=== PATIENT | male | born 1990 | race Caucasian/White ===

== ENCOUNTER 2025-04-07 00:03 | Inpatient (IN) | payer OTHER, SELFPAY ==
--- OUTSIDE RECORDS SUMMARY | 2025-04-07 00:09 | XMS_ITS | Encounter Summary ---
Author Organization [employer] [facility] Address [address] [place] [address] [place] [address] Care Team Providers Care Fire Management Officer Name Role Phone Luis Fernando Chavez MD Primary Care Provider [phone] Vero Mcnair Unavailable Yaquelin [place] RN Unavailable Unavailable Denisse Unger Unavailable ConnellyClaudia jarquinha [facility] Unavailable [phone] Rajesh Mancera [facility] Unavailable [phone] Reason for Visit * Reason Comments Med Refill Encounter Details Date Type Department Care Team (Late st Contact Info) Description 11/16/2022 Refill [facility] MAIN ADULT [address] [place] [address] Luis Fernando Chavez MD [address] [place] [address] Nausea Social History Tobacco Use Types Packs/Day Years Used Date Smoking Tobacco: Every Day Cigarettes Alcohol Use Standard Drinks/Week Comments Not Currently 0 (1 standard drink = 0.6 oz pur e alcohol) PHQ-2 Answer Date Recorded Patient Health Questionnaire-2 Score 0 08/22/2022 Depression Answer Date Recorded Patient Health Questionnaire-2 Score 0 08/22/2022 Sex and Gender Information Value Date Recorded Sex Assigned at Male 05/27/2022 2:14 PM EDT Legal Sex Male 2:14 PM EDT Gender Identity Male 05/27/2022 2:14 PM EDT Sexual Orientation Straight 03/11/2024 5: 59 PM EDT documented as of this encounter Plan of Treatment Upcoming Encounters Date Type Department Care Team (Late st Contact Info) Description 04/17/2025 1:20 PM EDT Office Visit [facility] MAIN ADULT [address] [place] [address] Luis Fernando Chavez MD [address] [place] [address] 04/28/2025 9:55 AM EDT Office Visit [facility] MAIN ADULT [address] [place] [address] Luis Fernando Chavez MD [address] [place] [address] documented as of this encounter Visit Diagnoses Diagnosis Nausea Nausea alone documented in this encounter Care Teams Fire Management Officer Relationship Specialty Start Date End Date Luis Fernando Chavez MD [address] [place] [address] PCP - General 07/27/21 Vero Mcnair Community Health Worker Behavioral Health 02/19/23 Yaquelin [place], RN Registered Nurse 05/03/24 Denisse Unger [address] [place] [address] Welcome Desk Agent Behavioral Health 01/31/25 02/28/25 Ethel Connelly, [facility] Welcome Desk Agent Behavioral Health 03/10/25 03/10/25 Rajesh Mancera, [facility] Welcome Desk Agent Behavioral Health 03/31/25 03/31/25 [facility] Registered Nurse 05/06/24 jordyn Grewal 01/18/25 documented as of this encounter
--- OUTSIDE RECORDS SUMMARY | 2025-04-07 00:09 | XMS_ITS | Encounter Summary ---
Author Organization [employer] [facility] Address [address] [place] [address] [place] [address] Care Team Providers Care Waste Management Specialist Name Role Phone Luis Fernando Chavez MD Primary Care Provider [phone] Vero Mcnair Unavailable Yaquelin [place] RN Unavailable Unavailable Denisse Unger Unavailable ConnellyClaudiaha [facility] Unavailable [phone] Rajesh Mancera [facility] Unavailable [phone] Reason for Visit * Reason Comments Med Refill Encounter Details Date Type Department Care Team (Late st Contact Info) Description 11/24/2022 Refill [facility] MAIN ADULT [address] [place] [address] Luis Fernando Chavez MD [address] [place] [address] Chronic bilateral low back pain with bilateral sciatica Social History Tobacco Use Types Packs/Day Years [...] PM EDT documented as of this encounter Miscellaneous Notes * Telephone Encounter - Luis Fernando Chavez MD - 11/24/2022 12:45 PM EDT Med already refilled documented in this encounter Plan of Treatment Upcoming Encounters Date Type Department Care Team (Late st Contact Info) Description 04/17/2025 1:20 PM EDT Office Visit [facility] MAIN ADULT [address] [place] [address] Luis Fernando Chavez MD [address] [place] [address] 04/28/2025 9:55 AM EDT Office Visit [facility] MAIN ADULT [address] [place] [address] Luis Fernando Chavez MD [address] [place] [address] documented as of this encounter Visit Diagnoses Diagnosis Chronic bilateral low back pain with bilateral sciatica documented in this encounter Care Teams Waste Management Specialist Relationship Specialty Start Date End Date Luis Fernando Chavez MD [address] [place] [address] PCP - General 07/27/21 Vero Mcnair Community Health Worker Behavioral Health 02/19/23 Yaquelin [place], RN Registered Nurse 05/03/24 Denisse Unger [address] [place] [address] Remarketing Manager Behavioral Health 01/31/25 02/28/25 Ethel Connelly, [facility] Remarketing Manager Behavioral Health 03/10/25 03/10/25 Rajesh Mancera, SONYA Remarketing Manager Behavioral Health 03/31/25 03/31/25 [facility] Registered Nurse 05/06/24 jordyn blackwood Vendor 01/18/25 documented as of this encounter
--- OUTSIDE RECORDS SUMMARY | 2025-04-07 00:09 | XMS_ITS | Encounter Summary ---
Author Organization [employer] [facility] Address [address] [place] [address] [place] [address] Care Team Providers Care Meat And Seafood Clerk Name Role Phone Luis Fernando Chavez MD Primary Care Provider [phone] Vero Mcnair Unavailable Yaquelin [place] RN Unavailable Unavailable Denisse Unger Unavailable ConnellyClaudiaha [facility] Unavailable [phone] Rajesh Mancera [facility] Unavailable [phone] Reason for Visit * Reason Comments Med Refill Encounter Details Date Type Department Care Team (Late st Contact Info) Description 11/27/2022 Refill [facility] MAIN ADULT [address] [place] [address] Luis Fernando Chavez MD [address] [place] [address] Chronic bilateral low back pain with bilateral [...] Encounter - Luis Fernando Chavez MD - 11/28/2022 8:15 AM EDT Med already refilled documented in this encounter Plan of Treatment Upcoming Encounters Date Type Department Care Team (Late st Contact Info) Description 04/17/2025 1:20 PM EDT Office Visit [facility] MAIN ADULT [address] [place] [address] Luis Fernando Chavez MD [address] [place] [address] 04/28/2025 9:55 AM EDT Office Visit [facility] MAIN ADULT [address] [place] [address] Luis Fernando Chavez MD [address] [place] [address] documented as of this encounter Visit Diagnoses Diagnosis Chronic bilateral low back pain with bilateral sciatica documented in this encounter Care Teams Meat And Seafood Clerk Relationship Specialty Start Date End Date Luis Fernando Chavez MD [address] [place] [address] PCP - General 07/27/21 Vero Mcnair Community Health Worker Behavioral Health 02/19/23 Yaquelin [place], RN Registered Nurse 05/03/24 Denisse Unger [address] [place] [address] Stevedoring Supervisor Behavioral Health 01/31/25 02/28/25 Ethel Connelly, [facility] Stevedoring Supervisor Behavioral Health 03/10/25 03/10/25 Rajesh Mancera, SONYA Stevedoring Supervisor Behavioral Health 03/31/25 03/31/25 [facility] Registered Nurse 05/06/24 jordyn blackwood Vendor 01/18/25 documented as of this encounter
--- OUTSIDE RECORDS SUMMARY | 2025-04-07 00:09 | XMS_ITS | Encounter Summary ---
Author Organization [employer] Address [address] [place] [address] 7 [place] [address] Care Team Providers Care Deaf/Hard Of Hearing Specialist Name Role Phone Luis Fernando Chavez MD Primary Care Provider [phone] Yaquelin [place] RN Unavailable Unavailable Denisse Unger Unavailable Ethel Connelly BLOCK BOLTER MULE OPERATOR Unavailable [phone] Rajesh Mancera LIQUOR ESTABLISHMENT MANAGER Unavailable Reason for Visit * Reason Comments Med Refill Encounter Details Date Type Department Care Team (Late st Contact Info) Description 09/08/2023 Refill [facility] MAIN ADULT [address] [place] [address] Luis Fernando Chavez MD [address] [place] [address] Social History Tobacco Use Types Packs/Day Years Used Date Smoking Tobacco: Every Day Cigarettes Alcohol Use Standard Drinks/Week Comments Not Currently 0 (1 standard drink = 0.6 oz pur e alcohol) PHQ-2 Answer Date Recorded Patient Health Questionnaire-2 Score 0 08/22/2022 Housing Stability Answer Date Recorded What is your housing situation today? I have lorenzo pizarro 05/11/[address] you li ve. Do you have problems with any of the following? I am not sure 05/11/2023 Food Insecurity Answer Date Recorded Within the past 12 months, y ou worried that your food would run out before you got money to buy more: Often true 05/11/2023 Within the past 12 months,th e food you bought just didn't last and you didn't have enough money to get more: Often true Transportation Answer Date Recorded In the past 12 months, has l ack of transportation kept you from medical appts, meetings, work or from getting things needed for daily living? I am not sure 05/11/2023 Utilities Answer Date Recorded In the past 12 months, has t he electric, gas, oil or water company threatened to shut off services in your home? I am not sure 05/11/2023 Depression Answer Date Recorded Patient Health Questionnaire-2 Score 0 08/22/2022 Sex and Gender Information Value Date Recorded Sex Assigned at Male 05/27/2022 2:14 PM EDT Legal Sex Male 2:14 PM EDT Gender Identity Male 05/27/2022 2:14 PM EDT Sexual Orientation Straight 03/11/2024 5: 59 PM EDT documented as of this encounter Miscellaneous Notes * Telephone Encounter - Luis Fernando Chavez MD - 09/08/2023 5:11 PM EST Approving, but needs appt for additional refills. documented in this encounter Plan of Treatment Upcoming Encounters Date Type Department Care Team (Late st Contact Info) Description 04/17/2025 1:20 PM EDT Office Visit [facility] MAIN ADULT [address] [place] [address] Luis Fernando Chavez MD [address] [place] [address] 04/28/2025 9:55 AM EDT Office Visit [facility] MAIN ADULT [address] [place] [address] Luis Fernando Chavez MD [address] [place] [address] documented as of this encounter Visit Diagnoses Not on filedocumented in this encounter Care Teams Deaf/Hard Of Hearing Specialist Relationship Specialty Start Date End Date Luis Fernando Chavez MD [address] [place] [address] PCP - General 07/27/21 Yaquelin [place], RN Registered Nurse 05/03/24 Denisse Unger [address] [place] [address] Back Digger Operator Behavioral Health 01/31/25 02/28/25 Ethel Connelly, [facility] Back Digger Operator Behavioral Health 03/10/25 03/10/25 Rajesh Mancera, [facility] Back Digger Operator Behavioral Health 03/31/25 03/31/25 [facility] Registered Nurse 05/06/24 jordyn Grewal 01/18/25 documented as of this encounter
--- OUTSIDE RECORDS SUMMARY | 2025-04-07 00:09 | XMS_ITS | Encounter Summary ---
Author Organization [employer] Address [address] [place] [address] 7 [place] [address] Care Team Providers Care Evidence Technician Name Role Phone Luis Fernando Chavez MD Primary Care Provider [phone] Yaquelin [place] RN Unavailable Unavailable Dneisse Unger Unavailable Ethel Connelly OCCUPATIONAL SAFETY AND HEALTH MANAGER Unavailable [phone] Rajesh Mancera GRADUATE TEACHING ASSOCIATE Unavailable [phone] Reason for Visit * Reason Comments Med Refill Encounter Details Date Type Department Care Team (Late st Contact Info) Description 09/01/2023 Refill [facility] MAIN ADULT [address] [place] [address] Luis Fernando Chavez MD [address] [place] [address] Social History Tobacco Use Types Packs/Day Years [...] encounter Miscellaneous Notes * Telephone Encounter - Yudelka Patel RN - 09/01/2023 12:18 PM EST Prescription already ordered. documented in this encounter Plan of Treatment Upcoming Encounters Date Type Department Care Team (Late st Contact Info) Description 04/17/2025 1:20 PM EDT Office Visit [facility] MAIN ADULT [address] [place] [address] Luis Fernando Chavez MD [address] [place] [address] 04/28/2025 9:55 AM EDT Office Visit [facility] MAIN ADULT [address] [place] [address] Luis Fernando Chavez MD [address] [place] [address] documented as of this encounter Visit Diagnoses Not on filedocumented in this encounter Care Teams Evidence Technician Relationship Specialty Start Date End Date Luis Fernando Chavez MD [address] [place] [address] PCP - General 07/27/21 Yaquelin [place], RN Registered Nurse 05/03/24 Denisse Unger [address] [place] [address] Mobile Sales Consultant Behavioral Health 01/31/25 02/28/25 Ethel Connelly, [facility] Mobile Sales Consultant Behavioral Health 03/10/25 03/10/25 Rajesh Mancera, [facility] Mobile Sales Consultant Behavioral Health 03/31/25 03/31/25 [facility] Registered Nurse 05/06/24 jordyn Grewal 01/18/25 documented as of this encounter
--- OUTSIDE RECORDS SUMMARY | 2025-04-07 00:09 | XMS_ITS | Encounter Summary ---
Author Organization [employer] Address [address] [place] [address] 7 [place] [address] Care Team Providers Care Process Environmental Technician Name Role Phone Luis Fernando Chavez MD Primary Care Provider [phone] Yaquelin [place] RN Unavailable Unavailable Denisse Unger Unavailable Ethel Connelly MILITARY PAY TECHNICIAN Unavailable [phone] Rajesh Mancera MEDICAL PRACTICE MANAGER Unavailable [phone] Reason for Visit * Reason Comments Med Refill Encounter Details Date Type Department Care Team (Late st Contact Info) Description 09/27/2023 Refill [facility] MAIN ADULT [address] [place] [address] Luis Fernando Chavez MD [address] [place] [address] Nausea Social History Tobacco Use Types Packs/Day [...] Encounter - Luis Fernando Chavez MD - 09/27/2023 6:55 PM EST Approving, but needs appt for additional refills. documented in this encounter Plan of Treatment Upcoming Encounters Date Type Department Care Team (Late st Contact Info) Description 04/17/2025 1:20 PM EDT Office Visit [facility] MAIN ADULT [address] [place] [address] Luis Fernando Chavez MD [address] [place] [address] 04/28/2025 9:55 AM EDT Office Visit [facility] MAIN ADULT [address] [place] [address] Luis Fernando Chavez MD [address] [place] [address] documented as of this encounter Visit Diagnoses Diagnosis Nausea Nausea alone documented in this encounter Care Teams Process Environmental Technician Relationship Specialty Start Date End Date Luis Fernando Chavez MD [address] [place] [address] PCP - General 07/27/21 Yaquelin [place], RN Registered Nurse 05/03/24 Denisse Unger [address] [place] [address] Drill Hand Behavioral Health 01/31/25 02/28/25 Ethel Connelly, [facility] Drill Hand Behavioral Health 03/10/25 03/10/25 Rajesh Mancera, [facility] Drill Hand Behavioral Health 03/31/25 03/31/25 [facility] Registered Nurse 05/06/24 jordyn Grewal 01/18/25 documented as of this encounter
--- OUTSIDE RECORDS SUMMARY | 2025-04-07 00:09 | XMS_ITS | Encounter Summary ---
Author Organization [employer] Address [address] [facility] 7 [place] [address] Care Team Providers Care Cathode Builder Name Role Phone Luis Fernando Chavez MD Primary Care Provider [phone] Yaquelin [place] RN Unavailable Unavailable Denisse Unger Unavailable Ethel Connelly PODIATRIC AIDE Unavailable [phone] Rajesh Mancera GRADING MACHINE FEEDER Unavailable [phone] Reason for Visit * Reason Onset Date Comments Med Refill 11/05/2023 Encounter Details Date Type Department Care Team (Late st Contact Info) Description 11/05/2023 Refill BN MAIN ADULT [address] [place] [address] Luis Fernando Chavez MD [address] [place], [place] [id number] Chronic bilateral low back pain without sciatica Social History Tobacco Use Types Packs/Day [...] Encounter - Luis Fernando Chavez MD - 11/05/2023 10:55 AM EDT Approving, but needs appt for additional refills. documented in this encounter Plan of Treatment Upcoming Encounters Date Type Department Care Team (Late st Contact Info) Description 04/17/2025 1:20 PM EDT Office Visit [facility] MAIN ADULT [address] [place] [address] Luis Fernando Chavez MD [address] [place] [address] 04/28/2025 9:55 AM EDT Office Visit [facility] MAIN ADULT [address] [place] [address] Luis Fernando Chavez MD [address] [place] [address] documented as of this encounter Visit Diagnoses Diagnosis Chronic bilateral low back pain without sciatica documented in this encounter Care Teams Cathode Builder Relationship Specialty Start Date End Date Luis Fernando Chavez MD [address] [place] [address] PCP - General 07/27/21 Yaquelin [place], RN Registered Nurse 05/03/24 Denisse Unger [address] [place] [address] Parts Counter Representative Behavioral Health 01/31/25 02/28/25 Ethel Connelly, [facility] Parts Counter Representative Behavioral Health 03/10/25 03/10/25 Rajesh Mancera, [facility] Parts Counter Representative Behavioral Health 03/31/25 03/31/25 [facility] Registered Nurse 05/06/24 jordyn Grewal 01/18/25 documented as of this encounter
--- OUTSIDE RECORDS SUMMARY | 2025-04-07 00:09 | XMS_ITS | Encounter Summary ---
Author Organization [employer] Address [address] [place] [address] 7 [place] [address] Care Team Providers Care Instrument Setter Name Role Phone Luis Fernando Chavez MD Primary Care Provider [phone] Yaquelin [place] RN Unavailable Unavailable Denisse Unger Unavailable Ethel Connelly VP CONSTRUCTION Unavailable [phone] Rajesh Mancera QUALITY ASSURANCE/R&D LAB TECHNICIAN Unavailable [phone] Reason for Visit * Reason Comments Med Refill Encounter Details Date Type Department Care Team (Late st Contact Info) Description 10/04/2023 Refill [facility] MAIN ADULT [address] [place] [address] Luis Fernando Chavez MD [address] [place] [address] Chronic bilateral low back pain with bilateral sciatica; Chronic bilateral low back pain without sciatica [...] Encounter - Luis Fernando Chavez MD - 10/07/2023 12:20 PM EDT Approving, but needs appt for additional refills. * Telephone Encounter - Ellen [place] - 10/07/2023 11:13 AM EDT Pt called to check the status of med refill request for ( Tramadol 50 MG ). Please advise . * Telephone Encounter - Yasmin Razo LPN - 10/06/2023 12:29 PM EDT PA for Pregabalin 300mg has been approval. Notification received today by email. MARY # [id number]. * Telephone Encounter - Yudelka Patel RN - 10/05/2023 11:48 AM EDT Message was sent to front office to request that they contact the patient to schedule a PCP visit for future refills. * Telephone Encounter - Luis Fernando Chavez MD - 10/04/2023 9:32 PM EDT Approving, but needs appt for additional refills. documented in this encounter Plan of Treatment Upcoming Encounters Date Type Department Care Team (Late st Contact Info) Description 04/17/2025 1:20 PM EDT Office Visit [facility] MAIN ADULT [address] [place] [address] Luis Fernando Chavez MD [address] [place] [address] 04/28/2025 9:55 AM EDT Office Visit [facility] MAIN ADULT [address] [place] [address] Luis Fernando Chavez MD [address] [place] [address] documented as of this encounter Visit Diagnoses Diagnosis Chronic bilateral low back pain with bilateral sciatica Chronic bilateral low back pain without sciatica documented in this encounter Care Teams Instrument Setter Relationship Specialty Start Date End Date Luis Fernando Chavez MD [address] [place] [address] PCP - General 07/27/21 Yaquelin [place], RN Registered Nurse 05/03/24 Denisse Unger [address] [place] [address] Curriculum Consultant Behavioral Health 01/31/25 02/28/25 Ethel Connelly, [facility] Curriculum Consultant Behavioral Health 03/10/25 03/10/25 Rajesh Mancera, QUALITY ASSURANCE/R&D LAB TECHNICIAN Curriculum Consultant Behavioral Health 03/31/25 03/31/25 [facility] Registered Nurse 05/06/24 jordyn blackwood Vendor 01/18/25 documented as of this encounter
--- OUTSIDE RECORDS SUMMARY | 2025-04-07 00:09 | XMS_ITS | Encounter Summary ---
Author Organization [employer] Address [address] [place] [address] 7 [place] [address] Care Team Providers Care Insurance Collector Name Role Phone Luis Fernando Chavez MD Primary Care Provider [phone] Yaquelin [place] RN Unavailable Unavailable Denisse Unger Unavailable Ethel Connelly COPYING MACHINE MECHANIC Unavailable [phone] Rajesh Mancera COOK HELPER PRESERVES Unavailable [phone] Reason for Visit * Reason Comments Med Refill Encounter Details Date Type Department Care Team (Late st Contact Info) Description 09/30/2023 Refill [facility] MAIN ADULT [address] [place] [address] Luis Fernando Chavez MD [address] [place] [address] Chronic bilateral low back pain with bilateral [...] Encounter - Luis Fernando Chavez MD - 09/30/2023 9:51 AM EST Med already refilled documented in this encounter Plan of Treatment Upcoming Encounters Date Type Department Care Team (Late st Contact Info) Description 04/17/2025 1:20 PM EDT Office Visit [facility] MAIN ADULT [address] [place] [address] Luis Fernando Chavez MD [address] [place] [address] 04/28/2025 9:55 AM EDT Office Visit [facility] MAIN ADULT [address] [place] [address] Luis Fernando Chavez MD [address] [place] [address] documented as of this encounter Visit Diagnoses Diagnosis Chronic bilateral low back pain with bilateral sciatica documented in this encounter Care Teams Insurance Collector Relationship Specialty Start Date End Date Luis Fernando Chavez MD [address] [place] [address] PCP - General 07/27/21 Yaquelin [place], RN Registered Nurse 05/03/24 Denisse Unger [address] [place] [address] Change Consultant Behavioral Health 01/31/25 02/28/25 Ethel Connelly, [facility] Change Consultant Behavioral Health 03/10/25 03/10/25 Rajesh Mancera, [facility] Change Consultant Behavioral Health 03/31/25 03/31/25 [facility] Registered Nurse 05/06/24 jordyn Grewal 01/18/25 documented as of this encounter
--- OUTSIDE RECORDS SUMMARY | 2025-04-07 00:09 | XMS_ITS | Encounter Summary ---
Author Organization [employer] Address [address] [place] [address] 7 [place] [address] Care Team Providers Care Communications Planner Name Role Phone Luis Fernando Chavez MD Primary Care Provider [phone] Yaquelin Stoddard RN Unavailable Unavailable Denisse Unger Unavailable Ethel Connelly DIRECTOR LEARNING Unavailable [phone] Rajesh Mancera INDUSTRIAL RELATIONS COUNSELOR Unavailable [phone] Reason for Visit * Reason Comments Med Refill Encounter Details Date Type Department Care Team (Late st Contact Info) Description 09/07/2023 Refill [facility] MAIN ADULT [address] [place] [address] Luis Fernando Chavez MD [address] [place] [address] Chronic bilateral low back pain with bilateral [...] Encounter - Luis Fernando Chavez MD - 09/07/2023 7:23 PM EST Approving, but needs appt for additional refills. documented in this encounter Plan of Treatment Upcoming Encounters Date Type Department Care Team (Late st Contact Info) Description 04/17/2025 1:20 PM EDT Office Visit [facility] MAIN ADULT [address] [place] [address] Luis Fernando Chavez MD [address] [place] [address] 04/28/2025 9:55 AM EDT Office Visit [facility] MAIN ADULT [address] [place] [address] Luis Fernando Chavez MD [address] [place] [address] documented as of this encounter Visit Diagnoses Diagnosis Chronic bilateral low back pain with bilateral sciatica documented in this encounter Care Teams Communications Planner Relationship Specialty Start Date End Date Luis Fernando Chavez MD [address] [place] [address] PCP - General 07/27/21 Yaquelin Stoddard, RN Registered Nurse 05/03/24 Denisse Unger [address] [place] [address] Anesthesiologist Behavioral Health 01/31/25 02/28/25 Ethel Connelly, [facility] Anesthesiologist Behavioral Health 03/10/25 03/10/25 Rajesh Mancera, [facility] Anesthesiologist Behavioral Health 03/31/25 03/31/25 [facility] Registered Nurse 05/06/24 jordyn Grewal 01/18/25 documented as of this encounter
--- OUTSIDE RECORDS SUMMARY | 2025-04-07 00:09 | XMS_ITS | Encounter Summary ---
Author Organization [employer] Address [address] [place] [address] 7 [place] [address] Care Team Providers Care Supervisor Rolling Room Name Role Phone Luis Fernando Chavez MD Primary Care Provider [phone] Yaquelin Stoddard RN Unavailable Unavailable Rajesh Mancera LCSW Unavailable [phone] Reason for Visit * Reason Onset Date Comments Med Refill 03/17/2025 Encounter Details Date Type Department Care Team (Late st Contact Info) Description 03/17/2025 Refill [facility] MAIN ADULT [address] [place] [address] Yasmin Razo LPN Chronic bilateral low back pain with bilateral sciatica Social History Tobacco Use Types Packs/Day Years Used Date Smoking Tobacco: Some Days Cigarettes Smokeless Tobacco: Former Quit: 11/29/2023 Alcohol Use Standard Drinks/Week Comments Not Currently 0 (1 standard drink = 0.6 oz pur e alcohol) Depression Answer Date Recorded Patient Health Questionnaire-9 Score 10 03/20/2025 Patient Health Questionnaire-9 Score 10 03/20/2025 Last PHQ-9: Questionnaire Data Not on file 0 03/20/2025 Housing Stability Answer Date Recorded What is your housing situation today? I have housing today, but I am worried about losing housing in the future 08/30/[address] you li ve. Do you have problems with any of the following? None of the above 08/30/2024 Food Insecurity Answer Date Recorded Within the past 12 months, y ou worried that your food would run out before you got money to buy more: Sometimes True 2024 Within the past 12 months,th e food you bought just didn't last and you didn't have enough money to get more: Sometimes True 08/30/2024 Transportation Answer Date Recorded In the past 12 months, has l ack of transportation kept you from medical appts, meetings, work or from getting things needed for daily living? No 08/30/2024 Utilities Answer Date Recorded In the past 12 months, has t he electric, gas, oil or water company threatened to shut off services in your home? No 08/30/2024 Depression Answer Date Recorded Patient Health Questionnaire-2 Score 2 03/20/2025 Internet Access Answer Date Recorded Internet Access Q1 Yes 08/30/2024 Internet Access Q2 Not on file 08/30/2024 Sex and Gender Information Value Date Recorded Sex Assigned at Male 05/27/2022 2:14 PM EDT Legal Sex Male 2:14 PM EDT Gender Identity Male 05/27/2022 2:14 PM EDT Sexual Orientation Straight 03/11/2024 5: 59 PM EDT documented as of this encounter Functional Status * Over the past 2 weeks, how often have you been bothered by any of the following problems? Question Answer Date of Assessment Author Patient Health Questionnaire -2 Score 2 03/20/2025 9:31 AM EDT Alma Crad * Little interest or pleasure in doing things Answer Date of Assessment Author Several days 03/20/2025 9:31 AM EDT Debbie Mcgee * Feeling down, depressed, or hopeless Answer Date of Assessment Author Several days 03/20/2025 9:31 AM KODYT Debbie Mcgee * Trouble falling or staying asleep, or sleeping too much Answer Date of Assessment Author Several days 03/20/2025 9:31 AM EDT Debbie Mcgee * Feeling tired or having little energy Answer Date of Assessment Author Several days 03/20/2025 9:31 AM EDT Debbie Mcgee * Poor appetite or overeating Answer Date of Assessment Author Several days 03/20/2025 9:31 AM KODYT Debbie Mcgee * Feeling bad about yourself - or that you are a failure or have let yourself or your family down Answer Date of Assessment Author More than half the days 03/20/2025 9:31 AM EDT Debbie Medina * Trouble concentrating on things, such as reading the newspaper or watching television Answer Date of Assessment Author More than half the days 03/20/2025 9:31 AM EDT Debbie Medina * Moving or speaking so slowly that other people could have noticed? Or the opposite - being so fidgety or restless that you have been moving around a lot more than usual. Answer Date of Assessment Author Several days 03/20/2025 9:31 AM EDT Debbie Mcgee * Thoughts that you would be better off or hurting yourself in some way Answer Date of Assessment Author Not at all 03/20/2025 9:31 AM EDT Debbie Mcgee * Patient Health Questionnaire-9 Score Answer Date of Assessment Author 10 03/20/2025 9:31 AM KODYT Debbie Mcgee * Over the last 2 weeks, how often have you been bothered by any of the following problems? Question Answer Date of Assessment Author Feeling nervous, anxious, or on edge 3 03/20/2025 9:31 AM EDT Alma Card atricia Not being able to stop or control worrying 3 03/20/2025 9:31 AM EDT Alma Card atricia Worrying too much about different things 3 03/20/2025 9:31 AM EDT Alma Card atricia Trouble relaxing 3 03/20/2025 9:31 AM EDT Debbie Medina Being so restless that it is hard to sit still 3 03/20/2025 9:31 AM EDT Alma Card atricia Becoming easily annoyed or irritable 3 03/20/2025 9:31 AM EDT Alma Card atricia Feeling afraid as if somethi ng awful might happen 3 03/20/2025 9:31 AM EDT Alma Card atricigerman EMMETT-7 Total Score 21 03/20/2025 9:31 AM Debbie Quevedo documented as of this encounter Plan of Treatment Upcoming Encounters Date Type Department Care Team (Late st Contact Info) Description 04/17/2025 1:20 PM EDT Office Visit [facility] MAIN ADULT [address] [place] [address] Luis Fernando Chavez MD [address] [place] [address] 04/28/2025 9:55 AM EDT Office Visit [facility] MAIN ADULT [address] [place] [address] Luis Fernando Chavez MD [address] [place] [address] documented as of this encounter Visit Diagnoses Diagnosis Chronic bilateral low back pain with bilateral sciatica documented in this encounter Additional Health Concerns Assessment Noted Time PHQ-9 Depression Total Score: 21 024 1:54 PM EDT documented as of this encounter Care Teams Supervisor Rolling Room Relationship Specialty Start Date End Date Luis Fernando Chavez MD [address] [place] [address] PCP - General 07/27/21 Yaquelin Stoddard, RN Registered Nurse 05/03/24 Rajesh Mancera, [facility] Supply Person Behavioral Health 03/31/25 03/31/25 [facility] Registered Nurse 05/06/24 jordyn Grewal 01/18/25 documented as of this encounter
--- OUTSIDE RECORDS SUMMARY | 2025-04-07 00:09 | XMS_ITS | Encounter Summary ---
Author Organization [employer] Address [address] [facility] 7 [place] [address] Care Team Providers Care Glass Sander Belt Name Role Phone Luis Fernando Chavez MD Primary Care Provider [phone] Yaquelin Stoddard RN Unavailable Unavailable Denisse Unger Unavailable Ethel Connelly TAPE CONTROLLED MACHINE STITCHER Unavailable Rajesh Mancera HRBP Unavailable [phone] Reason for Visit * Reason Onset Date Comments Med Refill 11/03/2023 Encounter Details Date Type Department Care Team (Late st Contact Info) Description 11/03/2023 Refill [facility] MAIN ADULT [address] [place] [address] Luis Fernando Chavez MD [address] [place], [place] [id number] Chronic bilateral low back pain without sciatica [...] Encounter - Luis Fernando Chavez MD - 11/03/2023 11:29 AM EDT Med already refilled documented in this encounter Plan of Treatment Upcoming Encounters Date Type Department Care Team (Late st Contact Info) Description 04/17/2025 1:20 PM EDT Office Visit [facility] MAIN ADULT [address] [place] [address] Luis Fernando Chavez MD [address] [place] [address] 04/28/2025 9:55 AM EDT Office Visit [facility] MAIN ADULT [address] [place] [address] Luis Fernando Chavez MD [address] [place] [address] documented as of this encounter Visit Diagnoses Diagnosis Chronic bilateral low back pain without sciatica documented in this encounter Care Teams Glass Sander Belt Relationship Specialty Start Date End Date Luis Fernando Chavez MD [address] [place] [address] PCP - General 07/27/21 Yaquelin Stoddard, RN Registered Nurse 05/03/24 Denisse Unger [address] [place] [address] Metal Stamping Machine Operator Behavioral Health 01/31/25 02/28/25 Ethel Connelly, [facility] Metal Stamping Machine Operator Behavioral Health 03/10/25 03/10/25 Rajesh Mancera, [facility] Metal Stamping Machine Operator Behavioral Health 03/31/25 03/31/25 [facility] Registered Nurse 05/06/24 jordyn Grewal 01/18/25 documented as of this encounter
--- OUTSIDE RECORDS SUMMARY | 2025-04-07 00:09 | XMS_ITS | Encounter Summary ---
Author Organization [email or web address] Address [address] [place] [address] 7 [place] [address] Care Team Providers Care Shank Inspector Name Role Phone Luis Fernando Chavez MD Primary Care Provider [phone] Yaquelin Stoddard RN Unavailable Unavailable Rajesh Mancera LCSW Unavailable [phone] Encounter Details Date Type Department Care Team ([facility] st Contact Info) Description 03/20/2025 Orders Only [facility] MAIN ADULT [address] [place] [address] Maria De Jesus Lau MD [address] [place] [address] Social History Tobacco Use Types Packs/Day Years [...] Score 2 03/20/2025 9:31 AM EDT Alma Card * Little interest or pleasure in doing things Answer Date of Assessment Author Several days 03/20/2025 9:31 AM EDT Debbie Mcgee * Feeling down, depressed, or hopeless Answer Date of Assessment Author Several days 03/20/2025 9:31 AM EDT Debbie Mcgee * Trouble falling or staying [...] 9:31 AM EDT Debbie Mcgee * Feeling bad about yourself [...] Assessment Author Several days 03/20/2025 9:31 AM Debbie Singer * Thoughts that you would be better off or hurting yourself in some way Answer Date of Assessment Author Not at all 03/20/2025 9:31 AM Debbie Singer * Patient Health Questionnaire-9 Score Answer Date of Assessment Author 10 03/20/2025 9:31 AM Debbie Singer * Over the last 2 weeks, how often have you been bothered by any of the following problems? Question Answer Date of Assessment Author Feeling nervous, anxious, or on edge 3 03/20/2025 9:31 AM EDAlma Vernon atricia Not being able to stop or control worrying 3 03/20/2025 9:31 AM Alma Quevedo atricia Worrying too much about different things 3 03/20/2025 9:31 AM Alma Quevedo atricia Trouble relaxing 3 03/20/2025 9:31 AM EDT Debbie Medina Being so restless that it is hard to sit still 3 03/20/2025 9:31 AM EDAlma Vernon atricia Becoming easily annoyed or irritable 3 03/20/2025 9:31 AM EDT Alma Card atricia Feeling afraid as if somethi ng awful might happen 3 03/20/2025 9:31 AM Alma Quevedo atricigerman EMMETT-7 Total Score 21 03/20/2025 9:31 AM Debbie Quevedo documented as of this encounter Plan of Treatment Upcoming Encounters Date Type Department Care Team (Late st Contact Info) Description 04/17/2025 1:20 PM EDT Office Visit [facility] MAIN ADULT [address] [place] [address] Luis Fernando Chavez MD [address] [place] [address] 04/28/2025 9:55 AM EDT Office Visit [facility] MAIN ADULT [address] [place] [address] Luis Fernando Chavez MD [address] [place] [address] documented as of this encounter Visit Diagnoses Not on filedocumented in this encounter Additional Health Concerns Assessment Noted Time PHQ-9 Depression Total Score: 10 025 9:31 AM EDT documented as of this encounter Care Teams Shank Inspector Relationship Specialty Start Date End Date Luis Fernando Chavez MD [address] [place] [address] PCP - General 07/27/21 Yaquelin Stoddard, RN Registered Nurse 05/03/24 Rajesh Mancera, [facility] Track Walker Behavioral Health 03/31/25 03/31/[address] [facility] Registered Nurse 05/06/24 jordyn Grewal 01/18/25 documented as of this encounter
--- OUTSIDE RECORDS SUMMARY | 2025-04-07 00:10 | XMS_ITS | Encounter Summary ---
Author Organization [employer] Address [address] [place] [address] 7 [place] [address] Care Team Providers Care Chief Lending Officer Name Role Phone Luis Fernando Chavez MD Primary Care Provider [phone] Yaquelin Stoddard RN Unavailable Unavailable Denisse Unger Unavailable Ethel Connelly TEACHING YOUNG Unavailable [phone] Rajesh Mancera VIDEO TAPE DUPLICATOR Unavailable [phone] Reason for Visit * Reason Comments Med Refill Encounter Details Date Type Department Care Team (Late st Contact Info) Description 10/31/2023 Refill [facility] MAIN ADULT [address] [place] [address] Luis Fernando Chavez MD [address] [place] [address] Social History Tobacco Use Types Packs/Day Years [...] Encounter - Luis Fernando Chavez MD - 11/01/2023 7:56 PM EDT Approving, but needs appt for additional refills. documented in this encounter Plan of Treatment Upcoming Encounters Date Type Department Care Team (Late st Contact Info) Description 04/17/2025 1:20 PM EDT Office Visit [facility] MAIN ADULT [address] [place] [address] Luis Fernando Chavez MD [address] [place] [address] 04/28/2025 9:55 AM EDT Office Visit [facility] MAIN ADULT [address] [place] [address] Luis Fernando Chavez MD [address] [place] [address] documented as of this encounter Visit Diagnoses Not on filedocumented in this encounter Care Teams Chief Lending Officer Relationship Specialty Start Date End Date Luis Fernando Chavez MD [address] [place] [address] PCP - General 07/27/21 Yaquelin Stoddard, RN Registered Nurse 05/03/24 Denisse Unger [address] [place] [address] Student Assistance Counselor Behavioral Health 01/31/25 02/28/25 Ethel Connelly, [facility] Student Assistance Counselor Behavioral Health 03/10/25 03/10/25 Rajesh Mancera, [facility] Student Assistance Counselor Behavioral Health 03/31/25 03/31/25 [facility] Registered Nurse 05/06/24 jordyn Grewal 01/18/25 documented as of this encounter
--- OUTSIDE RECORDS SUMMARY | 2025-04-07 00:10 | XMS_ITS | Encounter Summary ---
Author Organization [facility] Address [address] [place] [address] [place] [address] Care Team Providers Care Loss Control Manager Name Role Phone Luis Fernando Chavez MD Primary Care Provider [phone] Vero Mcnair Unavailable Yaquelin Stoddard RN Unavailable Unavailable Denisse Unger Unavailable ConnellyClaudia jarquinha [facility] Unavailable Rajesh Mancera [facility] Unavailable [phone] Reason for Visit * Reason Comments Med Refill Encounter Details Date Type Department Care Team (Late st Contact Info) Description 11/03/2022 Telephone [facility] MAIN ADULT [address] [place] [address] Luis Fernando Chavez MD [address] [place] [address] Med Refill Social History Tobacco Use Types Packs/Day Years [...] Encounter - Luis Fernando Chavez MD - 11/03/2022 9:06 AM EDT Approving, but needs appt for additional refills. documented in this encounter Plan of Treatment Upcoming Encounters Date Type Department Care Team (Late st Contact Info) Description 04/17/2025 1:20 PM EDT Office Visit [facility] MAIN ADULT [address] [place] [address] Luis Fernando Chavez MD [address] [place] [address] 04/28/2025 9:55 AM EDT Office Visit [facility] MAIN ADULT [address] [place] [address] Luis Fernando Chavez MD [address] [place] [address] documented as of this encounter Visit Diagnoses Diagnosis Chronic bilateral low back pain with bilateral sciatica Nausea Nausea alone documented in this encounter Care Teams Loss Control Manager Relationship Specialty Start Date End Date Luis Fernando Chavez MD [address] [place] [address] PCP - General 07/27/21 Vero Mcnair Community Health Worker Behavioral Health 02/19/23 Yaquelin Stoddard, RN Registered Nurse 05/03/24 Denisse Unger [address] [place] [address] Freelance Web Designer Behavioral Health 01/31/25 02/28/25 Ethel Connelly, [facility] Freelance Web Designer Behavioral Health 03/10/25 03/10/25 Rajesh Mancera, CABINET ABRASIVE SANDBLASTER Freelance Web Designer Behavioral Health 03/31/25 03/31/25 [facility] Registered Nurse 05/06/24 jordyn blackwood Vendor 01/18/25 documented as of this encounter
--- OUTSIDE RECORDS SUMMARY | 2025-04-07 00:10 | XMS_ITS | Encounter Summary ---
Author Organization [employer] Address [address] [place] [address] 7 [place] [address] Care Team Providers Care Parts Counterperson Name Role Phone Luis Fernando Chavez MD Primary Care Provider [phone] Yaquelin Stoddard RN Unavailable Unavailable Denisse Unger Unavailable Ethel Connelly [employer] Unavailable [phone] Rajesh Mancera HELP DESK REPRESENTATIVE Unavailable [phone] Reason for Visit * Reason Comments Med Refill Encounter Details Date Type Department Care Team (Late st Contact Info) Description 01/05/2024 Refill [facility] MAIN ADULT [address] [place] [address] Luis Fernando Chavez MD [address] [place] [address] Chronic bilateral low back pain without sciatica; Nausea Social History Tobacco Use Types Packs/Day Years Used Date Smoking Tobacco: Former Cigarettes Smokeless Tobacco: Former Quit: 11/29/2023 Alcohol Use Standard Drinks/Week Comments Not Currently 0 (1 standard drink = 0.6 oz pur e alcohol) Depression Answer Date Recorded Patient Health Questionnaire-9 Score 21 12/02/2023 Patient Health Questionnaire-9 Score 21 12/02/2023 Last PHQ-9: Questionnaire Data Not on file 0 12/02/2023 Housing Stability Answer Date Recorded What is [...] the past 12 months, has t he [employer], [employer], oil or water company threatened to shut off services in your home? I am not sure 05/11/2023 Depression Answer Date Recorded Patient Health Questionnaire-2 Score 6 12/02/2023 Sex and Gender Information Value Date Recorded Sex Assigned at Male 05/27/2022 2:14 PM EDT Legal Sex Male 2:14 PM EDT Gender Identity Male 05/27/2022 2:14 PM EDT Sexual Orientation Straight 03/11/2024 5: 59 PM EDT documented as of this encounter Miscellaneous Notes * Telephone Encounter - Luis Fernando Chavez MD - 01/05/2024 12:29 PM EDT Approving, but needs appt for additional refills. * Telephone Encounter - Rebeca Concepcion RN - 01/05/2024 10:56 AM EDT Heath Trevino is a 33 y.o. male Refill requested as listed below: Requested Prescriptions Pending Prescriptions Disp Refills traMADol (Ultram) 50 MG tablet [Pharmacy Med Name: TRAMADOL 50MG TABLETS] 240 tablet Sig: TAKE 2 TABLETS(100 MG) BY MOUTH FOUR TIMES DAILY ondansetron ODT (Zofran-ODT) 4 MG disintegrating tablet [Pharmacy Med Name: ONDANSETRON ODT 4MG TABLETS] 30 tablet 0 Sig: DISSOLVE 1 TABLET(4 MG) ON THE TONGUE EVERY 8 HOURS NEEDED FOR NAUSEA OR VOMITING Last Adult Medicine In-Office Visit: 12/07/2023 Future Appointments Date Time Provider Department Center 01/18/2024 2:40 PM Luis Fernando Chavez MD [place] [facility] BP Readings from Last 3 Encounters: 12/07/23 140/90 10/20/23 115/87 07/15/23 125/87 documented in this encounter Plan of Treatment Upcoming Encounters Date Type Department Care Team (Late st Contact Info) Description 04/17/2025 1:20 PM EDT Office Visit [facility] MAIN ADULT [address] [place] [address] Luis Fernando Chavez MD [address] [place] [address] 04/28/2025 9:55 AM EDT Office Visit [facility] MAIN ADULT [address] [place] [address] Luis Fernando Chavez MD [address] [place] [address] documented as of this encounter Visit Diagnoses Diagnosis Chronic bilateral low back pain without sciatica Nausea Nausea alone documented in this encounter Additional Health Concerns Assessment Noted Time PHQ-9 Depression Total Score: 21 024 1:54 PM EDT documented as of this encounter Care Teams Parts Counterperson Relationship Specialty Start Date End Date Luis Fernando Chavez MD [address] [place] [address] PCP - General 07/27/21 Yaquelin Stoddard, RN Registered Nurse 05/03/24 Denisse Unger [address] [place] [address] Health And Wellness Coordinator Behavioral Health 01/31/25 02/28/25 Ethel Connelly, [facility] Health And Wellness Coordinator Behavioral Health 03/10/25 03/10/25 Rajesh Mancera, [facility] Health And Wellness Coordinator Behavioral Health 03/31/25 03/31/25 [facility] Registered Nurse 05/06/24 jordyn blackwood Vendor 01/18/25 documented as of this encounter
--- OUTSIDE RECORDS SUMMARY | 2025-04-07 00:10 | XMS_ITS | Encounter Summary ---
Author Organization [employer] [facility] Address [address] [place] [address] [place] [address] Care Team Providers Care Veneer Sawyer Name Role Phone Luis Fernando Chavez MD Primary Care Provider [phone] Vero Mcnair Unavailable Yaquelin Stoddard RN Unavailable Unavailable Denisse Unger Unavailable ConnellyClaudiaha [facility] Unavailable [phone] Rajesh Mancera [facility] Unavailable [phone] Reason for Visit * Reason Comments Med Refill Encounter Details Date Type Department Care Team (Late st Contact Info) Description 10/26/2022 Refill [facility] MAIN ADULT [address] [place] [address] Luis Fernando Chavez MD [address] [place] [address] Chronic bilateral low back pain with bilateral [...] Encounter - Luis Fernando Chavez MD - 10/31/2022 2:04 PM EDT Approving, but needs appt for additional refills. * Telephone Encounter - Luis Fernando Chavez MD - 10/26/2022 7:51 PM EDT Med already refilled documented in this encounter Plan of Treatment Upcoming Encounters Date Type Department Care Team (Late st Contact Info) Description 04/17/2025 1:20 PM EDT Office Visit [facility] MAIN ADULT [address] [place] [address] Luis Fernando Chavez MD [address] [place] [address] 04/28/2025 9:55 AM EDT Office Visit [facility] MAIN ADULT [address] [place] [address] Luis Fernando Chavez MD [address] [place] [address] documented as of this encounter Visit Diagnoses Diagnosis Chronic bilateral low back pain with bilateral sciatica documented in this encounter Care Teams Veneer Sawyer Relationship Specialty Start Date End Date Luis Fernando Chavez MD [address] [place] [address] PCP - General 07/27/21 Vero Mcnair Community Health Worker Behavioral Health 02/19/23 Yaquelin Stoddard, RN Registered Nurse 05/03/24 Denisse Unger [address] [place] [address] Piece Maker Behavioral Health 01/31/25 02/28/25 Ethel Connelly, [facility] Piece Maker Behavioral Health 03/10/25 03/10/25 Rajesh Mancera, [facility] Piece Maker Behavioral Health 03/31/25 03/31/25 [facility] Registered Nurse 05/06/24 jordyn Thapaor 01/18/25 documented as of this encounter
--- OUTSIDE RECORDS SUMMARY | 2025-04-07 00:10 | XMS_ITS | Encounter Summary ---
Author Organization [employer] Address [address] [facility] 7 [place] [address] Care Team Providers Care Insulation Blanket Maker Name Role Phone Luis Fernando Chavez MD Primary Care Provider [phone] Yaquelin Stoddard RN Unavailable Unavailable Denisse Unger Unavailable Ethel Connelly ACETYLENE CYLINDER PACKING MIXER Unavailable Rajesh Mancera CONE WORKER Unavailable [phone] Reason for Visit * Reason Onset Date Comments Med Refill 11/17/2023 Encounter Details Date Type Department Care Team (Late st Contact Info) Description 11/17/2023 Refill [facility] MAIN ADULT [address] [place] [address] Luis Fernando Chavez MD 63 [place], [place] [id number] Chronic bilateral low back pain with bilateral [...] Encounter - Luis Fernando Chavez MD - 11/17/2023 9:35 AM EDT Approving, but needs appt for additional refills. * Telephone Encounter - Ellen Stoddard - 11/17/2023 9:28 AM EDT Pt called requesting med refill for ( Pregabalin 300 MG ) . Please advise . documented in this encounter Plan of Treatment Upcoming Encounters Date Type Department Care Team (Late st Contact Info) Description 04/17/2025 1:20 PM EDT Office Visit [facility] MAIN ADULT [address] [place] [address] Luis Fernando Chavez MD [address] [place] [address] 04/28/2025 9:55 AM EDT Office Visit [facility] MAIN ADULT [address] [place] [address] Luis Fernando Chavez MD [address] [place] [address] documented as of this encounter Visit Diagnoses Diagnosis Chronic bilateral low back pain with bilateral sciatica documented in this encounter Care Teams Insulation Blanket Maker Relationship Specialty Start Date End Date Luis Fernando Chavez MD [address] [place] [address] PCP - General 07/27/21 Yaquelin Stoddard, RN Registered Nurse 05/03/24 Denisse Unger [address] [place] [address] Salon Leader Behavioral Health 01/31/25 02/28/25 Ethel Connelly, [facility] Salon Leader Behavioral Health 03/10/25 03/10/25 Rajesh Mancera, [facility] Salon Leader Behavioral Health 03/31/25 03/31/25 [facility] Registered Nurse 05/06/24 jordyn Grewal 01/18/25 documented as of this encounter
--- OUTSIDE RECORDS SUMMARY | 2025-04-07 00:10 | XMS_ITS | Encounter Summary ---
Author Organization [employer] Address [address] [place] [address] 7 [place] [address] Care Team Providers Care Steam Box Operator Name Role Phone Luis Fernando Chavez MD Primary Care Provider [phone] Yaquelin Stoddard RN Unavailable Unavailable Denisse Unger Unavailable Ethel Connelly DIRECTOR OF PEOPLE Unavailable [phone] Rajesh Mancera GRAPHIC TECHNICIAN Unavailable [phone] Reason for Visit * Reason Comments Med Refill Encounter Details Date Type Department Care Team (Late st Contact Info) Description 12/15/2023 Refill [facility] MAIN ADULT [address] [place] [address] Luis Fernando Chavez MD [address] [place] [address] Chronic bilateral low back pain with bilateral [...] the past 12 months, has t he [email or web address], [email or web address], oil or water [employer] threatened to shut off services in your [...] Encounter - Luis Fernando Chavez MD - 12/15/2023 12:59 PM EDT Approving, but needs appt for additional refills. * Telephone Encounter - Kay Murillo LPN - 12/15/2023 10:40 AM EDT Heath Dietrichstephaniefela is a 33 y.o. male Refill requested as listed below: Requested Prescriptions Pending Prescriptions Disp Refills pregabalin (Lyrica) 300 MG capsule [Pharmacy Med Name: PREGABALIN 300MG CAPSULES] 60 capsule Sig: TAKE 1 CAPSULE(300 MG) BY MOUTH TWICE DAILY Last Adult Medicine In-Office Visit: 12/07/2023 Future Appointments Date Time Provider Department Center 01/18/2024 2:40 PM Luis Fernando Chavez MD [place] [facility] BP Readings from Last 3 Encounters: 12/07/23 140/90 10/20/23 115/87 07/15/23 125/87 Health Maintenance Due Topic Date Due Lipid Panel Never done HIV Screening Never done Hepatitis C Screening Never done Hepatitis B Vaccines (1 of 3 - 19+ 3-dose series) Never done Hepatitis A Vaccines (1 of 2 - Risk 2-dose series) Never done Influenza Vaccine (1) 03/27/2023 COVID-19 Vaccine (4 - 2022- season) 2023 documented in this encounter Plan of Treatment Upcoming Encounters Date Type Department Care Team (Late st Contact Info) Description 04/17/2025 1:20 PM EDT Office Visit [facility] MAIN ADULT [address] [place] [address] Luis Fernando Chavez MD [address] [place] [address] 04/28/2025 9:55 AM EDT Office Visit [facility] MAIN ADULT [address] [place] [address] Luis Fernando Chavez MD [address] [place] [address] documented as of this encounter Visit Diagnoses Diagnosis Chronic bilateral low back pain with bilateral sciatica documented in this encounter Additional Health Concerns Assessment Noted Time PHQ-9 Depression Total Score: 21 024 1:54 PM EDT documented as of this encounter Care Teams Steam Box Operator Relationship Specialty Start Date End Date Luis Fernando Chavez MD [address] [place] [address] PCP - General 07/27/21 Yaquelin Stoddard, RN Registered Nurse 05/03/24 Denisse Unger [address] [place] [address] Rolled Gold Plater Behavioral Health 01/31/25 02/28/25 Ethel Connelly, [facility] Rolled Gold Plater Behavioral Health 03/10/25 03/10/25 Rajesh Mancera, [facility] Rolled Gold Plater Behavioral Health 03/31/25 03/31/25 [facility] Registered Nurse 05/06/24 jordyn Thapaor 01/18/25 documented as of this encounter
--- OUTSIDE RECORDS SUMMARY | 2025-04-07 00:10 | XMS_ITS | Encounter Summary ---
Author Organization [employer] Address [address] [place] [address] 7 [place] [address] Care Team Providers Care Machine Adjuster Leader Name Role Phone Luis Fernando Chavez MD Primary Care Provider [phone] Yaquelin Stoddard RN Unavailable Unavailable Denisse Unger Unavailable Ethel Connelly PRIMARY CARE COORDINATOR Unavailable [phone] Rajesh Mancera TEST DESKMAN Unavailable [phone] Reason for Visit * Reason Comments Med Refill Encounter Details Date Type Department Care Team (Late st Contact Info) Description 10/21/2023 Refill [facility] MAIN ADULT [address] [place] [address] Luis Fernando Chavez MD [address] [place] [address] Nausea Social History Tobacco Use Types Packs/Day [...] Telephone Encounter - Yudelka Patel RN - 10/21/2023 9:38 AM EDT Rx request was routed to PCP. documented in this encounter Plan of Treatment Upcoming Encounters Date Type Department Care Team (Late st Contact Info) Description 04/17/2025 1:20 PM EDT Office Visit [facility] MAIN ADULT [address] [place] [address] Luis Fernando Chavez MD [address] [place] [address] 04/28/2025 9:55 AM EDT Office Visit [facility] MAIN ADULT [address] [place] [address] Luis Fernando Chavez MD [address] [place] [address] documented as of this encounter Visit Diagnoses Diagnosis Nausea Nausea alone documented in this encounter Care Teams Machine Adjuster Leader Relationship Specialty Start Date End Date Luis Fernando Chavez MD [address] [place] [address] PCP - General 07/27/21 Yaquelin Stoddard, RN Registered Nurse 05/03/24 Denisse Unger [address] [place] [address] Diploma Medical Assistant Behavioral Health 01/31/25 02/28/25 Ethel Connelly, [facility] Diploma Medical Assistant Behavioral Health 03/10/25 03/10/25 Rajesh Mancera, [facility] Diploma Medical Assistant Behavioral Health 03/31/25 03/31/25 [facility] Registered Nurse 05/06/24 jordyn Grewal 01/18/25 documented as of this encounter
--- OUTSIDE RECORDS SUMMARY | 2025-04-07 00:10 | XMS_ITS | Encounter Summary ---
Author Organization [employer] [facility] Address [address] [place] [address] [place] [address] Care Team Providers Care Interactive Media Marketing Director Name Role Phone Luis Fernando Chavez MD Primary Care Provider [phone] Vero Mcnair Unavailable Yaquelin Stoddard RN Unavailable Unavailable Denisse Unger Unavailable ConnellyClaudia jarquinha [facility] Unavailable [phone] Rajesh Mancera [facility] Unavailable [phone] Reason for Visit * Reason Comments Med Refill Encounter Details Date Type Department Care Team (Late st Contact Info) Description 12/09/2022 Refill [facility] MAIN ADULT [address] [place] [address] Luis Fernando Chavez MD [address] [place] [address] Left flank pain Social History Tobacco Use Types Packs/Day Years [...] Encounter - Luis Fernando Chavez MD - 12/09/2022 11:59 AM EDT Approving, but needs appt for additional refills. documented in this encounter Plan of Treatment Upcoming Encounters Date Type Department Care Team (Late st Contact Info) Description 04/17/2025 1:20 PM EDT Office Visit [facility] MAIN ADULT [address] [place] [address] Luis Fernando Chavez MD [address] [place] [address] 04/28/2025 9:55 AM EDT Office Visit [facility] MAIN ADULT [address] [place] [address] Luis Fernando Chavez MD [address] [place] [address] documented as of this encounter Visit Diagnoses Diagnosis Left flank pain Abdominal pain, unspecified site documented in this encounter Care Teams Interactive Media Marketing Director Relationship Specialty Start Date End Date Luis Fernando Chavez MD [address] [place] [address] PCP - General 07/27/21 Vero Mcnair Community Health Worker Behavioral Health 02/19/23 Yaquelin Stoddard, RN Registered Nurse 05/03/24 Denisse Unger [address] [place] [address] Wire Insulator Behavioral Health 01/31/25 02/28/25 Ethel Connelly, [facility] Wire Insulator Behavioral Health 03/10/25 03/10/25 Rajesh Mancera, [employer]AL [employer] Wire Insulator Behavioral Health 03/31/25 03/31/25 [facility] Registered Nurse 05/06/24 jordyn blackwood Vendor 01/18/25 documented as of this encounter
--- OUTSIDE RECORDS SUMMARY | 2025-04-07 00:10 | XMS_ITS | Encounter Summary ---
Author Organization [employer] Address [address] [facility] 7 [place] [address] Care Team Providers Care Heat Treat Inspector Name Role Phone Luis Fernando Chavez MD Primary Care Provider [phone] Yaquelin Stoddard RN Unavailable Unavailable Encounter Details Date Type Department Care Team ([facility] st Contact Info) Description 04/06/2025 Orders Only [facility] MAIN ADULT [address] [place] [address] Luis Fernando Chavez MD [address] [place] [address] Social History Tobacco Use Types Packs/Day Years [...] Description 04/17/2025 1:20 PM EDT Office Visit [facility] MAIN ADULT [address] [place] [address] Luis Fernando Chavez MD [address] [place] [address] 04/28/2025 9:55 AM EDT Office Visit [facility] MAIN ADULT [address] [place] [address] Luis Fernando Chavez MD [address] [place] [address] documented as of this encounter Procedures Procedure Name Priority Date/Time Associated Diagnosis Comments XR CHEST 2 VIEWS Routine 04/06/2025 9:51 AM EDT documented in this encounter Results * XR Chest 2 Views (04/06/2025 9:51 AM EDT) Anatomical Region Laterality Modality Chest Radiographic Luz ging 04/06/2025 9:51 AM EDT Narrative 04/06/2025 9:51 AM EDT [facility] [address] [place] [address] Patient Name: PAULA CAPUTO Medical Record#: [id number] Address: [address] [place] [address] City/State/Zip: [place] [address]: Zaid Alvarez DO Insurance: [employer] PCC Required /Age/Sex: 1990/34/M Self Pay Admit/Reg Date: 04/06/[address]: Bhumika Agustin MD Location: ED.GSQ/ PCP: Luis Fernando Chavez MD Date of Service: 04/06/25 Order (s): XR chest 2V CPT Code: 98884 Report Number: [id number] Reason for Exam: Chest Pain Patient name: PAULA CAPUTO Exam: XR chest 2V Technique: PA and lateral views. Procedure Date and Time:04/06/2025 5:22 AM Indication: Chest Pain Comparison: November 22, 2024. FINDINGS: LINES/TUBES: None. LUNGS: No infiltrate or edema. PLEURA: No pleural effusion. No pneumothorax. HEART AND MEDIASTINUM: Heart and pulmonary vascularity are normal IMPRESSION: NO ACTIVE DISEASE. Dictated By: Ken Brown MD 04/06/25950 Signed By: Ken Brown MD 04/06/2559 TD/TT: 04/06/25950 Tech: [id number] cc: [id number]; ASHISHY; SHIMON* Bhumika Agustin MD; Luis Fernando Chavez MD; Zaid Alvarez DO Procedure Note Donotuseinterpreter, Image - 04/06/2025 [facility] [address] [place] [address] Patient Name: PAULA CAPUTO MedicalRecord#: [id number] Address: [address] [place], [place] [address]Account#: [id number] City/State/Zip: [place], [place] [id number] Dr: Zaid Alvarez DO Insurance: [employer] PCC Required /Age/Sex: 1990 34/MSelf Pay Admit/Reg Date: 04/06/25 OrderingDr: Bhumika Agustin MD Location: ED.GSQ/ PCP:Luis Fernando Chavez MD Date ofService: 04/06/25 Order (s): XR chest 2V CPT Code: 48705 ReportNumber: [id number] Reason for Exam: Chest Pain Patient name: PAULA CAPUTO Exam: XR chest 2V Technique: PA and lateral views. Procedure Date and Time:04/06/2025 5:22 AM Indication: Chest Pain Comparison: November 22, 2024. FINDINGS: LINES/TUBES: None. LUNGS: No infiltrate or edema. PLEURA: No pleural effusion. No pneumothorax. HEART AND MEDIASTINUM: Heart and pulmonary vascularity are normal IMPRESSION: NO ACTIVE DISEASE. Dictated By: Ken Brown MD 04/06/25950 Signed By: Ken Brown MD 04/06/25958 TD/TT: 04/06/25950 Tech: [id number] cc: TAMMY; MYLES; SHIMON* Bhumika Agustin MD; Luis Fernando Chavez MD; Zaid Alvarez DO Luis Fernando Chavez MD IMG XR PROCEDURES Final Result documented in this encounter Visit Diagnoses Not on filedocumented in this encounter Additional Health Concerns Assessment Noted Time PHQ-9 Depression Total Score: 10 025 9:31 AM EDT documented as of this encounter Care Teams Heat Treat Inspector Relationship Specialty Start Date End Date Luis Fernando Chavez MD [address] [place] [address] PCP - General 07/27/21 Yaquelin Stoddard, RN Registered Nurse 05/03/24 [facility] Registered Nurse 05/06/24 jordyn Grewal 01/18/25 documented as of this encounter
--- OUTSIDE RECORDS SUMMARY | 2025-04-07 00:10 | XMS_ITS | Encounter Summary ---
Author Organization [employer] Address [address] [place] [address] 7 [place] [address] Care Team Providers Care Wedger Machine Name Role Phone Luis Fernando Chavez MD Primary Care Provider [phone] Yaquelin Stoddard RN Unavailable Unavailable Denisse Unger Unavailable Ethel Connelly ASSOCIATE MEDIA DIRECTOR Unavailable [phone] Rajesh Mancera DINING ROOM CASHIER Unavailable [phone] Reason for Visit * Reason Comments Med Refill Encounter Details Date Type Department Care Team (Late st Contact Info) Description 01/12/2024 Refill [facility] MAIN ADULT [address] [place] [address] Luis Fernando Chavez MD [address] [place] [address] Chronic bilateral low back pain with bilateral sciatica; Nausea Social History Tobacco Use Types [...] the past 12 months, has t he [employer], oil or water [employer] threatened to shut off services in your [...] Encounter - Luis Fernando Chavez MD - 01/12/2024 12:59 PM EDT Med already refilled * Telephone Encounter - Rebeca Concepcion RN - 01/12/2024 8:52 AM EDT Heath Trevino is a 33 y.o. male Refill requested as listed below: Requested Prescriptions Pending Prescriptions Disp Refills pregabalin (Lyrica) 300 MG capsule [Pharmacy Med Name: PREGABALIN 300MG CAPSULES] 60 capsule Sig: TAKE 1 CAPSULE(300 MG) BY MOUTH TWICE DAILY ondansetron ODT (Zofran-ODT) 4 MG disintegrating tablet [Pharmacy Med Name: ONDANSETRON ODT 4MG TABLETS] 30 tablet 0 Sig: DISSOLVE 1 TABLET(4 MG) ON THE TONGUE EVERY 8 HOURS NEEDED FOR NAUSEA OR VOMITING Last Adult Medicine In-Office Visit: 12/07/2023 Future Appointments Date Time Provider Department Center 01/18/2024 2:40 PM Luis Fernando Chavez MD [place] [facility] BP Readings from Last 3 Encounters: 12/07/23 140/90 10/20/23 115/87 07/15/23 125/87 documented in this encounter Plan of Treatment Upcoming Encounters Date Type Department Care Team (Late st Contact Info) Description 04/17/2025 1:20 PM EDT Office Visit [facility] MAIN ADULT [address] [place] [address] Luis Fernando Chavez MD [address] [place] [address] 04/28/2025 9:55 AM EDT Office Visit [facility] MAIN ADULT [address] [place] [address] Luis Fernando Chavez MD [address] [place] [address] documented as of this encounter Visit Diagnoses Diagnosis Chronic bilateral low back pain with bilateral sciatica Nausea Nausea alone documented in this encounter Additional Health Concerns Assessment Noted Time PHQ-9 Depression Total Score: 21 024 1:54 PM EDT documented as of this encounter Care Teams Wedger Machine Relationship Specialty Start Date End Date Luis Fernando Chavez MD [address] [place] [address] PCP - General 07/27/21 Yaqulein Stoddard, RN Registered Nurse 05/03/24 Denisse Unger [address] [place] [address] Auto Brake Mechanic Behavioral Health 01/31/25 02/28/25 Ethel Connelly, [facility] Auto Brake Mechanic Behavioral Health 03/10/25 03/10/25 Rajesh Mancera, DINING ROOM CASHIER Auto Brake Mechanic Behavioral Health 03/31/25 03/31/25 [facility] Registered Nurse 05/06/24 jordyn blackwood Vendor 01/18/25 documented as of this encounter
--- OUTSIDE RECORDS SUMMARY | 2025-04-07 00:10 | XMS_ITS | Encounter Summary ---
Author Organization [employer] Address [address] [place] [address] 7 [place] [address] Care Team Providers Care Measurement Advisor Name Role Phone Luis Fernando Chavez MD Primary Care Provider [phone] Yaquelin Stoddard RN Unavailable Unavailable Denisse Unger Unavailable Ethel Connelly DERMATOLOGY PROCEDURAL PHYSICIAN Unavailable [phone] Rajesh Mancera RETAIL STORE ASSISTANT Unavailable Reason for Visit * Reason Comments Med Refill Encounter Details Date Type Department Care Team (Late st Contact Info) Description 12/10/2023 Refill [facility] MAIN ADULT [address] [place] [address] Luis Fernando Chavez MD [address] [place] [address] Nausea Social History Tobacco Use Types Packs/Day [...] Encounter - Luis Fernando Chavez MD - 12/10/2023 3:25 PM EDT Approving, but needs appt for additional refills. * Telephone Encounter - Daniel Villagomez RN - 12/10/2023 10:51 AM EDT Heath Trevino is a 33 y.o. male Refill requested as listed below: Requested Prescriptions Pending Prescriptions Disp Refills ondansetron ODT (Zofran-ODT) 4 MG disintegrating tablet [Pharmacy Med Name: ONDANSETRON ODT 4 MG TABLET] 30 tablet 2 Sig: TAKE 1 TABLET (4 MG) BY MOUTH EVERY 8 HOURS NEEDED FOR NAUSEA AND VOMITING pramipexole (Mirapex) 1.5 MG tablet [Pharmacy Med Name: PRAMIPEXOLE 1.5 MG TABLET] 180 tablet 0 Sig: TAKE 2 TABLETS (3 MG) BY MOUTH AT BEDTIME Last Adult Medicine In-Office Visit: 12/07/2023 Future Appointments Date Time Provider Department Center 12/14/2023 1:00 PM [facility] 01/18/2024 2:40 PM Luis Fernando Chavez MD [place] [facility] BP Readings from Last 3 Encounters: 12/07/23 140/90 10/20/23 115/87 07/15/23 125/87 Health Maintenance Due Topic Date Due Lipid Panel Never done HIV Screening Never done Hepatitis C Screening Never done Hepatitis B Vaccines (1 of 3 - 19+ 3-dose series) Never done Hepatitis A Vaccines (1 of 2 - Risk 2-dose series) Never done Influenza Vaccine (1) 03/27/2023 COVID-19 Vaccine ( season) 2023 documented in this encounter Plan of Treatment Upcoming Encounters Date Type Department Care Team (Late st Contact Info) Description 04/17/2025 1:20 PM EDT Office Visit [facility] MAIN ADULT [address] [place] [address] Luis Fernando Chavez MD [address] [place] [address] 04/28/2025 9:55 AM EDT Office Visit [facility] MAIN ADULT [address] [place] [address] Luis Fernando Chavez MD [address] [place] [address] documented as of this encounter Visit Diagnoses Diagnosis Nausea Nausea alone documented in this encounter Additional Health Concerns Assessment Noted Time PHQ-9 Depression Total Score: 21 024 1:54 PM EDT documented as of this encounter Care Teams Measurement Advisor Relationship Specialty Start Date End Date Luis Fernando Chavez MD [address] [place] [address] PCP - General 07/27/21 Yaquelin Stoddard, RN Registered Nurse 05/03/24 Denisse Unger [address] [place] [address] Data Integrity Specialist Behavioral Health 01/31/25 02/28/25 Ethel Connelly, [facility] Data Integrity Specialist Behavioral Health 03/10/25 03/10/25 Rajesh Mancera, RETAIL STORE ASSISTANT Data Integrity Specialist Behavioral Health 03/31/25 03/31/25 [facility] Registered Nurse 05/06/24 jordyn Grewal 01/18/25 documented as of this encounter
--- OUTSIDE RECORDS SUMMARY | 2025-04-07 00:10 | XMS_ITS | Encounter Summary ---
Author Organization [employer] Address [address] [place] [address] 7 [place] [address] Care Team Providers Care Electron Beam Machine Welder Setter Name Role Phone Luis Fernando Chavez MD Primary Care Provider [phone] Yaquelin Stoddard RN Unavailable Unavailable Rajesh Mancera LCSW Unavailable [phone] Reason for Visit * Reason Comments Med Refill Encounter Details Date Type Department Care Team ([facility] st Contact Info) Description 03/28/2025 Refill [facility] MAIN ADULT [address] [place] [address] Jad Manrique MD [address] [place] [address] Uncomplicated opioid dependence (CMS/HCC) Social History Tobacco Use Types Packs/Day Years [...] 04/17/2025 1:20 PM EDT Office Visit [facility] MAIN ADULT [address] [place] [address] Luis Fernando Chavez MD [address] [place] [address] 04/28/2025 9:55 AM EDT Office Visit [facility] MAIN ADULT [address] [place] [address] Luis Fernando Chavez MD [address] [place] [address] documented as of this encounter Visit Diagnoses Diagnosis Uncomplicated opioid dependence (CMS/HCC) documented in this encounter Additional Health Concerns Assessment Noted Time PHQ-9 Depression Total Score: 10 025 9:31 AM EDT documented as of this encounter Care Teams Electron Beam Machine Welder Setter Relationship Specialty Start Date End Date Luis Fernando Chavez MD [address] [place] [address] PCP - General 07/27/21 Yaquelin Stoddard, RN Registered Nurse 05/03/24 Rajesh Mancera, [facility] Regional Sales Manager Behavioral Health 03/31/25 03/31/25 LOCATED WITHIN [facility] Registered Nurse 05/06/24 jordyn Grewal 01/18/25 documented as of this encounter
--- OUTSIDE RECORDS SUMMARY | 2025-04-07 00:10 | XMS_ITS | Encounter Summary ---
Author Organization [email or web address] Address [address] [place] [address] [address] [place] [address] Care Team Providers Care Turning Machine Operator Name Role Phone Luis Fernando Chavez MD Primary Care Provider [phone] Yaquelin Stoddard RN Unavailable Unavailable Denisse Unger Unavailable Ethel Connelly KENO MANAGER Unavailable Rajesh Mancera [employer] COUN[employer] Unavailable [phone] Reason for Visit * Reason Comments Med Refill Encounter Details Date Type Department Care Team (Late st Contact Info) Description 12/01/2023 Refill [facility] MAIN ADULT [address] [place] [address] Luis Fernando Chavez MD [address] [place] [address] Social History Tobacco Use Types Packs/Day Years [...] Answer Date of Assessment Author Patient Health Questionnaire-2 Score 6 12/02/2023 1:54 PM EDT Lata Sanchez LICSW * Calculated C-SSRS Risk Score (Lifetime/Recent) Answer Date of Assessment Author Moderate Risk 12/02/2023 1:56 PM EDT Liza Sanchez LICSW * If you checked off any problems on this questionnaire so far, Question Answer Date of Assessment Author How difficult have these problems made it for you to do your work, take care of things at home, or get along with other people? Very difficult 12/02/2023 1:54 PM EDT Ellie Sanchez LICSW * Over the last 2 weeks, how often have you been bothered by any of the following problems? Question Answer Date of Assessment Author Feeling nervous, anxious, or on edge 3 12/02/2023 1:54 PM KODYT Ellie Sanchez LICSW Not being able to stop or control worrying 3 12/02/2023 1:54 PM EDT Ellie Sanchez LICSW Worrying too much about different things 3 12/02/2023 1:54 PM EDT Ellie Sanchez LICSW Trouble relaxing 3 12/02/2023 1:54 PM EDT Liza Vaughn KENO MANAGER Being so restless that it is hard to sit still 3 12/02/2023 1:54 PM EDT Ellie Sanchez KENO MANAGER Becoming easily annoyed or irritable 3 12/02/2023 1:54 PM EDT Ellie Sanchez KENO MANAGER Feeling afraid as if something awful might happen 1 12/02/2023 1:54 PM EDT Liza Sanchez KENO MANAGER EMMETT-7 Total Score 19 12/02/2023 1:54 PM EDT Liza Sanchez KENO MANAGER * Suicidal Ideation Question Answer Date of Assessment Author 1. Wish to be (Lifetime) Yes 12/02/2023 1:56 PM EDT Liza Sanchez KENO MANAGER 2. Non-Specific Active Suicidal Thoughts (Lifetime) Yes 12/02/2023 1:56 PM EDT Liza Sanchez KENO MANAGER 3. Active Suicidal Ideation with any Methods (Not Plan) Without Intent to Act (Lifetime) Yes 12/02/2023 1:56 PM EDT Ellie Sanchez KENO MANAGER 4. Active Suicidal Ideation with Some Intent to Act, Without Specific Plan (Lifetime) Yes 12/02/2023 1:56 PM EDT Ellie Sanchez, KENO MANAGER 5. Active Suicidal Ideation with Specific Plan and Intent (Lifetime) Yes 12/02/2023 1:56 PM EDT Ellie Sanchez KENO MANAGER 3. Active Suicidal Ideation with any Methods (Not Plan) Without Intent to Act (Past 1 Month) No 12/02/2023 1:56 PM EDT Ellie Sanchez, KENO MANAGER 4. Active Suicidal Ideation with Some Intent to Act, Without Specific Plan (Past 1 Month) No 12/02/2023 1:56 PM EDT Ellie Sanchez, KENO MANAGER * Suicidal Behavior Question Answer Date of Assessment Author Actual Attempt (Lifetime) Yes 12/02/2023 1:56 PM EDT Liza Sanchez KENO MANAGER Total Number of Actual Attempts (Lifetime) 1 12/02/2023 1:56 PM EDT Ellie Sanchez, KENO MANAGER Has subject engaged in non-suicidal self-injurious behavior? (Lifetime) No 12/02/2023 1:56 PM EDT Chelsi Sanchez, KENO MANAGER Interrupted Attempts (Lifetime) No 12/02/2023 1:56 PM EDT Ellie Sanchez, KENO MANAGER Aborted or Self-Interrupted Attempt (Lifetime) No 12/02/2023 1:56 PM EDT Ellie Sanchez, KENO MANAGER Preparatory Acts or Behavior (Lifetime) No 12/02/2023 1:56 PM EDT Ellie Sanchez, KENO MANAGER Actual Attempt (Past 3 Months) No 12/02/2023 1:56 PM EDT Liza Sanchez KENO MANAGER * [place] Suicide Severity Rating Scale (Screener/Recent Self-Report) Question Answer Date of Assessment Author 1. Wish to be (Past 1 Month) No 12/02/2023 1:56 PM EDT Ellie Sanchez KENO MANAGER 2. Non-Specific Active Suicidal Thoughts (Past 1 Month) No 12/02/2023 1:56 PM EDT Ellie Sanchez, KENO MANAGER 6. Suicidal Behavior (Lifetime) Yes 12/02/2023 1:56 PM EDT Ellie Sanchez, KENO MANAGER 6. Suicidal Behavior (3 Months) No 12/02/2023 1:56 PM EDT Ellie Sanchez, KENO MANAGER * Over the past 2 weeks, how often have you been bothered by any of the following problems? Question Answer Date of Assessment Author Little interest or pleasure in doing things Nearly every day 12/02/2023 1:54 PM EDT Liza Sanchez LICSW Feeling down, depressed, or hopeless Nearly every day 12/02/2023 1:54 PM EDT Liza Sanchez LICSW Trouble falling or staying asleep, or sleeping too much Nearly every day 12/02/2023 1:54 PM EDT Liza Sanchez LICSW Feeling tired or having little energy Nearly every day 12/02/2023 1:54 PM EDT Liza Sanchez LICSW Poor appetite or overeating More than half the days 12/02/2023 1:54 PM EDT Liza Sanchez LICSW Feeling bad about yourself - or that you are a failure or have let yourself or your family down Nearly every day 12/02/2023 1:54 PM EDT Liza Sanchez LICSW Trouble concentrating on things, such as reading the newspaper or watching television Several days 12/02/2023 1:54 PM EDT Liza Sanchez LICSW Moving or speaking so slowly that other people could have noticed? Or the opposite - being so fidgety or restless that you have been moving around a lot more than usual. Nearly every day 12/02/2023 1:54 PM EDT Liza Sanchez LICSW Thoughts that you would be better off or hurting yourself in some way Not at all 12/02/2023 1:54 PM EDT Liza Sanchez LICSW Patient Health Questionnaire-9 Score 21 12/02/2023 1:54 PM EDT Liza Sanchez LICSW documented as of this encounter Miscellaneous Notes * Telephone Encounter - Luis Fernando Chavez MD - 12/01/2023 1:27 PM EDT Approving, but needs appt for additional refills. * Telephone Encounter - Minerva Cabello RN - 12/01/2023 8:15 AM EDT Heath Trevino is a 33 y.o. male Refill requested as listed below: Requested Prescriptions Pending Prescriptions Disp Refills levETIRAcetam (Keppra) 1000 MG tablet [Pharmacy Med Name: LEVETIRACETAM 1000MG TABLETS] 180 tablet 0 Sig: TAKE 1 TABLET(1000 MG) BY MOUTH EVERY 12 HOURS Last Adult Medicine In-Office Visit: 10/20/2023 Last Adult Medicine Department Encounter: 11/18/2023 No future appointments. BP Readings from Last 3 Encounters: 10/20/23 115/87 07/15/23 125/87 06/10/23 115/76 Health Maintenance Due Topic Date Due Lipid Panel Never done HIV Screening Never done Pneumococcal Vaccine: Pediatrics (0 to 5 Years) and At-Risk Patients (6 to 64 Years) (1 of 2 - PCV)Never done Hepatitis C Screening Never done Hepatitis B Vaccines (1 of 3 - 19+ 3-dose series) Never done Influenza Vaccine (1) 03/27/2023 COVID-19 Vaccine ( season) 2023 Depression Screening 08/22/2023 documented in this encounter Plan of Treatment Upcoming Encounters Date Type Department Care Team (Late st Contact Info) Description 04/17/2025 1:20 PM EDT Office Visit [facility] MAIN ADULT [address] [place] [address] Luis Fernando Chavez MD [address] [place] [id number] 04/28/2025 9:55 AM EDT Office Visit [facility] MAIN ADULT [address] [place] [address] Luis Fernando Chavez MD [address] [place] [id number] documented as of this encounter Visit Diagnoses Not on filedocumented in this encounter Care Teams Turning Machine Operator Relationship Specialty Start Date End Date Luis Fernando Chavez MD [address] [place] [id number] PCP - General 07/27/21 Yaquelin Stoddard, RN Registered Nurse 05/03/24 Denisse Unger [address] [place] [id number] Home Health Rn Behavioral Health 01/31/25 02/28/25 Ethel Connelly, [facility] Home Health Rn Behavioral Health 03/10/25 03/10/25 Rajesh Mancera, [facility] Home Health Rn Behavioral Health 03/31/25 03/31/25 [facility] Registered Nurse 05/06/24 jordyn Grewal 01/18/25 documented as of this encounter
--- OUTSIDE RECORDS SUMMARY | 2025-04-07 00:10 | XMS_ITS | Clinical Summary ---
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 04/02/2021. BUPRENORPHINE SCREEN, URINE Positive(A) Negative [facility] Methadone Screen, Urine Negative Negative [facility] COMMENT [facility] Comment:This urine drug scre en assay provides only preliminaryresults. These results are intended for medical purposesonly. A more specific alternative method must be used toobtain a confirmed analytical result.The cut-off concentrations for positive results: Opiate 300 ng/mL Cocaine 300 ng/mL Amphetamine 1000 ng/mL Cannabinoid 50 ng/mL Barbiturate 200 ng/mL Benzodiazepine 200 ng/mL Methadone 300 ng/mL Buprenorphine 5 ng/mL Oxycodone 100 ng/mL Fentanyl 1 ng/mL 6 Acetylmorphine 10 ng/mL 03/06/2025 5:00 PM EDT 03/06/2025 5:57 PM EDT [facility] External Provider LAB URINE OR DERABLES Final Result Performing Organization Address [facility]/ZIP Co de Phone Number [facility] [address] [place] [address] * Hepatic Function Panel (Plasma) (03/06/2025 4:11 PM EDT) Only the most recent of3 resultswithin the time period is included. [facility] Protein, Total 7.3 5.7 - 8.2 g/dL [facility] Albumin 3.9 3.4 - 5.0 g/dL [facility] Bilirubin, Indirect <0.10 0.0 - 0.3 mg/dL [facility] Bilirubin, Total 0.2 0 - 1.2 mg/dL [facility] Alkaline Phosphatase 82 46 - 116 U/L [facility] AST 16 <34 U/L [facility] ALT 12 10 - 49 U/L [facility] 03/06/2025 4:11 PM EDT 03/06/2025 6:16 PM EDT [facility] External Provider LAB BLOOD OR DERABLES Final Result Performing Organization Address [facility] Co de Phone Number [facility] [address] [place] [address] * (ABNORMAL) Basic metabolic Panel, Plasma (03/06/2025 4:11 PM EDT) Only the most recent of4 resultswithin the time period is included. [facility] Sodium 143 136 - 145 mmol/L [facility] Potassium 3.8 3.5 - 5.1 mmol/L [facility] Chloride 110(H) 98 - 107 mmol/L [facility] Carbon Dioxide 24 20 - 31 mmol/L [facility] Anion Gap 9 4 - 14 [facility] Calcium 10.4 8.3 - 10.6 mg/dL [facility] Glucose, Plasma 125(H) 74 - 106 mg/dL [facility] Blood Urea Nitrogen 20 9 - 23 mg/dL [facility] Comment:Note: New reference range and method effective 03/08/2019. Creatinine 1.14 0.70 - 1.30 mg/dL [facility] EST GFR, CKD-EPI (2020) 85 >60 mL/min/1.7 3 m [facility] Comment:NOTE: New 2020 CKD-E PI equation in use effective 07/09/21Race specific equations for eGFR are no longer recommended by the [employer]. 03/06/2025 4:11 PM EDT 03/06/2025 6:16 PM EDT [facility] External Provider LAB BLOOD OR DERABLES Final Result [facility] [address] [place] [address] * (ABNORMAL) CBC auto differential (03/06/2025 4:11 PM EDT) White Blood Count 8.5 3.8 - 11.3 x10 3/uL [facility] Red Blood Count 4.72 4.7 - 6.1 x10 6/uL [facility] Hemoglobin 11.3(L) 13.0 - 17.0 g/dL [facility] Hematocrit 37.4(L) 38.0 - 49.0 % [facility] Mean Corpuscular Volume 79.2(L) 80 - 100 fL [facility] Mean Corpuscular Hemoglobin 23.9(L) 26.7 - 33.0 pg [facility] Mean Corpuscular HGB Conc 30.2(L) 31.6 - 35.6 g/dL [facility] RDW Coefficient of Variation 16.2(H) 11.5 - 14.5 % [facility] Platelet Count 360 150 - 450 x10 3/ L [facility] Mean Platelet Volume 8.9 7.4 - 13.5 fL [facility] Neutrophils Percent Auto 73.5 38.0 - 84.0 % [facility] Lymphocytes Percent Auto 16.3(L) 20.0 - 40.0 % [facility] Monocytes Percent Auto 8.7 3.0 - 13.0 % [facility] Eosinophils Percent Auto 1.1 0.0 - 6.0 % [facility] Basophils Percent Auto 0.4 0 - 2.0 % [facility] Neutrophils 6.22 1.50 - 8.0 10 3/ L [facility] Lymphocytes 1.38 1.0 - 3.0 10 3/ L [facility] Monocytes 0.74 0.0 - 1.1 x10 3/ L [facility] Eosinophils 0.09 0.00 - 0.30 10 3/ L [facility] Basophils 0.03 0 - 0.2 10 3/ L [facility] 03/06/2025 4:11 PM EDT 03/06/2025 6:16 PM EDT [facility] External Provider LAB BLOOD OR DERABLES Final Result Performing Organization Address [facility]/ZIP Co de Phone Number [facility] [address] [place] [phone] * Alcohol, Ethyl, Blood (03/06/2025 4:11 PM EDT) Alcohol, Ethyl <10 0 - 10 mg/dL [facility] Comment:These results are in tended for medical purposes only. 03/06/2025 4:11 PM EDT 03/06/2025 6:16 PM EDT [facility] External Provider LAB BLOOD OR DERABLES Final Result [facility] [address] [place] [address] * (ABNORMAL) Acetaminophen level (03/06/2025 4:11 PM EDT) Acetaminophen <2.0(L) 10 - 20 g/mL [facility] 03/06/2025 4:11 PM EDT 03/06/2025 6:16 PM EDT us [facility] External Provider LAB BLOOD OR DERABLES Final Result Performing Organization Address [facility]/ZIP Co de Phone Number [facility] [address] [place] [address] * Salicylate (03/06/2025 4:11 PM EDT) Salicylate <3.0 <30 mg/dL [facility] 03/06/2025 4:11 PM EDT 03/06/2025 6:16 PM EDT Result [facility] External Provider LAB BLOOD OR DERABLES Final Result Performing Organization Address [facility] Co de Phone Number [facility] [address] [place] [phone] * (ABNORMAL) GLUCOSE, CAPILLARY BLOOD (02/16/2025 3:54 PM EDT) GLUCOSE, CAPILLARY BLOOD 153(H) 74 - 106 mg/dL [facility] Comment:RN protocl to follow 02/16/2025 3:54 PM EDT 02/16/2025 3:56 PM EDT Result [facility] External Provider LAB BLOOD OR DERABLES Final Result Performing Organization Address [facility] Co de Phone Number [address] [address] * XR Foot 3+ Views Right (02/16/2025 1:05 PM EDT) Anatomical Region Laterality Modality Lower Extremities, Foot Right Radiogra phic Imaging 02/16/2025 1:05 PM EDT Narrative 02/16/2025 1:10 PM EDT [facility] [phone] [place] [address] XRAY REPORT Signed Patient: PAULA TREVINO MR#: [id number] 30 : 1990 Acct:[id number] Age/Sex: 34 / M ADM Date: 02/16/25 Loc: ER Attending Dr: Ordering Physician: Renee Higginbotham MD Date of Service: 02/16/25 Procedure(s): XR foot right min 3V Accession Number(s): [id number] cc: Renee Higginbotham MD History: Question foreign body. COMPARISON: None. FINDINGS: Joint spaces appear aligned without evidence of acute fracture or dislocation demonstrated. No bony erosive or destructive process. Probable minimal narrowing of the first metatarsophalangeal joint. Tiny enthesophyte is seen in the inferior calcaneus. XR/XR foot right min 3V IMPRESSION: No acute osseous process demonstrated. If pain persists and radio occult injury is clinically suspected would consider repeat radiographs in 7-10 days. Dictated and Electronically Signed by: Wally Da Silva MD ([id number]) Dictated Date and Time: 02/16/25 1305 Technologist: RT Maynor Ramires [email or web address] [id number]%3D%3D Procedure Note Donotuseinterpreter, Image - 02/16/2025 [facility] [phone] [place] [address] XRAY REPORT Signed Patient: PAULA TREVINO [facility]#: [id number] [birth year] : 1990Acct:[id number] Age/Sex: 34 / MADM Date: 02/16/25 Loc: ER Attending Dr: Ordering Physician: Renee Higginbotham MD Date of Service: 02/16/25 Procedure(s): XR foot right min 3V Accession Number(s): [id number] cc: Renee Higginbotham MD History: Question foreign body. COMPARISON: None. FINDINGS: Joint spaces appear aligned without evidence of acute fracture ordislocation demonstrated. No bony erosive or destructive process. Probable minimalnarrowing of the first metatarsophalangeal joint. Tiny enthesophyte is seen in the inferior calcaneus. XR/XR foot right min 3V IMPRESSION: No acute osseous process demonstrated. If pain persists and radio occult injury is clinically suspected wouldconsider repeat radiographs in 7-10 days. Dictated and Electronically Signed by: Wally Da Silva MD ([id number]) Dictated Date and Time: 02/16/25 1305 Technologist: Mariaelena Beckman RT R [email or web address] [id number]%3D%3D [facility] External Provider IMG XR PROCE JORGE Final Result * (ABNORMAL) Urinalysis, Complete, with Reflex to Culture (02/16/2025 12:11 PM EDT) Color Urine LIGHT YELLOW Yellow [facility] Appearance Urine CLEAR Clear [facility] Specific [place] - Urine 1.015 1.001 - 1.035 [facility] Urine Leukocyte NEGATIVE Negative [facility] Urine pH 6.0 4.0 - 8.0 [facility] URINE PROTEIN NEGATIVE Negative [facility] Urine Glucose NEGATIVE Negative [facility] Urine Ketones NEGATIVE Negative mg/dL [facility] Urine Bilirubin NEGATIVE Negative [facility] Urine Nitrite NEGATIVE Negative [facility] Urine Blood TRACE(A) Negative [facility] Urine WBC 0-2 0-5/HPF [facility] Urine RBC 5-10(A) 0-5/HPF [facility] SQUAMOUS EPITHELIAL CELLS, UR NEGATIVE <Occasional [facility] Urine Mucus FEW(A) Negative [facility] Urine Bacteria NEGATIVE Negative [facility] 02/16/2025 12:1 1 PM EDT 02/16/2025 12:14 PM EDT Narrative [facility] - 02/16/2025 12:32 PM EDT Clean Catch [facility] External Provider LAB URINE OR DERABLES Final Result Performing Organization Address [facility] Co de Phone Number [facility] [address] [place] [phone] * Magnesium (Plasma) (02/16/2025 9:43 AM EDT) Only the most recent of2 resultswithin the time period is included. MAGNESIUM (PLASMA) 2.1 1.6 - 2.6 mg/dL [facility] 02/16/2025 9:43 AM EDT 02/16/2025 10:04 AM EDT [facility] External Provider LAB BLOOD OR DERABLES Final Result Performing Organization Address [facility] Phone Number [facility] [address] [place] [phone] * Prolactin (02/16/2025 9:43 AM EDT) Only the most recent of2 resultswithin the time period is included. Prolactin 6.7 2.1 - 17.7 ng/mL [facility] Comment:Normally Menstruatin g FemalesNon- Females 2.8 - 29.2 ng/mL Females 9.7 - >200 ng/mLPostmenopausal Females 1.8 - 20.3 ng/mLMales 2.1 - 17.7 ng/mL 02/16/2025 9:43 AM EDT 02/16/2025 10:04 AM EDT [facility] External Provider LAB BLOOD OR DERABLES Final Result Performing Organization Address [facility] Co de Phone Number [facility] [address] [place] [phone] * (ABNORMAL) CBC (02/16/2025 9:43 AM EDT) Only the most recent of3 resultswithin the time period is included. White Blood Count 8.3 3.8 - 11.3 x10 3/uL [facility] Red Blood Count 4.73 4.7 - 6.1 x10 6/uL [facility] Hemoglobin 11.6(L) 13.0 - 17.0 g/dL [facility] Hematocrit 37.6(L) 38.0 - 49.0 % [facility] Mean Corpuscular Volume 79.5(L) 80 - 100 fL [facility] Mean Corpuscular Hemoglobin 24.5(L) 26.7 - 33.0 pg [facility] Mean Corpuscular HGB Conc 30.9(L) 31.6 - 35.6 g/dL [facility] RDW Coefficient of Variation 15.8(H) 11.5 - 14.5 % [facility] Platelet Count 307 150 - 450 x10 3/ L [facility] Mean Platelet Volume 8.6 7.4 - 13.5 fL [facility] 02/16/2025 9:43 AM EDT 02/16/2025 10:04 AM EDT [facility] External Provider LAB BLOOD OR DERABLES Final Result [facility] [address] [place] [address] * PET/CT Head Neck (02/15/2025 4:47 AM EDT) Anatomical Region Laterality Modality Head, Neck Computed Tomogra phy 02/15/2025 4:47 AM EDT Narrative 02/15/2025 4:47 AM EDT [place] [phone] [place] [address] REPORT Signed Patient: PAULA TREVINO MR#: [id number] 30 : 1990 Acct:[id number] Age/Sex: 34 / M ADM Date: 02/15/25 Loc: ER Attending Dr: Ordering Physician: Saman Jacobo DO Date of Service: 02/15/25 Procedure(s): CT head cervical wo con Accession Number(s): [id number] cc: Saman Jacobo DO Order #; [id number] CT HEAD WO,CT SPINE CERVICAL WO PROCEDURE INFORMATION: Exam: CT Head Without Contrast Exam date and time: 02/15/2025 3:45 AM Age: 34 years old Clinical indication: Injury or trauma; Fall; Blunt trauma (contusions or hematomas) TECHNIQUE: Imaging protocol: Computed tomography of the head without contrast. Radiation optimization: All CT scans at this facility use at least one of these dose optimization techniques: automated exposure control; mA and/or kV adjustment per patient size (includes targeted exams where dose is matched to clinical indication); or iterative reconstruction. COMPARISON: MR head/brain wo con 01/27/2025 4:56 PM FINDINGS: Brain: No acute lobar infarct. No hemorrhage. Unremarkable white matter. No mass effect. Cerebral ventricles: No ventriculomegaly. Paranasal sinuses: Polypoid disease is noted in the visualized portion of the left maxillary antrum. Mastoid air cells: Visualized mastoid air cells are well aerated. Bones: Unremarkable. No acute fracture. Soft tissues: Unremarkable. The study is degraded by motion artifact. IMPRESSION: Motion degraded study. No acute intracranial process. PROCEDURE INFORMATION: Exam: CT Cervical Spine Without Contrast Exam date and time: 02/15/2025 3:45 AM Age: 34 years old Clinical indication: Injury or trauma; Fall; Blunt trauma (contusions or hematomas) TECHNIQUE: Imaging protocol: Computed tomography of the cervical spine without contrast. Radiation optimization: All CT scans at this facility use at least one of these dose optimization techniques: automated exposure control; mA and/or kV adjustment per patient size (includes targeted exams where dose is matched to clinical indication); or iterative reconstruction. COMPARISON: CT cervical spine wo con 08/28/2024 10:39 PM FINDINGS: Bones: There is no evidence for acute cervical fracture. There is reversal of the normal cervical lordosis. Mineralization is overall within normal limits. Multilevel spondylosis is present with disc osteophyte ridging, uncovertebral spurring and mild facet arthropathy most severe at C3-C4 and C5-C6. There is no severe cord compression. Bony neural foraminal narrowing is noted primarily due to uncovertebral spurring at C5-C6. Lungs: Lung apices are normal. Soft tissues: Unremarkable. IMPRESSION: No evidence for acute cervical fracture. THIS DOCUMENT HAS BEEN ELECTRONICALLY SIGNED BY RHETT JORGENSEN MD on 02/15/2025 04:47 AM Dictated Date and Time: 02/15/25 0447 Technologist: Debbie Pathak RT R, CT [email or web address] hWqNRqvtFk[id number]%3D%3D Procedure Note Donotuseinterpreter, Image - 02/15/2025 [facility] [phone] [place] [address] CT REPORT Signed Patient: PAULA TREVINO MMR#: [id number] 30 : 1990Acct:[id number] Age/Sex: 34 / MADM Date: 02/15/25 Loc: ER Attending Dr: Ordering Physician: Saman Jacobo DO Date of Service: 02/15/25 Procedure(s): CT head cervical wo con Accession Number(s): [id number] cc: Saman Jacobo DO Order #; [id number] CT HEAD WO,CT SPINE CERVICAL WO PROCEDURE INFORMATION: Exam: CT Head Without Contrast Exam date and time: 02/15/2025 3:45 AM Age: 34 years old Clinical indication: Injury or trauma; Fall; Blunt trauma (contusions or hematomas) TECHNIQUE: Imaging protocol: Computed tomography of the head without contrast. Radiation optimization: All CT scans at this facility use at least one ofthese dose optimization techniques: automated exposure control; mA and/or kV adjustment per patient size (includes targeted exams where dose is matchedto clinical indication); or iterative reconstruction. COMPARISON: MR head/brain wo con 01/27/2025 4:56 PM FINDINGS: Brain: No acute lobar infarct. No hemorrhage. Unremarkable white matter.No mass effect. Cerebral ventricles: No ventriculomegaly. Paranasal sinuses: Polypoid disease is noted in the visualized portion ofthe left maxillary antrum. Mastoid air cells: Visualized mastoid air cells are well aerated. Bones: Unremarkable. No acute fracture. Soft tissues: Unremarkable. The study is degraded by motion artifact. IMPRESSION: Motion degraded study. No acute intracranial process. PROCEDURE INFORMATION: Exam: CT Cervical Spine Without Contrast Exam date and time: 02/15/2025 3:45 AM Age: 34 years old Clinical indication: Injury or trauma; Fall; Blunt trauma (contusions or hematomas) TECHNIQUE: Imaging protocol: Computed tomography of the cervical spine withoutcontrast. Radiation optimization: All CT scans at this facility use at least one ofthese dose optimization techniques: automated exposure control; mA and/or kV adjustment per patient size (includes targeted exams where dose is matchedto clinical indication); or iterative reconstruction. COMPARISON: CT cervical spine wo [facility] 08/28/2024 10:39 PM FINDINGS: Bones: There is no evidence for acute cervical fracture. There is reversalof the normal cervical lordosis. Mineralization is overall within normallimits. Multilevel spondylosis is present with disc osteophyte ridging,uncovertebral spurring and mild facet arthropathy most severe at C3-C4 and C5-C6. Thereis no severe cord compression. Bony neural foraminal narrowing is notedprimarily due to uncovertebral spurring at C5-C6. Lungs: Lung apices are normal. Soft tissues: Unremarkable. IMPRESSION: No evidence for acute cervical fracture. THIS DOCUMENT HAS BEEN ELECTRONICALLY SIGNED BY RHETT JORGENSEN MD on02/15/2025 04:47 AM Dictated Date and Time: 02/15/25 0447 Technologist: RT Felisa R, CT [email or web address] [id number]%3D%3D us [facility] External Provider IMG CT PROCE DURES Final Result * XR Foot 3+ Views Left (02/14/2025 9:23 PM EDT) Anatomical Region Laterality Modality Lower Extremities, Foot Left Radiogra phic Imaging 02/14/2025 9:23 PM EDT Narrative 02/14/2025 9:[address] [facility] [address] [place] [address] Patient Name: PAULA TREVINO Medical Record#: [id number] Address: [address] [place] [address] City/State/Zip: [place] [address]: Anthony E/R Physician Insurance: [employer] [facility] Required /Age/Sex: 1990/34/M Self Pay Admit/Reg Date: 02/14/[address]: TANIKA Lamb Location: ED.GSQ/ PCP: Luis Fernando Chavez MD Date of Service: 02/14/25 Order (s): XR foot LT min 3V CPT Code: 23878 Report Number: [id number] Reason for Exam: toothpick in foot EXAM: Foot 3 views, left CLINICAL INDICATION: toothpick in the foot COMPARISON: None TECHNIQUE: AP, lateral and oblique views of the left foot. FINDINGS: Normal alignment. No acute fracture or dislocation. Joint spaces are preserved. No erosions or osteophytes. No soft tissue swelling. No radiopaque foreign body noted.. IMPRESSION: No acute fractures of the left foot. No foreign body. Dictated By: Jovita Nguyen MD 02/14/252122 Signed By: Jovita Nguyen MD 02/14/252127 TD/TT: 02/14/252122 Tech: [id number] cc: [id number]; E/R; MUQSY* E/R Physician,Anthony; Andrés García PAC; Luis Fernando Chavez MD Procedure Note Donotuseinterpreter, Image - 02/14/2025 [facility] [address] [place] [address] Patient Name: PAULA TREVINO MedicalRecord#: [id number] Address: [address] [place] [address]#: [id number] City/State/Zip: [place], [place] [address]Onhv[address]qlp Dr: Anthony E/R Physician Insurance: [employer] [facility] Required /Age/Sex: 1990//MSelf Pay Admit/Reg Date: 02/14/25 OrderingDr: TANIKA Lamb Location: ED.GSQ/ PCP:Luis Fernando Chavez MD Date ofService: 02/14/25 Order (s): XR foot LT min 3V CPT Code: 49464 ReportNumber: [id number] Reason for Exam: toothpick in foot EXAM: Foot 3 views, left CLINICAL INDICATION: toothpick in the foot COMPARISON: None TECHNIQUE: AP, lateral and oblique views of the left foot. FINDINGS: Normal alignment. No acute fracture or dislocation. Joint spaces arepreserved. No erosions or osteophytes. No soft tissue swelling. No radiopaque foreign body noted.. IMPRESSION: No acute fractures of the left foot. No foreign body. Dictated By: Jovita Nguyen MD 02/14/252122 Signed By: Jovita Nguyen MD 02/14/252127 TD/TT: 02/14/252122 Tech: [id number] cc: [id number]; E/R; MUQSY* E/R Physician,Anthony; TANIKA Lamb; Luis Fernando Chavez MD Luis Fernando Chavez MD IMG XR PROCEDURES Final Result * XR Lumbar Spine 2-3 Views (01/26/2025 2:07 PM EDT) Anatomical Region Laterality Modality Spine, L-spine Radiographic Luz ging 01/26/2025 2:07 PM EDT Narrative 01/26/2025 2:11 PM EDT [facility] [phone] [place] [address] XRAY REPORT Signed Patient: PAULA TREVINO MR#: [id number] 30 : 1990 Acct:[id number] Age/Sex: 34 / M ADM Date: 01/26/25 Loc: ER Attending Dr: Ordering Physician: Antoinette Castellanos MD Date of Service: 01/26/25 Procedure(s): XR lumbar spine 2-3V Accession Number(s): [id number] cc: Antoinette Castellanos MD HISTORY: Fall with low back pain TECHNIQUE: 3 views of the lumbar spine were acquired. COMPARISON: Lumbar spine 09/02/2007 FINDINGS: Alignment: Normal. Vertebrae: Vertebral body heights are maintained. No evidence of an acute fracture. Disc Spaces: Disc space heights are maintained. Endplates: Endplates are maintained. Paravertebral Tissues: Unremarkable. XR/XR lumbar spine 2-3V IMPRESSION: No acute fracture, malalignment or significant disc space narrowing. Overall no significant interval change. Dictated and Electronically Signed by: Gary Harding MD ([id number]) Dictated Date and Time: 01/26/25 1407 Technologist: RT Maynor Torres [email or web address]%3D Procedure Note Donotuseinterpreter, Image - 01/26/2025 [facility] [phone] [place] [address] XRAY REPORT Signed Patient: PAULA TREVINO MMR#: [id number] 28 : 1990Acct:[id number] Age/Sex: 34 / MADM Date: 01/26/25 Loc: ER Attending Dr: Ordering Physician: Antoinette Castellanos MD Date of Service: 01/26/25 Procedure(s): XR lumbar spine 2-3V Accession Number(s): [id number] cc: Antoinette Castellanos MD HISTORY: Fall with low back pain TECHNIQUE: 3 views of the lumbar spine were acquired. COMPARISON: Lumbar spine 09/02/2007 FINDINGS: Alignment: Normal. Vertebrae: Vertebral body heights are maintained. No evidence of an acute fracture. Disc Spaces: Disc space heights are maintained. Endplates: Endplates are maintained. Paravertebral Tissues: Unremarkable. XR/XR lumbar spine 2-3V IMPRESSION: No acute fracture, malalignment or significant disc spacenarrowing. Overall no significant interval change. Dictated and Electronically Signed by: Gary Harding MD ([id number]) Dictated Date and Time: 01/26/25 1407 Technologist: Sara Conde RT R [email or web address]%3D%3D [facility] External Provider IMG XR PROCE DURES Final Result * (ABNORMAL) Drug screen panel 1, serum (01/26/2025 11:41 AM EDT) Alcohol, Ethyl <10 0 - 10 mg/dL [facility] Comment:These results are in tended for medical purposes only. Acetaminophen <2.0(L) 10 - 20 g/mL [facility] Salicylate <3.0 <30 mg/dL [facility] 01/26/2025 11:4 1 AM EDT 01/26/2025 12:07 PM EDT [facility] External Provider LAB BLOOD OR DERABLES Final Result [facility] [place] [address] from Last 3 Months Insurance [facility] C3 Care Teams Manager Code Relationship Specialty Start Date End Date Luis Fernando Chavez MD [address] [place] [address] PCP - General 07/27/21 Yaquelin Stoddard, RN Registered Nurse 05/03/24 [facility] Registered Nurse 05/06/24 jordyn Thapaor 01/18/25
--- OUTSIDE RECORDS SUMMARY | 2025-04-07 00:10 | XMS_ITS | Encounter Summary ---
Author Organization [employer] Address [address] [place] [address] Care Team Providers Care Sales Agent Casualty Insurance Name Role Phone Luis Fernando Chavez MD Primary Care Provider [phone] Yaquelin Stoddard RN Unavailable Unavailable Denisse Unger Unavailable Ethel Connelly CEMENT MASON APPRENTICE Unavailable [phone] Rajesh Mancera VETERINARY POULTRY INSPECTOR Unavailable [phone] Reason for Visit * Reason Onset Date Comments Med Refill 11/11/2023 Encounter Details Date Type Department Care Team (Late st Contact Info) Description 11/11/2023 Telephone [facility] MAIN ADULT [address] [place] [address] Luis Fernando Chavez MD [address] [place] [address] Med Refill Social History Tobacco Use Types [...] Encounter - Luis Fernando Chavez MD - 11/11/2023 11:20 AM EDT Med already refilled * Telephone Encounter - Rebeca Concepcion RN - 11/11/2023 11:09 AM EDT Lyrica 300 mg caps were last ordered by PCP on 10/04/23 for 60 caps with no refills. Pt was last seen by PCP on 10/20/23. documented in this encounter Plan of Treatment Upcoming Encounters Date Type Department Care Team (Late st Contact Info) Description 04/17/2025 1:20 PM EDT Office Visit [facility] MAIN ADULT [address] [place] [address] Luis Fernando Chavez MD [address] [place] [address] 04/28/2025 9:55 AM EDT Office Visit [facility] MAIN ADULT [address] [place] [address] Luis Fernando Chavez MD [address] [place] [address] documented as of this encounter Visit Diagnoses Diagnosis Chronic bilateral low back pain with bilateral sciatica Anxiety Anxiety state, unspecified documented in this encounter Care Teams Sales Agent Casualty Insurance Relationship Specialty Start Date End Date Luis Fernando Chavez MD [address] [place] [address] PCP - General 07/27/21 Yaquelin Stoddard, RN Registered Nurse 05/03/24 Denisse Unger [address] [place] [address] Esthetic Dermatologist Behavioral Health 01/31/25 02/28/25 Ethel Connelly, [facility] Esthetic Dermatologist Behavioral Health 03/10/25 03/10/25 Rajesh Mancera, [facility] Esthetic Dermatologist Behavioral Health 03/31/25 03/31/25 [facility] Registered Nurse 05/06/24 jordyn Grewal 01/18/25 documented as of this encounter
--- OUTSIDE RECORDS SUMMARY | 2025-04-07 00:11 | XMS_ITS | Encounter Summary ---
Author Organization [employer] Address [address] [facility] [address] [place] [address] Care Team Providers Care Seed Core Operator Name Role Phone Luis Fernando Chavez MD Primary Care Provider [phone] Yaquelin Stoddard RN Unavailable Unavailable Denisse Unger Unavailable Ethel Connelly MOVIE PRODUCER Unavailable [phone] Rajesh Mancera LICENSED APPRAISER Unavailable [phone] Reason for Visit * Reason Onset Date Comments Med Refill 07/17/2023 Encounter Details Date Type Department Care Team (Late st Contact Info) Description 07/17/2023 Refill [facility] MAIN ADULT [address] [place] [address] Luis Fernando Chavez MD [address] [place] [address] Nausea Social History Tobacco Use Types Packs/Day [...] Encounter - Luis Fernando Chavez MD - 07/17/2023 3:06 PM EST Approving, but needs appt for additional refills. documented in this encounter Plan of Treatment Upcoming Encounters Date Type Department Care Team (Late st Contact Info) Description 04/17/2025 1:20 PM EDT Office Visit [facility] MAIN ADULT [address] [place] [address] Luis Fernando Chavez MD [address] [place] [address] 04/28/2025 9:55 AM EDT Office Visit [facility] MAIN ADULT [address] [place] [address] Luis Fernando Chavez MD [address] [place] [address] documented as of this encounter Visit Diagnoses Diagnosis Nausea Nausea alone documented in this encounter Care Teams Seed Core Operator Relationship Specialty Start Date End Date Luis Fernando Chavez MD [address] [place] [address] PCP - General 07/27/21 Yaquelin Stoddard, RN Registered Nurse 05/03/24 Denisse Unger [address] [place] [address] Regional Branch Manager Behavioral Health 01/31/25 02/28/25 Ethel Connelly, [facility] Regional Branch Manager Behavioral Health 03/10/25 03/10/25 Rajesh Mancera, [facility] Regional Branch Manager Behavioral Health 03/31/25 03/31/25 [facility] Registered Nurse 05/06/24 jordyn Grewal 01/18/25 documented as of this encounter
--- OUTSIDE RECORDS SUMMARY | 2025-04-07 00:11 | XMS_ITS | Encounter Summary ---
Author Organization [email or web address] Address [address] [place] [address] 7 [place] [address] Care Team Providers Care Wrapping Clerk Name Role Phone Luis Fernando Chavez MD Primary Care Provider [phone] Yaquelin Stoddard RN Unavailable Unavailable Denisse Unger Unavailable Ethel Connelly BLOWING ENGINEER Unavailable [phone] Rajesh Mancera HISTOLOGY TECHNICIAN Unavailable [phone] Reason for Visit * Reason Comments Med Refill Encounter Details Date Type Department Care Team (Late st Contact Info) Description 01/14/2024 Refill [facility] MAIN ADULT [address] [place] [address] Luis Fernando Chavez MD [address] [place] [address] Chronic bilateral low back pain with bilateral [...] the past 12 months, has t he [employer], gas, oil or water company threatened to [...] Encounter - Luis Fernando Chavez MD - 01/14/2024 10:34 AM EDT Approving, but needs appt for additional refills. * Telephone Encounter - Rebeca Concepcion RN - 01/14/2024 9:20 AM EDT Heath Trevino is a 33 [...] PM Luis Fernando Chavez MD [place] [facility] BP Readings from Last 3 Encounters: 12/07/23 140/90 10/20/23 115/87 07/15/23 125/87 documented in this encounter Plan of Treatment Upcoming Encounters Date Type Department Care Team (Late st Contact Info) Description 04/17/2025 1:20 PM EDT Office Visit [facility] MAIN ADULT [address] [place] [address] Luis Fernando Chavez MD [address] [place] [address] 04/28/2025 9:55 AM EDT Office Visit [facility] MAIN ADULT [address] [place] [address] Luis Fernando Chavez MD [address] [place] [address] documented as of this encounter Visit Diagnoses Diagnosis Chronic bilateral low back pain with bilateral sciatica documented in this encounter Additional Health Concerns Assessment Noted Time PHQ-9 Depression Total Score: 21 024 1:54 PM EDT documented as of this encounter Care Teams Wrapping Clerk Relationship Specialty Start Date End Date Luis Fernando Chavez MD [address] [place] [address] PCP - General 07/27/21 Yaquelin Stoddard, RN Registered Nurse 05/03/24 Denisse Unger [address] [place] [address] Merchandising Lead Behavioral Health 01/31/25 02/28/25 Ethel Connelly, [facility] Merchandising Lead Behavioral Health 03/10/25 03/10/25 Rajesh Mancera, HISTOLOGY TECHNICIAN Merchandising Lead Behavioral Health 03/31/25 03/31/25 [facility] Registered Nurse 05/06/24 jordyn Grewal 01/18/25 documented as of this encounter
--- OUTSIDE RECORDS SUMMARY | 2025-04-07 00:11 | XMS_ITS | Encounter Summary ---
Author Organization [employer] Address [address] [place] [address] 7 [place] [address] Care Team Providers Care Masonry Installer Name Role Phone Luis Fernando Chavez MD Primary Care Provider [phone] Vero Mcnair Unavailable Yaquelin Stoddard RN Unavailable Unavailable Denisse Unger Unavailable Ethel Connelly DELICATESSEN MANAGER Unavailable [phone] Rajesh Mancera [facility] Unavailable Reason for Visit * Reason Onset Date Comments Med Refill Care Coordination 07/16/2022 Spoke with Diogenes Bartlett with [facility] to rely information for patient to reschedule missed hospital follow up visit . Encounter Details Date Type Department Care Team (Late st Contact Info) Description 07/16/2022 Refill [facility] MAIN ADULT [address] [place] [address] Luis Fernando Chavez MD [address] [place] [address] Nausea (Primary Dx) Social History Tobacco Use Types Packs/Day Years Used Date Smoking Tobacco: Never Assessed Sex and Gender Information Value Date Recorded Sex Assigned at Male 05/27/2022 2:14 PM EDT Legal Sex Male 2:14 PM EDT Gender Identity Male 05/27/2022 2:14 PM EDT Sexual Orientation Straight 03/11/2024 5: 59 PM EDT documented as of this encounter Miscellaneous Notes * Telephone Encounter - Caroline Munoz - 07/24/2022 4:06 PM EST Unable to reach the patient and unable to leave message * Telephone Encounter - Yaquelin Stoddard RN - 07/17/2022 9:16 AM EST Spoke with Nurse Tri with [facility] to rely information for patient to reschedule missed hospital follow up visit . documented in this encounter Plan of Treatment Upcoming Encounters Date Type Department Care Team (Late st Contact Info) Description 04/17/2025 1:20 PM EDT Office Visit [facility] MAIN ADULT [address] [place] [address] Luis Fernando Chavez MD [address] [place] [address] 04/28/2025 9:55 AM EDT Office Visit [facility] MAIN ADULT [address] [place] [address] Luis Fernando Chavez MD [address] [place] [address] documented as of this encounter Visit Diagnoses Diagnosis Nausea- Primary Nausea alone documented in this encounter Care Teams Masonry Installer Relationship Specialty Start Date End Date Luis Fernando Chavez MD [address] [place] [address] PCP - General 07/27/21 Vero Mcnair Community Health Worker Behavioral Health 02/19/23 Yaquelin Stoddard, RN Registered Nurse 05/03/24 Denisse Unger [address] [place] [address] Lap Cutter Truer Operator Behavioral Health 01/31/25 02/28/25 [facility] Lap Cutter Truer Operator Behavioral Health 03/10/25 03/10/25 Rajesh Mancera, [facility] Lap Cutter Truer Operator Behavioral Health 03/31/25 03/31/25 [facility] Registered Nurse 05/06/24 jordyn Grewal 01/18/25 documented as of this encounter
--- OUTSIDE RECORDS SUMMARY | 2025-04-07 00:11 | XMS_ITS | Encounter Summary ---
Author Organization [employer] Address [address] [place] [address] 7 [place] [address] Care Team Providers Care Cook Fish And Chips Name Role Phone Luis Fernando Chavez MD Primary Care Provider [phone] Yaquelin Stoddard RN Unavailable Unavailable Denisse Unger Unavailable Ethel Connelly PLANT OPERATOR Unavailable [phone] Rajesh Mancera COMPOSITION BOARD PRESS OPERATOR Unavailable [phone] Reason for Visit * Reason Comments Med Refill Encounter Details Date Type Department Care Team (Late st Contact Info) Description 09/19/2024 Refill [facility] MAIN ADULT [address] [place] [address] Luis Fernando Chavez MD [address] [place] [address] Chronic bilateral low back pain with bilateral [...] Recorded Patient Health Questionnaire-2 Score 6 12/02/2023 Internet Access Answer Date Recorded Internet Access [...] Encounter - Luis Fernando Chavez MD - 09/19/2024 8:17 AM EST Med already refilled documented in this encounter Plan of Treatment Upcoming Encounters Date Type Department Care Team (Late st Contact Info) Description 04/17/2025 1:20 PM EDT Office Visit [facility] MAIN ADULT [address] [place] [address] Luis Fernando Chavez MD [address] [place] [address] 04/28/2025 9:55 AM EDT Office Visit [facility] MAIN ADULT [address] [place] [address] Luis Fernando Chavez MD [address] [place] [address] documented as of this encounter Visit Diagnoses Diagnosis Chronic bilateral low back pain with bilateral sciatica documented in this encounter Additional Health Concerns Assessment Noted Time PHQ-9 Depression Total Score: 21 024 1:54 PM EDT documented as of this encounter Care Teams Cook Fish And Chips Relationship Specialty Start Date End Date Luis Fernando Chavez MD [address] [place] [address] PCP - General 07/27/21 Yaquelin Stoddard, RN Registered Nurse 05/03/24 Denisse Unger [address] [place] [address] Senior Compensation Analyst Behavioral Health 01/31/25 02/28/25 Ethel Connelly, [facility] Senior Compensation Analyst Behavioral Health 03/10/25 03/10/25 Rajesh Mancera, [facility] Senior Compensation Analyst Behavioral Health 03/31/25 03/31/25 [facility] Registered Nurse 05/06/24 jordyn Grewal 01/18/25 documented as of this encounter
--- OUTSIDE RECORDS SUMMARY | 2025-04-07 00:11 | XMS_ITS | Encounter Summary ---
Author Organization [employer] Address [address] [place] [address] 7 [place] [address] Care Team Providers Care Neuro Urologist Name Role Phone Luis Fernando Chavez MD Primary Care Provider [phone] Yaquelin Stoddard RN Unavailable Unavailable Denisse Unger Unavailable Ethel Connelly SOLUTION DESIGNER Unavailable [phone] Rajesh Mancera APPLIED BEHAVIOR SCIENCE SPECIALIST Unavailable [phone] Reason for Visit * Reason Comments Med Refill Encounter Details Date Type Department Care Team (Late st Contact Info) Description 09/27/2024 Refill [facility] MAIN ADULT [address] [place] [address] Luis Fernando Chavez MD [address] [place] [address] Chronic bilateral low back pain with bilateral [...] Encounter - Luis Fernando Chavez MD - 09/27/2024 12:20 PM EST Med already refilled documented in this encounter Plan of Treatment Upcoming Encounters Date Type Department Care Team (Late st Contact Info) Description 04/17/2025 1:20 PM EDT Office Visit [facility] MAIN ADULT [address] [place] [address] Luis Fernando Chavez MD [address] [place] [address] 04/28/2025 9:55 AM EDT Office Visit [facility] MAIN ADULT [address] [place] [address] Luis Fernando Chavez MD [address] [place] [address] documented as of this encounter Visit Diagnoses Diagnosis Chronic bilateral low back pain with bilateral sciatica documented in this encounter Additional Health Concerns Assessment Noted Time PHQ-9 Depression Total Score: 21 024 1:54 PM EDT documented as of this encounter Care Teams Neuro Urologist Relationship Specialty Start Date End Date Luis Fernando Chavez MD [address] [place] [address] PCP - General 07/27/21 Yaquelin Stoddard, RN Registered Nurse 05/03/24 Denisse Unger [address] [place] [address] Hot Dip Galvanizer Behavioral Health 01/31/25 02/28/25 Ethel Connelly, [facility] Hot Dip Galvanizer Behavioral Health 03/10/25 03/10/25 Rajesh Mancera, [facility] Hot Dip Galvanizer Behavioral Health 03/31/25 03/31/25 [facility] Registered Nurse 05/06/24 jordyn Grewal 01/18/25 documented as of this encounter
--- OUTSIDE RECORDS SUMMARY | 2025-04-07 00:11 | XMS_ITS | Encounter Summary ---
Author Organization [employer] Address [address] [place] [address] 7 [place] [address] Care Team Providers Care Boat Puller Name Role Phone Luis Fernando Chavez MD Primary Care Provider [phone] Yaquelin Stoddard RN Unavailable Unavailable Denisse Unger Unavailable Ethel Connelly WELFARE ELIGIBILITY INTERVIEWER Unavailable [phone] Rajesh Mancera INDUSTRIAL ILLUMINATING ENGINEER Unavailable [phone] Reason for Visit * Reason Comments Med Refill Encounter Details Date Type Department Care Team (Late st Contact Info) Description 01/18/2024 Refill [facility] MAIN ADULT [address] [place] [address] Luis Fernando Chavez MD [address] [place] [address] Nausea Social History Tobacco Use Types Packs/Day [...] encounter Miscellaneous Notes * Telephone Encounter - Rafaela Geiger RN - 01/18/2024 3:05 PM EDT Possible duplicate please investugate Heath Trevino is a 33 y.o. male Refill requested as listed below: Requested Prescriptions Pending Prescriptions Disp Refills ondansetron ODT (Zofran-ODT) 4 MG disintegrating tablet [Pharmacy Med Name: ONDANSETRON ODT 4 MG TABLET] 30 tablet 0 Sig: TAKE 1 TABLET (4 MG) BY MOUTH EVERY 8 HOURS NEEDED FOR NAUSEA AND VOMITING Last Adult Medicine In-Office Visit: 12/07/2023 No future appointments. BP Readings from Last 3 Encounters: 12/07/23 140/90 10/20/23 115/87 07/15/23 125/87 documented in this encounter Plan of Treatment Upcoming Encounters Date Type Department Care Team ([facility] st Contact Info) Description 04/17/2025 1:20 PM EDT Office Visit [facility] MAIN ADULT [address] [place] [address] Luis Fernando Chavez MD [address] [place] [address] 04/28/2025 9:55 AM EDT Office Visit [facility] MAIN ADULT [address] [place] [address] Luis Fernando Chavez MD [address] [place] [address] documented as of this encounter Visit Diagnoses Diagnosis Nausea Nausea alone documented in this encounter Additional Health Concerns Assessment Noted Time PHQ-9 Depression Total Score: 21 024 1:54 PM EDT documented as of this encounter Care Teams Boat Puller Relationship Specialty Start Date End Date Luis Fernando Chavez MD [address] [place] [address] PCP - General 07/27/21 Yaquelin Stdodard, RN Registered Nurse 05/03/24 Denisse Unger [address] [place] [address] Sign Manufacturer Behavioral Health 01/31/25 02/28/25 Ethel Connelly, [facility] Sign Manufacturer Behavioral Health 03/10/25 03/10/25 Rajesh Mancera, [facility] Sign Manufacturer Behavioral Health 03/31/25 03/31/25 [facility] Registered Nurse 05/06/24 jordyn Grewal 01/18/25 documented as of this encounter
--- OUTSIDE RECORDS SUMMARY | 2025-04-07 00:11 | XMS_ITS | Encounter Summary ---
Author Organization [employer] Address [address] [place] [address] 7 [place] [address] Care Team Providers Care Trial Examiner Name Role Phone Luis Fernando Chavez MD Primary Care Provider [phone] Yaquelin Stoddard RN Unavailable Unavailable Denisse Unger Unavailable Ethel Connelly GREASE AND TALLOW PUMPER Unavailable [phone] Rajesh Mancera NETWORK M[employer] Unavailable [phone] Reason for Visit * Reason Comments Med Refill Encounter Details Date Type Department Care Team (Late st Contact Info) Description 05/18/2023 Refill [facility] MAIN ADULT [address] [place] [address] Luis Fernando Chavez MD [address] [place] [address] Chronic bilateral low back pain with bilateral [...] Encounter - Luis Fernando Chavez MD - 05/18/2023 12:49 PM EDT Approving, but needs appt for additional refills. documented in this encounter Plan of Treatment Upcoming Encounters Date Type Department Care Team (Late st Contact Info) Description 04/17/2025 1:20 PM EDT Office Visit [facility] MAIN ADULT [address] [place] [address] Luis Fernando Chavez MD [address] [place] [address] 04/28/2025 9:55 AM EDT Office Visit [facility] MAIN ADULT [address] [place] [address] Luis Fernando Chavez MD [address] [place] [address] documented as of this encounter Visit Diagnoses Diagnosis Chronic bilateral low back pain with bilateral sciatica documented in this encounter Care Teams Trial Examiner Relationship Specialty Start Date End Date Luis Fernando Chavez MD [address] [place] [address] PCP - General 07/27/21 Yaquelin Stoddard, RN Registered Nurse 05/03/24 Denisse Unger [address] [place] [address] Air Compressor Engineer Behavioral Health 01/31/25 02/28/25 Ethel Connelly, [facility] Air Compressor Engineer Behavioral Health 03/10/25 03/10/25 Rajesh Mancera, [facility] Air Compressor Engineer Behavioral Health 03/31/25 03/31/25 [facility] Registered Nurse 05/06/24 jordyn Grewal 01/18/25 documented as of this encounter
--- OUTSIDE RECORDS SUMMARY | 2025-04-07 00:11 | XMS_ITS | Encounter Summary ---
Author Organization [employer] Address [address] [place] [address] 7 [place] [address] Care Team Providers Care Orthopedic Dentist Name Role Phone Luis Fernando Chavez MD Primary Care Provider [phone] Yaquelin Stoddard RN Unavailable Unavailable Denisse Unger Unavailable Ethel Connelly CAN BANDER OPERATOR Unavailable Rajesh Mancera SHOP TEACHER Unavailable Reason for Visit * Reason Comments Med Refill Encounter Details Date Type Department Care Team (Late st Contact Info) Description 02/16/2024 Refill [facility] MAIN ADULT [address] [place] [address] Luis Fernando Chavez MD [address] [place] [address] Nausea Social History Tobacco Use Types Packs/Day [...] Visit [facility] MAIN ADULT [address] [place] [address] Luis Fernando Chavez MD [address] [place] [address] 04/28/2025 9:55 AM EDT Office Visit [facility] MAIN ADULT [address] [place] [address] Luis Fernando Chavez MD [address] [place] [address] documented as of this encounter Visit Diagnoses Diagnosis Nausea Nausea alone documented in this encounter Additional Health Concerns Assessment Noted Time PHQ-9 Depression Total Score: 21 024 1:54 PM EDT documented as of this encounter Care Teams Orthopedic Dentist Relationship Specialty Start Date End Date Luis Fernando Chavez MD [address] [place] [address] PCP - General 07/27/21 Yaquelin Stoddard, RN Registered Nurse 05/03/24 Denisse Unger [address] [place] [address] [facility] Behavioral [facility] 01/31/25 02/28/25 Ethel Connelly, [facility] 03/10/25 03/10/25 Rajesh Mancera, [facility] 03/31/25 03/31/25 [facility] Registered Nurse 05/06/24 jordyn Grewal 01/18/25 documented as of this encounter
--- OUTSIDE RECORDS SUMMARY | 2025-04-07 00:11 | XMS_ITS | Encounter Summary ---
Author Organization [employer] [facility] Address [address] [place] [address] [place] [address] Care Team Providers Care Production Machine Tender Name Role Phone Luis Fernando Chavez MD Primary Care Provider [phone] Vero Mcnair Unavailable Yaquelin Stoddard RN Unavailable Unavailable Denisse Unger Unavailable ConnellyClaudia jarquinha [facility] Unavailable [phone] Rajesh Mancera [facility] Unavailable [phone] Reason for Visit * Reason Comments Med Refill Encounter Details Date Type Department Care Team (Late st Contact Info) Description 12/30/2022 Refill [facility] MAIN ADULT [address] [place] [address] Luis Fernando Chavez MD [address] [place] [address] Chronic bilateral low back pain with bilateral [...] Orientation Straight 03/11/2024 5: 59 PM EDT COVID-19 Exposure Response Date Recorded In the last 10 days, have yo u been in contact with someone who was confirmed or suspected to have Coronavirus/COVID-19? No / Unsure 12/23/2022 2:29 PM EDT documented as of this encounter Miscellaneous Notes * Telephone Encounter - Luis Fernando Chavez MD - 12/30/2022 7:02 PM EDT Med already refilled documented in this encounter Plan of Treatment Upcoming Encounters Date Type Department Care Team (Late st Contact Info) Description 04/17/2025 1:20 PM EDT Office Visit [facility] MAIN ADULT [address] [place] [address] Luis Fernando Chavez MD [address] [place] [address] 04/28/2025 9:55 AM EDT Office Visit [facility] MAIN ADULT [address] [place] [address] Luis Fernando Chavez MD [address] [place] [address] documented as of this encounter Visit Diagnoses Diagnosis Chronic bilateral low back pain with bilateral sciatica documented in this encounter Care Teams Production Machine Tender Relationship Specialty Start Date End Date Luis Fernando Chavez MD [address] [place] [address] PCP - General 07/27/21 Vero Mcnair Community Health Worker Behavioral Health 02/19/23 Yaquelin Stoddard, RN Registered Nurse 05/03/24 Denisse Unger [address] [place] [address] Repair Operator Behavioral Health 01/31/25 02/28/25 [facility] 03/10/25 03/10/25 Rajesh Mancera, SUPERVISOR FUR FLOOR WORKER Repair Operator Behavioral Health 03/31/25 03/31/25 [facility] Registered Nurse 05/06/24 jordyn Thapaor 01/18/25 documented as of this encounter
--- OUTSIDE RECORDS SUMMARY | 2025-04-07 00:11 | XMS_ITS | Encounter Summary ---
Author Organization [employer] Address [address] [facility] 7 [place] [address] Care Team Providers Care Health Sanitarian Name Role Phone Luis Fernando Chavez MD Primary Care Provider [phone] Yaquelin Stoddard RN Unavailable Unavailable Denisse Unger Unavailable Ethel Connelly ENGRAVER WOOD Unavailable [phone] Rajesh Mancera GEOSPATIAL SCIENTIST Unavailable [phone] Reason for Visit * Reason Onset Date Comments Med Refill 08/08/2023 Encounter Details Date Type Department Care Team (Late st Contact Info) Description 08/08/2023 Refill [facility] MAIN ADULT [address] [place] [address] Luis Fernando Chavez MD [address] [place] [address] Chronic bilateral low back pain with bilateral [...] Encounter - Luis Fernando Chavez MD - 08/12/2023 8:53 AM EST Approving, but needs appt for additional refills. * Telephone Encounter - Luis Fernando Chavez MD - 08/10/2023 6:04 PM EST Med already refilled documented in this encounter Plan of Treatment Upcoming Encounters Date Type Department Care Team (Late st Contact Info) Description 04/17/2025 1:20 PM EDT Office Visit [facility] MAIN ADULT 63 [place] [address] Luis Fernando Chavez MD [address] [place] [address] 04/28/2025 9:55 AM EDT Office Visit [facility] MAIN ADULT 63 [place] [address] Luis Fernando Chavez MD [address] [place] [address] documented as of this encounter Visit Diagnoses Diagnosis Chronic bilateral low back pain with bilateral sciatica documented in this encounter Care Teams Health Sanitarian Relationship Specialty Start Date End Date Luis Fernando Chavez MD [address] [place] [address] PCP - General 07/27/21 Yaquelin Stoddard, RN Registered Nurse 05/03/24 Denisse Unger [address] [place] [address] [facility] Behavioral Health 01/31/25 02/28/25 Ethel Connelly, [facility] 03/10/25 03/10/25 Rajesh Mancera, [facility] 03/31/25 03/31/25 [facility] Registered Nurse 05/06/24 jordyn Grewal 01/18/25 documented as of this encounter
--- OUTSIDE RECORDS SUMMARY | 2025-04-07 00:11 | XMS_ITS | Encounter Summary ---
Author Organization [employer] Address [address] [place] [address] 7 [place] [address] Care Team Providers Care Char Filter Tank Tender Name Role Phone Luis Fernando Chavez MD Primary Care Provider [phone] Yaquelin Stoddard RN Unavailable Unavailable Denisse Unger Unavailable Ethel Connelly POWER CLEANER OPERATOR Unavailable [phone] Rajesh Mancera OIL WELL PERFORATOR OPERATOR Unavailable [phone] Reason for Visit * Reason Comments Med Refill Encounter Details Date Type Department Care Team (Late st Contact Info) Description 09/27/2024 Refill [facility] MAIN ADULT [address] [place] [address] Luis Fernando Chavez MD [address] [place] [address] Chronic bilateral low back pain with bilateral [...] Chavez MD - 09/27/2024 12:20 PM EST Approving, but needs appt for additional refills. documented in this encounter Plan of Treatment Upcoming Encounters Date Type Department Care Team (Late st Contact Info) Description 04/17/2025 1:20 PM EDT Office Visit [facility] MAIN ADULT [address] [place] [address] Luis Fernando Chavez MD [address] [place] [address] 04/28/2025 9:55 AM EDT Office Visit [facility] MAIN ADULT [address] [place] [address] Luis Fernando Chavez MD [address] [place] [address] documented as of this encounter Visit Diagnoses Diagnosis Chronic bilateral low back pain with bilateral sciatica documented in this encounter Additional Health Concerns Assessment Noted Time PHQ-9 Depression Total Score: 21 024 1:54 PM EDT documented as of this encounter Care Teams Char Filter Tank Tender Relationship Specialty Start Date End Date Luis Fernando Chavez MD [address] [place] [address] PCP - General 07/27/21 Yaquelin Stoddard, RN Registered Nurse 05/03/24 Denisse Unger [address] [place] [address] Remarketing Manager Behavioral Health 01/31/25 02/28/25 Ethel Connelly, [facility] Remarketing Manager Behavioral Health 03/10/25 03/10/25 Rajesh Mancera, [facility] Remarketing Manager Behavioral Health 03/31/25 03/31/25 [facility] Registered Nurse 05/06/24 jordyn Grewal 01/18/25 documented as of this encounter
--- OUTSIDE RECORDS SUMMARY | 2025-04-07 00:11 | XMS_ITS | Encounter Summary ---
Author Organization [employer] Address [address] [place] [address] 7 [place] [address] Care Team Providers Care Training Facilitator Name Role Phone Luis Fernando Chavez MD Primary Care Provider [phone] Vero Mcnair Unavailable Yaquelin Stoddard RN Unavailable Unavailable Denisse Unger Unavailable ConnellyClaudia jarquinha BAROMETERS CALIBRATOR Unavailable [phone] Rajesh Mancera SHIFT SUPERINTENDENT Unavailable [phone] Reason for Visit * Reason Comments Med Refill Encounter Details Date Type Department Care Team (Late st Contact Info) Description 08/03/2022 Refill [facility] MAIN ADULT [address] [place] [address] Luis Fernando Chavez MD [address] [place] [address] Chronic bilateral low back pain with bilateral [...] Encounter - Luis Fernando Chavez MD - 08/04/2022 12:41 PM EST Approving, but needs appt for additional refills. documented in this encounter Plan of Treatment Upcoming Encounters Date Type Department Care Team (Late st Contact Info) Description 04/17/2025 1:20 PM EDT [facility] MAIN ADULT [address] [place] [address] Luis Fernando Chavez MD [address] [place] [address] 04/28/2025 9:55 AM EDT Office Visit [facility] MAIN ADULT [address] [place] [address] Luis Fernando Chavez MD [address] [place] [address] documented as of this encounter Visit Diagnoses Diagnosis Chronic bilateral low back pain with bilateral sciatica documented in this encounter Care Teams Training Facilitator Relationship Specialty Start Date End Date Luis Fernando Chavez MD [address] [place] [address] PCP - General 07/27/21 Vero Mcnair Community Health Worker Behavioral Health 02/19/23 Yaquelin Stoddard, RN Registered Nurse 05/03/24 Denisse Unger [address] [place] [address] Silica Dry Press Helper Behavioral Health 01/31/25 02/28/25 Ethel Connelly, [facility] Silica Dry Press Helper Behavioral Health 03/10/25 03/10/25 Rajesh Mancera, [facility] Silica Dry Press Helper Behavioral Health 03/31/25 03/31/25 [facility] Registered Nurse 05/06/24 jordyn Grewal 01/18/25 documented as of this encounter
--- OUTSIDE RECORDS SUMMARY | 2025-04-07 00:11 | XMS_ITS | Encounter Summary ---
Author Organization [employer] [facility] Address [address] [place] [address] [place] [address] Care Team Providers Care Cornice Upholsterer Name Role Phone Luis Fernando Chavez MD Primary Care Provider [phone] Vero Mcnair Unavailable Yaquelin Stoddard RN Unavailable Unavailable Denisse Unger Unavailable ConnellyClaudia jarquinha [facility] Unavailable [phone] Rajesh Mancera [facility] Unavailable Reason for Visit * Reason Comments Med Refill Encounter Details Date Type Department Care Team (Late st Contact Info) Description 01/05/2023 Refill [facility] MAIN ADULT [address] [place] [address] Luis Fernando Chavez MD [address] [place] [address] Left flank pain Social History Tobacco Use [...] suspected to have Coronavirus/COVID-19? No / Unsure 01/06/2023 10:09 AM EDT documented as of this encounter Miscellaneous Notes * Telephone Encounter - Luis Fernando Chavez MD - 01/05/2023 12:40 PM EDT Approving, but needs appt for additional refills. documented in this encounter Plan of Treatment Upcoming Encounters Date Type Department Care Team (Late st Contact Info) Description 04/17/2025 1:20 PM EDT Office Visit [facility] MAIN ADULT [address] [place] [address] Luis Fernando Chavez MD [address] [place] [address] 04/28/2025 9:55 AM EDT Office Visit [facility] MAIN ADULT [address] [place] [address] Luis Fernando Chavez MD [address] [place] [address] documented as of this encounter Visit Diagnoses Diagnosis Left flank pain Abdominal pain, unspecified site documented in this encounter Care Teams Cornice Upholsterer Relationship Specialty Start Date End Date Luis Fernando Chavez MD [address] [place] [address] PCP - General 07/27/21 Vero Mcnair Community Health Worker Behavioral Health 02/19/23 Yaquelin Stoddard, RN Registered Nurse 05/03/24 Denisse Unger [address] [place] [address] Stars Specialist Behavioral Health 01/31/25 02/28/25 [facility] Stars Specialist Behavioral Health 03/10/25 03/10/25 Rajesh Mancera, PATROL DRIVER Stars Specialist Behavioral Health 03/31/25 03/31/25 [facility] Registered Nurse 05/06/24 jordyn Tahpaor 01/18/25 documented as of this encounter
--- OUTSIDE RECORDS SUMMARY | 2025-04-07 00:11 | XMS_ITS | Encounter Summary ---
Author Organization [employer] Address [address] [facility] 7 [place] [address] Care Team Providers Care Student Success Counselor Name Role Phone Luis Fernando Chavez MD Primary Care Provider [phone] Yaquelin Stoddard RN Unavailable Unavailable Denisse Unger Unavailable Ethel Connelly PLASTICS ENGINEER Unavailable [phone] Rajesh Mancera STALLION MANAGER Unavailable [phone] Reason for Visit * Reason Onset Date Comments Med Refill 08/13/2023 Encounter Details Date Type Department Care Team (Late st Contact Info) Description 08/13/2023 Refill [facility] MAIN ADULT [address] [place] [address] Luis Fernando Chavez MD [address] [place], [place] [id number] Chronic bilateral low back pain without sciatica [...] Encounter - Luis Fernando Chavez MD - 08/13/2023 8:41 PM EST Approving, but needs appt for additional refills. * Telephone Encounter - Ellen Stoddard - 08/13/2023 12:08 PM EST Pt called requesting med refill for ( Oxycodone-acetaminophen 5-325 MG ) . Med not on pt active medlist . Please advise . documented in this encounter Plan of Treatment Upcoming Encounters Date Type Department Care Team (Late st Contact Info) Description 04/17/2025 1:20 PM EDT Office Visit [facility] MAIN ADULT [address] [place] [address] Luis Fernando Chavez MD [address] [place] [address] 04/28/2025 9:55 AM EDT Office Visit [facility] MAIN ADULT [address] [place] [address] Luis Fernando Chavez MD [address] [place] [address] documented as of this encounter Visit Diagnoses Diagnosis Chronic bilateral low back pain without sciatica documented in this encounter Care Teams Student Success Counselor Relationship Specialty Start Date End Date Luis Fernando Chavez MD [address] [place] [address] PCP - General 07/27/21 Yaquelin Stoddard, RN Registered Nurse 05/03/24 Denisse Unger [address] [place] [address] Clock And Watch Hands Painter Behavioral Health 01/31/25 02/28/25 Ethel Connelly, [facility] Clock And Watch Hands Painter Behavioral Health 03/10/25 03/10/25 Rajesh Mancera, [facility] Clock And Watch Hands Painter Behavioral Health 03/31/25 03/31/25 [facility] Registered Nurse 05/06/24 jordyn Grewal 01/18/25 documented as of this encounter
--- OUTSIDE RECORDS SUMMARY | 2025-04-07 00:11 | XMS_ITS | Encounter Summary ---
Author Organization [employer] Address [address] [place] [address] Care Team Providers Care Bookkeeping Machine Mechanic Name Role Phone Luis Fernando Chavez MD Primary Care Provider [phone] Vero Mcnair Unavailable Yaquelin Stoddard RN Unavailable Unavailable Denisse Unger Unavailable ConnellyClaudia jarquinha HELP DESK SUPERVISOR Unavailable [phone] Rajesh Mancera PRESS OFFBEARER Unavailable [phone] Reason for Visit * Reason Comments Med Refill Encounter Details Date Type Department Care Team (Late st Contact Info) Description 07/11/2022 Refill [facility] MAIN ADULT [address] [place] [address] Luis Fernando Chavez MD [address] [place] [address] Restless legs syndrome (RLS) (Primary Dx) Social History Tobacco Use Types [...] Description 04/17/2025 1:20 PM EDT Office Visit [facility] MAIN ADULT [address] [place] [address] Luis Fernando Chavez MD [address] [place] [address] 04/28/2025 9:55 AM EDT Office Visit [facility] MAIN ADULT [address] [place] [address] Luis Fernando Chavez MD [address] [place] [address] documented as of this encounter Visit Diagnoses Diagnosis Restless legs syndrome (RLS)- Primary documented in this encounter Care Teams Bookkeeping Machine Mechanic Relationship Specialty Start Date End Date Luis Fernando Chavez MD [address] [place] [address] PCP - General 07/27/21 Vero Mcnair Community Health Worker Behavioral Health 02/19/23 Yaquelin Stoddard, RN Registered Nurse 05/03/24 Denisse Unger [address] [place] [address] Medieval English Literature Professor Behavioral Health 01/31/25 02/28/25 Ethel Connelly, [facility] Medieval English Literature Professor Behavioral Health 03/10/25 03/10/25 Rajesh Mancera, [facility] Medieval English Literature Professor Behavioral Health 03/31/25 03/31/25 [facility] Registered Nurse 05/06/24 jordyn Grewal 01/18/25 documented as of this encounter
--- OUTSIDE RECORDS SUMMARY | 2025-04-07 00:11 | XMS_ITS | Encounter Summary ---
Author Organization [employer] Address [address] [place] [address] 7 [place] [address] Care Team Providers Care Tungsten Refiner Name Role Phone Luis Fernando Chavez MD Primary Care Provider [phone] Yaquelin Stoddard RN Unavailable Unavailable Denisse Unger Unavailable Ethel Connelly BICYCLE INSPECTOR Unavailable [phone] Rajesh Mancera ELECTRICAL DESIGNER Unavailable [phone] Reason for Visit * Reason Comments Med Refill Encounter Details Date Type Department Care Team (Late st Contact Info) Description 12/29/2024 Refill [facility] MAIN ADULT [address] [place] [address] Luis Fernando Chavez MD [address] [place] [address] Chronic bilateral low back pain with bilateral [...] Encounter - Luis Fernando Chavez MD - 12/29/2024 12:35 PM EDT Approving, but needs appt for additional refills. documented in this encounter Plan of Treatment Upcoming Encounters Date Type Department Care Team (Late st Contact Info) Description 04/17/2025 1:20 PM EDT Office Visit [facility] MAIN ADULT [address] [place] [address] Luis Fernando Chavez MD [address] [place] [address] 04/28/2025 9:55 AM EDT Office Visit [facility] MAIN ADULT [address] [place] [address] Luis Fernando Chavez MD [address] [place] [address] documented as of this encounter Visit Diagnoses Diagnosis Chronic bilateral low back pain with bilateral sciatica documented in this encounter Additional Health Concerns Assessment Noted Time PHQ-9 Depression Total Score: 21 024 1:54 PM EDT documented as of this encounter Care Teams Tungsten Refiner Relationship Specialty Start Date End Date Luis Fernando Chavez MD [address] [place] [address] PCP - General 07/27/21 Yaquelin Stoddard, RN Registered Nurse 05/03/24 Denisse Unger [address] [place] [address] Strike Off Machine Operator Behavioral Health 01/31/25 02/28/25 Ethel Connelly, [facility] Strike Off Machine Operator Behavioral Health 03/10/25 03/10/25 Rajesh Manecra, [facility] Strike Off Machine Operator Behavioral Health 03/31/25 03/31/25 [facility] Registered Nurse 05/06/24 jordyn Grewal 01/18/25 documented as of this encounter
--- OUTSIDE RECORDS SUMMARY | 2025-04-07 00:11 | XMS_ITS | Encounter Summary ---
Author Organization [employer] Address [address] [place] [address] 7 [place] [address] Care Team Providers Care Manufacturing Cost Estimator Name Role Phone Luis Fernando Chavez MD Primary Care Provider [phone] Yaquelin Stoddard RN Unavailable Unavailable Denisse Unger Unavailable Ethel Connelly FOOD DEHYDRATOR OPERATOR Unavailable [phone] Rajesh Mancera CLINICAL APPEALS REVIEWER Unavailable [phone] Reason for Visit * Reason Comments Med Refill Encounter Details Date Type Department Care Team (Late st Contact Info) Description 12/01/2024 Refill [facility] MAIN ADULT [address] [place] [address] Luis Fernando Chavez MD [address] [place] [address] Social History Tobacco Use Types Packs/Day Years [...] 04/17/2025 1:20 PM EDT Office Visit [facility] MAIN ADULT [address] [place] [address] Luis Fernando Chavez MD [address] [place] [address] 04/28/2025 9:55 AM EDT Office Visit [facility] MAIN ADULT [address] [place] [address] Luis Fernando Chavez MD [address] [place] [address] documented as of this encounter Visit Diagnoses Not on filedocumented in this encounter Additional Health Concerns Assessment Noted Time PHQ-9 Depression Total Score: 21 024 1:54 PM EDT documented as of this encounter Care Teams Manufacturing Cost Estimator Relationship Specialty Start Date End Date Luis Fernando Chavez MD [address] [place] [address] PCP - General 07/27/21 Yaquelin Stoddard, RN Registered Nurse 05/03/24 Denisse Unger [address] [place] [address] Director Visual Behavioral Health 01/31/25 02/28/25 Ethel Connelly, [facility] Director Visual Behavioral Health 03/10/25 03/10/25 Rajesh Mancera, [facility] Director Visual Behavioral Health 03/31/25 03/31/25 [facility] Registered Nurse 05/06/24 jordyn Grewal 01/18/25 documented as of this encounter
--- OUTSIDE RECORDS SUMMARY | 2025-04-07 00:11 | XMS_ITS | Encounter Summary ---
Author Organization [employer] Address [address] [place] [address] 7 [place] [address] Care Team Providers Care Transfer Controller Name Role Phone Luis Fernando Chavez MD Primary Care Provider [phone] Yaquelin Stoddard RN Unavailable Unavailable Denisse Unger Unavailable Ethel Connelly FURNACE OPERATOR AND TENDER Unavailable [phone] Rajesh Mancera ROLLER COASTER OPERATOR Unavailable Reason for Visit * Reason Comments Med Refill Encounter Details Date Type Department Care Team (Late st Contact Info) Description 02/29/2024 Refill [facility] MAIN ADULT [address] [place] [address] Luis Fernando Chavez MD [address] [place] [address] Chronic bilateral low back pain without sciatica; Anxiety Social History Tobacco Use Types Packs/Day Years [...] the past 12 months, has t he [employer], gas, oil or water company threatened to [...] Encounter - Luis Fernando Chavez MD - 02/29/2024 4:38 PM EDT Approving, but needs appt for additional refills. * Telephone Encounter - Rebeca Concepcion RN - 02/29/2024 3:33 PM EDT Heath Trevino is a 33 y.o. male Refill requested as listed below: Requested Prescriptions Pending Prescriptions Disp Refills traMADol (Ultram) 50 MG tablet [Pharmacy Med Name: TRAMADOL 50MG TABLETS] 240 tablet Sig: TAKE 2 TABLETS(100 MG) BY MOUTH FOUR TIMES DAILY propranolol (Inderal) 10 MG tablet [Pharmacy Med Name: PROPRANOLOL 10MG TABLETS] 270 tablet 0 Sig: TAKE 1 TABLET(10 MG) BY MOUTH THREE TIMES DAILY Last Adult Medicine In-Office Visit: 02/16/2024 Future Appointments Date Time Provider Department Center 03[facility] 1:40 PM Luis Fernando Chavez MD [place] [facility] BP Readings from Last 3 Encounters: 02/16/24 118/72 12/07/23 140/90 10/20/23 115/87 documented in this encounter Plan of Treatment Upcoming Encounters Date Type Department Care Team (Late st Contact Info) Description 04/17/2025 1:20 PM EDT Office Visit [facility] MAIN ADULT [address] [place] [address] Luis Fernando Chavez MD [address] [place] [address] 04/28/2025 9:55 AM EDT Office Visit [facility] MAIN ADULT [address] [place] [address] Luis Fernando Chavez MD [address] [place] [address] documented as of this encounter Visit Diagnoses Diagnosis Chronic bilateral low back pain without sciatica Anxiety Anxiety state, unspecified documented in this encounter Additional Health Concerns Assessment Noted Time PHQ-9 Depression Total Score: 21 024 1:54 PM EDT documented as of this encounter Care Teams Transfer Controller Relationship Specialty Start Date End Date Luis Fernando Chavez MD [address] [place] [address] PCP - General 07/27/21 Yaquelin Stoddard, RN Registered Nurse 05/03/24 Denisse Unger [address] [place] [address] Laborer [place] Behavior[facility] 01/31/25 02/28/25 Ethel Connelly, [facility] Laborer [place] [facility] 03/10/25 03/10/25 Rajesh Mancera, [facility] Laborer [place] [facility] 03/31/25 03/31/25 [facility] Registered Nurse 05/06/24 jordyn blackwood Vendor 01/18/25 documented as of this encounter
--- OUTSIDE RECORDS SUMMARY | 2025-04-07 00:11 | XMS_ITS | Encounter Summary ---
Author Organization [employer] [facility] Address [address] [place] [address] [place] [address] Care Team Providers Care Director Of Operations For Therapy Name Role Phone Luis Fernando Chavez MD Primary Care Provider [phone] Vero Mcnair Unavailable aYquelin Stoddard RN Unavailable Unavailable Denisse Unger Unavailable ConnellyClaudia jarquinha [facility] Unavailable [phone] Rajesh Mancera [facility] Unavailable [phone] Reason for Visit * Reason Onset Date Comments Med Refill 01/05/2023 Encounter Details Date Type Department Care Team (Late st Contact Info) Description 01/05/2023 Refill BN MAIN ADULT [address] [place] [address] Luis Fernando Chavez MD [address] [place] [address] Left flank pain; Dietary counseling; Exercise counseling Social History Tobacco Use Types Packs/Day Years [...] Recorded In the last 10 days, have jimena u been in contact with someone who was confirmed or suspected to have Coronavirus/COVID-19? No / Unsure 01/06/2023 10:09 AM EDT documented as of this encounter Miscellaneous Notes * Telephone Encounter - Luis Fernando Chavez MD - 01/05/2023 6:42 PM EDT Med already refilled documented in this encounter Plan of Treatment Upcoming Encounters Date Type Department Care Team (Late st Contact Info) Description 04/17/2025 1:20 PM EDT Office Visit [facility] MAIN ADULT [address] [place] [address] Luis Fernando Chavez MD [address] [place] [address] 04/28/2025 9:55 AM EDT Office Visit [facility] MAIN ADULT [address] [place] [address] Luis Fernando Chavez MD [address] [place] [address] documented as of this encounter Visit Diagnoses Diagnosis Left flank pain Abdominal pain, unspecified site Dietary counseling Dietary surveillance and counseling Exercise counseling documented in this encounter Care Teams Director Of Operations For Therapy Relationship Specialty Start Date End Date Luis Fernando Chavez MD [address] [place] [address] PCP - General 07/27/21 Vero Mcnair Community Health Worker Behavioral Health 02/19/23 Yaquelin Stoddard, RN Registered Nurse 05/03/24 Denisse Unger [address] [place] [address] Brick Picker Behavioral Health 01/31/25 02/28/25 Ethel Connelly [facility] Brick Picker Behavioral Health 03/10/25 03/10/25 Rajesh Mancera, [facility] Brick Picker Behavioral Health 03/31/25 03/31/25 [facility] Registered Nurse 05/06/24 jordyn Thapaor 01/18/25 documented as of this encounter
--- OUTSIDE RECORDS SUMMARY | 2025-04-07 00:11 | XMS_ITS | Encounter Summary ---
Author Organization [employer] Address [address] [place] [address] 7 [place] [address] Care Team Providers Care Contact Center Associate Name Role Phone Luis Fernando Chavez MD Primary Care Provider [phone] Yaquelin Stoddard RN Unavailable Unavailable Denisse Unger Unavailable Ethel Connelly SURTASS ANALYST Unavailable [phone] Rajesh Mancera BACK TENDER FOURDRINIER Unavailable [phone] Reason for Visit * Reason Comments Med Refill Encounter Details Date Type Department Care Team (Late st Contact Info) Description 02/21/2024 Refill [facility] MAIN ADULT [address] [place] [address] Luis Fernando Chavez MD [address] [place] [address] Social History Tobacco Use Types Packs/Day Years [...] 04/17/2025 1:20 PM EDT Office Visit [facility] MAIN ADULT [address] [place] [address] Luis Fernando Chavez MD [address] [place] [address] 04/28/2025 9:55 AM EDT Office Visit [facility] MAIN ADULT [address] [place] [address] Luis Fernando Chavez MD [address] [place] [address] documented as of this encounter Visit Diagnoses Not on filedocumented in this encounter Additional Health Concerns Assessment Noted Time PHQ-9 Depression Total Score: 21 024 1:54 PM EDT documented as of this encounter Care Teams Contact Center Associate Relationship Specialty Start Date End Date Luis Fernando Chavez MD [address] [place] [address] PCP - General 07/27/21 Yaquelin Stoddard, RN Registered Nurse 05/03/24 Denisse Unger [address] [place] [address] Medical Services Assistant Behavioral Health 01/31/25 02/28/25 Ethel Connelly, [facility] Medical Services Assistant Behavioral Health 03/10/25 03/10/25 Rajesh Mancera, [facility] Medical Services Assistant Behavioral Health 03/31/25 03/31/25 [facility] Registered Nurse 05/06/24 jordyn Grewal 01/18/25 documented as of this encounter
--- OUTSIDE RECORDS SUMMARY | 2025-04-07 00:11 | XMS_ITS | Encounter Summary ---
Author Organization [employer] Address [address] [place] [address] 7 [place] [address] Care Team Providers Care Gauge Maker Apprentice Name Role Phone Luis Fernando Marlow MD Primary Care Provider [phone] Yaquelin Stoddard RN Unavailable Unavailable Denisse Unger Unavailable Ethel Connelly ONLINE MARKETING SPECIALIST Unavailable Rajesh Mancera MID LEVEL PROJECT MANAGER Unavailable [phone] Reason for Visit * Reason Comments Med Refill Encounter Details Date Type Department Care Team (Late st Contact Info) Description 02/01/2024 Refill [facility] MAIN ADULT [address] [place] [address] Luis Fernando Marlow MD [address] [place] [address] Chronic bilateral low back pain without sciatica; Chronic bilateral low back pain with bilateral [...] the past 12 months, has t he [employer], gas, oil or water [employer] threatened to shut off services in your [...] encounter Miscellaneous Notes * Telephone Encounter - Rebeca Concepcion RN - 02/12/2024 1:26 PM EDT Heath Trevino is a 33 y.o. male Refill requested as listed below: Requested Prescriptions Pending Prescriptions Disp Refills pregabalin (Lyrica) 300 MG capsule 60 capsule 0 Signed Prescriptions Disp Refills traMADol (Ultram) 50 MG tablet 240 tablet 0 Sig: TAKE 2 TABLETS(100 MG) BY MOUTH FOUR TIMES DAILY Authorizing Provider: LUIS FERNANDO MARLOW Last Adult Medicine In-Office Visit: 12/07/2023 Future Appointments Date Time Provider Department Center 02/16/2024 2:00 PM Luis Fernando Marlow MD [place] [facility] BP Readings from Last 3 Encounters: 12/07/23 140/90 10/20/23 115/87 07/15/23 125/87 * Telephone Encounter - Rebeca Concepcion RN - 02/12/2024 1:25 PM EDT ----- Message from Kasia Cardona sent at 02/12/2024 1:20 PM EDT ----- Regarding: Refill Request Hi, This Patient called to Request New Prescription for : Lyrica Sent to : [facility] Thank you Kasia Cardona, [facility] Hematology Supervisor * Telephone Encounter - Luis Fernando Marlow MD - 02/01/2024 12:43 PM EDT Approving, but needs appt for additional refills. * Telephone Encounter - Rebeca Concepcion RN - 02/01/2024 9:57 AM EDT Heath Trevino is a 33 y.o. male Refill requested as listed below: Requested Prescriptions Pending Prescriptions Disp Refills traMADol (Ultram) 50 MG tablet [Pharmacy Med Name: TRAMADOL 50MG TABLETS] 240 tablet Sig: TAKE 2 TABLETS(100 MG) BY MOUTH FOUR TIMES DAILY Last Adult Medicine In-Office Visit: 12/07/2023 No future appointments. BP Readings from Last 3 Encounters: 12/07/23 140/90 10/20/23 115/87 07/15/23 125/87 documented in this encounter Plan of Treatment Upcoming Encounters Date Type Department Care Team (Late st Contact Info) Description 04/17/2025 1:20 PM EDT Office Visit [facility] MAIN ADULT [address] [place] [address] Luis Fernando Marlow MD [address] [place] [address] 04/28/2025 9:55 AM EDT Office Visit [facility] MAIN ADULT [address] [place] [address] Luis Fernando Marlow MD [address] [place] [address] documented as of this encounter Visit Diagnoses Diagnosis Chronic bilateral low back pain without sciatica Chronic bilateral low back pain with bilateral sciatica documented in this encounter Additional Health Concerns Assessment Noted Time PHQ-9 Depression Total Score: 21 024 1:54 PM EDT documented as of this encounter Care Teams Gauge Maker Apprentice Relationship Specialty Start Date End Date Luis Fernando Marlow MD [address] [place] [address] PCP - General 07/27/21 Yaquelin Stoddard, RN Registered Nurse 05/03/24 Denisse Unger [address] [place] [address] Agile Test Lead Behavioral Health 01/31/25 02/28/25 Ethel Connelly, [facility] Agile Test Lead Behavioral Health 03/10/25 03/10/25 Rajesh Mancera, [facility] Agile Test Lead Behavioral Health 03/31/25 03/31/25 [facility] Registered Nurse 05/06/24 jordyn Grewal 01/18/25 documented as of this encounter
--- OUTSIDE RECORDS SUMMARY | 2025-04-07 00:11 | XMS_ITS | Encounter Summary ---
Author Organization [employer] Address [address] [place] [address] 7 [place] [address] Care Team Providers Care Envelope Cutter Name Role Phone Luis Fernando Chavez MD Primary Care Provider [phone] Yaquelin Stoddard RN Unavailable Unavailable Denisse Unger Unavailable Ethel Connelly MEDICAL SOCIAL CONSULTANT Unavailable [phone] Rajesh Mancera SECTION BEAMER Unavailable [phone] Reason for Visit * Reason Comments Med Refill Encounter Details Date Type Department Care Team (Late st Contact Info) Description 08/05/2023 Refill [facility] MAIN ADULT [address] [place] [address] Luis Fernando Chavez MD [address] [place] [address] Nausea Social History Tobacco Use Types Packs/Day [...] Visit [facility] MAIN ADULT [address] [place] [address] Luis Fernando Chavez MD [address] [place] [address] 04/28/2025 9:55 AM EDT Office Visit [facility] MAIN ADULT [address] [place] [address] Luis Fernando Chavez MD [address] [place] [address] documented as of this encounter Visit Diagnoses Diagnosis Nausea Nausea alone documented in this encounter Care Teams Envelope Cutter Relationship Specialty Start Date End Date Luis Fernando Chavez MD [address] [place] [address] PCP - General 07/27/21 Yaquelin Stoddard, RN Registered Nurse 05/03/24 Denisse Unger [address] [place] [address] Rn Navigator Behavioral Health 01/31/25 02/28/25 Ethel Connelly, [facility] Rn Navigator Behavioral Health 03/10/25 03/10/25 Rajesh Mancera, SECTION BEAM[employer] Rn Navigator Behavioral Health 03/31/25 03/31/25 [facility] Registered Nurse 05/06/24 jordyn Thapaor 01/18/25 documented as of this encounter
--- OUTSIDE RECORDS SUMMARY | 2025-04-07 00:11 | XMS_ITS | Encounter Summary ---
Author Organization [employer] Address [address] [place] [address] 7 [place] [address] Care Team Providers Care Gunsmith Apprentice Name Role Phone Luis Fernando Chavez MD Primary Care Provider [phone] Yaquelin Stoddard RN Unavailable Unavailable Denisse nUger Unavailable Ethel Connelly COTTON BAG SEWER Unavailable [phone] Rajesh Mancera SECURITY OFFICER SUPERVISOR Unavailable [phone] Reason for Visit * Reason Comments Med Refill Encounter Details Date Type Department Care Team (Late st Contact Info) Description 02/01/2024 Refill [facility] MAIN ADULT [address] [place] [address] Luis Fernando Chavez MD [address] [place] [address] Chronic bilateral low back pain without sciatica [...] the past 12 months, has t he [employer], [employer], oil or water [employer] threatened to shut off services in your [...] Encounter - Luis Fernando Chavez MD - 02/01/2024 12:43 PM EDT Med already refilled * Telephone Encounter - Daniel Villagomez RN - 02/01/2024 9:30 AM EDT Heath Trevino is a 33 [...] [facility]) MAIN ADULT [address] [place] [address] Luis Fernando Chavez MD [address] [place] [address] 04/28/2025 9:55 AM EDT Office Visit [facility] MAIN ADULT [address] [place] [address] Luis Fernando Chavez MD [address] [place] [address] documented as of this encounter Visit Diagnoses Diagnosis Chronic bilateral low back pain without sciatica documented in this encounter Additional Health Concerns Assessment Noted Time PHQ-9 Depression Total Score: 21 024 1:54 PM EDT documented as of this encounter Care Teams Gunsmith Apprentice Relationship Specialty Start Date End Date Luis Fernando Chavez MD [address] [place] [address] PCP - General 07/27/21 Yaquelin Stoddard, RN Registered Nurse 05/03/24 Denisse Unger [address] [place] [address] Furnace Converter Behavioral Health 01/31/25 02/28/25 Ethel Connelly, [facility] Furnace Converter Behavioral Health 03/10/25 03/10/25 Rajesh Mancera, [facility] Furnace Converter Behavioral Health 03/31/25 03/31/[address] [facility] Registered Nurse 05/06/24 jordyn Grewal 01/18/25 documented as of this encounter
--- OUTSIDE RECORDS SUMMARY | 2025-04-07 00:11 | XMS_ITS | Encounter Summary ---
Author Organization [employer] Address [address] [facility] 7 [place] [address] Care Team Providers Care Associate Sales Manager Name Role Phone Luis Fernando Chavez MD Primary Care Provider [phone] Yaquelin Stoddard RN Unavailable Unavailable Denisse Unger Unavailable Ethel Connelly DIRECTOR BANKING Unavailable [phone] Rajesh Mancera BASKETBALL SCOUT Unavailable [phone] Reason for Visit * Reason Onset Date Comments Med Refill 01/20/2025 Encounter Details Date Type Department Care Team (Late st Contact Info) Description 01/20/2025 Refill [facility] MAIN ADULT [address] [place] [address] Yasmin Razo LPN Social History Tobacco Use Types Packs/Day Years [...] encounter Miscellaneous Notes * Telephone Encounter - Yasmin Razo LPN - 01/20/2025 8:22 AM EDT Patient asked for med to be sent to [facility] [place] [address] is closed down. documented in this encounter Plan of Treatment Upcoming Encounters Date Type Department Care Team (Late st Contact Info) Description 04/17/2025 1:20 PM EDT Office Visit [facility] MAIN ADULT [address] [place] [address] Luis Fernando Chavez MD [address] [place] [address] 04/28/2025 9:55 AM EDT Office Visit [facility] MAIN ADULT [address] [place] [address] Luis Fernando Chavez MD [address] [place] [address] documented as of this encounter Visit Diagnoses Not on filedocumented in this encounter Additional Health Concerns Assessment Noted Time PHQ-9 Depression Total Score: 21 024 1:54 PM EDT documented as of this encounter Care Teams Associate Sales Manager Relationship Specialty Start Date End Date Luis Fernando Chavez MD [address] [place] [address] PCP - General 07/27/21 Yaquelin Stoddard, RN Registered Nurse 05/03/24 Denisse Unger [address] [place] [address] Human Resources Designate Behavioral Health 01/31/25 02/28/25 Ethel Connelly, [facility] Human Resources Designate Behavioral Health 03/10/25 03/10/25 Rajesh Mancera, [facility] Human Resources Designate Behavioral Health 03/31/25 03/31/25 [facility] Registered Nurse 05/06/24 jordyn Grewal 01/18/25 documented as of this encounter
--- OUTSIDE RECORDS SUMMARY | 2025-04-07 00:11 | XMS_ITS | Encounter Summary ---
Author Organization [employer] Address [address] [facility] 7 [place] [address] Care Team Providers Care Senior Ui Software Engineer Name Role Phone Luis Fernando Chavez MD Primary Care Provider [phone] Yaquelin Stoddard RN Unavailable Unavailable Denisse Unger Unavailable Ethel Connelly RAILROAD MECHANIC Unavailable [phone] Rajesh Mancera PRODUCTION COUNTER Unavailable [phone] Reason for Visit * Reason Onset Date Comments Med Refill 05/11/2023 Encounter Details Date Type Department Care Team (Late st Contact Info) Description 05/11/2023 Refill BN MAIN ADULT 63 [place] [address] Luis Fernando Chavez MD [address] [place] [address] Social History Tobacco Use Types Packs/Day Years [...] Encounter - Luis Fernando Chavez MD - 05/11/2023 3:22 PM EDT Approving, but needs appt for additional refills. documented in this encounter Plan of Treatment Upcoming Encounters Date Type Department Care Team (Late st Contact Info) Description 04/17/2025 1:20 PM EDT Office Visit [facility] MAIN ADULT [address] [place] [address] Luis Feranndo Chavez MD [address] [place] [address] 04/28/2025 9:55 AM EDT Office Visit [facility] MAIN ADULT [address] [place] [address] Luis Fernando Chavez MD [address] [place] [address] documented as of this encounter Visit Diagnoses Not on filedocumented in this encounter Care Teams Senior Ui Software Engineer Relationship Specialty Start Date End Date Luis Fernando Chavez MD [address] [place] [address] PCP - General 07/27/21 Yaquelin Stoddard, RN Registered Nurse 05/03/24 Denisse Unger [address] [place] [address] Greeting Card Writer Behavioral Health 01/31/25 02/28/25 Ethel Connelly, [facility] Greeting Card Writer Behavioral Health 03/10/25 03/10/25 Rajesh Mancera, [facility] Greeting Card Writer Behavioral Health 03/31/25 03/31/25 [facility] Registered Nurse 05/06/24 jordyn Grewal 01/18/25 documented as of this encounter
--- OUTSIDE RECORDS SUMMARY | 2025-04-07 00:11 | XMS_ITS | Encounter Summary ---
Author Organization [employer] Address [address] [place] [address] 7 [place] [address] Care Team Providers Care Marine Surveyor Name Role Phone Luis Fernando Chavez MD Primary Care Provider [phone] Yaquelin Stoddard RN Unavailable Unavailable Denisse Unger Unavailable Ethel Connelly PROMOTIONS SPECIALIST Unavailable [phone] Rajesh Mancera PUMP PRESS OPERATOR Unavailable [phone] Reason for Visit * Reason Comments Med Refill Encounter Details Date Type Department Care Team (Late st Contact Info) Description 01/23/[address] [address] Renee Glaser, [facility] [address] [place] [address] Irritable bowel syndrome without diarrhea Social History Tobacco Use Types Packs/Day Years [...] [facility] MAIN ADULT 63 [place] [address] Luis Fernando Chavez MD [address] [place] [address] 04/28/2025 9:55 AM EDT Office Visit [facility] MAIN ADULT [address] [place] [address] Luis Fernando Chavez MD [address] [place] [address] documented as of this encounter Visit Diagnoses Diagnosis Irritable bowel syndrome without diarrhea documented in this encounter Additional Health Concerns Assessment Noted Time PHQ-9 Depression Total Score: 21 024 1:54 PM EDT documented as of this encounter Care Teams Marine Surveyor Relationship Specialty Start Date End Date Luis Fernando Chavez MD [address] [place] [address] PCP - General 07/27/21 Yaquelin Stoddard, RN Registered Nurse 05/03/24 Denisse Unger [address] [place] [address] Securities Trader Behavioral Health 01/31/25 02/28/25 Ethel Connelly, [facility] Securities Trader Behavioral Health 03/10/25 03/10/25 Rajesh Mancera, [facility] Securities Trader Behavioral Health 03/31/25 03/31/25 [facility] Registered Nurse 05/06/24 jordyn Grewal 01/18/25 documented as of this encounter
--- OUTSIDE RECORDS SUMMARY | 2025-04-07 00:12 | XMS_ITS | Encounter Summary ---
Author Organization [employer] Address [address] [place] [address] 7 [place] [address] Care Team Providers Care Vegetable Tier Name Role Phone Luis Fernando Chavez MD Primary Care Provider [phone] Yaquelin Stoddard RN Unavailable Unavailable Denisse Unger Unavailable Ethel Connelly BUGGYMAN Unavailable [phone] Rajesh Mancera SOFTWARE SYSTEMS ANALYST Unavailable [phone] Encounter Details Date Type Department Care Team (Late st Contact Info) Description 05/26/2023 Abstract [facility] Information Management [address] [place] [address] Luis Fernando Chavez MD [address] [place] [address] Social History Tobacco Use Types Packs/Day Years [...] 04/17/2025 1:20 PM EDT Office Visit [facility] MAIN ADULT [address] [place] [address] Luis Fernando Chavez MD [address] [place] [address] 04/28/2025 9:55 AM EDT Office Visit [facility] MAIN ADULT [address] [place] [address] Luis Fernando Chavez MD [address] [place] [address] documented as of this encounter Visit Diagnoses Not on filedocumented in this encounter Care Teams Vegetable Tier Relationship Specialty Start Date End Date Luis Fernando Chavez MD [address] [place] [address] PCP - General 07/27/21 Yaquelin Stoddard, RN Registered Nurse 05/03/24 Denisse Unger [address] [place] [address] Radiation Officer Behavioral Health 01/31/25 02/28/25 Ethel Connelly, [facility] Radiation Officer Behavioral Health 03/10/25 03/10/25 Rajesh Mancera, [facility] Radiation Officer Behavioral Health 03/31/25 03/31/25 [facility] Registered Nurse 05/06/24 jordyn Thapaor 01/18/25 documented as of this encounter
--- OUTSIDE RECORDS SUMMARY | 2025-04-07 00:12 | XMS_ITS | Encounter Summary ---
Author Organization [facility] Address [address] [place] [address] Care Team Providers Care Back Digger Operator Name Role Phone Luis Fernando Chavez MD Primary Care Provider [phone] Vero Mcnair Unavailable Yaquelin Stoddard RN Unavailable Unavailable Denisse Unger Unavailable ConnellyClaudia jarquinha [facility] Unavailable [phone] Rajesh Mancera TRAVOGRAPH OPERATOR Unavailable [phone] Encounter Details Date Type Department Care Team (Late st Contact Info) Description 07/08/2022 Telephone [facility] MAIN ADULT [address] [place] [address] Luis Fernando Chavez MD [address] [place] [address] Social History Tobacco Use Types Packs/Day Years [...] 1:20 PM EDT Office Visit [facility] MAIN ADULT [address] [place] [address] Luis Fernando Chavez MD [address] [place] [address] 04/28/2025 9:55 AM EDT Office Visit [facility] MAIN ADULT [address] [place] [address] Luis Fernando Chavez MD [address] [place] [address] documented as of this encounter Visit Diagnoses Not on filedocumented in this encounter Care Teams Back Digger Operator Relationship Specialty Start Date End Date Luis Fernando Chavez MD [address] [place] [address] PCP - General 07/27/21 Vero Mcnair Community Health Worker Behavioral Health 02/19/23 Yaquelin Stoddard, RN Registered Nurse 05/03/24 Denisse Unger [address] [place] [address] Circular Saw Operator Behavioral Health 01/31/25 02/28/25 Ethel Connelly, [facility] Circular Saw Operator Behavioral Health 03/10/25 03/10/25 Rajesh Mancera, [facility] Circular Saw Operator Behavioral Health 03/31/25 03/31/25 [facility] Registered Nurse 05/06/24 jordyn Grewal 01/18/25 documented as of this encounter
--- OUTSIDE RECORDS SUMMARY | 2025-04-07 00:12 | XMS_ITS | Encounter Summary ---
Author Organization [employer] Address 75 [facility] 7 [place] [address] Care Team Providers Care Public Safety Dispatcher Name Role Phone Luis Fernando Chavez MD Primary Care Provider [phone] Yaquelin Stoddard RN Unavailable Unavailable Denisse Unger Unavailable Ethel Connelly CREATIVE ARTS MUSIC THERAPIST Unavailable [phone] Rajesh Mancera SURGICAL ASST Unavailable [phone] Reason for Visit * Reason Onset Date Comments Med Refill 07/13/2023 Encounter Details Date Type Department Care Team (Late st Contact Info) Description 07/13/2023 Refill [facility] MAIN ADULT [address] [place] [address] Luis Fernando Chavez MD [address] [place] [address] Chronic bilateral low back pain with bilateral [...] Encounter - Luis Fernando Chavez MD - 07/13/2023 12:46 PM EST Approving, but needs appt for additional refills. * Telephone Encounter - Minerva Cabello RN - 07/13/2023 10:16 AM EST Rx request was routed to PCP or prescribing provider. documented in this encounter Plan of Treatment Upcoming Encounters Date Type Department Care Team (Late st Contact Info) Description 04/17/2025 1:20 PM EDT Office Visit [facility] MAIN ADULT [address] [place] [address] Luis Fernando Chavez MD [address] [place] [address] 04/28/2025 9:55 AM EDT Office Visit [facility] MAIN ADULT [address] [place] [address] Luis Fernando Chavez MD [address] [place] [address] documented as of this encounter Visit Diagnoses Diagnosis Chronic bilateral low back pain with bilateral sciatica documented in this encounter Care Teams Public Safety Dispatcher Relationship Specialty Start Date End Date Luis Fernando Chavez MD [address] [place] [address] PCP - General 07/27/21 Yaquelin Stoddard, RN Registered Nurse 05/03/24 Denisse Unger [address] [place] [address] Leasing Specialist Behavioral Health 01/31/25 02/28/25 Ethel Connelly, [facility] Leasing Specialist Behavioral Health 03/10/25 03/10/25 Rajesh Mancera, [facility] Leasing Specialist Behavioral Health 03/31/25 03/31/25 [facility] Registered Nurse 05/06/24 jordyn Grewal 01/18/25 documented as of this encounter
--- OUTSIDE RECORDS SUMMARY | 2025-04-07 00:12 | XMS_ITS | Encounter Summary ---
Author Organization [employer] [facility] Address [address] [place] [address] [place] [address] Care Team Providers Care Neuroradiologist Name Role Phone Luis Fernando Chavez MD Primary Care Provider [phone] Yaquelin Stoddard RN Unavailable Unavailable Denisse Unger Unavailable Ethel Connelly SHOP MECHANIC HELPER Unavailable [phone] Rajesh Mancera BODY BUMPER Unavailable [phone] Reason for Visit * Reason Comments Med Refill Encounter Details Date Type Department Care Team (Late st Contact Info) Description 04/27/2023 Refill [facility] MAIN ADULT [address] [place] [address] Luis Fernando Chavez MD [address] [place] [address] Nausea Social History Tobacco Use Types Packs/Day [...] Description 04/17/2025 1:20 PM EDT Office Visit [facility] MAIN ADULT [address] [place] [address] Luis Fernando Chavez MD [address] [place] [address] 04/28/2025 9:55 AM EDT Office Visit [facility] MAIN ADULT [address] [place] [address] Luis Fernando Chavez MD [address] [place] [address] documented as of this encounter Visit Diagnoses Diagnosis Nausea Nausea alone documented in this encounter Care Teams Neuroradiologist Relationship Specialty Start Date End Date Luis Fernando Chavez MD [address] [place] [address] PCP - General 07/27/21 Yaquelin Stoddard, RN Registered Nurse 05/03/24 Denisse Unger [address] [place] [address] Hair Specialist Behavioral Health 01/31/25 02/28/25 Ethel Connelly, [facility] Hair Specialist Behavioral Health 03/10/25 03/10/25 Rajesh Mancera, [facility] Hair Specialist Behavioral Health 03/31/25 03/31/25 [facility] Registered Nurse 05/06/24 jordyn Grewal 01/18/25 documented as of this encounter
--- OUTSIDE RECORDS SUMMARY | 2025-04-07 00:12 | XMS_ITS | Encounter Summary ---
Author Organization [employer] Address 75 [facility] 7 [place] [address] Care Team Providers Care Director Of Scout Work Name Role Phone Luis Fernando Chavez MD Primary Care Provider [phone] Yaquelin Stoddard RN Unavailable Unavailable Denisse Unger Unavailable Ethel Connelly MANAGER TRANSMISSION Unavailable [phone] Rajesh Mancera TEST DRIVER Unavailable [phone] Reason for Visit * Reason Onset Date Comments Med Refill 06/25/2023 Encounter Details Date Type Department Care Team (Late st Contact Info) Description 06/25/2023 Refill BN MAIN ADULT [address] [place] [address] Luis Fernando Chavez MD [address] [place] [address] Nausea Social History Tobacco Use Types Packs/Day [...] 04/17/2025 1:20 PM EDT Office Visit [facility] MAIN ADULT [address] [place] [address] Luis Fernando Chavez MD [address] [place] [address] 04/28/2025 9:55 AM EDT Office Visit [facility] MAIN ADULT [address] [place] [address] Luis Fernando Chavez MD [address] [place] [address] documented as of this encounter Visit Diagnoses Diagnosis Nausea Nausea alone documented in this encounter Care Teams Director Of Scout Work Relationship Specialty Start Date End Date Luis Fernando Chavez MD [address] [place] [address] PCP - General 07/27/21 Yaquelin Stoddard, RN Registered Nurse 05/03/24 Denisse Unger [address] [place] [address] [facility] 01/31/25 02/28/25 Ethel Connelly, [facility] 03/10/25 03/10/25 Rajesh Mancera, [facility] 03/31/25 03/31/25 [facility] Registered Nurse 05/06/24 jordyn Grewal 01/18/25 documented as of this encounter
--- OUTSIDE RECORDS SUMMARY | 2025-04-07 00:12 | XMS_ITS | Clinical Summary ---
Author Organization [employer] Address [address] [place] [address] Care Team Providers Care Household Appliance Installer Name Role Phone Unavailable Primary Care Provider Unavailabl e Allergies Active Allergy Reactions Criticality Noted Date Comments Penicillins Anaphylaxis Prochlorperazine GI Intolerance Identified As: From Compazine Medications pramipexole (MIRAPEX) 1 MG tablet 1 MG PO DAILY 02/07/2022 Active levETIRAcetam (KEPPRA) 500 MG tablet 500 MG PO BID 02/07/2022 Active Social History Tobacco Use Types Packs/Day Years Used Date Smoking Tobacco: Never Assessed Sex and Gender Information Value Date Recorded Sex Assigned at Not on file Legal Sex Male 12:58 AM EST Gender Identity Not on file Sexual Orientation Not on file Last Filed Vital Signs Vital Sign Reading Time Taken Comments Blood Pressure - - Pulse - - Temperature - - Respiratory Rate - - Oxygen Saturation - - Inhaled Oxygen Concentration - - Weight 68.2 kg (150 lb 5 oz) 02/07/2022 3:23 PM EDT Height 172.7 cm (5' 8 ) 02/07/2022 3:23 PM EDT Body Mass Index 22.85 02/07/2022 3:23 PM EDT Plan of Treatment Not on file
--- OUTSIDE RECORDS SUMMARY | 2025-04-07 00:12 | XMS_ITS | Encounter Summary ---
Author Organization [employer] Address [address] [place] [address] 7 [place] [address] Care Team Providers Care Nitrator Operator Name Role Phone Luis Fernando Chavez MD Primary Care Provider [phone] Yaquelin Stoddard RN Unavailable Unavailable Denisse Unger Unavailable Ethel Connelly SHOT POLISHER AND INSPECTOR Unavailable [phone] Rajesh Mancera SLURRY MAN Unavailable [phone] Reason for Visit * Reason Comments Med Refill Encounter Details Date Type Department Care Team (Late st Contact Info) Description 07/02/2023 Refill [facility] MAIN ADULT [address] [place] [address] Luis Fernando Chavez MD [address] [place] [address] Social History Tobacco Use Types Packs/Day Years [...] Encounter - Luis Fernando Chavez MD - 07/02/2023 3:32 PM EST Approving, but needs appt for additional refills. documented in this encounter Plan of Treatment Upcoming Encounters Date Type Department Care Team (Late st Contact Info) Description 04/17/2025 1:20 PM EDT Office Visit [facility] MAIN ADULT [address] [place] [address] Luis Fernando Chavez MD [address] [place] [address] 04/28/2025 9:55 AM EDT Office Visit [facility] MAIN ADULT [address] [place] [address] Luis Fernando Chavez MD [address] [place] [address] documented as of this encounter Visit Diagnoses Not on filedocumented in this encounter Care Teams Nitrator Operator Relationship Specialty Start Date End Date Luis Fernando Chavez MD [address] [place] [address] PCP - General 07/27/21 Yaquelin Stoddard, RN Registered Nurse 05/03/24 Denisse Unger [address] [place] [address] Shell Freezing Machine Operator Behavioral Health 01/31/25 02/28/25 Ethel Connelly, [facility] Shell Freezing Machine Operator Behavioral Health 03/10/25 03/10/25 Rajesh Mancera, [facility] Shell Freezing Machine Operator Behavioral Health 03/31/25 03/31/25 [facility] Registered Nurse 05/06/24 jordyn Grewal 01/18/25 documented as of this encounter
--- OUTSIDE RECORDS SUMMARY | 2025-04-07 00:12 | XMS_ITS | Encounter Summary ---
Author Organization [employer] Address [address] [place] [address] 7 [place] [address] Care Team Providers Care Machining Technician Name Role Phone Luis Fernando Chavez MD Primary Care Provider [phone] Yaquelin Stoddard RN Unavailable Unavailable Denisse Unger Unavailable Ethel Connelly LASTING MACHINE OPERATOR Unavailable [phone] Rajesh Mancera CAP JEWEL PLATE ASSEMBLER Unavailable [phone] Reason for Visit * Reason Comments Med Refill Encounter Details Date Type Department Care Team (Late st Contact Info) Description 08/26/2024 Refill [facility] MAIN ADULT [address] [place] [address] Luis Fernando Chavez MD [address] [place] [address] Chronic bilateral low back pain with bilateral [...] Encounter - Luis Fernando Chavez MD - 08/26/2024 1:59 PM EST Approving, but needs appt for additional refills. documented in this encounter Plan of Treatment Upcoming Encounters Date Type Department Care Team (Late st Contact Info) Description 04/17/2025 1:20 PM EDT Office Visit [facility] MAIN ADULT [address] [place] [address] Luis Fernando Chavez MD [address] [place] [address] 04/28/2025 9:55 AM EDT Office Visit [facility] MAIN ADULT [address] [place] [address] Luis Fernando Chavez MD [address] [place] [address] documented as of this encounter Visit Diagnoses Diagnosis Chronic bilateral low back pain with bilateral sciatica documented in this encounter Additional Health Concerns Assessment Noted Time PHQ-9 Depression Total Score: 21 024 1:54 PM EDT documented as of this encounter Care Teams Machining Technician Relationship Specialty Start Date End Date Luis Fernando Chavez MD [address] [place] [address] PCP - General 07/27/21 Yaquelin Stoddard, RN Registered Nurse 05/03/24 Denisse Unger [address] [place] [address] Supervisor Product Inspection Behavioral Health 01/31/25 02/28/25 Ethel Connelly, [facility] Supervisor Product Inspection Behavioral Health 03/10/25 03/10/25 Rajesh Mancera, [facility] Supervisor Product Inspection Behavioral Health 03/31/25 03/31/25 [facility] Registered Nurse 05/06/24 jordyn Grewal 01/18/25 documented as of this encounter
--- OUTSIDE RECORDS SUMMARY | 2025-04-07 00:12 | XMS_ITS | Encounter Summary ---
Author Organization [employer] Address [address] [place] [address] 7 [place] [address] Care Team Providers Care Billet Worker Name Role Phone Luis Fernando Chavez MD Primary Care Provider [phone] Yaquelin Stoddard RN Unavailable Unavailable Denisse Unger Unavailable Ethel Connelly CLASSIFICATION COUNSELOR Unavailable [phone] Rajesh Mancera FRONT OFFICE ASSISTANT Unavailable [phone] Reason for Visit * Reason Comments Med Refill Encounter Details Date Type Department Care Team (Late st Contact Info) Description 06/12/2023 Refill [facility] MAIN ADULT 63 [place] [address] Luis Fernando Chavez MD [address] [place] [address] Chronic bilateral low back pain with bilateral [...] Encounter - Luis Fernando Chavez MD - 06/12/2023 1:41 PM EST Med already refilled * Telephone Encounter - Minerva Cabello RN - 06/12/2023 9:13 AM EST Rx request was routed to PCP or prescribing provider. documented in this encounter Plan of Treatment Upcoming Encounters Date Type Department Care Team (Late st Contact Info) Description 04/17/2025 1:20 PM EDT Office Visit [facility] MAIN ADULT 63 [place] [address] Luis Fernando Chaevz MD [address] [place] [address] 04/28/2025 9:55 AM EDT Office Visit [facility] MAIN ADULT 63 [place] [address] Luis Fernando Chavez MD [address] [place] [address] documented as of this encounter Visit Diagnoses Diagnosis Chronic bilateral low back pain with bilateral sciatica documented in this encounter Care Teams Billet Worker Relationship Specialty Start Date End Date Luis Fernando Chavez MD [address] [place] [address] PCP - General 07/27/21 Yaquelin Stoddard, RN Registered Nurse 05/03/24 Denisse Unger [address] [place] [address] Provider Relations Consultant Behavioral Health 01/31/25 02/28/25 Ethel Connelly, [facility] Provider Relations Consultant Behavioral Health 03/10/25 03/10/25 Rajesh Mancera, [facility] Provider Relations Consultant Behavioral Health 03/31/25 03/31/25 [facility] Registered Nurse 05/06/24 jordyn Grewal 01/18/25 documented as of this encounter
--- OUTSIDE RECORDS SUMMARY | 2025-04-07 00:12 | XMS_ITS | Encounter Summary ---
Author Organization [employer] Address [address] [place] [address] 7 [place] [address] Care Team Providers Care Records Management Manager Name Role Phone Luis Fernando Chavez MD Primary Care Provider [phone] Yaquelin Stoddard RN Unavailable Unavailable Denisse Unger Unavailable Ethel Connelly BET TAKER Unavailable [phone] Rajesh Mancera LICENSED PHYSICAL THERAPIST ASSISTANT Unavailable [phone] Reason for Visit * Reason Comments Med Refill Encounter Details Date Type Department Care Team ([facility] st Contact Info) Description 06/19/2023 Refill [facility] MAIN ADULT [address] [place] [address] Luis Fernando Chavez MD [address] [place] [address] Nausea Social History Tobacco Use Types Packs/Day [...] encounter Miscellaneous Notes * Telephone Encounter - Minerva Cabello RN - 06/25/2023 9:25 AM EST Correction: this was actually ordered on 04/27/23 for 30 with 2 refills, but is taken q 8 hrs. Will pend refill to provider. * Telephone Encounter - Yudelka Patel RN - 06/19/2023 12:38 PM EST Too soon to order requested medication. Refuse rx was last ordered on 04/27/23 for 30 days with 3 refills. documented in this encounter Plan of Treatment Upcoming Encounters Date Type Department Care Team (Late st Contact Info) Description 04/17/2025 1:20 PM EDT Office Visit [facility] MAIN ADULT [address] [place] [address] Luis Fernando Chavez MD [address] [place] [address] 04/28/2025 9:55 AM EDT Office Visit [facility] MAIN ADULT [address] [place] [address] Luis Fernando Chavez MD [address] [place] [address] documented as of this encounter Visit Diagnoses Diagnosis Nausea Nausea alone documented in this encounter Care Teams Records Management Manager Relationship Specialty Start Date End Date Luis Fernando Chavez MD [address] [place] [address] PCP - General 07/27/21 Yaquelin Stoddard, RN Registered Nurse 05/03/24 Denisse Unger [address] [place] [address] [facility] 01/31/25 02/28/25 Ethel Connelly, [facility] 03/10/25 03/10/25 Rajesh Mancera, [facility] 03/31/25 03/31/25 [facility] Registered Nurse 05/06/24 jordyn Grewal 01/18/25 documented as of this encounter
--- OUTSIDE RECORDS SUMMARY | 2025-04-07 00:12 | XMS_ITS | Encounter Summary ---
Author Organization [employer] Address [address] [facility] 7 [place] [address] Care Team Providers Care Clockmaker Apprentice Name Role Phone Luis Fernando Chavez MD Primary Care Provider [phone] Yaquelin Stoddard RN Unavailable Unavailable Denisse Unger Unavailable Ethel Connelly TOBACCO STEMMER MACHINE Unavailable [phone] Rajesh Mancera BOX CAR WASHER Unavailable [phone] Reason for Visit * Reason Onset Date Comments Med Refill 07/14/2023 Encounter Details Date Type Department Care Team (Late st Contact Info) Description 07/14/2023 Refill BN MAIN ADULT 63 [place] [address] Luis Fernando Chavez MD [address] [place] [address] Chronic bilateral low back pain without sciatica [...] Encounter - Luis Fernando Chavez MD - 07/14/2023 12:53 PM EST Med already refilled documented in this encounter Plan of Treatment Upcoming Encounters Date Type Department Care Team (Late st Contact Info) Description 04/17/2025 1:20 PM EDT Office Visit [facility] MAIN ADULT 63 [place] [address] Luis Fernando Chavez MD [address] [place] [address] 04/28/2025 9:55 AM EDT Office Visit [facility] MAIN ADULT 63 [place] [address] Luis Fernando Chavez MD [address] [place] [address] documented as of this encounter Visit Diagnoses Diagnosis Chronic bilateral low back pain without sciatica documented in this encounter Care Teams Clockmaker Apprentice Relationship Specialty Start Date End Date Luis Fernando Chavez MD [address] [place] [address] PCP - General 07/27/21 Yaquelin Stoddard, RN Registered Nurse 05/03/24 Denisse Unger [address] [place] [address] Trichologist Behavioral Health 01/31/25 02/28/25 Ethel Connelly, [facility] Trichologist Behavioral Health 03/10/25 03/10/25 Rajesh Mancera, [facility] Trichologist Behavioral Health 03/31/25 03/31/25 [facility] Registered Nurse 05/06/24 ojrdyn Grewal 01/18/25 documented as of this encounter
--- OUTSIDE RECORDS SUMMARY | 2025-04-07 00:12 | XMS_ITS | Encounter Summary ---
Author Organization [employer] Address 75 [facility] 7 [place] [address] Care Team Providers Care Aerospace Physiological Technician Name Role Phone Luis Fernando Chavez MD Primary Care Provider Yaquelin Stoddard RN Unavailable Unavailable Denisse Unger Unavailable Ethel Connelly STAND UP COMEDIAN Unavailable [phone] Rajesh Mancera SERVICE OR WORK DISPATCHER CHIEF Unavailable [phone] Reason for Visit * Reason Onset Date Comments Med Refill 06/12/2023 Encounter Details Date Type Department Care Team (Late st Contact Info) Description 06/12/2023 Refill BN MAIN ADULT [address] [place] [address] Luis Fernando Chavez MD [address] [place] [address] Chronic bilateral low back pain with bilateral [...] - Luis Fernando Chavez MD - 06/12/2023 1:39 PM EST Approving, but needs appt for additional refills. * Telephone Encounter - Minerva Cabello RN - 06/12/2023 1:12 PM EST Duplicate. Requested today. documented in this encounter Plan of Treatment Upcoming Encounters Date Type Department Care Team (Late st Contact Info) Description 04/17/2025 1:20 PM EDT Office Visit [facility] MAIN ADULT [address] [place] [address] Luis Fernando Chavez MD [address] [place] [address] 04/28/2025 9:55 AM EDT Office Visit [facility] MAIN ADULT [address] [place] [address] Luis Fernando Chavez MD [address] [place] [address] documented as of this encounter Visit Diagnoses Diagnosis Chronic bilateral low back pain with bilateral sciatica documented in this encounter Care Teams Aerospace Physiological Technician Relationship Specialty Start Date End Date Luis Fernando Chavez MD [address] [place] [address] PCP - General 07/27/21 Yaquelin Stoddard, RN Registered Nurse 05/03/24 Denisse Unger [address] [place] [address] Belt Cleaner Behavioral Health 01/31/25 02/28/25 Ethel Connelly, [facility] Belt Cleaner Behavioral Health 03/10/25 03/10/25 Rajesh Mancera, [facility] Belt Cleaner Behavioral Health 03/31/25 03/31/25 [facility] Registered Nurse 05/06/24 jordyn Grewal 01/18/25 documented as of this encounter
--- OUTSIDE RECORDS SUMMARY | 2025-04-07 00:12 | XMS_ITS | Encounter Summary ---
Author Organization [employer] Address [address] [place] [address] 7 [place] [address] Care Team Providers Care Requirements Analyst Name Role Phone Luis Fernando Chavez MD Primary Care Provider Yaquelin Stoddard RN Unavailable Unavailable Denisse Unger Unavailable Ethel Connelly CODE ENFORCEMENT SUPERVISOR Unavailable [phone] Rajesh Mancera PHYSICIAN UNDERWRITER Unavailable [phone] Reason for Visit * Reason Comments Med Refill Encounter Details Date Type Department Care Team (Late st Contact Info) Description 05/05/2023 Refill [facility] MAIN ADULT [address] [place] [address] Luis Fernando Chavez MD [address] [place] [address] Chronic bilateral low back pain with bilateral [...] housing situation today? I have lorenzo pizarro 05/04/[address] you li ve. Do you have problems with any of the following? I am not sure 05/04/2023 Food Insecurity Answer Date Recorded Within the past 12 months, y ou worried that your food would run out before you got money to buy more: Often true 05/04/2023 Within the past 12 months,th e food you bought just didn't last and you didn't have enough money to get more: Often true 03/2023 Transportation Answer Date Recorded In the past 12 months, has l ack of transportation kept you from medical appts, meetings, work or from getting things needed for daily living? I am not sure 05/04/2023 Utilities Answer Date Recorded In the past 12 months, has t he electric, gas, oil or water company threatened to shut off services in your home? I am not sure 05/04/2023 Depression Answer Date Recorded Patient Health Questionnaire-2 Score 0 08/22/2022 Sex and Gender Information Value Date Recorded Sex Assigned at Male 05/27/2022 2:14 PM EDT Legal Sex Male 2:14 PM EDT Gender Identity Male 05/27/2022 2:14 PM EDT Sexual Orientation Straight 03/11/2024 5: 59 PM EDT documented as of this encounter Miscellaneous Notes * Telephone Encounter - Yudelka Patel RN - 05/05/2023 3:44 PM EDT Rx requested for Lyrica 300 mg was last ordered on 04/20/23. documented in this encounter Plan of Treatment Upcoming Encounters Date Type Department Care Team (Late st Contact Info) Description 04/17/2025 1:20 PM EDT Office Visit [facility] MAIN ADULT [address] [place] [address] Luis Fernando Chavez MD [address] [place] [address] 04/28/2025 9:55 AM EDT Office Visit [facility] MAIN ADULT [address] [place] [address] Luis Fernando Chavez MD [address] [place] [address] documented as of this encounter Visit Diagnoses Diagnosis Chronic bilateral low back pain with bilateral sciatica documented in this encounter Care Teams Requirements Analyst Relationship Specialty Start Date End Date Luis Fernando Chavez MD [address] [place] [address] PCP - General 07/27/21 Yaquelin Stoddard, RN Registered Nurse 05/03/24 Denisse Unger [address] [place] [address] Chiller Technician Behavioral Health 01/31/25 02/28/25 Ethel Connelly, [facility] Chiller Technician Behavioral Health 03/10/25 03/10/25 Rajesh Mancera, [facility] Chiller Technician Behavioral Health 03/31/25 03/31/25 [facility] Registered Nurse 05/06/24 jordyn Grewal 01/18/25 documented as of this encounter
--- OUTSIDE RECORDS SUMMARY | 2025-04-07 00:12 | XMS_ITS | Encounter Summary ---
Author Organization [facility] Address [address] [place] [address] Care Team Providers Care Benzol Operator Name Role Phone Luis Fernando Chavez MD Primary Care Provider [phone] Vero Mcnair Unavailable Yaquelin Stoddard RN Unavailable Unavailable Denisse Unger Unavailable MaricelClaudiaha CAST IRON DIPPER Unavailable [phone] Rajesh Mancera SANDBLAST CARVER Unavailable [phone] Reason for Visit * Reason Comments Med Refill Encounter Details Date Type Department Care Team (Late st Contact Info) Description 08/18/2022 Refill [facility] MAIN ADULT [address] [place] [address] Luis Fernando Chavez MD [address] [place] [address] Nausea (Primary Dx) Social History Tobacco Use Types Packs/Day Years Used Date Smoking Tobacco: Never Assessed PHQ-2 Answer Date Recorded Patient Health Questionnaire-2 [...] EDT Office Visit [facility] MAIN ADULT [address] [place] [address] Luis Fernando Chavez MD [address] [place] [address] 04/28/2025 9:55 AM EDT Office Visit [facility] MAIN ADULT [address] [place] [address] Luis Fernando Chavez MD [address] [place] [address] documented as of this encounter Visit Diagnoses Diagnosis Nausea- Primary Nausea alone documented in this encounter Care Teams Benzol Operator Relationship Specialty Start Date End Date Luis Fernando Chavez MD [address] [place] [address] PCP - General 07/27/21 Vero Mcnair Community Health Worker Behavioral Health 02/19/23 Yaquelin Stoddard, RN Registered Nurse 05/03/24 Denisse Unger [address] [place] [address] Investigator Utility Bill Complaints Behavioral Health 01/31/25 02/28/25 Ethel Connelly, [facility] Investigator Utility Bill Complaints Behavioral Health 03/10/25 03/10/25 Rajesh Mancera, [facility] Investigator Utility Bill Complaints Behavioral Health 03/31/25 03/31/25 [facility] Registered Nurse 05/06/24 jordyn Grewal 01/18/25 documented as of this encounter
--- OUTSIDE RECORDS SUMMARY | 2025-04-07 00:12 | XMS_ITS | Encounter Summary ---
Author Organization [employer] Address [address] [place] [address] 7 [place] [address] Care Team Providers Care Physics Teacher Name Role Phone Luis Fernando Chavez MD Primary Care Provider [phone] Yaquelin Stoddard RN Unavailable Unavailable Denisse Unger Unavailable Ethel Connelly WIPING CLOTH CUTTER Unavailable [phone] Rajesh Mancera ROUTE PROCESS ADMINISTRATOR Unavailable [phone] Reason for Visit * Reason Comments Med Refill Encounter Details Date Type Department Care Team (Late st Contact Info) Description 08/10/2024 Refill [facility] MAIN ADULT [address] [place] [address] Luis Fernando Chavez MD [address] [place] [address] Chronic bilateral low back pain without sciatica [...] the past 12 months, has t he [employer], gas, oil or water [employer] threatened to shut off services in your [...] Encounter - Luis Fernando Chavez MD - 08/10/2024 4:51 PM EST Approving, but needs appt for additional refills. documented in this encounter Plan of Treatment Upcoming Encounters Date Type Department Care Team ([facility] st Contact Info) Description 04/17/2025 1:20 PM EDT Office Visit [facility] MAIN ADULT [address] [place] [address] Luis Fernando Chavez MD [address] [place] [address] 04/28/2025 9:55 AM EDT Office Visit [facility] MAIN ADULT [address] [place] [address] Luis Fernando Chavez MD [address] [place] [address] documented as of this encounter Visit Diagnoses Diagnosis Chronic bilateral low back pain without sciatica documented in this encounter Additional Health Concerns Assessment Noted Time PHQ-9 Depression Total Score: 21 024 1:54 PM EDT documented as of this encounter Care Teams Physics Teacher Relationship Specialty Start Date End Date Luis Fernando Chavez MD [address] [place] [address] PCP - General 07/27/21 Yaquelin Stoddard, RN Registered Nurse 05/03/24 Denisse Unger [address] [place] [address] High Tension Tester Behavioral Health 01/31/25 02/28/25 Ethel Connelly, [facility] High Tension Tester Behavioral Health 03/10/25 03/10/25 Rajesh Mancera, [facility] High Tension Tester Behavioral Health 03/31/25 03/31/25 [facility] Registered Nurse 05/06/24 jordyn Grewal 01/18/25 documented as of this encounter
--- OUTSIDE RECORDS SUMMARY | 2025-04-07 00:13 | XMS_ITS | Encounter Summary ---
Author Organization [employer] [facility] Address [address] [place] [address] [place] [address] Care Team Providers Care Dispatch Specialist Name Role Phone Luis Fernando Chavez MD Primary Care Provider [phone] Vero Mcnair Unavailable Yaquelin Stoddard RN Unavailable Unavailable Denisse Unger Unavailable ConnellyClaudiaha [facility] Unavailable [phone] Rajesh Mancera [facility] Unavailable [phone] Reason for Visit * Reason Comments Med Refill Encounter Details Date Type Department Care Team (Late st Contact Info) Description 09/19/2022 Refill [facility] MAIN ADULT [address] [place] [address] Luis Fernando Chavez MD [address] [place] [address] Nausea Social History Tobacco Use Types Packs/Day [...] suspected to have Coronavirus/COVID-19? No / Unsure 09/16/2022 9:47 AM EST documented as of this encounter Plan of Treatment Upcoming Encounters Date Type Department Care Team (Late st Contact Info) Description 04/17/2025 1:20 PM EDT Office Visit [facility] MAIN ADULT [address] [place] [address] Luis Fernando Chavez MD [address] [place] [address] 04/28/2025 9:55 AM EDT Office Visit [facility] MAIN ADULT [address] [place] [address] Luis Fernando Chavez MD [address] [place] [address] documented as of this encounter Visit Diagnoses Diagnosis Nausea Nausea alone documented in this encounter Care Teams Dispatch Specialist Relationship Specialty Start Date End Date Luis Fernando Chavez MD [address] [place] [address] PCP - General 07/27/21 Vero Mcnair Community Health Worker Behavioral Health 02/19/23 Yaquelin Stoddard, RN Registered Nurse 05/03/24 Denisse Unger [address] [place] [address] Customer Associate Behavioral Health 01/31/25 02/28/25 Ethel Connelly, [facility] Customer Associate Behavioral Health 03/10/25 03/10/25 Rajesh Mancera, HEAT TREATER HEAD Customer Associate Behavioral Health 03/31/25 03/31/25 [facility] Registered Nurse 05/06/24 jordyn Grewal 01/18/25 documented as of this encounter
--- OUTSIDE RECORDS SUMMARY | 2025-04-07 00:13 | XMS_ITS | Encounter Summary ---
Author Organization [employer] [facility] Address [address] [place] [address] [place] [address] Care Team Providers Care Operations Lieutenant Name Role Phone Luis Fernando Chavez MD Primary Care Provider [phone] Vero Mcnair Unavailable Yaquelin Stoddard RN Unavailable Unavailable Denisse Unger Unavailable ConnellyClaudiaha [facility] Unavailable [phone] Rajesh Mancera [facility] Unavailable [phone] Reason for Visit * Reason Comments Med Refill Encounter Details Date Type Department Care Team (Late st Contact Info) Description 01/14/2023 Refill [facility] MAIN ADULT [address] [place] [address] Luis Fernando Chavez MD [address] [place] [address] Social History Tobacco Use Types Packs/Day Years [...] Encounter - Luis Fernando Chavez MD - 01/14/2023 8:21 AM EDT Approving, but needs appt for additional refills. documented in this encounter Plan of Treatment Upcoming Encounters Date Type Department Care Team (Late st Contact Info) Description 04/17/2025 1:20 PM EDT Office Visit [facility] MAIN ADULT [address] [place] [address] Luis Fernando Chavez MD [address] [place] [address] 04/28/2025 9:55 AM EDT Office Visit [facility] MAIN ADULT [address] [place] [address] Luis Fernando Chavez MD [address] [place] [address] documented as of this encounter Visit Diagnoses Not on filedocumented in this encounter Care Teams Operations Lieutenant Relationship Specialty Start Date End Date Luis Fernando Chavez MD [address] [place] [address] PCP - General 07/27/21 Vero Mcnair Community Health Worker Behavioral Health 02/19/23 Yaquelin Stoddard, RN Registered Nurse 05/03/24 Denisse Unger [address] [place] [address] Prefabricated Houses Trimmer Behavioral Health 01/31/25 02/28/25 [facility] Prefabricated Houses Trimmer Behavioral Health 03/10/25 03/10/25 Rajesh Mancera, [employer] Prefabricated Houses Trimmer Behavioral Health 03/31/25 03/31/[address] [facility] Registered Nurse 05/06/24 jordyn Thapaor 01/18/25 documented as of this encounter
--- OUTSIDE RECORDS SUMMARY | 2025-04-07 00:13 | XMS_ITS | Encounter Summary ---
Author Organization [employer] Address [address] [place] [address] 7 [place] [address] Care Team Providers Care Onsite Case Manager Name Role Phone Luis Fernando Chavez MD Primary Care Provider [phone] Yaquelin Stoddard RN Unavailable Unavailable Denisse Unger Unavailable Ethel Connelly AIR PRESS OPERATOR Unavailable [phone] Rajesh Mancera SECONDS INSPECTOR Unavailable [phone] Reason for Visit * Reason Comments Med Refill Encounter Details Date Type Department Care Team (Late st Contact Info) Description 03/15/2024 Refill [facility] MAIN ADULT [address] [place] [address] Luis Fernando Chavez MD [address] [place] [address] Nausea Social History Tobacco Use Types Packs/Day [...] Telephone Encounter - Yudelka Patel RN - 03/15/2024 9:27 AM EDT Too soon to order requested medication. Rx was last ordered on 02/17/24 for 30 with 2 refills documented in this encounter Plan of Treatment Upcoming Encounters Date Type Department Care Team (Late st Contact Info) Description 04/17/2025 1:20 PM EDT Office Visit [facility] MAIN ADULT [address] [place] [address] Luis Fernando Chavez MD [address] [place] [address] 04/28/2025 9:55 AM EDT Office Visit [facility] MAIN ADULT [address] [place] [address] Luis Fernando Chavez MD [address] [place] [address] documented as of this encounter Visit Diagnoses Diagnosis Nausea Nausea alone documented in this encounter Additional Health Concerns Assessment Noted Time PHQ-9 Depression Total Score: 21 024 1:54 PM EDT documented as of this encounter Care Teams Onsite Case Manager Relationship Specialty Start Date End Date Luis Fernando Chavez MD [address] [place] [address] PCP - General 07/27/21 Yaquelin Stoddard, RN Registered Nurse 05/03/24 Denisse Unger [address] [place] [address] Gift Shop Manager Behavioral Health 01/31/25 02/28/25 Ethel Connelly, [facility] Gift Shop Manager Behavioral Health 03/10/25 03/10/25 Rajesh Mancera, [facility] Gift Shop Manager Behavioral Health 03/31/25 03/31/25 [facility] Registered Nurse 05/06/24 jordyn Grewal 01/18/25 documented as of this encounter
--- OUTSIDE RECORDS SUMMARY | 2025-04-07 00:13 | XMS_ITS | Encounter Summary ---
Author Organization [employer] Address [address] [facility] 7 [place] [address] Care Team Providers Care Public Welfare Worker Name Role Phone Luis Fernando Chavez MD Primary Care Provider [phone] Yaquelin Stoddard RN Unavailable Unavailable Denisse Unger Unavailable Ethel Connelly DRY WALL SPRAYER Unavailable [phone] Rajesh Mancera LIDAR ANALYST Unavailable [phone] Reason for Visit * Reason Onset Date Comments Med Refill 07/10/2023 Encounter Details Date Type Department Care Team (Late st Contact Info) Description 07/10/2023 Refill BN MAIN ADULT [address] [place] [address] Luis Fernando Chavez MD [address] [place] [address] Chronic bilateral low back pain with bilateral [...] Encounter - Luis Fernando Chavez MD - 07/10/2023 1:47 PM EST Med already refilled documented in this encounter Plan of Treatment Upcoming Encounters Date Type Department Care Team (Late st Contact Info) Description 04/17/2025 1:20 PM EDT Office Visit [facility] MAIN ADULT [address] [place] [address] Luis Fernando Chavez MD [address] [place] [address] 04/28/2025 9:55 AM EDT Office Visit [facility] MAIN ADULT [address] [place] [address] Luis Fernando Chavez MD [address] [place] [address] documented as of this encounter Visit Diagnoses Diagnosis Chronic bilateral low back pain with bilateral sciatica documented in this encounter Care Teams Public Welfare Worker Relationship Specialty Start Date End Date Luis Fernando Chavez MD [address] [place] [address] PCP - General 07/27/21 Yaquelin Stoddard, RN Registered Nurse 05/03/24 Denisse Unger [address] [place] [address] Route Driver Salesperson Behavioral Health 01/31/25 02/28/25 Ethel Connelly, [facility] Route Driver Salesperson Behavioral Health 03/10/25 03/10/25 Rajesh Mancera, [facility] Route Driver Salesperson Behavioral Health 03/31/25 03/31/25 [facility] Registered Nurse 05/06/24 jordyn Grewal 01/18/25 documented as of this encounter
--- OUTSIDE RECORDS SUMMARY | 2025-04-07 00:13 | XMS_ITS | Encounter Summary ---
Author Organization [employer] Address [address] [place] [address] 7 [place] [address] Care Team Providers Care Shop Helper Name Role Phone Luis Fernando Chavez MD Primary Care Provider Vero Mcnair Unavailable Yaquelin Stoddard RN Unavailable Unavailable Denisse Unger Unavailable Ethel Connelly [facility] Unavailable [phone] Rajesh Mancera LEAD BUSINESS ANALYST Unavailable [phone] Encounter Details Date Type Department Care Team (Late st Contact Info) Description 01/14/2023 Orders Only [facility] MAIN ADULT [address] [place] [address] Sadaf Gaines Social History Tobacco Use Types Packs/Day Years [...] AM EDT documented as of this encounter Plan of Treatment Upcoming Encounters Date Type Department Care Team (Late st Contact Info) Description 04/17/2025 1:20 PM EDT Office Visit [facility] MAIN ADULT [address] [place] [address] Luis Fernando Chavez MD [address] [place] [address] 04/28/2025 9:55 AM EDT Office Visit [facility] MAIN ADULT [address] [place] [address] Luis Fernando Chavez MD [address] [place] [address] documented as of this encounter Visit Diagnoses Not on filedocumented in this encounter Care Teams Shop Helper Relationship Specialty Start Date End Date Luis Fernando Chavez MD [address] [place] [address] PCP - General 07/27/21 Vero Mcnair Community Health Worker Behavioral Health 02/19/23 Yaquelin Stoddard, RN Registered Nurse 05/03/24 Denisse Unger [address] [place] [address] Meeting Specialist Behavioral Health 01/31/25 02/28/25 Ethel Connelly, [facility] Meeting Specialist Behavioral Health 03/10/25 03/10/25 Rajesh Mancera, [facility] Meeting Specialist Behavioral Health 03/31/25 03/31/25 [facility] Registered Nurse 05/06/24 jordyn Grewal 01/18/25 documented as of this encounter
--- OUTSIDE RECORDS SUMMARY | 2025-04-07 00:13 | XMS_ITS | Encounter Summary ---
Author Organization [employer] [facility] Address [address] [place] [address] [place] [address] Care Team Providers Care Career Resource Technician Name Role Phone Luis Fernando Chavez MD Primary Care Provider [phone] Vero Mcnair Unavailable Yaquelin Stoddard RN Unavailable Unavailable Denisse Unger Unavailable ConnellyClaudia jarquinha [facility] Unavailable [phone] Rajesh Mancera [facility] Unavailable [phone] Reason for Visit * Reason Onset Date Comments Med Refill 01/14/2023 Encounter Details Date Type Department Care Team (Late st Contact Info) Description 01/14/2023 Refill [facility] MAIN ADULT [address] [place] [address] Luis Fernando Chavez MD [address] [place] [address] LLQ abdominal pain Social History Tobacco Use Types Packs/Day [...] EDT Office Visit [facility] MAIN ADULT [address] [place] [address] Luis Fernando Chavez MD [address] [place] [address] 04/28/2025 9:55 AM EDT Office Visit [facility] MAIN ADULT [address] [place] [address] Luis Fernando Chavez MD [address] [place] [address] documented as of this encounter Visit Diagnoses Diagnosis LLQ abdominal pain Abdominal pain, left lower quadrant documented in this encounter Care Teams Career Resource Technician Relationship Specialty Start Date End Date Luis Fernando Chavez MD [address] [place] [address] PCP - General 07/27/21 Vero Mcnair Community Health Worker Behavioral Health 02/19/23 Yaquelin Stoddard, RN Registered Nurse 05/03/24 Denisse Unger [address] [place] [address] Boiler Erector Behavioral Health 01/31/25 02/28/25 Ethel Connelly, [facility] Boiler Erector Behavioral Health 03/10/25 03/10/25 Rajesh Mancera, SONYA Boiler Erector Behavioral Health 03/31/25 03/31/25 [facility] Registered Nurse 05/06/24 jordyn Grewal 01/18/25 documented as of this encounter
--- OUTSIDE RECORDS SUMMARY | 2025-04-07 00:13 | XMS_ITS | Encounter Summary ---
Author Organization [employer] Address [address] [place] [address] 7 [place] [address] Care Team Providers Care Hatchery Man Name Role Phone Luis Fernando Chavez MD Primary Care Provider Yaquelin Stoddard RN Unavailable Unavailable Denisse Unger Unavailable Ethel Connelly PRODUCTION POSTING CLERK Unavailable [phone] Rajesh Mancera ARBORICULTURE INSTRUCTOR Unavailable [phone] Reason for Visit * Reason Onset Date Comments Med Refill 07/10/2023 Encounter Details Date Type Department Care Team (Late st Contact Info) Description 07/10/2023 Refill BN MAIN ADULT [address] [place] [address] Luis Fernando Chavez MD [address] [place] [address] Anxiety Social History Tobacco Use Types Packs/Day [...] Chavez MD - 07/10/2023 1:47 PM EST Approving, but needs appt for additional refills. * Telephone Encounter - Minerva Cabello RN - 07/10/2023 7:52 AM EST Rx request was routed to PCP or prescribing provider. documented in this encounter Plan of Treatment Upcoming Encounters Date Type Department Care Team (Late st Contact Info) Description 04/17/2025 1:20 PM EDT Office Visit [facility] MAIN ADULT [address] [place] [address] Luis Fernando Chavez MD [address] [place] [address] 04/28/2025 9:55 AM EDT Office Visit [facility] MAIN ADULT [address] [place] [address] Luis Fernando Chavez MD [address] [place] [address] documented as of this encounter Visit Diagnoses Diagnosis Anxiety Anxiety state, unspecified documented in this encounter Care Teams Hatchery Man Relationship Specialty Start Date End Date Luis Fernando Chavez MD [address] [place] [address] PCP - General 07/27/21 Yaquelin Stoddard, RN Registered Nurse 05/03/24 Denisse Unger [address] [place] [address] Testing Consultant Behavioral Health 01/31/25 02/28/25 Ethel Connelly, [facility] Testing Consultant Behavioral Health 03/10/25 03/10/25 Rajesh Mancera, [facility] Testing Consultant Behavioral Health 03/31/25 03/31/25 [facility] Registered Nurse 05/06/24 jordyn Grewal 01/18/25 documented as of this encounter
--- OUTSIDE RECORDS SUMMARY | 2025-04-07 00:13 | XMS_ITS | Encounter Summary ---
Author Organization [employer] Address [address] [place] [address] 7 [place] [address] Care Team Providers Care Lens Engraver Name Role Phone Luis Fernando Chavez MD Primary Care Provider [phone] Yaquelin Stoddard RN Unavailable Unavailable Denisse Unger Unavailable Ethel Connelly SPECIAL EVENTS MANAGER Unavailable [phone] Rajesh Mancera GLOBAL CMO Unavailable [phone] Reason for Visit * Reason Comments Med Refill Encounter Details Date Type Department Care Team (Late st Contact Info) Description 07/07/2023 Refill [facility] MAIN ADULT [address] [place] [address] Luis Fernando Chavez MD [address] [place] [address] Chronic bilateral low back pain with bilateral [...] Encounter - Luis Fernando Chavez MD - 07/07/2023 12:48 PM EST Med already refilled * Telephone Encounter - Yudelka Patel RN - 07/07/2023 12:14 PM EST Rx request was routed to PCP. documented in this encounter Plan of Treatment Upcoming Encounters Date Type Department Care Team (Late st Contact Info) Description 04/17/2025 1:20 PM EDT Office Visit [facility] MAIN ADULT [address] [place] [address] Luis Fernando Chavez MD [address] [place] [address] 04/28/2025 9:55 AM EDT Office Visit [facility] MAIN ADULT [address] [place] [address] Luis Fernando Chavez MD [address] [place] [address] documented as of this encounter Visit Diagnoses Diagnosis Chronic bilateral low back pain with bilateral sciatica documented in this encounter Care Teams Lens Engraver Relationship Specialty Start Date End Date Luis Fernando Chavez MD [address] [place] [address] PCP - General 07/27/21 Yaquelin Stoddard, RN Registered Nurse 05/03/24 Denisse Unger [address] [place] [address] Sharepoint Analyst Behavioral Health 01/31/25 02/28/25 Ethel Connelly, [facility] Sharepoint Analyst Behavioral Health 03/10/25 03/10/25 Rajesh Mancera, [facility] Sharepoint Analyst Behavioral Health 03/31/25 03/31/25 [facility] Registered Nurse 05/06/24 jordyn Grewal 01/18/25 documented as of this encounter
--- OUTSIDE RECORDS SUMMARY | 2025-04-07 00:13 | XMS_ITS | Encounter Summary ---
Author Organization [employer] Address [address] [place] [address] 7 [place] [address] Care Team Providers Care Design Engineering Specialist Name Role Phone Luis Fernando Chavez MD Primary Care Provider [phone] Yaquelin Stoddard RN Unavailable Unavailable Denisse Unger Unavailable Ethel Connelly PAPER CORE MACHINE OPERATOR Unavailable [phone] Rajesh Mancera MECHANICAL MAINTENANCE FOREMAN Unavailable [phone] Reason for Visit * Reason Comments Med Refill Encounter Details Date Type Department Care Team (Late st Contact Info) Description 03/15/2024 Refill [facility] MAIN ADULT [address] [place] [address] Luis Fernando Chavez MD [address] [place] [address] Nausea Social History Tobacco Use Types Packs/Day [...] Telephone Encounter - Rebeca Concepcion RN - 03/15/2024 1:17 PM EDT Heath Trevino is a 33 y.o. male Refill requested as listed below: Requested Prescriptions Pending Prescriptions Disp Refills ondansetron ODT (Zofran-ODT) 4 MG disintegrating tablet [Pharmacy Med Name: ONDANSETRON ODT 4 MG TABLET] 30 tablet 2 Sig: TAKE 1 TABLET (4 MG) BY MOUTH EVERY 8 HOURS NEEDED FOR NAUSEA AND VOMITING Last Adult Medicine In-Office Visit: 03/11/2024 Future Appointments Date Time Provider Department Center 03/29/2024 1:40 PM Luis Fernando Chavez MD [place] [facility] [facility] BP Readings from Last 3 Encounters: 03/11/24 (!) 142/92 02/16/24 118/72 12/07/23 140/90 documented in this encounter Plan of Treatment Upcoming Encounters Date Type Department Care Team (Late st Contact Info) Description 04/17/2025 1:20 PM EDT Office Visit [facility] MAIN ADULT [address] [place] [address] Luis Fernando Chavez MD [address] [place] [address] 04/28/2025 9:55 AM EDT Office Visit [facility] MAIN ADULT [address] [place] [address] Luis Fernando Chavez MD [address] [place] [address] documented as of this encounter Visit Diagnoses Diagnosis Nausea Nausea alone documented in this encounter Additional Health Concerns Assessment Noted Time PHQ-9 Depression Total Score: 21 024 1:54 PM EDT documented as of this encounter Care Teams Design Engineering Specialist Relationship Specialty Start Date End Date Luis Fernando Chavez MD [address] [place] [address] PCP - General 07/27/21 Yaquelin Stoddard, RN Registered Nurse 05/03/24 Denisse Unger [address] [place] [address] Temporary Receptionist Behavioral Health 01/31/25 02/28/25 Ethel Connelly, [facility] Temporary Receptionist Behavioral Health 03/10/25 03/10/25 Rajesh Mancera, [facility] Temporary Receptionist Behavioral Health 03/31/25 03/31/25 [facility] Registered Nurse 05/06/24 jordyn Grewal 01/18/25 documented as of this encounter
--- OUTSIDE RECORDS SUMMARY | 2025-04-07 00:13 | XMS_ITS | Encounter Summary ---
Author Organization [employer] Address [address] [place] [address] 7 [place] [address] Care Team Providers Care Lead C Developer Name Role Phone Luis Fernando Chavez MD Primary Care Provider [phone] Yaquelin Stoddard RN Unavailable Unavailable Denisse Unger Unavailable Ethel Connelly WEB CONTENT MANAGER Unavailable [phone] Rajesh Mancera MATHEMATICS IMPROVEMENT TEACHER Unavailable [phone] Reason for Visit * Reason Comments Med Refill Encounter Details Date Type Department Care Team (Late st Contact Info) Description 03/09/2024 Refill [facility] MAIN ADULT [address] [place] [address] Luis Fernando Chavez MD [address] [place] [address] Chronic bilateral low back pain with bilateral [...] the past 12 months, has t he [employer] [place], gas, oil or water company threatened to [...] Encounter - Luis Fernando Chavez MD - 03/09/2024 5:46 PM EDT Approving, but needs appt for additional refills. * Telephone Encounter - Rebeca Concepcion RN - 03/09/2024 10:42 AM EDT Heath Trevino is a 33 y.o. male Refill requested as listed below: Requested Prescriptions Pending Prescriptions Disp Refills pregabalin (Lyrica) 300 MG capsule [Pharmacy Med Name: PREGABALIN 300MG CAPSULES] 60 capsule Sig: TAKE 1 CAPSULE(300 MG) BY MOUTH TWICE DAILY Last Adult Medicine In-Office Visit: 02/16/2024 Future Appointments Date Time Provider Department Center 03/29/2024 1:40 PM Luis Fernando Chavez MD [place] [facility] BP Readings from Last 3 Encounters: 02/16/24 118/72 12/07/23 140/90 10/20/23 115/87 documented in this encounter Plan of Treatment Upcoming Encounters Date Type Department Care Team (Late st Contact Info) Description 04/17/2025 1:20 PM EDT Office Visit [facility] MAIN ADULT [address] [place] [address] Luis Fernando Chavez MD [address] [place] [address] 04/28/2025 9:55 AM EDT Office Visit [facility] MAIN ADULT [address] [place] [address] Luis Fernando Chavez MD [address] [place] [address] documented as of this encounter Visit Diagnoses Diagnosis Chronic bilateral low back pain with bilateral sciatica documented in this encounter Additional Health Concerns Assessment Noted Time PHQ-9 Depression Total Score: 21 024 1:54 PM EDT documented as of this encounter Care Teams Lead C Developer Relationship Specialty Start Date End Date Luis Fernando Chavez MD [address] [place] [address] PCP - General 07/27/21 Yaquelin Stoddard, RN Registered Nurse 05/03/24 Denisse Unger [address] [place] [address] Pediatric Intensive Physician Behavioral Health 01/31/25 02/28/25 Ethel Connelly, [facility] Pediatric Intensive Physician Behavioral Health 03/10/25 03/10/25 Rajesh Mancera, MATHEMATICS IMPROVEMENT TEACHER Pediatric Intensive Physician Behavioral Health 03/31/25 03/31/25 [facility] Registered Nurse 05/06/24 jordyn Grewal 01/18/25 documented as of this encounter
--- OUTSIDE RECORDS SUMMARY | 2025-04-07 00:13 | XMS_ITS | Encounter Summary ---
Author Organization [facility] Address [address] [place] [address] 7 [place] [address] Care Team Providers Care Hat Liner Name Role Phone Luis Fernando Chavez MD Primary Care Provider [phone] Vero Mcnair Unavailable Yaquelin Stoddard RN Unavailable Unavailable Denisse Unegr Unavailable ConnellyClaudiaha [facility] Unavailable Rajesh Mancera WHEEL CLEANER Unavailable [phone] Reason for Visit * Reason Comments Med Refill Encounter Details Date Type Department Care Team (Late st Contact Info) Description 08/28/2022 Refill [facility] MAIN ADULT [address] [place] [address] Luis Fernando Chavez MD [address] [place] [address] Chronic bilateral low back pain with bilateral [...] suspected to have Coronavirus/COVID-19? No / Unsure 08/22/2022 9:44 AM EST documented as of this encounter Miscellaneous Notes * Telephone Encounter - Luis Fernando Chavez MD - 08/29/2022 1:16 PM EST Med already refilled documented in this encounter Plan of Treatment Upcoming Encounters Date Type Department Care Team (Late st Contact Info) Description 04/17/2025 1:20 PM EDT Office Visit [facility] MAIN ADULT [address] [place] [address] Luis Fernando Chavez MD [address] [place] [address] 04/28/2025 9:55 AM EDT Office Visit [facility] MAIN ADULT [address] [place] [address] Luis Fernando Chavez MD [address] [place] [address] documented as of this encounter Visit Diagnoses Diagnosis Chronic bilateral low back pain with bilateral sciatica documented in this encounter Care Teams Hat Liner Relationship Specialty Start Date End Date Luis Fernando Chavez MD [address] [place] [address] PCP - General 07/27/21 Vero Mcnair Community Health Worker Behavioral Health 02/19/23 Yaquelin Stoddard, RN Registered Nurse 05/03/24 Denisse Unger [address] [place] [address] Welder [employer] Behavioral Health 01/31/25 02/28/25 Ethel Connelly, [facility] [employer] Behavioral Health 03/10/25 03/10/25 Rajesh Mancera, [facility] Welder [employer] Behavioral Health 03/31/25 03/31/25 [facility] Registered Nurse 05/06/24 jordyn Thapaor 01/18/25 documented as of this encounter
--- OUTSIDE RECORDS SUMMARY | 2025-04-07 00:13 | XMS_ITS | Encounter Summary ---
Author Organization [employer] Address [address] [facility] 7 [place] [address] Care Team Providers Care Fur Vault Attendant Name Role Phone Luis Fernando Chavez MD Primary Care Provider Yaquelin Stoddard RN Unavailable Unavailable Denisse Unger Unavailable Ethel Connelly ENTERTAINMENT CENTRE MANAGER Unavailable [phone] Rajesh Mancera TIE CUTTER Unavailable [phone] Reason for Visit * Reason Onset Date Comments Med Refill 03/14/2024 Encounter Details Date Type Department Care Team (Late st Contact Info) Description 03/14/2024 Refill [facility] MAIN ADULT [address] [place] [address] Luis Fernando Chavez MD [address] [place] [address] Social History Tobacco Use Types Packs/Day Years [...] the past 12 months, has t he [employer], gas, oil or water [employer] threatened to shut off services in your [...] encounter Miscellaneous Notes * Telephone Encounter - Ellen Stoddard - 03/14/2024 9:06 AM EDT Pt called requesting med refill for ( Eliquis 5 MG ) . Please advise . documented in this encounter Plan of Treatment Upcoming Encounters Date Type Department Care Team ([facility] st Contact Info) Description 04/17/2025 1:20 PM EDT Office Visit [facility] MAIN ADULT [address] [place] [address] Luis Fernando Chavez MD [address] [place] [address] 04/28/2025 9:55 AM EDT Office Visit [facility] MAIN ADULT [address] [place] [address] Luis Fernando Chavez MD [address] [place] [address] documented as of this encounter Visit Diagnoses Not on filedocumented in this encounter Additional Health Concerns Assessment Noted Time PHQ-9 Depression Total Score: 21 024 1:54 PM EDT documented as of this encounter Care Teams Fur Vault Attendant Relationship Specialty Start Date End Date Luis Fernando Chavez MD [address] [place] [address] PCP - General 07/27/21 Yaquelin Stoddard, RN Registered Nurse 05/03/24 Denisse Unger [address] [place] [address] Advertising Supervisor Behavioral Health 01/31/25 02/28/25 Ethel Connelly, [facility] Advertising Supervisor Behavioral Health 03/10/25 03/10/25 Rajesh Mancera, [facility] Advertising Supervisor Behavioral Health 03/31/25 03/31/25 [facility] Registered Nurse 05/06/24 jordyn Grewal 01/18/25 documented as of this encounter
--- OUTSIDE RECORDS SUMMARY | 2025-04-07 00:13 | XMS_ITS | Encounter Summary ---
Author Organization [facility] Address [address] [place] [address] [place] [address] Care Team Providers Care Forklift Truck Mechanic Name Role Phone Luis Fernando Chavez MD Primary Care Provider [phone] Vero Mcnair Unavailable Yaquelin Stoddard RN Unavailable Unavailable Denisse Unger Unavailable ConnellyClaudia jarquinha [facility] Unavailable [phone] Rajesh Mancera [facility] Unavailable [phone] Reason for Visit * Reason Comments Med Refill Encounter Details Date Type Department Care Team (Late st Contact Info) Description 09/11/2022 Refill [facility] MAIN ADULT [address] [place] [address] Luis Fernando Chavez MD [address] [place] [address] Left flank pain (Primary Dx) Social History Tobacco Use Types [...] suspected to have Coronavirus/COVID-19? No / Unsure 09/13/2022 9:26 AM EST documented as of this encounter Miscellaneous Notes * Telephone Encounter - Luis Fernando Chavez MD - 09/11/2022 10:49 AM EST Approving, but needs appt for additional refills. documented in this encounter Plan of Treatment Upcoming Encounters Date Type Department Care Team (Late st Contact Info) Description 04/17/2025 1:20 PM EDT Office Visit [facility] MAIN ADULT [address] [place] [address] Luis Fernando Chavez MD [address] [place] [address] 04/28/2025 9:55 AM EDT Office Visit [facility] MAIN ADULT [address] [place] [address] Luis Fernando Chavez MD [address] [place] [address] documented as of this encounter Visit Diagnoses Diagnosis Left flank pain- Primary Abdominal pain, unspecified site documented in this encounter Care Teams Forklift Truck Mechanic Relationship Specialty Start Date End Date Luis Fernando Chavez MD [address] [place] [address] PCP - General 07/27/21 Vero Mcnair Community Health Worker Behavioral Health 02/19/23 Yaquelin Stoddard, RN Registered Nurse 05/03/24 Denisse Unger [address] [place] [address] Matrix Worker Behavioral Health 01/31/25 02/28/25 [facility] Matrix Worker Behavioral Health 03/10/25 03/10/25 Rajesh Mancera, CHART CLERK Matrix Worker Behavioral Health 03/31/25 03/31/25 [facility] Registered Nurse 05/06/24 jordyn Grewal 01/18/25 documented as of this encounter
--- OUTSIDE RECORDS SUMMARY | 2025-04-07 00:13 | XMS_ITS | Encounter Summary ---
Author Organization [employer] Address [address] [place] [address] 7 [place] [address] Care Team Providers Care Nut Packer Name Role Phone Luis Fernando Chavez MD Primary Care Provider [phone] Yaquelin Stoddard RN Unavailable Unavailable Denisse Unger Unavailable Ethel Connelly DISTANCE LEARNING COORDINATOR Unavailable [phone] Rajesh Mancera DEMURRAGE WORKER Unavailable [phone] Reason for Visit * Reason Comments Med Refill Encounter Details Date Type Department Care Team (Late st Contact Info) Description 07/02/2023 Refill [facility] MAIN ADULT [address] [place] [address] Luis Fernando Chavez MD [address] [place] [address] Social History Tobacco Use Types Packs/Day Years [...] Telephone Encounter - Yudelka Patel RN - 07/02/2023 12:05 PM EST Rx request was routed to PCP. documented in this encounter Plan of Treatment Upcoming Encounters Date Type Department Care Team (Late st Contact Info) Description 04/17/2025 1:20 PM EDT Office Visit [facility] MAIN ADULT [address] [place] [address] Luis Fernando Chavez MD [address] [place] [address] 04/28/2025 9:55 AM EDT Office Visit [facility] MAIN ADULT [address] [place] [address] Luis Fernando Chavez MD [address] [place] [address] documented as of this encounter Visit Diagnoses Not on filedocumented in this encounter Care Teams Nut Packer Relationship Specialty Start Date End Date Luis Fernando Chavez MD [address] [place] [address] PCP - General 07/27/21 Yaquelin Stoddard, RN Registered Nurse 05/03/24 Denisse Unger [address] [place] [address] Warp Starter Behavioral Health 01/31/25 02/28/25 Ethel Connelly, [facility] [employer] Behavioral Health 03/10/25 03/10/25 Rajesh Mancera, [facility] [employer] [facility] Behavioral Health 03/31/25 03/31/25 [facility] Registered Nurse 05/06/24 jordyn Grewal 01/18/25 documented as of this encounter
--- OUTSIDE RECORDS SUMMARY | 2025-04-07 00:14 | XMS_ITS | Encounter Summary ---
Author Organization [facility] Address [address] [place] [address] [place] [address] Care Team Providers Care Perinatal Educator Name Role Phone Luis Fernando Chavez MD Primary Care Provider [phone] Vero Mcnair Unavailable Yaquelin Stoddard RN Unavailable Unavailable Denisse Unger Unavailable Maricel Ethel [facility] Unavailable Rajesh Mancera [facility] Unavailable [phone] Reason for Visit * Reason Onset Date Comments Med Refill 02/20/2023 Encounter Details Date Type Department Care Team (Late st Contact Info) Description 02/20/2023 Refill [facility] [address] [place] [address] Chidi Murillo Chronic bilateral low back pain with bilateral [...] Encounter - Luis Fernando Chavez MD - 10/26/2023 8:10 PM EDT Med already refilled documented in this encounter Plan of Treatment Upcoming Encounters Date Type Department Care Team (Late st Contact Info) Description 04/17/2025 1:20 PM EDT Office Visit [facility] MAIN ADULT [address] [place] [address] Luis Fernando Chavez MD [address] [place] [address] 04/28/2025 9:55 AM EDT Office Visit [facility] MAIN ADULT [address] [place] [address] Luis Fernando Chavez MD [address] [place] [address] documented as of this encounter Visit Diagnoses Diagnosis Chronic bilateral low back pain with bilateral sciatica documented in this encounter Care Teams Perinatal Educator Relationship Specialty Start Date End Date Luis Fernando Chavez MD [address] [place] [address] PCP - General 07/27/21 Vero Mcnair Community Health Worker Behavioral Health 02/19/23 Yaquelin Stoddard, RN Registered Nurse 05/03/24 Denisse Unger [address] [place] [address] Telegraph Office Manager Behavioral Health 01/31/25 02/28/25 Ethel Connelly, [facility] Telegraph Office Manager Behavioral Health 03/10/25 03/10/25 Rajesh Mancera, POLICY CANCELLATION CLERK Telegraph Office Manager Behavioral Health 03/31/25 03/31/25 [facility] Registered Nurse 05/06/24 jordyn Grewal 01/18/25 documented as of this encounter
--- OUTSIDE RECORDS SUMMARY | 2025-04-07 00:14 | XMS_ITS | Encounter Summary ---
Author Organization [employer] [facility] Address [address] [place] [address] [place] [address] Care Team Providers Care Fire Marshal Refinery Name Role Phone Luis Fernando Chavez MD Primary Care Provider [phone] Vero Mcnair Unavailable Yaquelin Stoddard RN Unavailable Unavailable Denisse Unger Unavailable ConnellyClaudia jarquinha [facility] Unavailable [phone] [facility] Unavailable Reason for Visit * Reason Comments Med Refill Encounter Details Date Type Department Care Team (Late st Contact Info) Description 02/08/2023 Refill [facility] MAIN ADULT [address] [place] [address] Luis Fernando Chavez MD [address] [place] [address] Social History Tobacco Use Types Packs/Day Years [...] Encounter - Luis Fernando Chavez MD - 02/08/2023 7:11 PM EDT Approving, but needs appt for additional refills. documented in this encounter Plan of Treatment Upcoming Encounters Date Type Department Care Team (Late st Contact Info) Description 04/17/2025 1:20 PM EDT Office Visit [facility] MAIN ADULT [address] [place] [address] Luis Fernando Chavez MD [address] [place] [address] 04/28/2025 9:55 AM EDT Office Visit [facility] MAIN ADULT [address] [place] [address] Luis Fernando Chavez MD [address] [place] [address] documented as of this encounter Visit Diagnoses Not on filedocumented in this encounter Care Teams Fire Marshal Refinery Relationship Specialty Start Date End Date Luis Fernando Chavez MD [address] [place] [address] PCP - General 07/27/21 Vero Mcnair Community Health Worker Behavioral Health 02/19/23 Yaquelin Stoddard, RN Registered Nurse 05/03/24 Denisse Unger [address] [place] [address] [employer] Con[employer] Ironworker Behavioral Health 01/31/25 02/28/25 Ethel Connelly, [facility] [employer] Con[employer] Ironworker Behavioral Health 03/10/25 03/10/25 Rajesh Mancera, ELECTRIC WHEELCHAIR REPAIRER [employer] Ironworker Behavioral Health 03/31/25 03/31/25 [facility] Registered Nurse 05/06/24 jordyn blackwood Vendor 01/18/25 documented as of this encounter
--- OUTSIDE RECORDS SUMMARY | 2025-04-07 00:14 | XMS_ITS | Encounter Summary ---
Author Organization [employer] [facility] Address [address] [place] [address] [place] [address] Care Team Providers Care Resident Athletic Trainer Name Role Phone Luis Fernando Chavez MD Primary Care Provider [phone] Vero Mcnair Unavailable Yaquelin Stoddard RN Unavailable Unavailable Denisse Unger Unavailable ConnellyClaudiaha [facility] Unavailable [phone] Rajesh Mancera [facility] Unavailable [phone] Reason for Visit * Reason Comments Med Refill Encounter Details Date Type Department Care Team (Late st Contact Info) Description 02/20/2023 Refill [facility] MAIN ADULT [address] [place] [address] Luis Fernando Chavez MD [address] [place] [address] Chronic bilateral low back pain with bilateral [...] Encounter - Luis Fernando Chavez MD - 02/20/2023 2:58 PM EDT Med already refilled documented in this encounter Plan of Treatment Upcoming Encounters Date Type Department Care Team (Late st Contact Info) Description 04/17/2025 1:20 PM EDT Office Visit [facility] MAIN ADULT [address] [place] [address] Luis Fernando Chavez MD [address] [place] [address] 04/28/2025 9:55 AM EDT Office Visit [facility] MAIN ADULT [address] [place] [address] Luis Fernando Chavez MD [address] [place] [address] documented as of this encounter Visit Diagnoses Diagnosis Chronic bilateral low back pain with bilateral sciatica documented in this encounter Care Teams Resident Athletic Trainer Relationship Specialty Start Date End Date Luis Fernando Chavez MD [address] [place] [address] PCP - General 07/27/21 Vero Mcnair Community Health Worker Behavioral Health 02/19/23 Yaquelin Stoddard, RN Registered Nurse 05/03/24 Denisse Unger [address] [place] [address] Library Associate Behavioral Health 01/31/25 02/28/25 Ethel Connelly, [facility] Library Associate Behavioral Health 03/10/25 03/10/25 Rajesh Mancera, [facility] Library Associate Behavioral Health 03/31/25 03/31/25 [facility] Registered Nurse 05/06/24 jordyn blackwood Vendor 01/18/25 documented as of this encounter
--- OUTSIDE RECORDS SUMMARY | 2025-04-07 00:14 | XMS_ITS | Encounter Summary ---
Author Organization [employer] Address [address] [place] [address] 7 [place] [address] Care Team Providers Care Analytical Clerk Name Role Phone Luis Fernando Chavez MD Primary Care Provider [phone] Yaquelin Stoddard RN Unavailable Unavailable Denisse Unger Unavailable Ethel Connelly EXCHANGE TROUBLE SHOOTER Unavailable [phone] Rajesh Mancera COMPETENCY EVALUATED NURSE AIDE Unavailable [phone] Reason for Visit * Reason Comments Med Refill Encounter Details Date Type Department Care Team (Late st Contact Info) Description 04/04/2024 Refill [facility] MAIN ADULT [address] [place] [address] Luis Fernando Chavez MD [address] [place] [address] Chronic bilateral low back pain with bilateral [...] the past 12 months, has t he [employer], gas, oil or water [employer] threatened to shut off services in your [...] Encounter - Luis Fernando Chavez MD - 04/04/2024 1:12 PM EDT Med already refilled * Telephone Encounter - Yasmin Razo LPN - 04/04/2024 8:40 AM EDT Patient is looking for refills * Telephone Encounter - Luis Fernando Chavez MD - 04/04/2024 8:29 AM EDT Med already refilled documented in this encounter Plan of Treatment Upcoming Encounters Date Type Department Care Team (Late st Contact Info) Description 04/17/2025 1:20 PM EDT Office Visit [facility] MAIN ADULT [address] [place] [address] Luis Fernando Chavez MD [address] [place] [address] 04/28/2025 9:55 AM EDT Office Visit [facility] MAIN ADULT [address] [place] [address] Luis Fernando Chavez MD [address] [place] [address] documented as of this encounter Visit Diagnoses Diagnosis Chronic bilateral low back pain with bilateral sciatica documented in this encounter Additional Health Concerns Assessment Noted Time PHQ-9 Depression Total Score: 024 1:54 PM EDT documented as of this encounter Care Teams Analytical Clerk Relationship Specialty Start Date End Date Luis Fernando Chavez MD [address] [place] [address] PCP - General 07/27/21 Yaquelin Stoddard, RN Registered Nurse 05/03/24 Denisse Unger [address] [place] [address] Joiners Supervisor Behavioral Health 01/31/25 02/28/25 Ethel Connelly, [facility] Joiners Supervisor Behavioral Health 03/10/25 03/10/25 Rajesh Mancera, [facility] Joiners Supervisor Behavioral Health 03/31/25 03/31/25 [facility] Registered Nurse 05/06/24 jordyn Grewal 01/18/25 documented as of this encounter
--- OUTSIDE RECORDS SUMMARY | 2025-04-07 00:14 | XMS_ITS | Encounter Summary ---
Author Organization [email or web address] [facility] Address [address] [place] [address] [place] [address] Care Team Providers Care Environmental Compliance Specialist Name Role Phone Luis Fernando Chavez MD Primary Care Provider [phone] Vero Mcnair Unavailable Yaquelin Stoddard RN Unavailable Unavailable Denisse Unger Unavailable ConnellyClaudia jarquinha [facility] Unavailable [phone] Rajesh Mancera [facility] Unavailable [phone] Reason for Visit * Reason Comments Med Refill Encounter Details Date Type Department Care Team (Late st Contact Info) Description 02/24/2023 Telephone [facility] MAIN ADULT [address] [place] [address] Luis Fernando Chavez MD [address] [place] [address] Med Refill Social History Tobacco Use Types [...] encounter Miscellaneous Notes * Telephone Encounter - Susanne Alonso RN - 02/28/2023 8:51 AM EDT Pt called into office requesting a prior authorization for tepentadol prescription. documented in this encounter Plan of Treatment Upcoming Encounters Date Type Department Care Team (Late st Contact Info) Description 04/17/2025 1:20 PM EDT Office Visit [facility] MAIN ADULT [address] [place] [address] Luis Fernando Chavez MD [address] [place] [address] 04/28/2025 9:55 AM EDT Office Visit [facility] MAIN ADULT [address] [place] [address] Luis Fernando Chavez MD [address] [place] [address] documented as of this encounter Visit Diagnoses Diagnosis Chronic bilateral low back pain with bilateral sciatica documented in this encounter Care Teams Environmental Compliance Specialist Relationship Specialty Start Date End Date Luis Fernando Chavez MD [address] [place] [address] PCP - General 07/27/21 Vero Mcnair Community Health Worker Behavioral Health 02/19/23 Yaquelin Stoddard, RN Registered Nurse 05/03/24 Denisse Unger [address] [place] [address] Signals Collector/Analyst Behavioral Health 01/31/25 02/28/25 Ethel Connelly, [facility] Signals Collector/Analyst Behavioral Health 03/10/25 03/10/25 Rajesh Mancera, ECHO VASC TECH Signals Collector/Analyst Behavioral Health 03/31/25 03/31/25 [facility] Registered Nurse 05/06/24 jordyn blackwood Vendor 01/18/25 documented as of this encounter
--- OUTSIDE RECORDS SUMMARY | 2025-04-07 00:14 | XMS_ITS | Encounter Summary ---
Author Organization [employer] Address [address] [place] [address] 7 [place] [address] Care Team Providers Care Legal Archivist Name Role Phone Luis Fernando Chavez MD Primary Care Provider [phone] Yaquelin Stoddard RN Unavailable Unavailable Denisse Unger Unavailable Ethel Connelly AGRICULTURAL ECONOMICS PROFESSOR Unavailable [phone] Rajesh Mancera WORKFORCE SERVICES REPRESENTATIVE Unavailable [phone] Reason for Visit * Reason Comments Med Refill Encounter Details Date Type Department Care Team (Late st Contact Info) Description 04/05/2024 Refill [facility] MAIN ADULT [address] [place] [address] Luis Fernando Chavez MD [address] [place] [address] Chronic bilateral low back pain with bilateral [...] the past 12 months, has t he [employer], [employer], oil or water [employer] threatened to shut off services in your [...] Encounter - Luis Fernando Chavez MD - 04/05/2024 6:54 PM EDT Med already refilled * Telephone Encounter - Daniel Villagomez RN - 04/05/2024 12:57 PM EDT Heath Trevino is a 33 y.o. male Refill requested as listed below: Requested Prescriptions Pending Prescriptions Disp Refills pregabalin (Lyrica) 300 MG capsule [Pharmacy Med Name: PREGABALIN 300MG CAPSULES] 60 capsule Sig: TAKE 1 CAPSULE(300 MG) BY MOUTH TWICE DAILY Last Adult Medicine In-Office Visit: 03/11/2024 No future appointments. BP Readings from Last 3 Encounters: 03/11/24 (!) 142/92 02/16/24 118/72 12/07/23 140/90 documented in this encounter Plan of Treatment Upcoming Encounters Date Type Department Care Team (Late st Contact Info) Description 04/17/2025 1:20 PM EDT Office Visit [facility] MAIN ADULT [address] [place] [address] Luis Fernando Chavez MD [address] [place] [address] 04/28/2025 9:55 AM EDT Office Visit [facility] MAIN ADULT [address] [place] [address] Luis Fernando Chavez MD [address] [place] [address] documented as of this encounter Visit Diagnoses Diagnosis Chronic bilateral low back pain with bilateral sciatica documented in this encounter Additional Health Concerns Assessment Noted Time PHQ-9 Depression Total Score: 21 024 1:54 PM EDT documented as of this encounter Care Teams Legal Archivist Relationship Specialty Start Date End Date Luis Fernando Chavez MD [address] [place] [address] PCP - General 07/27/21 Yaquelin Stoddard, RN Registered Nurse 05/03/24 Denisse Unger [address] [place] [address] Corn Crop Supervisor Behavioral Health 01/31/25 02/28/25 Ethel Connelly, [facility] Corn Crop Supervisor Behavioral Health 03/10/25 03/10/25 Rajesh Mancera, [facility] Corn Crop Supervisor Behavioral Health 03/31/25 03/31/25 [facility] Registered Nurse 05/06/24 jordyn Grewal 01/18/25 documented as of this encounter
--- OUTSIDE RECORDS SUMMARY | 2025-04-07 00:14 | XMS_ITS | Encounter Summary ---
Author Organization [employer] [facility] Address [address] [place] [address] [place] [address] Care Team Providers Care Wildlife Refuge Specialist Name Role Phone Luis Fernando Chavez MD Primary Care Provider [phone] Vero Mcnair Unavailable Yaquelin Stoddard RN Unavailable Unavailable Denisse Unger Unavailable ConnellyClaudia jarquinha [facility] Unavailable [phone] Rajesh Mancera [facility] Unavailable [phone] Reason for Visit * Reason Comments Med Refill Encounter Details Date Type Department Care Team (Late st Contact Info) Description 02/12/2023 Refill [facility] MAIN ADULT [address] [place] [address] Luis Fernando Chavez MD [address] [place] [address] Nausea Social History Tobacco Use Types Packs/Day [...] Encounter - Luis Fernando Chavez MD - 02/12/2023 10:38 AM EDT Approving, but needs appt for additional refills. documented in this encounter Plan of Treatment Upcoming Encounters Date Type Department Care Team (Late st Contact Info) Description 04/17/2025 1:20 PM EDT Office Visit [facility] MAIN ADULT [address] [place] [address] Luis Fernando Chavez MD [address] [place] [address] 04/28/2025 9:55 AM EDT Office Visit [facility] MAIN ADULT [address] [place] [address] Luis Fernando Chavez MD [address] [place] [address] documented as of this encounter Visit Diagnoses Diagnosis Nausea Nausea alone documented in this encounter Care Teams Wildlife Refuge Specialist Relationship Specialty Start Date End Date Luis Fernando Chavez MD [address] [place] [address] PCP - General 07/27/21 Vero Mcnair Community Health Worker Behavioral Health 02/19/23 Yaquelin Stoddard, RN Registered Nurse 05/03/24 Denisse Unger [address] [place] [address] Dress Operator Behavioral Health 01/31/25 02/28/25 Ethel Connelly, [facility] Dress Operator Behavioral Health 03/10/25 03/10/25 Rajesh Mancera, SLEEVE SETTER LOCKSTITCH Dress Operator Behavioral Health 03/31/25 03/31/25 [facility] Registered Nurse 05/06/24 jordyn blackwood Vendor 01/18/25 documented as of this encounter
--- OUTSIDE RECORDS SUMMARY | 2025-04-07 00:15 | XMS_ITS | Encounter Summary ---
Author Organization [employer] Address [address] [facility] 7 [place] [address] Care Team Providers Care Spray Gun Repairer Name Role Phone Luis Fernando Chavez MD Primary Care Provider [phone] Yaquelin Stoddard RN Unavailable Unavailable Denisse Unger Unavailable Ethel Cnonelly TRAIN OPERATOR Unavailable [phone] Rajesh Mancera RANGE CONSERVATIONIST Unavailable [phone] Reason for Visit * Reason Onset Date Comments Med Refill VNA 05/24/2024 Per Jyoti BECKMAN of [facility] patient refused VN service. Will send discharge . Encounter Details Date Type Department Care Team (Late st Contact Info) Description 05/24/2024 Refill [facility] MAIN ADULT [address] [place] [address] Luis Fernando Chavez MD [address] [place] [address] Social History Tobacco Use Types Packs/Day Years [...] encounter Miscellaneous Notes * Telephone Encounter - Yaquelin Stoddard RN - 05/26/2024 11:53 AM EDT PETER BECKMAN of [facility] patient refused VN service. Will send discharge . * Telephone Encounter - Luis Fernando Chavez MD - 05/24/2024 1:05 PM EDT Approving, but needs appt for additional refills. * Telephone Encounter - Daniel Villagomez RN - 05/24/2024 10:18 AM EDT Heath Trevino is a 33 y.o. male Refill requested as listed below: Requested Prescriptions Pending Prescriptions Disp Refills levETIRAcetam (Keppra) 1000 MG tablet [Pharmacy Med Name: LEVETIRACETAM 1000MG TABLETS] 270 tablet 0 Sig: TAKE 1 2 TABLET BY MOUTH TWICE A DAY Last Adult Medicine In-Office Visit: 03/11/2024 No future appointments. BP Readings from Last 3 Encounters: 03/11/24 (!) 142/92 02/16/24 118/72 12/07/23 140/90 documented in this encounter Plan of Treatment Upcoming Encounters Date Type Department Care Team (Late st Contact Info) Description 04/17/2025 1:20 PM EDT Office Visit [facility] MAIN ADULT [address] [place] [address] Luis Fernando Chavez MD [address] [place] [address] 04/28/2025 9:55 AM EDT Office Visit [facility] MAIN ADULT [address] [place] [address] Luis Fernando Chavez MD [address] [place] [address] documented as of this encounter Visit Diagnoses Not on filedocumented in this encounter Additional Health Concerns Assessment Noted Time PHQ-9 Depression Total Score: 21 024 1:54 PM EDT documented as of this encounter Care Teams Spray Gun Repairer Relationship Specialty Start Date End Date Luis Fernando Chavez MD [address] [place] [address] PCP - General 07/27/21 Yaquelin Stoddard, RN Registered Nurse 05/03/24 Denisse Unger [address] [place] [address] Sampling Theory Teacher Behavioral Health 01/31/25 02/28/25 Ethel Connelly, [facility] Sampling Theory Teacher Behavioral Health 03/10/25 03/10/25 Rajesh Mancera, [facility] Sampling Theory Teacher Behavioral Health 03/31/25 03/31/[address] [facility] Registered Nurse 05/06/24 jordyn Thapaor 01/18/25 documented as of this encounter
--- OUTSIDE RECORDS SUMMARY | 2025-04-07 00:15 | XMS_ITS | Encounter Summary ---
Author Organization [employer] Address [address] [place] [address] 7 [place] [address] Care Team Providers Care Fur Joiner Name Role Phone Luis Fernando Chavez MD Primary Care Provider [phone] Yaquelin Stoddard RN Unavailable Unavailable Denisse Unger Unavailable Ethel Connelly SUBSTANCE ABUSE COUNSELOR Unavailable [phone] Rajesh Mancera AIRPLANE COVERER Unavailable [phone] Reason for Visit * Reason Comments Med Refill Encounter Details Date Type Department Care Team (Late st Contact Info) Description 04/01/2024 Refill [facility] MAIN ADULT [address] [place] [address] Luis Fernando Chaevz MD [address] [place] [address] Chronic bilateral low back pain with bilateral [...] the past 12 months, has t he [employer], [employer], oil or water [employer] threatened to shut off services in your [...] Encounter - Luis Fernando Chavez MD - 04/01/2024 11:34 AM EDT Med already refilled * Telephone Encounter - Minerva Cabello RN - 04/01/2024 9:35 AM EDT Heath Trevino is a 33 [...] [facility] MAIN ADULT [address] [place] [address] Luis Fernando Chavez MD [address] [place] [address] 04/28/2025 9:55 AM EDT Office Visit [facility] MAIN ADULT [address] [place] [address] Luis Fernando Chavez MD [address] [place] [address] documented as of this encounter Visit Diagnoses Diagnosis Chronic bilateral low back pain with bilateral sciatica documented in this encounter Additional Health Concerns Assessment Noted Time PHQ-9 Depression Total Score: 21 024 1:54 PM EDT documented as of this encounter Care Teams Fur Joiner Relationship Specialty Start Date End Date Luis Fernando Chavez MD [address] [place] [address] PCP - General 07/27/21 Yaquelin Stoddard, RN Registered Nurse 05/03/24 Denisse Unger [address] [place] [address] Garment Sewing Machine Operator Behavioral Health 01/31/25 02/28/25 Ethel Connelly, [facility] Garment Sewing Machine Operator Behavioral Health 03/10/25 03/10/25 Rajesh Mancera, [facility] Garment Sewing Machine Operator Behavioral Health 03/31/25 03/31/25 [facility] Registered Nurse 05/06/24 jordyn Grewal 01/18/25 documented as of this encounter
--- OUTSIDE RECORDS SUMMARY | 2025-04-07 00:15 | XMS_ITS | Encounter Summary ---
Author Organization [employer] [facility] Address [address] [place] [address] [place] [address] Care Team Providers Care Feed Elevator Worker Name Role Phone Luis Fernando Chavez MD Primary Care Provider [phone] Vero Mcnair Unavailable Yaquelin Stoddard RN Unavailable Unavailable Denisse Unger Unavailable ConnellyClaudiaha [facility] Unavailable [phone] Rajesh Mancera [facility] Unavailable [phone] Reason for Visit * Reason Comments Med Refill Encounter Details Date Type Department Care Team (Late st Contact Info) Description 10/01/2022 Refill [facility] MAIN ADULT [address] [place] [address] Luis Fernando Chavez MD [address] [place] [address] Chronic bilateral low back pain with bilateral [...] suspected to have Coronavirus/COVID-19? No / Unsure 09/23/2022 1:37 PM EST documented as of this encounter Miscellaneous Notes * Telephone Encounter - Luis Fernando Chavez MD - 10/01/2022 1:09 PM EST Medication refused due to failing protocol. Requested Prescriptions Pending Prescriptions Disp Refills traMADol (Ultram) 50 MG tablet [Pharmacy Med Name: TRAMADOL HCL 50 MG TABLET] 60 tablet 0 Sig: TAKE 1 TABLET BY MOUTH TWICE A DAY Opioid Analgesics Protocol Failed - 10/01/2022 12:51 AM Failed - Medication not refilled in past 28 days (4 weeks) Matching medication order placed on 09/22/2022 11:45 PM Order [id number]: oxyCODONE (Oxy-IR) 5 MG immediate release capsule (For orders placed between 09/03/2022 1:08 PM and 10/01/2022 1:08 PM) Failed - Medication not refilled in past 45 days (1.5 months) Matching medication order placed on 09/22/2022 11:45 PM Order [id number]: oxyCODONE (Oxy-IR) 5 MG immediate release capsule (For orders placed between 08/17/2022 1:08 PM and 10/01/2022 1:08 PM) Failed - Opioid pain agreement on file in past year Failed - No Benzodiazepines on active med list Passed - Visit with relevant provider in past 3 months Recent Visits Date Type Provider Dept 09/23/22 Office Visit Luis Fernando Chavez MD [facility] Main Adult 09/16/22 Office Visit Eileen Diaz NP [facility] Main Adult 09/04/22 Office Visit Luis Fernando Chavez MD [facility] Main Adult Showing recent visits within past 90 days and meeting all other requirements Future Appointments No visits were found meeting these conditions. Showing future appointments within next 0 days and meeting all other requirements Passed - Urine or saliva toxicology result on file in past 12 months Controlled Substance Protocol Failed - 10/01/2022 12:51 AM Failed - No Benzodiazepines on active med list Failed - Medication not refilled in past 28 days (4 weeks) Matching medication order placed on 09/30/2022 12:53 PM Order [id number]: pregabalin (Lyrica) 300 MG capsule (For orders placed between 09/03/2022 1:08 PM and 10/01/2022 1:08 PM) Failed - Medication not refilled in past 45 days (1.5 months) Matching medication order placed on 09/30/2022 12:53 PM Order [id number]: pregabalin (Lyrica) 300 MG capsule (For orders placed between 08/17/2022 1:08 PM and 10/01/2022 1:08 PM) Passed - Visit with relevant provider in past 3 months Recent Visits Date Type Provider Dept 09/23/22 Office Visit Luis Fernando Chavez MD [facility] Main Adult 09/16/22 Office Visit Eileen Diaz NP [facility] Main Adult 09/04/22 Office Visit Luis Fernando Chavez MD [facility] Main Adult Showing recent visits within past 90 days and meeting all other requirements Future Appointments No visits were found meeting these conditions. Showing future appointments within next 0 days and meeting all other requirements Passed - Urine or saliva toxicology result on file in past 12 months documented in this encounter Plan of Treatment Upcoming Encounters Date Type Department Care Team (Late st Contact Info) Description 04/17/2025 1:20 PM EDT Office Visit [facility] MAIN ADULT [address] [place] [address] Luis Fernando Chavez MD [address] [place] [address] 04/28/2025 9:55 AM EDT Office Visit [facility] MAIN ADULT [address] [place] [address] Luis Fernando Chavez MD [address] [place] [address] documented as of this encounter Visit Diagnoses Diagnosis Chronic bilateral low back pain with bilateral sciatica documented in this encounter Care Teams Feed Elevator Worker Relationship Specialty Start Date End Date Luis Fernando Chavez MD [address] [place] [address] PCP - General 07/27/21 Vero Mcnair Community Health Worker Behavioral Health 02/19/23 Yaquelin Stoddard, RN Registered Nurse 05/03/24 Denisse Unger [address] [place] [address] Laceworker Behavioral Health 01/31/25 02/28/25 Ethel Connelly, [facility] Laceworker Behavioral Health 03/10/25 03/10/25 Rajesh Mancera, [facility] Laceworker Behavioral Health 03/31/25 03/31/25 [facility] Registered Nurse 05/06/24 jordyn Grewal 01/18/25 documented as of this encounter
--- OUTSIDE RECORDS SUMMARY | 2025-04-07 00:15 | XMS_ITS | Encounter Summary ---
Author Organization [employer] Address [address] [facility] 7 [place] [address] Care Team Providers Care Master Glazier Name Role Phone Luis Fernando Chavez MD Primary Care Provider [phone] Yaquelin Stoddard RN Unavailable Unavailable Deinsse Unger Unavailable Ethel Connelly PROPELLER [employer]IV[employer] AIRPLANE MECHANIC Unavailable [phone] Rajesh Mancera BETTING AGENCY COUNTER CLERK Unavailable [phone] Reason for Visit * Reason Onset Date Comments Med Refill 07/26/2024 Encounter Details Date Type Department Care Team (Late st Contact Info) Description 07/26/2024 Refill [facility] MAIN ADULT [address] [place] [address] Luis Fernando Chavez MD [address] [place] [address] Chronic bilateral low back pain with bilateral [...] the past 12 months, has t he [employer], gas, oil or water company threatened to [...] Encounter - Luis Fernando Chavez MD - 07/26/2024 3:15 PM EST Approving, but needs appt for additional refills. * Telephone Encounter - Daniel Villagomez RN - 07/26/2024 7:57 AM EST Good morning Message sent to the [facility] MAIN ADULT FRONT STAFF to call patient and schedule a follow-up appointment with PCP for medication management. Thank you. Monica Villagomez RN Heath Sally Trevino is a 34 y.o. male Refill requested as listed below: Requested Prescriptions Pending Prescriptions Disp Refills pregabalin (Lyrica) 300 MG capsule 60 capsule 0 Last Adult Medicine In-Office Visit: 03/11/2024 No future appointments. BP Readings from Last 3 Encounters: 03/11/24 (!) 142/92 02/16/24 118/72 12/07/23 140/90 documented in this encounter Plan of Treatment Upcoming Encounters Date Type Department Care Team (Late st Contact Info) Description 04/17/2025 1:20 PM EDT Office Visit [facility] MAIN ADULT [address] [place] [address] Luis Fernando Chavez MD [address] [place] [address] 04/28/2025 9:55 AM EDT Office Visit [facility] MAIN ADULT [address] [place] [address] Luis Fernando Chavez MD [address] [place] [address] documented as of this encounter Visit Diagnoses Diagnosis Chronic bilateral low back pain with bilateral sciatica documented in this encounter Additional Health Concerns Assessment Noted Time PHQ-9 Depression Total Score: 21 024 1:54 PM EDT documented as of this encounter Care Teams Master Glazier Relationship Specialty Start Date End Date Luis Fernando Chavez MD [address] [place] [address] PCP - General 07/27/21 Yaquelin Stoddard, RN Registered Nurse 05/03/24 Denisse Unger [address] [place] [address] [facility] 01/31/25 02/28/25 Ethel Connelly, [facility] Wirer Behavioral Health 03/10/25 03/10/25 Rajesh Mancera, [facility]r Behavioral Health 03/31/25 03/31/25 [facility] Registered Nurse 05/06/24 jordyn Grewal 01/18/25 documented as of this encounter
--- OUTSIDE RECORDS SUMMARY | 2025-04-07 00:15 | XMS_ITS | Encounter Summary ---
Author Organization [employer] [facility] Address [address] [place] [address] [place] [address] Care Team Providers Care Commercial Real Estate Attorney Name Role Phone Luis Fernando Chavez MD Primary Care Provider [phone] Vero Mcnair Unavailable Yaquelin Stoddard RN Unavailable Unavailable Denisse Unger Unavailable ConnellyClaudia jarquinha [facility] Unavailable [phone] Rajesh Mancera [facility] Unavailable [phone] Reason for Visit * Reason Comments Med Refill Encounter Details Date Type Department Care Team (Late st Contact Info) Description 03/17/2023 Refill [facility] MAIN ADULT [address] [place] [address] Luis Fernando Chavez MD [address] [place] [address] Nausea Social History Tobacco Use Types Packs/Day [...] [facility] MAIN ADULT [address] [place] [address] Luis Fernando Chavez MD [address] [place] [address] 04/28/2025 9:55 AM EDT Office Visit [facility] MAIN ADULT [address] [place] [address] Luis Fernando Chavez MD [address] [place] [address] documented as of this encounter Visit Diagnoses Diagnosis Nausea Nausea alone documented in this encounter Care Teams Commercial Real Estate Attorney Relationship Specialty Start Date End Date Luis Fernando Chavez MD [address] [place] [address] PCP - General 07/27/21 Vero Mcnair Community Health Worker Behavioral Health 02/19/23 Yaquelin Stoddard, RN Registered Nurse 05/03/24 Denisse Unger [address] [place] [address] Confectionery Laboratory Manager Behavioral Health 01/31/25 02/28/25 Ethel Connelly, [facility] Confectionery Laboratory Manager Behavioral Health 03/10/25 03/10/25 Rajesh Mancera, [facility] Confectionery Laboratory Manager Behavioral Health 03/31/25 03/31/[address] [facility] Registered Nurse 05/06/24 jordyn Grewal 01/18/25 documented as of this encounter
--- OUTSIDE RECORDS SUMMARY | 2025-04-07 00:15 | XMS_ITS | Encounter Summary ---
Author Organization [employer] Address [address] [facility] 7 [place] [address] Care Team Providers Care Reimbursement Analyst Name Role Phone Luis Fernando Chavez MD Primary Care Provider [phone] Yaquelin Stoddard RN Unavailable Unavailable Denisse Unger Unavailable Ethel Connelly [employer] [facility] Unavailable [phone] Rajesh Mancera [facility] Unavailable [phone] Reason for Visit * Reason Comments Med Refill Encounter Details Date Type Department Care Team (Late st Contact Info) Description 07/25/2024 Refill [facility] MAIN ADULT [address] [place] [address] Bianca Ortiz MD [address] [place] [address] Chronic bilateral low back pain with bilateral [...] the past 12 months, has t he [employer], [employer], oil or water [employer] threatened to shut off services in your [...] Encounter - Luis Fernando Chavez MD - 07/25/2024 4:55 PM EST Med already refilled * Telephone Encounter - Daniel Villagomez RN - 07/25/2024 9:03 AM EST Good morning Message sent to the [facility] MAIN ADULT FRONT STAFF to call patient and schedule a follow-up appointment with PCP for medication management. Thank you. Monica Villagomez RN Heath Trevino is a 34 y.o. male Refill [...] Visit [facility] MAIN ADULT [address] [place] [address] Luis Fernando Chavez MD [address] [place] [address] 04/28/2025 9:55 AM EDT Office Visit [facility] MAIN ADULT [address] [place] [address] Luis Fernando Chavez MD [address] [place] [address] documented as of this encounter Visit Diagnoses Diagnosis Chronic bilateral low back pain with bilateral sciatica documented in this encounter Additional Health Concerns Assessment Noted Time PHQ-9 Depression Total Score: 21 024 1:54 PM EDT documented as of this encounter Care Teams Reimbursement Analyst Relationship Specialty Start Date End Date Luis Fernando Chavez MD [address] [place] [address] PCP - General 07/27/21 Yaquelin Stoddard, RN Registered Nurse 05/03/24 Denisse Unger [address] [place] [address] Commissions Analyst Behavioral Health 01/31/25 02/28/25 Ethel Connelly, [facility] Commissions Analyst Behavioral Health 03/10/25 03/10/25 Rajesh Mancera, [facility] Commissions Analyst Behavioral Health 03/31/25 03/31/25 [facility] Registered Nurse 05/06/24 jordyn Grewal 01/18/25 documented as of this encounter
--- OUTSIDE RECORDS SUMMARY | 2025-04-07 00:15 | XMS_ITS | Encounter Summary ---
Author Organization [employer] [facility] Address [address] [place] [address] Care Team Providers Care Manager Audit Name Role Phone Luis Fernando Chavez MD Primary Care Provider [phone] Vero Mcnair Unavailable Yaquelin Stoddard RN Unavailable Unavailable Denisse Unger Unavailable ConnellyClaudia jarquinha [facility] Unavailable [phone] Rajesh Mancera [facility] Unavailable [phone] Reason for Visit * Reason Onset Date Comments Med Refill 04/20/2023 Encounter Details Date Type Department Care Team (Late st Contact Info) Description 04/20/2023 Refill [facility] MAIN ADULT [address] [place] [address] Luis Fernando Chavez MD [address] [place] [address] Social History Tobacco Use Types Packs/Day Years [...] Encounter - Luis Fernando Chavez MD - 04/21/2023 12:26 PM EDT Approving, but needs appt for additional refills. documented in this encounter Plan of Treatment Upcoming Encounters Date Type Department Care Team (Late st Contact Info) Description 04/17/2025 1:20 PM EDT Office Visit [facility] MAIN ADULT [address] [place] [address] Luis Fernando Chavez MD [address] [place] [address] 04/28/2025 9:55 AM EDT Office Visit [facility] MAIN ADULT [address] [place] [address] Luis Fernando Chavez MD [address] [place] [address] documented as of this encounter Visit Diagnoses Not on filedocumented in this encounter Care Teams Manager Audit Relationship Specialty Start Date End Date Luis Fernando Chavez MD [address] [place] [address] PCP - General 07/27/21 Vero Mcnair Community Health Worker Behavioral Health 02/19/23 Yaquelin Stoddard, RN Registered Nurse 05/03/24 Denisse Unger [address] [place] [address] Compliance Tester Behavioral Health 01/31/25 02/28/25 Ethel Connelly, [facility] Compliance Tester Behavioral Health 03/10/25 03/10/25 Rajesh Mancera, LEGAL DEPARTMENT MANAGER Compliance Tester Behavioral Health 03/31/25 03/31/25 [facility] Registered Nurse 05/06/24 jordyn blackwood Vendor 01/18/25 documented as of this encounter
--- OUTSIDE RECORDS SUMMARY | 2025-04-07 00:15 | XMS_ITS | Encounter Summary ---
Author Organization [employer] Address [address] [place] [address] 7 [place] [address] Care Team Providers Care Printing Technician Name Role Phone Luis Fernando Chavez MD Primary Care Provider [phone] Yaquelin Stoddard RN Unavailable Unavailable Denisse Unger Unavailable Ethel Connelly COMPLIANCE PROJECT MANAGER Unavailable [phone] Rajesh Mancera MEDICAL BILLING CLERK Unavailable [phone] Reason for Visit * Reason Comments Med Refill Encounter Details Date Type Department Care Team (Late st Contact Info) Description 05/31/2024 Refill [facility] MAIN ADULT [address] [place] [address] Luis Fernando Chavez MD [address] [place] [address] Chronic bilateral low back pain with bilateral [...] the past 12 months, has t he [employer], gas, oil or water [employer] threatened to shut off services in your [...] Encounter - Luis Fernando Chavez MD - 05/31/2024 9:03 AM EST Approving, but needs appt for additional refills. documented in this encounter Plan of Treatment Upcoming Encounters Date Type Department Care Team ([facility] st Contact Info) Description 04/17/2025 1:20 PM EDT Office Visit [facility] MAIN ADULT [address] [place] [address] Luis Fernando Chavez MD [address] [place] [address] 04/28/2025 9:55 AM EDT Office Visit [facility] MAIN ADULT [address] [place] [address] Luis Fernando Chavez MD [address] [place] [address] documented as of this encounter Visit Diagnoses Diagnosis Chronic bilateral low back pain with bilateral sciatica documented in this encounter Additional Health Concerns Assessment Noted Time PHQ-9 Depression Total Score: 21 024 1:54 PM EDT documented as of this encounter Care Teams Printing Technician Relationship Specialty Start Date End Date LuisF ernando Chavez MD [address] [place] [address] PCP - General 07/27/21 Yaquelin Stoddard, RN Registered Nurse 05/03/24 Denisse Unger [address] [place] [address] Medic Technician Behavioral Health 01/31/25 02/28/25 Ethel Connelly, [facility] Medic Technician Behavioral Health 03/10/25 03/10/25 Rajesh Mancera, [facility] Medic Technician Behavioral Health 03/31/25 03/31/25 [facility] Registered Nurse 05/06/24 jordyn Grewal 01/18/25 documented as of this encounter
--- OUTSIDE RECORDS SUMMARY | 2025-04-07 00:15 | XMS_ITS | Encounter Summary ---
Author Organization [employer] Address [address] [place] [address] 7 [place] [address] Care Team Providers Care Housing Project Manager Name Role Phone Luis Fernando Chavez MD Primary Care Provider [phone] Yaquelin Stoddard RN Unavailable Unavailable Denisse Unegr Unavailable Ethel Connelly REAL ESTATE ECONOMIST Unavailable [phone] Rajesh Mancera METER TECHNICIAN Unavailable [phone] Reason for Visit * Reason Comments Med Refill Encounter Details Date Type Department Care Team (Late st Contact Info) Description 05/04/2024 Refill [facility] MAIN ADULT [address] [place] [address] Luis Fernando Chavez MD [address] [place] [address] Chronic bilateral low back pain with bilateral [...] the past 12 months, has t he [employer], gas, oil or water [employer] threatened to shut off services in your [...] Encounter - Luis Fernando Chavez MD - 05/05/2024 10:53 AM EDT Approving, but needs appt for additional refills. * Telephone Encounter - Minerva Cabello RN - 05/05/2024 8:45 AM EDT Heath Trevino is a 33 y.o. male Refill requested as listed below: Requested Prescriptions Pending Prescriptions Disp Refills pregabalin (Lyrica) 300 MG capsule [Pharmacy Med Name: PREGABALIN 300MG CAPSULES] 60 capsule Sig: TAKE 1 CAPSULE(300 MG) BY MOUTH TWICE DAILY Last Adult Medicine In-Office Visit: 03/11/2024 Future Appointments Date Time Provider Department Center 05/05/2024 11:40 AM Luis Fernando Chavez MD [place] [facility] BP Readings from Last 3 Encounters: 03/11/24 (!) 142/92 02/16/24 118/72 12/07/23 140/90 documented in this encounter Plan of Treatment Upcoming Encounters Date Type Department Care Team (Late st Contact Info) Description 04/17/2025 1:20 PM EDT Office Visit [facility] MAIN ADULT [address] [place] [address] Luis Fernando Chavez MD [address] [place] [address] 04/28/2025 9:55 AM EDT Office Visit [facility] MAIN ADULT [address] [place] [address] Luis Fernando Chavez MD [address] [place] [address] documented as of this encounter Visit Diagnoses Diagnosis Chronic bilateral low back pain with bilateral sciatica documented in this encounter Additional Health Concerns Assessment Noted Time PHQ-9 Depression Total Score: 21 024 1:54 PM EDT documented as of this encounter Care Teams Housing Project Manager Relationship Specialty Start Date End Date Luis Fernando Chavez MD [address] [place] [address] PCP - General 07/27/21 Yaquelin Stoddard, RN Registered Nurse 05/03/24 Denisse Unger [address] [place] [address] Food And Drink Factory Workers Behavioral Health 01/31/25 02/28/25 Ethel Connelly, [facility] Food And Drink Factory Workers Behavioral Health 03/10/25 03/10/25 Rajesh Mancera, METER TECHNICIAN Food And Drink Factory Workers Behavioral Health 03/31/25 03/31/25 [facility] Registered Nurse 05/06/24 jordyn Grewal 01/18/25 documented as of this encounter
--- OUTSIDE RECORDS SUMMARY | 2025-04-07 00:15 | XMS_ITS | Encounter Summary ---
Author Organization [employer] [facility] Address [address] [place] [address] [place] [address] Care Team Providers Care Low Emission Automobile Designer Name Role Phone Luis Fernando Chavez MD Primary Care Provider [phone] Vero Mcnair Unavailable Yaquelin Stoddard RN Unavailable Unavailable Denisse Unger Unavailable Maricel Ethel [facility] Unavailable [phone] Rajesh Mancera [facility] Unavailable [phone] Reason for Visit * Reason Comments Med Refill Encounter Details Date Type Department Care Team (Late st Contact Info) Description 04/07/2023 Refill [facility] MAIN ADULT [address] [place] [address] Cherise Espinal, TUTU [address] [place] [address] Social History Tobacco Use Types Packs/Day Years [...] Encounter - Luis Fernando Chavez MD - 11/13/2023 4:02 PM EDT documented in this encounter Plan of Treatment Upcoming Encounters Date Type Department Care Team (Late st Contact Info) Description 04/17/2025 1:20 PM EDT Office Visit [facility] MAIN ADULT [address] [place] [address] Luis Fernando Chavez MD [address] [place] [address] 04/28/2025 9:55 AM EDT Office Visit [facility] MAIN ADULT [address] [place] [address] Luis Fernando Chavez MD [address] [place] [address] documented as of this encounter Visit Diagnoses Not on filedocumented in this encounter Care Teams Low Emission Automobile Designer Relationship Specialty Start Date End Date Luis Fernando Chavez MD [address] [place] [address] PCP - General 07/27/21 Vero Mcnair Community Health Worker Behavioral Health 02/19/23 Yaquelin Stoddard, RN Registered Nurse 05/03/24 Denisse Unger [address] [place] [address] Supervisor Poultry Processing Behavioral Health 01/31/25 02/28/25 Ethel Connelly, [facility] Supervisor Poultry Processing Behavioral Health 03/10/25 03/10/25 Rajesh Mancera, SONYA Supervisor Poultry Processing Behavioral Health 03/31/25 03/31/25 [facility] Registered Nurse 05/06/24 jordyn Grewal 01/18/25 documented as of this encounter
--- OUTSIDE RECORDS SUMMARY | 2025-04-07 00:15 | XMS_ITS | Encounter Summary ---
Author Organization [employer] Address [address] [place] [address] 7 [place] [address] Care Team Providers Care Language Translator Name Role Phone Luis Fernando Chavez MD Primary Care Provider [phone] Yaquelin Stoddard RN Unavailable Unavailable Denisse Unger Unavailable Ethel Connelly ENVIRONMENTAL ISSUES INSTRUCTOR Unavailable [phone] Rajesh Mancera ORACLE DATABASE ARCHITECT Unavailable [phone] Reason for Visit * Reason Comments Med Refill Encounter Details Date Type Department Care Team (Late st Contact Info) Description 05/10/2024 Refill [facility] MAIN ADULT [address] [place] [address] Luis Fernando Chavez MD [address] [place] [address] Social History Tobacco Use Types Packs/Day Years [...] Encounter - Luis Fernando Chavez MD - 05/10/2024 10:12 AM EDT Approving, but needs appt for additional refills. * Telephone Encounter - Daniel Villagomez RN - 05/10/2024 8:06 AM EDT Heath Trevino is a 33 y.o. male Refill requested as listed below: Requested Prescriptions Pending Prescriptions Disp Refills Eliquis 5 MG tablet [Pharmacy Med Name: ELIQUIS 5MG TABLETS] 60 tablet 2 Sig: TAKE 1 TABLET(5 MG) BY MOUTH TWICE DAILY Last Adult Medicine In-Office Visit: 03/11/2024 No future appointments. BP Readings from Last 3 Encounters: 03/11/24 (!) 142/92 02/16/24 118/72 12/07/23 140/90 documented in this encounter Plan of Treatment Upcoming Encounters Date Type Department Care Team (Late st Contact Info) Description 04/17/2025 1:20 PM EDT Office Visit [facility] MAIN ADULT [address] [place] [address] Luis Fernando Chavez MD [address] [place] [address] 04/28/2025 9:55 AM EDT Office Visit [facility] MAIN ADULT [address] [place] [address] Luis Fernando Chavez MD [address] [place] [address] documented as of this encounter Visit Diagnoses Not on filedocumented in this encounter Additional Health Concerns Assessment Noted Time PHQ-9 Depression Total Score: 21 024 1:54 PM EDT documented as of this encounter Care Teams Language Translator Relationship Specialty Start Date End Date Luis Fernando Chavez MD [address] [place] [address] PCP - General 07/27/21 Yaquelin Stoddard, RN Registered Nurse 05/03/24 Denisse Unger [address] [place] [address] Multimedia Services Manager Behavioral Health 01/31/25 02/28/25 Ethel Connelly, [facility] Multimedia Services Manager Behavioral Health 03/10/25 03/10/25 Rajesh Mancera, [facility] Multimedia Services Manager Behavioral Health 03/31/25 03/31/25 [facility] Registered Nurse 05/06/24 jordyn Grewal 01/18/25 documented as of this encounter
--- OUTSIDE RECORDS SUMMARY | 2025-04-07 00:15 | XMS_ITS | Encounter Summary ---
Author Organization [employer] [facility] Address [address] [place] [address] [place] [address] Care Team Providers Care Library Cataloging Technician Name Role Phone Luis Fernando Chavez MD Primary Care Provider [phone] Vero Mcnair Unavailable Yaquelin Stoddard RN Unavailable Unavailable Denisse Unger Unavailable ConnellyClaudiaha [facility] Unavailable Rajesh Mancera [facility] Unavailable [phone] Reason for Visit * Reason Comments Med Refill Encounter Details Date Type Department Care Team (Late st Contact Info) Description 04/07/2023 Refill [facility] MAIN ADULT [address] [place] [address] Luis Fernando Chavez MD [address] [place] [address] Chronic bilateral low back pain with bilateral [...] Encounter - Luis Fernando Chavez MD - 04/20/2023 12:30 PM EDT Approving, but needs appt for additional refills. * Telephone Encounter - Ellen Stoddard - 04/20/2023 9:23 AM EDT Pt called requesting med refill for ( Pregabalin 300 MG ) . Please advise . * Telephone Encounter - Luis Fernando Chavez MD - 04/08/2023 8:23 AM EDT Approving, but needs appt for additional refills. documented in this encounter Plan of Treatment Upcoming Encounters Date Type Department Care Team (Late st Contact Info) Description 04/17/2025 1:20 PM EDT Office Visit [facility] MAIN ADULT [address] [place] [phone] Luis Fernando Chavez MD [address] [place] [address] 04/28/2025 9:55 AM EDT Office Visit [facility] MAIN ADULT [address] [place] [address] Luis Fernando Chavez MD [address] [place] [address] documented as of this encounter Visit Diagnoses Diagnosis Chronic bilateral low back pain with bilateral sciatica documented in this encounter Care Teams Library Cataloging Technician Relationship Specialty Start Date End Date Luis Fernando Chavez MD [address] [place] [address] PCP - General 07/27/21 Vero Mcnair Community Health Worker Behavioral Health 02/19/23 Yaquelin Stoddard, RN Registered Nurse 05/03/24 Denisse Unger [address] [place] [address] Student Counselor Behavioral Health 01/31/25 02/28/25 Ethel Connelly, [facility] Student Counselor Behavioral Health 03/10/25 03/10/25 Rajesh Mancera, [facility] Student Counselor Behavioral Health 03/31/25 03/31/25 [facility] Registered Nurse 05/06/24 jordyn Grewal 01/18/25 documented as of this encounter
--- OUTSIDE RECORDS SUMMARY | 2025-04-07 00:15 | XMS_ITS | Encounter Summary ---
Author Organization [employer] [facility] Address [address] [place] [address] [place] [address] Care Team Providers Care Pig Lead Melter Helper Name Role Phone Luis Fernando Chavez MD Primary Care Provider [phone] Vero Mcnair Unavailable Yaquelin Stoddard RN Unavailable Unavailable Denisse Unger Unavailable ConnellyClaudiaha [facility] Unavailable [phone] Rajesh Mancera [facility] Unavailable [phone] Reason for Visit * Reason Comments Med Refill Encounter Details Date Type Department Care Team (Late st Contact Info) Description 03/20/2023 Refill [facility] MAIN ADULT [address] [place] [address] Luis Fernando Chavez MD [address] [place] [address] Chronic bilateral low back pain with bilateral [...] Encounter - Luis Fernando Chavez MD - 03/31/2023 1:09 PM EDT Med already refilled * Telephone Encounter - Princess Hebert - 03/23/2023 1:44 PM EDT Pt requesting refill for Lyrica 300 mg please advise. documented in this encounter Plan of Treatment Upcoming Encounters Date Type Department Care Team (Late st Contact Info) Description 04/17/2025 1:20 PM EDT Office Visit [facility] MAIN ADULT [address] [place] [address] Luis Fernando Chavez MD [address] [place] [address] 04/28/2025 9:55 AM EDT Office Visit [facility] MAIN ADULT [address] [place] [address] Luis Fernando Chavez MD [address] [place] [address] documented as of this encounter Visit Diagnoses Diagnosis Chronic bilateral low back pain with bilateral sciatica documented in this encounter Care Teams Pig Lead Melter Helper Relationship Specialty Start Date End Date Luis Fernando Chavez MD [address] [place] [address] PCP - General 07/27/21 Vero Mcnair Community Health Worker Behavioral Health 02/19/23 Yaquelin Stoddard, RN Registered Nurse 05/03/24 Denisse Unger [address] [place] [address] Carbon Paper Coating Machine Setter Behavioral Health 01/31/25 02/28/25 Ethel Connelly, [facility] Carbon Paper Coating Machine Setter Behavioral Health 03/10/25 03/10/25 Rajesh Mancera, [facility] Carbon Paper Coating Machine Setter Behavioral Health 03/31/25 03/31/25 [facility] Registered Nurse 05/06/24 jordyn Grewal 01/18/25 documented as of this encounter
--- OUTSIDE RECORDS SUMMARY | 2025-04-07 00:15 | XMS_ITS | Encounter Summary ---
Author Organization [employer] Address [address] [place] [address] [place] [address] Care Team Providers Care Forging Press Lever Tender Name Role Phone Luis Fernando Chavez MD Primary Care Provider [phone] Vero Mcnair Unavailable Yaquelin Stoddard RN Unavailable Unavailable Denisse Unger Unavailable Maricel Ethel [facility] Unavailable [phone] Rajesh Mancera [facility] Unavailable [phone] Encounter Details Date Type Department Care Team (Late st Contact Info) Description 01/30/2023 Refill [facility] MAIN ADULT [address] [place] [address] Luis Fernando Chavez MD [address] [place] [address] Social History Tobacco Use Types Packs/Day Years [...] Encounter - Luis Fernando Chavez MD - 01/30/2023 2:51 PM EDT Approving, but needs appt for additional refills. * Telephone Encounter - Li Barkley RN - 01/30/2023 10:45 AM EDT Pt called regarding pharm not having his meds and wanted to check status. TW called the pharm and was informed by pharm the med -tramadol was ready since yesterday. TW relayed msg from pharm that pt can brass pickler his meds as it is ready for dispense. Pt verbalizes understanding. documented in this encounter Plan of Treatment Upcoming Encounters Date Type Department Care Team (Late st Contact Info) Description 04/17/2025 1:20 PM EDT Office Visit [facility] MAIN ADULT [address] [place] [address] Luis Fernando Chavez MD [address] [place] [address] 04/28/2025 9:55 AM EDT Office Visit [facility] MAIN ADULT [address] [place] [address] Luis Fernando Chavez MD [address] [place] [address] documented as of this encounter Visit Diagnoses Not on filedocumented in this encounter Care Teams Forging Press Lever Tender Relationship Specialty Start Date End Date Luis Fernando Chavez MD [address] [place] [address] PCP - General 07/27/21 Vero Mcnair Community Health Worker Behavioral Health 02/19/23 Yaquelin Stoddard, RN Registered Nurse 05/03/24 Denisse Unger [address] [place] [address] Wicker Worker Behavioral Health 01/31/25 02/28/25 Ethel Connelly, [facility] Wicker Worker Behavioral Health 03/10/25 03/10/25 Rajesh Mancera, [facility] Wicker Worker Behavioral Health 03/31/25 03/31/25 [facility] Registered Nurse 05/06/24 jordyn Grewal 01/18/25 documented as of this encounter
--- OUTSIDE RECORDS SUMMARY | 2025-04-07 00:15 | XMS_ITS | Encounter Summary ---
Author Organization [employer] Address [address] [place] [address] 7 [place] [address] Care Team Providers Care Customer Support Consultant Name Role Phone Luis Fernando Chavez MD Primary Care Provider [phone] Yaquelin Stoddard RN Unavailable Unavailable Denisse Unger Unavailable Ethel Connelly FARM LABOR CONTRACTOR Unavailable [phone] Rajesh Mancera PATIENT RELATIONS DIRECTOR Unavailable [phone] Reason for Visit * Reason Comments Med Refill Encounter Details Date Type Department Care Team (Late st Contact Info) Description 05/05/2024 Refill [facility] MAIN ADULT [address] [place] [address] Luis Fernando Chavez MD [address] [place] [address] Nausea Social History Tobacco Use Types Packs/Day [...] Encounter - Minerva Cabello RN - 05/05/2024 7:56 AM EDT Has an appointment scheduled on 05/05/24 (today). Heath Trevino is a 33 y.o. male [...] AM Luis Fernando Chavez MD [place] [facility] BP Readings from Last 3 Encounters: 03/11/24 (!) 142/92 02/16/24 118/72 12/07/23 140/90 documented in this encounter Plan of Treatment Upcoming Encounters Date Type Department Care Team (Late st Contact Info) Description 04/17/2025 1:20 PM EDT Office Visit [facility] MAIN ADULT [address] [place] [address] Luis Fernando Chavez MD [address] [place] [address] 04/28/2025 9:55 AM EDT Office Visit [facility] MAIN ADULT [address] [place] [address] Luis Fernando Chavez MD [address] [place] [address] documented as of this encounter Visit Diagnoses Diagnosis Nausea Nausea alone documented in this encounter Additional Health Concerns Assessment Noted Time PHQ-9 Depression Total Score: 21 024 1:54 PM EDT documented as of this encounter Care Teams Customer Support Consultant Relationship Specialty Start Date End Date Luis Fernando Chavez MD [address] [place] [address] PCP - General 07/27/21 Yaquelin Stoddard, RN Registered Nurse 05/03/24 Denisse Unger [address] [place] [address] Tear Down Matcher Behavioral Health 01/31/25 02/28/25 Ethel Connelly, [facility] Tear Down Matcher Behavioral Health 03/10/25 03/10/25 Rajesh Mancera, [facility] Tear Down Matcher Behavioral Health 03/31/25 03/31/25 [facility] Registered Nurse 05/06/24 jordyn Grewal 01/18/25 documented as of this encounter
--- OUTSIDE RECORDS SUMMARY | 2025-04-07 00:15 | XMS_ITS | Encounter Summary ---
Author Organization [employer] Address [address] [place] [address] 7 [place] [address] Care Team Providers Care Gas Station Clerk Name Role Phone Luis Fernando Chavez MD Primary Care Provider [phone] Yaquelin Stoddard RN Unavailable Unavailable Denisse Unger Unavailable Ethel Connelly COMMERCIAL COORDINATOR Unavailable [phone] Rajesh Mancera COUNSELING SERVICES MANAGER Unavailable [phone] Reason for Visit * Reason Comments Med Refill Encounter Details Date Type Department Care Team (Late st Contact Info) Description 06/09/2024 Refill [facility] MAIN ADULT [address] [place] [address] Luis Fernando Chavez MD [address] [place] [address] Nausea Social History Tobacco Use Types Packs/Day [...] [facility] MAIN ADULT [address] [place] [address] Luis Fernando Chavez MD [address] [place] [address] 04/28/2025 9:55 AM EDT Office Visit [facility] MAIN ADULT [address] [place] [address] Luis Fernando Chavez MD [address] [place] [address] documented as of this encounter Visit Diagnoses Diagnosis Nausea Nausea alone documented in this encounter Additional Health Concerns Assessment Noted Time PHQ-9 Depression Total Score: 21 024 1:54 PM EDT documented as of this encounter Care Teams Gas Station Clerk Relationship Specialty Start Date End Date Luis Fernando Chavez MD [address] [place] [address] PCP - General 07/27/21 Yaquelin Stoddard, RN Registered Nurse 05/03/24 Denisse Unger [address] [place] [address] Dietary Worker Behavioral Health 01/31/25 02/28/25 Ethel Connelly, [facility] Dietary Worker Behavioral Health 03/10/25 03/10/25 Rajesh Mancera, [facility] Dietary Worker Behavioral Health 03/31/25 03/31/25 [facility] Registered Nurse 05/06/24 jordyn Grewal 01/18/25 documented as of this encounter
--- OUTSIDE RECORDS SUMMARY | 2025-04-07 00:15 | XMS_ITS | Encounter Summary ---
Author Organization [employer] Address [address] [place] [address] 7 [place] [address] Care Team Providers Care Sailing Master Name Role Phone Luis Fernando Chavez MD Primary Care Provider [phone] Yaquelin Stoddard RN Unavailable Unavailable Denisse Unger Unavailable Ethel Connelly PEDIGREE TRACER Unavailable [phone] Rajesh Mancera RECREATION COUNSELOR Unavailable [phone] Reason for Visit * Reason Comments Med Refill Encounter Details Date Type Department Care Team (Late st Contact Info) Description 05/30/2024 Refill [facility] MAIN ADULT [address] [place] [address] Luis Fernando Chavez MD [address] [place] [address] Anxiety Social History Tobacco Use Types Packs/Day [...] Encounter - Luis Fernando Chavez MD - 05/30/2024 4:34 PM EST Approving, but needs appt for additional refills. documented in this encounter Plan of Treatment Upcoming Encounters Date Type Department Care Team (Late st Contact Info) Description 04/17/2025 1:20 PM EDT Office Visit [facility] MAIN ADULT [address] [place] [address] Luis Fernando Chavez MD [address] [place] [address] 04/28/2025 9:55 AM EDT Office Visit [facility] MAIN ADULT [address] [place] [address] Luis Fernando Chavez MD [address] [place] [address] documented as of this encounter Visit Diagnoses Diagnosis Anxiety Anxiety state, unspecified documented in this encounter Additional Health Concerns Assessment Noted Time PHQ-9 Depression Total Score: 21 024 1:54 PM EDT documented as of this encounter Care Teams Sailing Master Relationship Specialty Start Date End Date Luis Fernando Chavez MD [address] [place] [address] PCP - General 07/27/21 Yaquelin Stoddard, RN Registered Nurse 05/03/24 Denisse Unger [address] [place] [address] School Bus Inspector Behavioral Health 01/31/25 02/28/25 Ethel Connelly, [facility] School Bus Inspector Behavioral Health 03/10/25 03/10/25 Rajesh Mancera, [facility] School Bus Inspector Behavioral Health 03/31/25 03/31/25 [facility] Registered Nurse 05/06/24 jordyn Grewal 01/18/25 documented as of this encounter
--- OUTSIDE RECORDS SUMMARY | 2025-04-07 00:15 | XMS_ITS | Encounter Summary ---
Author Organization [employer] [facility] Address [address] [place] [address] [place] [address] Care Team Providers Care Director Of Community Services Name Role Phone Luis Fernando Chavez MD Primary Care Provider Vero Mcnair Unavailable Yaquelin Stoddard RN Unavailable Unavailable Denisse Unger Unavailable ConnellyClaudia jarquinha [facility] Unavailable [phone] Rajesh Mancera [facility] Unavailable [phone] Reason for Visit * Reason Comments Med Refill Encounter Details Date Type Department Care Team (Late st Contact Info) Description 03/09/2023 Refill [facility] MAIN ADULT [address] [place] [address] Luis Fernando Chavez MD [address] [place] [address] Nausea; Chronic bilateral low back pain with bilateral [...] * Telephone Encounter - Ellen Stoddard - 03/09/2023 2:40 PM EDT Pt called , PA for ( Nucynta 50 MG ) was denied by insurance because of gan . If you can please send alternative . Please advise . * Telephone Encounter - Luis Fernando Chavez MD - 03/09/2023 8:05 AM EDT Approving, but needs appt for additional refills. documented in this encounter Plan of Treatment Upcoming Encounters Date Type Department Care Team (Late st Contact Info) Description 04/17/2025 1:20 PM EDT Office Visit [facility] MAIN ADULT [address] [place] [address] Luis Fernando Chavez MD [address] [place] [address] 04/28/2025 9:55 AM EDT Office Visit [facility] MAIN ADULT [address] [place] [address] Luis Fernando Chavez MD [address] [place] [address] documented as of this encounter Visit Diagnoses Diagnosis Nausea Nausea alone Chronic bilateral low back pain with bilateral sciatica documented in this encounter Care Teams Director Of Community Services Relationship Specialty Start Date End Date Luis Fernando Chavez MD [address] [place] [address] PCP - General 07/27/21 Vero Mcnair Community Health Worker Behavioral Health 02/19/23 Yaquelin Stoddard, RN Registered Nurse 05/03/24 Denisse Unger [address] [place] [address] Gymnasium Teacher Behavioral Health 01/31/25 02/28/25 Ethel Connelly, [facility] Gymnasium Teacher Behavioral Health 03/10/25 03/10/25 Rajesh Mancera, [facility] Gymnasium Teacher Behavioral Health 03/31/25 03/31/25 [facility] Registered Nurse 05/06/24 jordyn Grewal 01/18/25 documented as of this encounter
--- OUTSIDE RECORDS SUMMARY | 2025-04-07 00:15 | XMS_ITS | Encounter Summary ---
Author Organization [employer] [facility] Address [address] [place] [address] [place] [address] Care Team Providers Care Directory Operator Name Role Phone Luis Fernando Chavez MD Primary Care Provider [phone] Vero Mcnair Unavailable Yaquelin Stoddard RN Unavailable Unavailable Denisse Unger Unavailable Maricel Ethel [facility] Unavailable [phone] Rajesh Mancera [facility] Unavailable [phone] Reason for Visit * Reason Onset Date Comments Med Refill 04/20/2023 Encounter Details Date Type Department Care Team (Late st Contact Info) Description 04/20/2023 Refill [facility] MAIN ADULT [address] [place] [address] Cherise Espinal, SENIOR SQL SERVER DEVELOPER [address] [place] [address] Social History Tobacco Use Types Packs/Day Years [...] - Luis Fernando Chavez MD - 11/13/2023 4:01 PM EDT documented in this encounter Plan of Treatment Upcoming Encounters Date Type Department Care Team (Late st Contact Info) Description 04/17/2025 1:20 PM EDT Office Visit [facility] MAIN ADULT [address] [place] [address] Luis Fernando Chavez MD [address] [place] [address] 04/28/2025 9:55 AM EDT Office Visit [facility] MAIN ADULT [address] [place] [address] Luis Fernando Chavez MD [address] [place] [address] documented as of this encounter Visit Diagnoses Not on filedocumented in this encounter Care Teams Directory Operator Relationship Specialty Start Date End Date Luis Fernando Chavez MD [address] [place] [address] PCP - General 07/27/21 Vero Mcnair Community Health Worker Behavioral Health 02/19/23 Yaquelin Stoddard, RN Registered Nurse 05/03/24 Denisse Unger [address] [place] [address] Dry Wall Finisher Behavioral Health 01/31/25 02/28/25 Ethel Connelly, [facility] Dry Wall Finisher Behavioral Health 03/10/25 03/10/25 Rajesh Mancera, [employer] Dry Wall Finisher Behavioral Health 03/31/25 03/31/25 [facility] Registered Nurse 05/06/24 jordyn blackwood Vendor 01/18/25 documented as of this encounter
--- OUTSIDE RECORDS SUMMARY | 2025-04-07 00:16 | XMS_ITS | Encounter Summary ---
Author Organization [facility] Address [address] [place] [address] Care Team Providers Care Solvent Recoverer Name Role Phone Pcp, No Primary Care Provider Unavailabl e Encounter Details Date Type Department Care Team (Late st Contact Info) Description 10/21/2024 Procedure Pass [facility] - [address] [place] [address] Social History Tobacco Use Types Packs/Day Years Used Date Smoking Tobacco: Unknown Alcohol Use Standard Drinks/Week Comments Not Asked 0 (1 standard drink = 0.6 oz pure alcohol) unable to assess this time, intubated/sedated on vent Sex and Gender Information Value Date Recorded Sex Assigned at Male 10/21/2024 8:00 PM EDT Legal Sex Male 7:15 PM EDT Gender Identity Male 10/21/2024 8:00 PM EDT Sexual Orientation Straight 10/21/2024 8: 00 PM EDT documented as of this encounter Plan of Treatment Not on file documented as of this encounter Visit Diagnoses Not on filedocumented in this encounter Care Teams Solvent Recoverer Relationship Specialty [place] [id number] PCP - General 10/21/24 documented as of this encounter
--- OUTSIDE RECORDS SUMMARY | 2025-04-07 00:16 | XMS_ITS | Encounter Summary ---
Author Organization [facility] Address [address] [place] [address] Care Team Providers Care Returned Case Inspector Name Role Phone Pcp, No Primary Care Provider Unavailabl e Encounter Details Date Type Department Care Team (Late st Contact Info) Description 10/21/2024 Procedure Pass [facility] [address] [place] [address] Social History Tobacco Use Types [...] on filedocumented in this encounter Care Teams Returned Case Inspector Relationship Specialty Start [place] [id number] PCP - General 10/21/24 documented as of this encounter
--- OUTSIDE RECORDS SUMMARY | 2025-04-07 00:16 | XMS_ITS | Clinical Summary ---
Author Organization [facility] Address [address] [place] [address] Care Team Providers Care Retail Center Receptionist Name Role Phone Pcp, No Primary Care Provider Unavailabl e Allergies Active Allergy Reactions Criticality Noted Date Comments Amoxicillin Anaphylaxis High 10/21/2024 Codeine GI Intolerance 10/21/2024 Metoclopramide Drug-induced Movements Morphine Shortness Of Breath High 10/21/2024 Penicillins Anaphylaxis High 10/21/2024 Prochlorperazine GI Intolerance 10/21/2024 Medications pramipexole (MIRAPEX) 1 MG tablet Take 3 tablets (3 mg total) by mouth at bedtime Active pregabalin (LYRICA) 300 MG capsule Take 1 capsule (300 mg total) by mouth 2 (two) times a day Active cloNIDine (CATAPRES) 0.3 MG tablet Take 1 tablet (0.3 mg total) by mouth 2 (two) times a day Active escitalopram 5 MG tablet Take 3 tablets (15 mg total) by mouth daily Active levETIRAcetam 500 MG tablet Take 3 tablets (1,500 mg total) by mouth 2 (two) times a day Active OLANZapine 15 MG tablet Take 1 tablet (15 mg total) by mouth daily Active OLANZapine 5 MG tablet Take 1 tablet (5 mg total) by mouth at bedtime Active oxyCODONE-aceta minophen (PERCOCET) 10-325 MG per tablet Take 1 tablet by mouth every 6 (six) hours as needed for moderate pain (4-6) Max Daily Amount: 4 tablets Active ALPRAZolam (XANAX) 1 MG tabletIndicatio ns:Agitation Take 1 tablet (1 mg total) by mouth 4 (four) times a day as needed for anxiety for up to 10 days 10/27/2024 Active Active Problems Problem Noted Date Diagnosed Date Agitation 10/22/2024 Social History Tobacco Use Types Packs/Day Years Used Date Smoking Tobacco: Never Smokeless Tobacco: Never Tobacco Cessation:Counseling Given: No Alcohol Use Standard Drinks/Week Comments Not Asked 0 (1 standard drink = 0.6 oz pure alcohol) unable to assess this time, intubated/sedated on vent Sex and Gender Information Value Date Recorded Sex Assigned at Male 10/21/2024 8:00 PM EDT Legal Sex Male 7:15 PM EDT Gender Identity Male 10/21/2024 8:00 PM EDT Sexual Orientation Straight 10/21/2024 8: 00 PM EDT Last Filed Vital Signs Vital Sign Reading Time Taken Comments Blood Pressure 110/68 10/27/2024 11:00 AM EDT Pulse 92 10/27/2024 11:00 AM EDT Temperature 36.8 C (98.3 F) 10/27/2024 8:30 AM EDT Respiratory Rate 15 10/27/2024 11:00 AM EDT Oxygen Saturation 97% 10/27/2024 11:00 AM EDT Inhaled Oxygen Concentration - - Weight 77.3 kg (170 lb 6.7 oz) 10/25/2024 6:00 A M EDT Height 170.2 cm (5' 7 ) 10/22/2024 4:33 AM EDT Body Mass Index 26.69 10/22/2024 4:33 AM EDT Plan of Treatment Health Maintenance Due Date Last Done Comments Annual Physical 1991 Hepatitis B Screening 2006 COVID-19 Vaccine ( - 2024-2 6 season) 2025 09/03/2021, 11/15/2020, 10/24/2020 Influenza Vaccine (#1) 2025 7, 05/12/2016 Cholesterol Screening 10/31/2029 10/31/2024 DTaP,Tdap,and Td Vaccines (4 - Td or Tdap) 08/20/2034 08/20/2024, 10/19/2022, 08/15/2020 HIB Vaccines Aged Out No longer eligi ble based on patient's age to complete this topic Hepatitis A Vaccine Aged Out No longe r eligible based on patient's age to complete this topic Pneumococcal Vaccines 0-49 yrs (includes High Risk) Aged Out No longer eligi ble based on patient's age to complete this topic Procedures Procedure Name Priority Date/Time Associated Diagnosis Comments LIPID PROFILE, REFLEX DIRECT LDL Routine 10/31/2024 7:57 AM EDT Bipolar disorder, current episode depressed, severe, without psychotic features (HCC) from Last 3 Months or Most Recently Relevant to Health Maintenance Results * (ABNORMAL) Lipid profile, reflex direct LDL (10/31/2024 7:57 AM EDT) Cholesterol 106 <200 mg/dL 10/31/2024 11:00 AM EDT [facility] Triglycerides 130 <150 mg/dL 10/31/2024 11:00 AM EDT [facility] HDL 22.2(L) >=60.0 mg/dL 10/31/2024 11:00 AM EDT [facility] LDL Calculated 58 0 - 100 mg/dL 10/31/2024 11:00 AM EDT [facility] Cardiac Risk Factor 4.8 0.0 - 5.0 10/31/2024 11:00 AM EDT [facility] Blood Venipuncture / Unknown 10/31/2024 7:57 AM EDT 10/31/2024 8:55 AM EDT Narrative [facility] - 10/31/2024 11:00 AM EDT Cardiac Risk Factor: Males Females 2x Average Risk 9.6 7.1 3x Average Risk 23.4 11.0 us Unknown LAB BLOOD ORDERABLES Final Resul t [facility] [address] [place] [address] from Last 3 Months or Most Recently Relevant to Health Maintenance Insurance MEDICAID PCP PLAN Advance Directives For more information, please contact: [phone] * Full Code (Latest Code Status on File) Date Activated Date Inactivated Comments 10/22/2024 1:03 AM 10/27/2024 3:11 PM Care Teams Retail Center Receptionist Relationship Specialty Start Date End Date Pcp, Judy [id number] PCP - General 10/21/24
--- OUTSIDE RECORDS SUMMARY | 2025-04-07 00:16 | XMS_ITS | Encounter Summary ---
Author Organization [facility] Address [address] [place] [address] Care Team Providers Care Power Nut Runner Operator Name Role Phone Pcp, No Primary Care Provider Unavailabl e Encounter Details Date Type Department Care Team (Late st Contact Info) Description 10/31/2024 Lab Requisition [address] [id number] Unknown Bipolar disorder, current episode depressed, severe, without psychotic features (HCC) Social History Tobacco Use Types Packs/Day Years Used Date Smoking Tobacco: Never Smokeless Tobacco: Never Alcohol Use Standard Drinks/Week Comments Not Asked [...] on file documented as of this encounter Procedures Procedure Name Priority Date/Time Associated Diagnosis Comments LIPID PROFILE, REFLEX DIRECT LDL Routine 10/31/2024 7:57 AM EDT Bipolar disorder, current episode depressed, severe, without psychotic features (HCC) TSH WITH REFLEX TO FREE T4 Routine 10/31/2024 7:57 AM EDT HEMOGLOBIN A1C Routine 10/31/2024 7:57 AM EDT VALPROIC ACID LEVEL Routine 10/31/2024 7 :57 AM EDT documented in this encounter Results * (ABNORMAL) Valproic Acid Level (10/31/2024 7:57 AM EDT) Valproic Acid 37.8(L) 50.0 - 100.0 ug/mL 10/31/2024 11:02 AM EDT [facility] Blood Venipuncture / Unknown 10/31/2024 7:57 AM EDT 10/31/2024 8:55 AM EDT us Unknown LAB BLOOD ORDERABLES Final Resul t [facility] [address] [place] [id number] * TSH with reflex to Free T4 (10/31/2024 7:57 AM EDT) TSH 0.699 0.550 - 4.780 uIU/mL 10/31/2024 11:00 AM EDT [facility] Blood Venipuncture / Unknown 10/31/2024 7:57 AM EDT 10/31/2024 8:55 AM EDT Narrative [facility] - 10/31/2024 11:00 AM EDT NOTE: Effective 09/27/24, the reference range has changed as follows: Old reference ranges: 0 up to 2 Years: 0.870-6.150 uIU/mL 2 Years up to 12 Years: 0.670-4.160 uIU/mL 12 Years up to 18 Years: 0.480-4.170 uIU/mL 18 Years +: 0.340-4.820 uIU/mL New Reference ranges: 0 up to 2 Years: 0.870-6.150 uIU/mL 2 Years up to 13 Years: 0.670-4.160 uIU/mL 13 Years up to 21 Years: 0.480-4.170 uIU/mL 21 Years +: 0.550-4.780 uIU/mL us Unknown LAB BLOOD ORDERABLES Final Resul t Performing Organization Address [facility] Co de Phone Number [facility] [address] [place] [address] * Hemoglobin A1c (10/31/2024 7:57 AM EDT) Hemoglobin A1C 5.4 4.0 - 6.0 % 10/31/2024 10:36 AM EDT [facility] Estimated Average Glucose eAG 108.3 85.0 - 126.0 mg/dL 10/31/2024 10:36 AM EDT [facility] Blood 10/31/2024 7:57 AM EDT 10/31/2024 8:55 AM EDT us Unknown LAB BLOOD ORDERABLES Final Resul t Performing Organization Address [facility] de Phone Number [facility] [address] [place] [phone] * (ABNORMAL) Lipid profile, reflex direct LDL (10/31/2024 7:57 AM EDT) Cholesterol 106 <200 mg/dL 10/31/2024 11:00 AM EDT [facility] Triglycerides 130 <150 mg/dL 10/31/2024 11:00 AM EDT [facility] HDL 22.2(L) >=60.0 mg/dL 10/31/2024 11:00 AM EDT [facility] LDL Calculated 58 0 - 100 mg/dL 10/31/2024 11:00 AM EDT [facility] Cardiac Risk Factor 4.8 0.0 - 5.0 10/31/2024 11:00 AM EDT [facility] Blood Venipuncture / Unknown 10/31/2024 7:57 AM EDT 10/31/2024 8:55 AM EDT Narrative [facility] - 10/31/2024 11:00 AM EDT Cardiac Risk Factor: Males Females 2x Average Risk 9.6 7.1 3x Average Risk 23.4 11.0 us Unknown LAB BLOOD ORDERABLES Final Resul t [facility] [address] [place] [address] documented in this encounter Visit Diagnoses Diagnosis Bipolar disorder, current episode depressed, severe, without psychotic features (HCC) documented in this encounter Care Teams Power Nut Runner Operator Relationship Specialty [place] [id number] PCP - General 10/21/24 documented as of this encounter
--- OUTSIDE RECORDS SUMMARY | 2025-04-07 00:16 | XMS_ITS | Encounter Summary ---
Author Organization [facility] Address [address] [place] [address] Care Team Providers Care Career And Guidance Counselor Name Role Phone Pcp, No Primary Care Provider Unavailabl e Encounter Details Date Type Department Care Team (Late st Contact Info) Description 10/21/2024 Procedure Pass [facility] [address] [place] [address] Social History Tobacco Use Types [...] on filedocumented in this encounter Care Teams Career And Guidance Counselor Relationship Specialty [place] [id number] PCP - General 10/21/24 documented as of this encounter
[2025-04-07 00:30] VITALS: BP 125/82; PULSE 73; RESP 16; TEMP 36.4; O2SAT 97
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
[2025-04-07 08:00] VITALS: BP 152/72; PULSE 85; RESP 16; TEMP 36.6; O2SAT 94
[2025-04-07] MEDS: Buprenorphine/Naloxone 2/0.5mg FILM 2 FILM SUBLINGUAL (09:04)
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
[2025-04-07 09:37] LABS: Cholesterol 149 mg/dL (<200); HDL Cholesterol 38 mg/dL (>40); Magnesium 1.8 mg/dL (1.6-2.6); Triglycerides 137 mg/dL (<150)
[2025-04-07 09:44] LABS: Hemoglobin A1C 110.7933 umol/L; Total Hemoglobin (HGBA1C) 2832.5545 umol/L
[2025-04-07 09:54] LABS: Free T4 (Free Thyroxine) 0.89 ng/dL (0.71-1.85); Thyroid Stimulating Hormone 0.89 uIU/mL (0.32-4.0)
[2025-04-07 10:07] LABS: Folate 7.6 ng/mL (> or = 4.0); Vitamin B12 209 pg/mL (200-900)
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
[2025-04-07] MEDS: Buprenorphine/Naloxone 4/1 mg FILM 1 FILM SUBLINGUAL ×2 (15:31→21:26)
[2025-04-07 20:00] VITALS: BP 132/70; PULSE 77; RESP 16; TEMP 36.6; O2SAT 97
[2025-04-08 08:00] VITALS: BP 130/76; PULSE 66; RESP 18; TEMP 36.4; O2SAT 98
[2025-04-08 08:24] LABS: Alanine Aminotransferase 15 U/L (0-40); Albumin Level 3.8 g/dL (3.5-5.0); Alkaline Phosphatase 73 U/L (39-117); Anion Gap 11 (12-20); Aspartate Amino Transferase 20 U/L (5-37); Blood Urea Nitrogen 20 mg/dL (9-16); Calcium 9.9 mg/dL (8.4-10.2); Carbon Dioxide 29 mmol/L (22-29); Chloride 110 mmol/L (96-108); Estimated Glomerular Filt Rate > 60; Potassium 4.1 mmol/L (3.3-5.1); Sodium 146 mmol/L (135-145); Total Protein 6.2 g/dL (6.5-8.0)
[2025-04-08] MEDS: Buprenorphine/Naloxone 4/1 mg FILM 1 FILM SUBLINGUAL ×3 (08:52→20:34)
[2025-04-08 09:02] LABS: Troponin-I High Sensitivity < 2.7 ng/L (<3.5-35.0)
[2025-04-08 19:56] VITALS: BP 111/66; PULSE 107; RESP 15; TEMP 36.6; O2SAT 95
--- NOTE | 2025-04-09 00:12 | HO.PSYCHPN ---
Subjective Subjective Date of Service: 04/08/25 Reason For Visit: Bipolar disorder Subjective Notes: Conditional Voluntary Healthcare Proxy: No Guardianship: No Medical Problems Affecting Mental Status: No Interim History: Late entry for 04/08/25. Patient seen by 1000 on 04/08/25. Medical record and nursing notes reviewed; case discussed during rounds with team/nursing staff, and met with patient for supportive therapy/psychoeducation, as well as medication management. Patient slept for 6 hours, compliant with meds, denies side effecs. Report chronic back pain which he take suboxone for. Report very anxious . Agrees with Vistaril increased up to 50mg PRN. Visible, quiet, keep to himself but pleasant and cooperative. Medication Compliance: Yes Side effects from medications: No Attending Groups: Intermittent Review of Systems Acute medical concerns: No Medical Review of Systems: unchanged Review of Systems Review of Systems Constitutional: Denies fatigue and Denies fever(s) Cardiovascular: Denies chest pain and Denies dyspnea Respiratory: Denies dyspnea Gastrointestinal: Denies abdominal pain Psychiatric: denies suicidal ideation Endocrine: Denies fatigue Mental Status Exam Mental Status Exam Narrative: A+O, visible, quiet, pacing, in and out to common areas. Anxious but pleasant and cooperative. Thought process and thoughts content are WNL. Fair insight and fair judgment. Future focus. Diagnostics Vital Signs (24Hr): Vital Signs - 24 hr 04/08/25 08:00 04/08/25 19:56 Temperature 97.5 F 97.8 F Pulse Rate 66 107 H Respiratory Rate 18 15 Blood Pressure 130/76 111/66 Pulse Oximetry 98 95 Oxygen Delivery Method Room Air Labs 04/08/25 07:42 Labs: Laboratory Results - last 48 hr 04/07/25 04/08/25 08:55 07:42 Sodium 146 H Potassium 4.1 Chloride 110 H Carbon Dioxide 29 Anion Gap 11 L BUN 20 H Creatinine 1.07 Estim Creat Clear Calc TNP Estimated GFR > 60 Random Glucose 126 H Estimat Average Glucose 117 Hemoglobin A1c % 5.7 Calcium 9.9 Magnesium 1.8 Total Bilirubin 0.2 AST 20 ALT 15 Alkaline Phosphatase 73 Troponin I High Sens < 2.7 Total Protein 6.2 L Albumin 3.8 Triglycerides 137 Cholesterol 149 LDL Cholesterol, Calc 84 HDL Cholesterol 38 L Vitamin B12 209 Folate 7.6 TSH 0.89 Free T4 0.89 Medications Medications Current Medications Acetaminophen (Acetaminophen 325 Mg Tablet) 650 mg PO Q6H PRN PRN Reason: Headache/Pain, Scale 1-10 Last Admin: 04/08/25 03:05 Dose: 650 mg Al Hydroxide/Mg Hydroxide (Magnesium Hydrox/Alum Hydrox 30 Ml Oral.Susp) 30 ml PO Q6H PRN PRN Reason: Heartburn/Nausea Aripiprazole (Aripiprazole 15 Mg Tablet) 15 mg PO BID [facility] Last Admin: 04/08/25 20:33 Dose: 15 mg Buprenorphine/Naloxone (Buprenorphine/Naloxone 4/1 Mg Film) 1 film SUBLINGUAL TID [facility] Last Admin: 04/08/25 20:34 Dose: 1 film Clonazepam (Clonazepam 1 Mg Tablet) 2 mg PO BID PRN PRN Reason: Anxiety Last Admin: 04/08/25 20:38 Dose: 2 mg Escitalopram Oxalate (Escitalopram Oxalate 5 Mg Tablet) 15 mg PO DAILY [facility] Last Admin: 04/08/25 08:50 Dose: 15 mg Hydroxyzine HCl (Hydroxyzine Hcl 50 Mg Tablet) 50 mg PO Q4H PRN PRN Reason: mild anxiety Last Admin: 04/08/25 12:09 Dose: 50 mg Levetiracetam (Levetiracetam 1,000 Mg Tablet) 2,000 mg PO BID [facility] Last Admin: 04/08/25 20:33 Dose: 2,000 mg Lurasidone HCl (Lurasidone Hcl 40 Mg Tablet) 40 mg PO DAILY [facility] Last Admin: 04/08/25 08:52 Dose: 40 mg Magnesium Hydroxide (Milk Of Magnesia 30 Ml Oral.Susp) 30 ml PO DAILY PRN PRN Reason: Constipation Nicotine Polacrilex (Nicotine Polacrilex 2 Mg Gum) 4 mg BUCCAL Q2H PRN PRN Reason: Nicotine Cravings Nicotine Polacrilex (Nicotine Polacrilex Lozenge 2 Mg Lozenge) 2 mg BUCCAL Q2H PRN PRN Reason: Nicotine Cravings Pramipexole Dihydrochloride (Pramipexole Di-Hcl 1 Mg Tablet) 3 mg PO BEDTIME [facility] Last Admin: 04/08/25 20:34 Dose: 3 mg Pregabalin (Pregabalin 100 Mg Capsule) 300 mg PO BID [facility] Last Admin: 04/08/25 20:33 Dose: 300 mg Propranolol HCl (Propranolol Hcl 20 Mg Tablet) 20 mg PO BID [facility]; Protocol Last Admin: 04/08/25 20:33 Dose: 20 mg Sumatriptan Succinate (Sumatriptan Succinate 25 Mg Tablet) 25 mg PO Q6H PRN PRN Reason: Migraine Headache Thiamine HCl (Thiamine Hcl 100 Mg Tablet) 100 mg PO DAILY [facility] Last Admin: 04/08/25 08:48 Dose: 100 mg Zolpidem Tartrate (Zolpidem Tartrate 5 Mg Tablet) 5 mg PO BEDTIME PRN PRN Reason: Insomnia Last Admin: 04/08/25 20:39 Dose: 5 mg Allergies Allergies Allergy/AdvReac Type Severity Reaction Status Date / Time amoxicillin Allergy Severe Anaphylaxis Verified 04/06/25 21:24 levofloxacin Allergy Severe Hives Verified 04/06/25 21:24 metoclopramide Allergy Severe dystonia Verified 04/06/25 21:24 Penicillins Allergy Severe Anaphylaxis Verified 04/06/25 21:24 codeine Allergy Unknown gi symptoms Verified 04/06/25 21:24 morphine AdvReac Severe chest Verified 04/06/25 21:24 tightness prochlorperazine AdvReac Unknown gi sx Verified 04/06/25 21:24 Assessment & Plan Assessment & Plan (1) Bipolar disorder: Status: Acute Code(s): F31.9 - Bipolar disorder, unspecified (2) PTSD (post-traumatic stress disorder): Status: Acute Code(s): F43.10 - Post-traumatic stress disorder, unspecified Plan 34 yo male, transfer from [place] where he came into ER with EMS. He approached a fire station and reported having a seizure and was feeling suicidal. Pt reports my meds are not right . Reports active SI. Losses of both parents within 8 months-father of sudden [place], mother of delirium from anesthesia post surgery, of nephew, loss of housing and loss of 6 cats he needed to give up to other homes. Reports these losses occurred within the past 2 years. Hospital course: 04/08/25: Patient slept for 6 hours, compliant with meds, denies side effects. Report chronic back pain which he take suboxone for. Report very anxious . Agrees with Vistaril increased up to 50mg PRN. Visible, quiet, keep to himself but pleasant and cooperative. Monitor for sedation. On multi sedating regimens. Plan: Admit, CV, 15 minute checks Encourage full milieu Diagnostics as needed Thiamine 100 mg daily Increase Latuda to 40 mg daily Repeat troponins and CMP 9.13: WNL. Sodium Slightly elevated Ambien 5 mg HS prn (Pt reports he uses Lunesta as an OP) Patient educated on: diagnosis, medication risk/benefits and therapeutic strategies Informed Consent: understands and further education needed Reason for continued inpatient stay Substantial Risk for: med/psych decompensation Time Spent With Patient Time: Total time managing care of this patient today ____ minutes.
[2025-04-09 08:00] VITALS: BP 133/84; PULSE 74; RESP 16; TEMP 36.9; O2SAT 96
[2025-04-09] MEDS: Buprenorphine/Naloxone 4/1 mg FILM 1 FILM SUBLINGUAL ×3 (08:28→20:15)
[2025-04-09 19:57] VITALS: BP 134/71; PULSE 113; RESP 15; TEMP 36.9; O2SAT 94
--- NOTE | 2025-04-09 21:44 | P.PNPSI_ITS ---
Subjective Subjective Date of Service: 04/09/25 Reason For Visit: Bipolar disorder Subjective Notes: Conditional Voluntary Healthcare Proxy: No Guardianship: No Medical Problems Affecting Mental Status: No Interim History: Medical record and nursing notes reviewed; case discussed during rounds with team/nursing staff, and met with patient for supportive therapy/psychoeducation, as well as medication management. Patient slept 5 hours, compliant with medications. Denies side effects. He is visible, pacing at times, but keeps to himself, quiet. No behavior issues. No safety concerns. No change in terms of medications. Chronic back pain 02/02 which he is on Suboxone for. Continue with current treatment plan. Continue to monitor for sedation as patient is on many sedating regimens as home medications Medication Compliance: Yes Side effects from medications: No Attending Groups: No Review of Systems Acute medical concerns: No Medical Review of Systems: unchanged Review of Systems Review of Systems Constitutional: Denies fatigue and Denies fever(s) Cardiovascular: Denies chest pain and Denies dyspnea Respiratory: Denies dyspnea Gastrointestinal: Denies abdominal pain Psychiatric: denies suicidal ideation Endocrine: Denies fatigue Yes all other systems are reviewed and are negative Mental Status Exam Mental Status Exam Narrative: A+O, visible, quiet, pacing, in and out to common areas. Anxious but pleasant and cooperative. Thought process and thoughts content are WNL. Fair insight and fair judgment. Future focus. Diagnostics Vital Signs (24Hr): Vital Signs - 24 hr 04/09/25 08:00 04/09/25 19:57 Temperature 98.4 F 98.4 F Pulse Rate 74 113 H Respiratory Rate 16 15 Blood Pressure 133/84 134/71 Pulse Oximetry 96 94 Labs 04/08/25 07:42 Labs: Laboratory Results - last 48 hr 04/08/25 07:42 Sodium 146 H Potassium 4.1 Chloride 110 H Carbon Dioxide 29 Anion Gap 11 L BUN 20 H Creatinine 1.07 Estim Creat Clear Calc TNP Estimated GFR > 60 Random Glucose 126 H Calcium 9.9 Total Bilirubin 0.2 AST 20 ALT 15 Alkaline Phosphatase 73 Troponin I High Sens < 2.7 Total Protein 6.2 L Albumin 3.8 Medications Medications Current Medications Acetaminophen (Acetaminophen 325 Mg Tablet) 650 mg PO Q6H PRN PRN Reason: Headache/Pain, Scale 1-10 Last Admin: 04/08/25 03:05 Dose: 650 mg Al Hydroxide/Mg Hydroxide (Magnesium Hydrox/Alum Hydrox 30 Ml Oral.Susp) 30 ml PO Q6H PRN PRN Reason: Heartburn/Nausea Aripiprazole (Aripiprazole 15 Mg Tablet) 15 mg PO BID [facility] Last Admin: 04/09/25 20:14 Dose: 15 mg Buprenorphine/Naloxone (Buprenorphine/Naloxone 4/1 Mg Film) 1 film SUBLINGUAL TID [facility] Last Admin: 04/09/25 20:15 Dose: 1 film Clonazepam (Clonazepam 1 Mg Tablet) 2 mg PO BID PRN PRN Reason: Anxiety Last Admin: 04/09/25 20:15 Dose: 2 mg Escitalopram Oxalate (Escitalopram Oxalate 5 Mg Tablet) 15 mg PO DAILY [facility] Last Admin: 04/09/25 08:25 Dose: 15 mg Hydroxyzine HCl (Hydroxyzine Hcl 50 Mg Tablet) 50 mg PO Q4H PRN PRN Reason: mild anxiety Last Admin: 04/09/25 11:56 Dose: 50 mg Levetiracetam (Levetiracetam 1,000 Mg Tablet) 2,000 mg PO BID [facility] Last Admin: 04/09/25 20:15 Dose: 2,000 mg Lurasidone HCl (Lurasidone Hcl 40 Mg Tablet) 40 mg PO DAILY [facility] Last Admin: 04/09/25 08:26 Dose: 40 mg Magnesium Hydroxide (Milk Of Magnesia 30 Ml Oral.Susp) 30 ml PO DAILY PRN PRN Reason: Constipation Nicotine Polacrilex (Nicotine Polacrilex 2 Mg Gum) 4 mg BUCCAL Q2H PRN PRN Reason: Nicotine Cravings Nicotine Polacrilex (Nicotine Polacrilex Lozenge 2 Mg Lozenge) 2 mg BUCCAL Q2H PRN PRN Reason: Nicotine Cravings Pramipexole Dihydrochloride (Pramipexole Di-Hcl 1 Mg Tablet) 3 mg PO BEDTIME [facility] Last Admin: 04/09/25 20:15 Dose: 3 mg Pregabalin (Pregabalin 100 Mg Capsule) 300 mg PO BID [facility] Last Admin: 04/09/25 20:14 Dose: 300 mg Propranolol HCl (Propranolol Hcl 20 Mg Tablet) 20 mg PO BID [facility]; Protocol Last Admin: 04/09/25 20:14 Dose: 20 mg Sumatriptan Succinate (Sumatriptan Succinate 25 Mg Tablet) 25 mg PO Q6H PRN PRN Reason: Migraine Headache Thiamine HCl (Thiamine Hcl 100 Mg Tablet) 100 mg PO DAILY [facility] Last Admin: 04/09/25 08:25 Dose: 100 mg Zolpidem Tartrate (Zolpidem Tartrate 5 Mg Tablet) 5 mg PO BEDTIME PRN PRN Reason: Insomnia Last Admin: 04/09/25 20:15 Dose: 5 mg Allergies Allergies Allergy/AdvReac Type Severity Reaction Status Date / Time amoxicillin Allergy Severe Anaphylaxis Verified 04/06/25 21:24 levofloxacin Allergy Severe Hives Verified 04/06/25 21:24 metoclopramide Allergy Severe dystonia Verified 04/06/25 21:24 Penicillins Allergy Severe Anaphylaxis Verified 04/06/25 21:24 codeine Allergy Unknown gi symptoms Verified 04/06/25 21:24 morphine AdvReac Severe chest Verified 04/06/25 21:24 tightness prochlorperazine AdvReac Unknown gi sx Verified 04/06/25 21:24 Assessment & Plan Assessment & Plan (1) Bipolar disorder: Status: Acute Code(s): F31.9 - Bipolar disorder, unspecified (2) PTSD (post-traumatic stress disorder): Status: Acute Code(s): F43.10 - Post-traumatic stress disorder, unspecified Plan 34 yo male, transfer from [facility] where he came into ER with EMS. He approached a fire station and reported having a seizure and was feeling suicidal. Pt reports my meds are not right . Reports active SI. Losses of both parents within 8 months-father of sudden [place], mother of delirium from anesthesia post surgery, of nephew, loss of housing and loss of 6 cats he needed to give up to other homes. Reports these losses occurred within the past 2 years. Hospital course: 04/08/25: Patient slept for 6 hours, compliant with meds, denies side effects. Report chronic back pain which he take suboxone for. Report very anxious . Agrees with Vistaril increased up to 50mg PRN. Visible, quiet, keep to himself but pleasant and cooperative. Monitor for sedation. On multi sedating regimens. 04/09/25: Patient slept 5 hours, compliant with medications. Denies side effects. He is visible, pacing at times, but keeps to himself, quiet. No behavior issues. No safety concerns. No change in terms of medications. Chronic back pain 7/10 which he is on Suboxone for. Continue with current treatment plan. Continue to monitor for sedation as patient is on many sedating regimens as home medications Plan: Admit, CV, 15 minute checks Encourage full milieu Diagnostics as needed Thiamine 100 mg daily Increase Latuda to 40 mg daily Repeat troponins and CMP 9.13: WNL. Sodium Slightly elevated Ambien 5 mg HS prn (Pt reports he uses Lunesta as an OP) Patient educated on: diagnosis, medication risk/benefits and therapeutic strategies Informed Consent: understands Reason for continued inpatient stay Substantial Risk for: med/psych decompensation Time Spent With Patient Time: Total time managing care of this patient today ____ minutes.
[2025-04-10 08:00] VITALS: BP 140/73; PULSE 90; TEMP 36.5; O2SAT 97
[2025-04-10] MEDS: Buprenorphine/Naloxone 4/1 mg FILM 1 FILM SUBLINGUAL ×3 (08:33→20:40)
--- NOTE | 2025-04-10 09:35 | PC.NURSE ---
Pt is documented as an active smoker. NRT options discussed with patient. Pt declined NRT this am, and declined [employer] referral. Pt stated I only smoke a couple times a week. I don't need any of that.
[2025-04-10 20:17] VITALS: BP 114/75; PULSE 62; RESP 16; TEMP 37.1; O2SAT 96
[2025-04-10 20:38] VITALS: BP 114/75; PULSE 62
--- NOTE | 2025-04-10 20:57 | HO.PSYCHPN ---
Subjective Subjective Date of Service: 04/10/25 Reason For Visit: Bipolar disorder Subjective Notes: 3 Day Healthcare Proxy: No Guardianship: No Medical Problems Affecting Mental Status: No Interim History: Medical record and nursing notes reviewed; case discussed during rounds with team/nursing staff, and met with patient for supportive therapy/psychoeducation, as well as medication management. Continue improve in mood, no issue with sleep or appetite. Denies side effects from medications. No medication changes. Denies safety concerns, denies voices, mild depression or anxiety but not at the assessment time. He is working to find an patient psychiatrist. He would like to leave the hospital early by signing a 3 day notice today. Reports he has a stable home to go back. No behavior issues, visible, pacing, quiet, and attempted groups occasionally. Medication Compliance: Yes Side effects from medications: No Attending Groups: Intermittent Review of Systems Acute medical concerns: No Medical Review of Systems: unchanged Review of Systems Review of Systems Constitutional: Denies fatigue and Denies fever(s) Cardiovascular: Denies chest pain and Denies dyspnea Respiratory: Denies dyspnea Gastrointestinal: Denies abdominal pain Psychiatric: denies suicidal ideation Endocrine: Denies fatigue Yes all other systems are reviewed and are negative Mental Status Exam Mental Status Exam Narrative: A+O, visible, quiet, pacing, in and out to common areas. Anxious but pleasant and cooperative. Thought process and thoughts content are WNL. Fair insight and fair judgment. Future focus. Diagnostics Vital Signs (24Hr): Vital Signs - 24 hr 04/10/25 08:00 04/10/25 20:17 04/10/25 20:38 Temperature 97.7 F 98.7 F Pulse Rate 90 62 62 Respiratory Rate 16 Blood Pressure 140/73 H 114/75 114/75 Pulse Oximetry 97 96 Oxygen Delivery Method Room Air Room Air Labs 04/08/25 07:42 Medications Medications Current Medications Acetaminophen (Acetaminophen 325 Mg Tablet) 650 mg PO Q6H PRN PRN Reason: Headache/Pain, Scale 1-10 Last Admin: 04/08/25 03:05 Dose: 650 mg Al Hydroxide/Mg Hydroxide (Magnesium Hydrox/Alum Hydrox 30 Ml Oral.Susp) 30 ml PO Q6H PRN PRN Reason: Heartburn/Nausea Aripiprazole (Aripiprazole 15 Mg Tablet) 15 mg PO BID [facility] Last Admin: 04/10/25 20:39 Dose: 15 mg Buprenorphine/Naloxone (Buprenorphine/Naloxone 4/1 Mg Film) 1 film SUBLINGUAL TID [facility] Last Admin: 04/10/25 20:40 Dose: 1 film Clonazepam (Clonazepam 1 Mg Tablet) 2 mg PO BID PRN PRN Reason: Anxiety Last Admin: 04/10/25 20:37 Dose: 2 mg Escitalopram Oxalate (Escitalopram Oxalate 5 Mg Tablet) 15 mg PO DAILY [facility] Last Admin: 04/10/25 08:33 Dose: 15 mg Hydroxyzine HCl (Hydroxyzine Hcl 50 Mg Tablet) 50 mg PO Q4H PRN PRN Reason: mild anxiety Last Admin: 04/10/25 20:37 Dose: 50 mg Levetiracetam (Levetiracetam 1,000 Mg Tablet) 2,000 mg PO BID [facility] Last Admin: 04/10/25 20:39 Dose: 2,000 mg Lurasidone HCl (Lurasidone Hcl 40 Mg Tablet) 40 mg PO DAILY [facility] Last Admin: 04/10/25 08:33 Dose: 40 mg Magnesium Hydroxide (Milk Of Magnesia 30 Ml Oral.Susp) 30 ml PO DAILY PRN PRN Reason: Constipation Nicotine Polacrilex (Nicotine Polacrilex 2 Mg Gum) 4 mg BUCCAL Q2H PRN PRN Reason: Nicotine Cravings Nicotine Polacrilex (Nicotine Polacrilex Lozenge 2 Mg Lozenge) 2 mg BUCCAL Q2H PRN PRN Reason: Nicotine Cravings Pramipexole Dihydrochloride (Pramipexole Di-Hcl 1 Mg Tablet) 3 mg PO BEDTIME [facility] Last Admin: 04/10/25 20:39 Dose: 3 mg Pregabalin (Pregabalin 100 Mg Capsule) 300 mg PO BID [facility] Last Admin: 04/10/25 20:40 Dose: 300 mg Propranolol HCl (Propranolol Hcl 20 Mg Tablet) 20 mg PO BID [facility]; Protocol Last Admin: 04/10/25 20:38 Dose: 20 mg Sumatriptan Succinate (Sumatriptan Succinate 25 Mg Tablet) 25 mg PO Q6H PRN PRN Reason: Migraine Headache Thiamine HCl (Thiamine Hcl 100 Mg Tablet) 100 mg PO DAILY [facility] Last Admin: 04/10/25 08:33 Dose: 100 mg Zolpidem Tartrate (Zolpidem Tartrate 5 Mg Tablet) 5 mg PO BEDTIME PRN PRN Reason: Insomnia Last Admin: 04/10/25 20:37 Dose: 5 mg Allergies Allergies Allergy/AdvReac Type Severity Reaction Status Date / Time amoxicillin Allergy Severe Anaphylaxis Verified 04/06/25 21:24 levofloxacin Allergy Severe Hives Verified 04/06/25 21:24 metoclopramide Allergy Severe dystonia Verified 04/06/25 21:24 Penicillins Allergy Severe Anaphylaxis Verified 04/06/25 21:24 codeine Allergy Unknown gi symptoms Verified 04/06/25 21:24 morphine AdvReac Severe chest Verified 04/06/25 21:24 tightness prochlorperazine AdvReac Unknown gi sx Verified 04/06/25 21:24 Assessment & Plan Assessment & Plan (1) Bipolar disorder: Status: Acute Code(s): F31.9 - Bipolar disorder, unspecified (2) PTSD (post-traumatic stress disorder): Status: Acute Code(s): F43.10 - Post-traumatic stress disorder, unspecified Plan 34 yo male, transfer from [facility] where he came into ER with EMS. He approached a fire station and reported having a seizure and was feeling suicidal. Pt reports my meds are not right . Reports active SI. Losses of both parents within 8 months-father of sudden [place], mother of delirium from anesthesia post surgery, of nephew, loss of housing and loss of 6 cats he needed to give up to other homes. Reports these losses occurred within the past 2 years. Hospital course: 04/08/25: Patient slept for 6 hours, compliant with meds, denies side effects. Report chronic back pain which he take suboxone for. Report very anxious . Agrees with Vistaril increased up to 50mg PRN. Visible, quiet, keep to himself but pleasant and cooperative. Monitor for sedation. On multi sedating regimens. 04/09/25: Patient slept 5 hours, compliant with medications. Denies side effects. He is visible, pacing at times, but keeps to himself, quiet. No behavior issues. No safety concerns. No change in terms of medications. Chronic back pain 02/02 which he is on Suboxone for. Continue with current treatment plan. Continue to monitor for sedation as patient is on many sedating regimens as home medications. 04/10/25: Continue improve in mood, no issue with sleep or appetite. Denies side effects from medications. No medication changes. Denies safety concerns, denies voices, mild depression or anxiety but not at the assessment time. He is working to find an patient psychiatrist. He would like to leave the hospital early by signing a 3 day notice today. Reports he has a stable home to go back. No behavior issues, visible, pacing, quiet, and attempted groups occasionally. Plan: Admit, 3 day notice on 04/12/25- . 15 minute checks Encourage full milieu Diagnostics as needed Thiamine 100 mg daily Increase Latuda to 40 mg daily Repeat troponins and CMP 9.13: WNL. Sodium Slightly elevated Ambien 5 mg HS prn (Pt reports he uses Lunesta as an OP) Patient educated on: medication risk/benefits and therapeutic strategies Informed Consent: understands Reason for continued inpatient stay Substantial Risk for: med/psych decompensation Time Spent With Patient Time: Total time managing care of this patient today ____ minutes.
[2025-04-11 08:30] VITALS: BP 138/70; PULSE 80; TEMP 36.8; O2SAT 96
[2025-04-11] MEDS: Buprenorphine/Naloxone 4/1 mg FILM 1 FILM SUBLINGUAL ×3 (08:34→20:57)
--- NOTE | 2025-04-11 11:44 | P.PNPSI_ITS ---
Subjective Subjective Date of Service: 04/11/25 Reason For Visit: Bipolar disorder Interim History: Active on unit. social with peers. patient reports feeling a little anxious today but ready to leave soon . Patient reports he plans on staying with his sister when discharged. He reports sleeping well last night. denies SI/HI/VH/AH. Continue current tx plan. Medication Compliance: Yes Side effects from medications: No Attending Groups: Yes Mental Status Exam Mental Status Exam Patient Appearance: Appropriate Patient Orientation: Person, Place, Time and Situation Level of Consciousness: Awake and Alert Patient Behavior: Appropriate, Cooperative and Good Eye Contact Mood Description: Anxious Affect Description: Calm Ability to Follow Directions: Good Speech Pattern: Clear Memory Description: Intact Hallucinations: None Delusions: Not Present Thought Process: Intact Thought Content: positive for Intact Diagnostics Vital Signs (24Hr): Vital Signs - 24 hr 04/10/25 20:17 04/10/25 20:38 04/11/25 08:30 Temperature 98.7 F 98.2 F Pulse Rate 62 62 80 Respiratory Rate 16 Blood Pressure 114/75 114/75 138/70 Pulse Oximetry 96 96 Oxygen Delivery Method Room Air Room Air Labs 04/08/25 07:42 Medications Medications Current Medications Acetaminophen (Acetaminophen 325 Mg Tablet) 650 mg PO Q6H PRN PRN Reason: Headache/Pain, Scale 1-10 Last Admin: 04/11/25 07:48 Dose: 650 mg Al Hydroxide/Mg Hydroxide (Magnesium Hydrox/Alum Hydrox 30 Ml Oral.Susp) 30 ml PO Q6H PRN PRN Reason: Heartburn/Nausea Aripiprazole (Aripiprazole 15 Mg Tablet) 15 mg PO BID [facility], [facility] Last Admin: 04/11/25 08:34 Dose: 15 mg Buprenorphine/Naloxone (Buprenorphine/Naloxone 4/1 Mg Film) 1 film SUBLINGUAL TID [facility], [facility] Last Admin: 04/11/25 08:34 Dose: 1 film Clonazepam (Clonazepam 1 Mg Tablet) 2 mg PO BID PRN PRN Reason: Anxiety Last Admin: 04/10/25 20:37 Dose: 2 mg Escitalopram Oxalate (Escitalopram Oxalate 5 Mg Tablet) 15 mg PO DAILY [facility] Last Admin: 04/11/25 08:34 Dose: 15 mg Hydroxyzine HCl (Hydroxyzine Hcl 50 Mg Tablet) 50 mg PO Q4H PRN PRN Reason: mild anxiety Last Admin: 04/10/25 20:37 Dose: 50 mg Levetiracetam (Levetiracetam 1,000 Mg Tablet) 2,000 mg PO BID [facility] Last Admin: 04/11/25 08:34 Dose: 2,000 mg Lurasidone HCl (Lurasidone Hcl 40 Mg Tablet) 40 mg PO DAILY [facility] Last Admin: 04/11/25 08:34 Dose: 40 mg Magnesium Hydroxide (Milk Of Magnesia 30 Ml Oral.Susp) 30 ml PO DAILY PRN PRN Reason: Constipation Nicotine Polacrilex (Nicotine Polacrilex 2 Mg Gum) 4 mg BUCCAL Q2H PRN PRN Reason: Nicotine Cravings Nicotine Polacrilex (Nicotine Polacrilex Lozenge 2 Mg Lozenge) 2 mg BUCCAL Q2H PRN PRN Reason: Nicotine Cravings Ondansetron HCl (Ondansetron Odt 4 Mg Tab.Rapdis) 4 mg TRANSLINGU Q6H PRN PRN Reason: Nausea and Vomiting Pramipexole Dihydrochloride (Pramipexole Di-Hcl 1 Mg Tablet) 3 mg PO BEDTIME [facility] Last Admin: 04/10/25 20:39 Dose: 3 mg Pregabalin (Pregabalin 100 Mg Capsule) 300 mg PO BID [facility] Last Admin: 04/11/25 08:34 Dose: 300 mg Propranolol HCl (Propranolol Hcl 20 Mg Tablet) 20 mg PO BID [facility]; Protocol Last Admin: 04/11/25 08:34 Dose: 20 mg Sumatriptan Succinate (Sumatriptan Succinate 25 Mg Tablet) 25 mg PO Q6H PRN PRN Reason: Migraine Headache Thiamine HCl (Thiamine Hcl 100 Mg Tablet) 100 mg PO DAILY [facility] Last Admin: 04/11/25 08:34 Dose: 100 mg Zolpidem Tartrate (Zolpidem Tartrate 5 Mg Tablet) 5 mg PO BEDTIME PRN PRN Reason: Insomnia Last Admin: 04/10/25 20:37 Dose: 5 mg Allergies Allergies Allergy/AdvReac Type Severity Reaction Status Date / Time amoxicillin Allergy Severe Anaphylaxis Verified 04/06/25 21:24 levofloxacin Allergy Severe Hives Verified 04/06/25 21:24 metoclopramide Allergy Severe dystonia Verified 04/06/25 21:24 Penicillins Allergy Severe Anaphylaxis Verified 04/06/25 21:24 codeine Allergy Unknown gi symptoms Verified 04/06/25 21:24 morphine AdvReac Severe chest Verified 04/06/25 21:24 tightness prochlorperazine AdvReac Unknown gi sx Verified 04/06/25 21:24 Assessment & Plan Assessment & Plan (1) Bipolar disorder: Status: Acute Code(s): F31.9 - Bipolar disorder, unspecified (2) PTSD (post-traumatic stress disorder): Status: Acute Code(s): F43.10 - Post-traumatic stress disorder, unspecified Plan 34 yo male, transfer from [facility] where he came into ER with EMS. He approached a fire station and reported having a seizure and was feeling suicidal. Pt reports my meds are not right . Reports active SI. Losses of both parents within 8 months-father of sudden [place], mother of delirium from anesthesia post surgery, of nephew, loss of housing and loss of 6 cats he needed to give up to other homes. Reports these losses occurred within the past 2 years. Hospital course: 04/08/25: Patient slept for 6 hours, compliant with meds, denies side effects. Report chronic back pain which he take suboxone for. Report very anxious . Agrees with Vistaril increased up to 50mg PRN. Visible, quiet, keep to himself but pleasant and cooperative. Monitor for sedation. On multi sedating regimens. 04/09/25: Patient slept 5 hours, compliant with medications. Denies side effects. He is visible, pacing at times, but keeps to himself, quiet. No behavior issues. No safety concerns. No change in terms of medications. Chronic back pain /10 which he is on Suboxone for. Continue with current treatment plan. Continue to monitor for sedation as patient is on many sedating regimens as home medications. 04/10/25: Continue improve in mood, no issue with sleep or appetite. Denies side effects from medications. No medication changes. Denies safety concerns, denies voices, mild depression or anxiety but not at the assessment time. He is working to find an patient psychiatrist. He would like to leave the hospital early by signing a 3 day notice today. Reports he has a stable home to go back. No behavior issues, visible, pacing, quiet, and attempted groups occasionally. 04/11: Active on unit. social with peers. patient reports feeling a little anxious today but ready to leave soon . Patient reports he plans on staying with his sister when discharged. He reports sleeping well last night. denies SI/HI/VH/AH. Continue current tx plan. Plan: Admit, 3 day notice on 04/12/25- . 15 minute checks Encourage full milieu Diagnostics as needed Thiamine 100 mg daily Increase Latuda to 40 mg daily Repeat troponins and CMP 9.13: WNL. Sodium Slightly elevated Ambien 5 mg HS prn (Pt reports he uses Lunesta as an OP) Patient educated on: diagnosis and medication risk/benefits Reason for continued inpatient stay Substantial Risk for: med/psych decompensation Time Spent With Patient Time: Total time managing care of this patient today _20___ minutes.
[2025-04-11 20:00] VITALS: BP 135/82; PULSE 80; RESP 16; TEMP 36.9; O2SAT 96
[2025-04-11 20:56] VITALS: BP 135/82; PULSE 80
[2025-04-12 07:51] VITALS: BP 115/68; PULSE 80; TEMP 36.9; O2SAT 92
--- NOTE | 2025-04-12 09:11 | HO.PSYCHPN ---
Subjective Subjective Date of Service: 04/12/25 Reason For Visit: Bipolar disorder Subjective Notes: 3 Day Interim History: Patient notes that he feels good. He reports moderate anxiety and states that he is always anxious. He denies depression. He denies SI/HI/AH/VH. He is ready for discharge tomorrow 04/12/2025. He will live with his sister for 2-3 days and then go to a nursing home. According to nursing, he slept 6 hours last night. Medication Compliance: Yes Side effects from medications: No Attending Groups: Intermittent Review of Systems Acute medical concerns: No Review of Systems Review of Systems Yes all other systems are reviewed and are negative Mental Status Exam Mental Status Exam Narrative: Appearance: Casually dressed, adequate hygiene Behavior: Calm and cooperative throughout the interview. Eye contact is appropriate, and there are no signs of psychomotor agitation or retardation Speech: Normal volume and prosody Thought process: Logical and goal-directed Thought content: Future oriented no self-harming thoughts Mood: Euthymic Affect: Full, mood-congruent SI:denies HI:denies VH/AH:none Delusions: None Insight/judgment: Good insight and judgment Memory/cog: Alert, oriented x 4. grossly intact to conversational testing Diagnostics Vital Signs (24Hr): Vital Signs - 24 hr 04/11/25 20:00 04/11/25 20:56 04/12/25 07:51 Temperature 98.5 F 98.4 F Pulse Rate 80 80 80 Respiratory Rate 16 Blood Pressure 135/82 135/82 115/68 Pulse Oximetry 96 92 Oxygen Delivery Method Room Air Room Air Labs 04/08/25 07:42 Medications Medications Current Medications Acetaminophen (Acetaminophen 325 Mg Tablet) 650 mg PO Q6H PRN PRN Reason: Headache/Pain, Scale 1-10 Last Admin: 04/11/25 07:48 Dose: 650 mg Al Hydroxide/Mg Hydroxide (Magnesium Hydrox/Alum Hydrox 30 Ml Oral.Susp) 30 ml PO Q6H PRN PRN Reason: Heartburn/Nausea Aripiprazole (Aripiprazole 15 Mg Tablet) 15 mg PO BID [facility] Last Admin: 04/11/25 20:56 Dose: 15 mg Buprenorphine/Naloxone (Buprenorphine/Naloxone 4/1 Mg Film) 1 film SUBLINGUAL TID [facility] Last Admin: 04/11/25 20:57 Dose: 1 film Clonazepam (Clonazepam 1 Mg Tablet) 2 mg PO BID PRN PRN Reason: Anxiety Last Admin: 04/12/25 05:15 Dose: 2 mg Escitalopram Oxalate (Escitalopram Oxalate 5 Mg Tablet) 15 mg PO DAILY [facility] Last Admin: 04/11/25 08:34 Dose: 15 mg Hydroxyzine HCl (Hydroxyzine Hcl 50 Mg Tablet) 50 mg PO Q4H PRN PRN Reason: mild anxiety Last Admin: 04/12/25 00:43 Dose: 50 mg Levetiracetam (Levetiracetam 1,000 Mg Tablet) 2,000 mg PO BID [facility] Last Admin: 04/11/25 20:55 Dose: 2,000 mg Lurasidone HCl (Lurasidone Hcl 40 Mg Tablet) 40 mg PO DAILY [facility] Last Admin: 04/11/25 08:34 Dose: 40 mg Magnesium Hydroxide (Milk Of Magnesia 30 Ml Oral.Susp) 30 ml PO DAILY PRN PRN Reason: Constipation Nicotine Polacrilex (Nicotine Polacrilex 2 Mg Gum) 4 mg BUCCAL Q2H PRN PRN Reason: Nicotine Cravings Nicotine Polacrilex (Nicotine Polacrilex Lozenge 2 Mg Lozenge) 2 mg BUCCAL Q2H PRN PRN Reason: Nicotine Cravings Ondansetron HCl (Ondansetron Odt 4 Mg Tab.Rapdis) 4 mg TRANSLINGU Q6H PRN PRN Reason: Nausea and Vomiting Pramipexole Dihydrochloride (Pramipexole Di-Hcl 1 Mg Tablet) 3 mg PO BEDTIME [facility] Last Admin: 04/11/25 20:56 Dose: 3 mg Pregabalin (Pregabalin 100 Mg Capsule) 300 mg PO BID [facility] Last Admin: 04/11/25 20:55 Dose: 300 mg Propranolol HCl (Propranolol Hcl 20 Mg Tablet) 20 mg PO BID [facility]; Protocol Last Admin: 04/11/25 20:56 Dose: 20 mg Sumatriptan Succinate (Sumatriptan Succinate 25 Mg Tablet) 25 mg PO Q6H PRN PRN Reason: Migraine Headache Thiamine HCl (Thiamine Hcl 100 Mg Tablet) 100 mg PO DAILY [facility] Last Admin: 04/11/25 08:34 Dose: 100 mg Zolpidem Tartrate (Zolpidem Tartrate 5 Mg Tablet) 5 mg PO BEDTIME PRN PRN Reason: Insomnia Last Admin: 04/11/25 20:57 Dose: 5 mg Allergies Allergies Allergy/AdvReac Type Severity Reaction Status Date / Time amoxicillin Allergy Severe Anaphylaxis Verified 04/06/25 21:24 levofloxacin Allergy Severe Hives Verified 04/06/25 21:24 metoclopramide Allergy Severe dystonia Verified 04/06/25 21:24 Penicillins Allergy Severe Anaphylaxis Verified 04/06/25 21:24 codeine Allergy Unknown gi symptoms Verified 04/06/25 21:24 morphine AdvReac Severe chest Verified 04/06/25 21:24 tightness prochlorperazine AdvReac Unknown gi sx Verified 04/06/25 21:24 Assessment & Plan Assessment & Plan (1) Bipolar disorder: Status: Acute Code(s): F31.9 - Bipolar disorder, unspecified (2) PTSD (post-traumatic stress disorder): Status: Acute Code(s): F43.10 - Post-traumatic stress disorder, unspecified Plan 34 yo male, transfer from [facility] where he came into ER with EMS. He approached a fire station and reported having a seizure and was feeling suicidal. Pt reports my meds are not right . Reports active SI. Losses of both parents within 8 months-father of sudden [place], mother of delirium from anesthesia post surgery, of nephew, loss of housing and loss of 6 cats he needed to give up to other homes. Reports these losses occurred within the past 2 years. Hospital course: 04/08/25: Patient slept for 6 hours, compliant with meds, denies side effects. Report chronic back pain which he take suboxone for. Report very anxious . Agrees with Vistaril increased up to 50mg PRN. Visible, quiet, keep to himself but pleasant and cooperative. Monitor for sedation. On multi sedating regimens. 04/09/25: Patient slept 5 hours, compliant with medications. Denies side effects. He is visible, pacing at times, but keeps to himself, quiet. No behavior issues. No safety concerns. No change in terms of medications. Chronic back pain 02/02 which he is on Suboxone for. Continue with current treatment plan. Continue to monitor for sedation as patient is on many sedating regimens as home medications. 04/10/25: Continue improve in mood, no issue with sleep or appetite. Denies side effects from medications. No medication changes. Denies safety concerns, denies voices, mild depression or anxiety but not at the assessment time. He is working to find an patient psychiatrist. He would like to leave the hospital early by signing a 3 day notice today. Reports he has a stable home to go back. No behavior issues, visible, pacing, quiet, and attempted groups occasionally. 04/11: Active on unit. social with peers. patient reports feeling a little anxious today but ready to leave soon . Patient reports he plans on staying with his sister when discharged. He reports sleeping well last night. denies SI/HI/VH/AH. Continue current tx plan. 04/12: Continue current treatment regimen. Discharge on 04/13/2025. He will live with his sister for 2-3 days and then go to a nursing home Plan: Admit, 3 day notice on 04/12/25- . 15 minute checks Encourage full milieu Diagnostics as needed Thiamine 100 mg daily Increase Latuda to 40 mg daily Repeat troponins and CMP 9.13: WNL. Sodium Slightly elevated Ambien 5 mg HS prn (Pt reports he uses Lunesta as an OP) Patient educated on: therapeutic strategies Reason for continued inpatient stay Substantial Risk for: stable for discharge Time Spent With Patient Time: Total time managing care of this patient today ____ minutes.
[2025-04-12] MEDS: Buprenorphine/Naloxone 4/1 mg FILM 1 FILM SUBLINGUAL ×3 (09:22→20:32)
[2025-04-12 09:23] VITALS: BP 110/70
[2025-04-12 20:00] VITALS: BP 128/76; PULSE 75; RESP 18; TEMP 37; O2SAT 96
--- NOTE | 2025-04-13 07:36 | P.DS_ITS ---
DS: Providers Provider Date of Service: 04/13/25 Date of admission: 04/07/25 00:03 Date of discharge: 04/13/25 Primary care physician: Unknown Physician Admitting clinician: Navya Neal Attending physician on admission: Gurmeet Shields Consults: 04/07/25 01:56 Consult to Hospitalist Routine Comment: Consulting Provider: [facility] Hospitalists Reason For Exam: transfer pt Attending physician on discharge: Gurmeet Shields Discharging clinician: Harvey Garcia DS: Diagnosis Discharge Diagnosis (1) Bipolar disorder: Status: Acute (2) PTSD (post-traumatic stress disorder): Status: Acute DS: Medications Discharge Medications Home Medications: Previous Rx's ?Medication ?Instructions ?Recorded aripiprazole 15 mg tablet 15 mg PO BID #60 tabs buprenorphine 4 mg-naloxone 1 mg 1 film sublingual TID #42 ea 04/12/25 sublingual film (Suboxone) clonazepam 2 mg tablet 2 mg PO BID PRN anxiety #28 tabs 04/12/25 escitalopram oxalate 5 mg tablet 15 mg (3 x 5 mg) PO D AILY #30 tabs 04/12/25 escitalopram oxalate 5 mg tablet 15 mg (3 x 5 mg) PO D AILY #90 tabs 04/12/25 escitalopram oxalate 5 mg tablet 15 mg (3 x 5 mg) PO D AILY #90 tabs 04/12/25 hydroxyzine HCl 50 mg tablet 50 mg PO Q4H PRN mild anx iety #90 04/12/25 tabs levetiracetam 1,000 mg tablet 2,000 mg (2 x 1,000 mg) PO BID #60 04/12/25 tabs lurasidone 40 mg tablet (Latuda) 40 mg PO DAILY #30 ta bs 04/12/25 pramipexole 1 mg tablet 3 mg (3 x 1 mg) PO BEDTIME # 30 tabs 04/12/25 pregabalin 100 mg capsule (Lyrica) 300 mg (3 x 100 mg) PO BID #60 caps 04/12/25 pregabalin 300 mg capsule 300 mg PO BID #30 caps 04/12 propranolol 20 mg tablet 20 mg PO BID #60 tabs sumatriptan succinate 25 mg tablet 25 mg PO Q6H PRN Mi graine Headache 04/12/25 #10 tabs thiamine mononitrate (vit B1) 100 100 mg PO DAILY #30 tabs 04/12/25 mg tablet zolpidem 5 mg tablet 5 mg PO BEDTIME PRN Insomnia #30 04/12/25 tabs Mental Status Exam Mental Status Exam Narrative: Appearance: Casually dressed, adequate hygiene Behavior: Calm and cooperative throughout the interview. Eye contact is appropriate, and there are no signs of psychomotor agitation or retardation Speech: Normal volume and prosody Thought process: Logical and goal-directed Thought content: Future oriented no self-harming thoughts Mood: Euthymic Affect: Full, mood-congruent SI:denies HI:denies VH/AH:none Delusions: None Insight/judgment: Good insight and judgment Memory/cog: Alert, oriented x 4. grossly intact to conversational testing Data Data Completed and Pending Completed studies during hospitalization [Text1]: 04/07/25 04/08/25 08:55 07:42 Sodium 146 H Potassium 4.1 Chloride 110 H Carbon Dioxide 29 Anion Gap 11 L BUN 20 H Creatinine 1.07 Estim Creat Clear Calc TNP Estimated GFR > 60 Random Glucose 126 H Estimat Average Glucose 117 Hemoglobin A1c % 5.7 Calcium 9.9 Magnesium 1.8 Total Bilirubin 0.2 AST 20 ALT 15 Alkaline Phosphatase 73 Troponin I High Sens < 2.7 Total Protein 6.2 L Albumin 3.8 Triglycerides 137 Cholesterol 149 LDL Cholesterol, Calc 84 HDL Cholesterol 38 L Vitamin B12 209 Folate 7.6 TSH 0.89 Free T4 0.89 DS: Summary Hospital Course Hospital Course: Plan 34 yo male, transfer from [facility] where he came into ER with EMS. He approached a fire station and reported having a seizure and was feeling suicidal. Pt reports my meds are not right . Reports active SI. Losses of both parents within 8 months-father of sudden ND, mother of delirium from anesthesia post surgery, of nephew, loss of housing and loss of 6 cats he needed to give up to other homes. Reports these losses occurred within the past 2 years. Hospital course: 04/08/25: Patient slept for 6 hours, compliant with meds, denies side effects. Report chronic back pain which he take suboxone for. Report very anxious . Agrees with Vistaril increased up to 50mg PRN. Visible, quiet, keep to himself but pleasant and cooperative. Monitor for sedation. On multi sedating regimens. 04/09/25: Patient slept 5 hours, compliant with medications. Denies side effects. He is visible, pacing at times, but keeps to himself, quiet. No behavior issues. No safety concerns. No change in terms of medications. Chronic back pain 02/02 which he is on Suboxone for. Continue with current treatment plan. Continue to monitor for sedation as patient is on many sedating regimens as home medications. 04/10/25: Continue improve in mood, no issue with sleep or appetite. Denies side effects from medications. No medication changes. Denies safety concerns, denies voices, mild depression or anxiety but not at the assessment time. He is working to find an patient psychiatrist. He would like to leave the hospital early by signing a 3 day notice today. Reports he has a stable home to go back. No behavior issues, visible, pacing, quiet, and attempted groups occasionally. 04/11: Active on unit. social with peers. patient reports feeling a little anxious today but ready to leave soon . Patient reports he plans on staying with his sister when discharged. He reports sleeping well last night. denies SI/HI/VH/AH. Continue current tx plan. 04/12: Continue current treatment regimen. Discharge on 04/13/2025. He will live with his sister for 2-3 days and then go to a usp 04/13: Patient notes that he is feeling ?good.? He slept well last night. He has ?mild? anxiety and depression. He denies SI/HI/AH/VH. He feels ready for discharge and will be discharged to a homeless usp this morning. Time spent discussing smoking cessation with patient: 3 to 10 minutes Status at Discharge Functional status at discharge: independent ambulation Overall status at discharge: patient is back to baseline Time Spent with Patient Time attestation: Total time managing care of this patient today __30__ minutes. Time spent: Less than 30 minutes Discharge Plan Discharge Anticipated Discharge Date/Time: 04/13/25 11:00 Patient Disposition: Xfer Other Discharge Diagnosis: Bipolar disorder, PTSD Referrals: [facility]: Estela Laughlin (therapy) [Other] - 04/17/25 12:00 pm Referral Note: Hospital Discharge Appointment Appointment is for initial diagnostic evaluation for therapy services Appointment is in person at [facility]: Jamie Escobar (psychiatry) [Other] - 04/25/25 11:15 am Referral Note: Hospital Discharge Appointment Appointment is for initial psychiatric evaluation for medication management services Appointment is in person at [facility] of Mental [facility] [Other] - 1 Week Referral Note: Referral to the department of mental health Patient should follow-up on referral after discharge. [facility] has up to 90 days to review this application. Jaycee: [facility] [place]: ([employer]) [Other] - 04/18/25 10:00 am Referral Note: Hospital discharge appointment with patient care coordinator at [facility] [place]. Appointment is in person at the [address] in [place], [place] Physician,Unknown J [Primary Care Provider, Medical] - 1 Week Discharge Medications: New propranolol 20 mg Tablet 20 mg PO BID Qty: 60 0RF Protocol: Hold for SBP/HR < HOLD for SBP < : 90 HOLD for HR < : 60 aripiprazole 15 mg Tablet 15 mg PO BID Qty: 60 0RF buprenorphine-naloxone [Suboxone] 4-1 mg Film 1 film sublingual TID Qty: 42 0RF pramipexole 1 mg Tablet 3 mg PO BEDTIME Qty: 30 0RF sumatriptan succinate 25 mg Tablet 25 mg PO Q6H PRN (Reason: Migraine Headache) Qty: 10 0RF hydroxyzine HCl 50 mg Tablet 50 mg PO Q4H PRN (Reason: mild anxiety) Qty: 90 0RF zolpidem 5 mg Tablet 5 mg PO BEDTIME PRN (Reason: Insomnia) Qty: 30 0RF escitalopram oxalate 5 mg Tablet 15 mg PO DAILY Qty: 30 0RF pregabalin [Lyrica] 100 mg Capsule 300 mg PO BID Qty: 60 0RF levetiracetam 1,000 mg Tablet 2,000 mg PO BID Qty: 60 0RF thiamine mononitrate (vit B1) 100 mg Tablet 100 mg PO DAILY Qty: 30 0RF lurasidone [Latuda] 40 mg Tablet 40 mg PO DAILY Qty: 30 0RF Continued escitalopram oxalate 5 mg tablet 15 mg PO DAILY Qty: 90 0RF escitalopram oxalate 5 mg tablet 15 mg PO DAILY Qty: 90 0RF pregabalin 300 mg capsule 300 mg PO BID Qty: 30 0RF Changed clonazepam 2 mg tablet 2 mg PO BID PRN (Reason: anxiety) Qty: 28 0RF Discontinued pramipexole 1.5 mg tablet 3 mg PO BEDTIME pramipexole 1.5 mg tablet 3 mg PO BEDTIME lurasidone 20 mg tablet 20 mg PO QAM sumatriptan succinate 25 mg tablet 25 mg PO Q6H PRN (Reason: migraine) sumatriptan succinate 25 mg tablet 25 mg PO Q6H PRN (Reason: migraine) sumatriptan succinate 25 mg tablet 25 mg PO Q6H PRN (Reason: migraine) sumatriptan succinate 25 mg tablet 25 mg PO Q6H PRN (Reason: migraine) pramipexole 1.5 mg tablet 3 mg PO BEDTIME pregabalin 300 mg capsule 300 mg PO BID buprenorphine-naloxone [Suboxone] 2-0.5 mg film 2 film sublingual TID clonazepam 1 mg tablet 1 mg PO BID PRN (Reason: anxiety attack) Discharge Orders: Discharge Order (Routine); Ordered 04/12/25 Ordered By: Harvey Garcia Diet: Advance to usual diet Activity on Discharge: As tolerated Stand Alone Forms: Patient Portal Discharge page, Community Support Print Language: Macedonian Care Plan Goals: Maintain mood and safe behaviors Take medications as prescribed Continue to pursue sobriety Practice coping skills Continue with outpatient providers and reach out to them as needed Health Concerns: Mood stability and behaviors Sobriety Plan of Treatment: Follow up with your PCP, psychiatric provider and other outpatient providers regarding above concerns Take medications as prescribed Assessment: Risk assessment at time of discharge:? Patient was interviewed prior to discharge and found to be fully oriented and without any SI or HI. Patient has improved insight and judgment and wants to continue treatment. Patient is not in imminent risk of harm to self or others and has a safety plan that includes presenting to the closest ER or calling 911 if feeling unsafe.? Patient has been observed closely by nursing and unit staff throughout admission; patient has not engaged in any behaviors that suggest dangerousness to self or others and has demonstrated appropriate behaviors and impulse control
[2025-04-13 08:00] VITALS: BP 105/57; PULSE 66; RESP 16; TEMP 36.8; O2SAT 97
[2025-04-13] MEDS: Buprenorphine/Naloxone 4/1 mg FILM 1 FILM SUBLINGUAL (08:34)
[2025-04-13 08:36] VITALS: BP 105/57; PULSE 66
== END 2025-04-13 11:42 | disposition other institution (70) | DRG 753 ==
PROVIDERS: Clinical Nurse Specialist Psychiatric/Mental Health, Adult; Admitting Provider Psychiatry & Neurology Psychiatry; Visit Provider Psychiatry & Neurology Psychiatry
DX: F31.9 Bipolar disorder, unspecified (principal); G40.909 Epilepsy, unspecified, not intractable, without status epilepticus; R45.851 Suicidal ideations; I10 Essential (primary) hypertension; M54.40 Lumbago with sciatica, unspecified side; F17.210 Nicotine dependence, cigarettes, uncomplicated; F43.10 Post-traumatic stress disorder, unspecified; Z63.4 Disappearance and death of family member; Z71.6 Tobacco abuse counseling; Z79.891 Long term (current) use of opiate analgesic; Z59.01 Sheltered homelessness; Z79.899 Other long term (current) drug therapy
CPT/HCPCS: 36415; 80053; 80061; 82607; 82746; 83036; 83735; 84439; 84443; 84484

== ENCOUNTER → 2025-04-07 00:03 | Outpatient (BNV) | payer OTHER, SELFPAY | PROVIDERS: Admitting Provider Psychiatry & Neurology Psychiatry; Visit Provider Clinical Nurse Specialist Psychiatric/Mental Health, Adult | DX: F31.9 Bipolar disorder, unspecified (principal); F43.11 Post-traumatic stress disorder, acute | CPT/HCPCS: 99231; 99232 ==

== ENCOUNTER → 2025-04-07 00:03 | Outpatient (BNV) | payer MEDICAID, SELFPAY | PROVIDERS: Admitting Provider Psychiatry & Neurology Psychiatry; Visit Provider Nurse Practitioner Family | DX: I10 Essential (primary) hypertension (principal) | CPT/HCPCS: 99221 ==

== ENCOUNTER 2025-05-04 21:04 | Outpatient (BNV) | payer MEDICAID, SELFPAY | END 2025-05-11 13:05 | PROVIDERS: Admitting Provider Psychiatry & Neurology Psychiatry; Visit Provider Radiology Diagnostic Ultrasound | DX: M79.601 Pain in right arm (principal); M25.521 Pain in right elbow; Z86.718 Personal history of other venous thrombosis and embolism | CPT/HCPCS: 73080; 93971 ==

== ENCOUNTER 2025-05-04 21:04 | Inpatient (IN) | payer OTHER, SELFPAY ==
--- NOTE | ~2025-05-04 | US_ITS ---
CLINICAL HISTORY: Right leg pain Venous duplex ultrasound right lower extremity Comparison: None provided Findings: The right peroneal vein, mid and distal femoral veins demonstrate partial compressibility and no blood flow by color Doppler evaluation. IMPRESSION: 1. Right lower extremity deep vein thrombosis. This document has been electronically signed by: Stephane Calixto MD on 05/11/2025 21:29:35
--- NOTE | ~2025-05-04 | XR_ITS ---
EXAMINATION: XR ELBOW, RIGHT CLINICAL INFORMATION: Pain, decreased ROM COMPARISON: None available. TECHNIQUE: AP, lateral, and oblique views of the right elbow. FINDINGS: No visible acute fracture, dislocation or suspicious bony lesion. No significant joint effusion. Alignment is anatomic. Joint spaces are maintained. No abnormal soft tissue calcification. XR/XR elbow RT min 3V IMPRESSION: No acute osseous findings Electronically signed by: Isidoro Hill MD 05/11/2025 02:21 PM EDT
--- NOTE | ~2025-05-04 | US_ITS ---
CLINICAL HISTORY: Right arm pain, HX of DVT Venous duplex ultrasound right upper extremity Comparison: None provided Findings: Accessible deep venous segments are fully compressible with normal Doppler color flow and spectral tracings. IMPRESSION: 1. Negative for right upper extremity deep vein thrombosis. This document has been electronically signed by: Oleg Burrell MD on 05/12/2025 18:19:22
[2025-05-04 21:45] VITALS: BP 106/64; PULSE 60; RESP 16; TEMP 36.4; O2SAT 99
[2025-05-04 21:48] VITALS: BMI 27.8
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
[2025-05-05 08:00] VITALS: BP 122/71; PULSE 80; RESP 16; TEMP 36.9; O2SAT 100
--- NOTE | 2025-05-05 08:45 | HO.PM.IMCN ---
History of Present Illness Data of Consult Service Date: 05/05/25 Primary Care Provider: Unknown Physician HPI Reason for consult: Medical consult 34-year-old male with a past medical history of bipolar disorder, mood disorder, substance use disorder on Suboxone, conduct disorder, asthma, chronic lower back pain with sciatica, hypertension, hyperparathyroidism, seizure disorder, Hernandez syndrome admitted from [facility] for suicidal ideation. Patient was not taking his medication. On exam he is awake and alert, denies any medical concerns. Reports bilateral lower leg and back pain. His urine was without evidence of infection, U tox positive for benzos cocaine and cannabis and buprenorphine. No leukocytosis, CBC essentially within normal limits, CMP without any evidence of liver or kidney dysfunction. Patient did have some blood in his urine, we will need outpatient follow up for this. No evidence of urinary tract infection. On exam he has no medical concerns. Exam is benign. Review of Systems Review of Systems: Denies any shortness of breath, chest pain, palpitations, dizziness, lightheadedness, headaches, dysuria, abdominal pain or discomfort, nausea, vomiting or diarrhea. Denies chills, body aches, muscle aches, fatigue or weight loss. [facility] Medical History (Updated 04/21/25 @ 00:01 by Background Daemon) PTSD (post-traumatic stress disorder) Bipolar disorder Social History Household Members: None Housing: Homeless Housing Other:: [facility]pc Do you presently have visiting nurse or other home services: No Patient Tobacco Use Status: Current everyday Tobacco user Tobacco use type: Cigarette Years Smoked: 20 Smoked in Last 30 Days: No e-Cigarette/Vaping Use: Never Used Patient Interested in Nicotine Replacement: Yes Patient Given Instructions on How to Stop Smoking: No Second Hand Smoke Exposure: No Currently Displaying Signs/Symptoms of Drug Intoxication Withdrawal: No Have you been hit, kicked, punched, or otherwise hurt by someone within the past year? If so, by whom?: No Do you feel safe in your current relationship?: No Current Relationship Is there a partner from a previous relationship who is making you feel unsafe now?: No Are you made to feel afraid or neglected: No Advance Directives: No Advance Directives Information Provided: Yes Do you have thoughts of harming others: None Do you have a plan to hurt others: No Plan Recently lost weight without trying: No Eating poorly because of decreased appetite: No Nutrition Risks: No Nutritional Risk Poor oral hygiene: No service: No Sexual orientation: Straight/Heterosexual Meds Allergies Allergy/AdvReac Type Severity Reaction Status Date / Time amoxicillin Allergy Severe Anaphylaxis Verified 04/06/25 21:24 levofloxacin Allergy Severe Hives Verified 04/06/25 21:24 metoclopramide Allergy Severe dystonia Verified 04/06/25 21:24 Penicillins Allergy Severe Anaphylaxis Verified 04/06/25 21:24 codeine Allergy Unknown gi symptoms Verified 04/06/25 21:24 morphine AdvReac Severe chest Verified 04/06/25 21:24 tightness prochlorperazine AdvReac Unknown gi sx Verified 04/06/25 21:24 Active Medications: Current Medications Acetaminophen (Acetaminophen 325 Mg Tablet) 650 mg PO Q6H PRN PRN Reason: Headache/Pain, Scale 1-10 Al Hydroxide/Mg Hydroxide (Magnesium Hydrox/Alum Hydrox 30 Ml Oral.Susp) 30 ml PO Q6H PRN PRN Reason: Heartburn/Nausea Hydroxyzine HCl (Hydroxyzine Hcl 25 Mg Tablet) 25 mg PO Q6H PRN PRN Reason: mild anxiety Last Admin: 05/04/25 22:25 Dose: 25 mg Magnesium Hydroxide (Milk Of Magnesia 30 Ml Oral.Susp) 30 ml PO DAILY PRN PRN Reason: Constipation Nicotine Polacrilex (Nicotine Polacrilex 2 Mg Gum) 4 mg BUCCAL Q2H PRN PRN Reason: Nicotine Cravings Trazodone HCl (Trazodone Hcl 50 Mg Tablet) 50 mg PO BEDTIME MRX1 PRN PRN Reason: Insomnia Home Medications ?Medication ?Instructions ?Recorded ?Confirmed ?Last Taken ?Type aripiprazole 15 mg tablet (Abilify) 15 mg PO BID 05/04/25 05/04/25 Unknown History escitalopram oxalate 5 mg tablet 15 mg PO DAILY 05/04/25 05/04/25 Unknown History (Lexapro) levetiracetam 1,000 mg tablet 2,000 mg PO BID 05/04/25 05/04/25 Unknown History (Keppra) Physical Exam Vital Signs and Narrative: Vital Signs: Last Vital Signs Temp 97.6 F 05/04/25 21:45 Pulse 60 05/04/25 21:45 Resp 16 05/04/25 21:45 BP 106/64 05/04/25 21:45 Pulse Ox 99 05/04/25 21:45 O2 Del Method Room Air 05/04/25 21:45 BMI result Body Mass Index 27.8 CONST: Alert and oriented, in NAD. Well nourished, cooperative HEENT: Normocephalic, atraumatic, MMM, Eyes clear, Neck supple RESP: Lungs clear, RRR even and regular HEART:,RRR, S1, S2. No edema GI:Abdomen Soft NT, ND. + BS times four :Deferred SKIN: Warm dry and intact, no visible lesions or rashes NEURO:CN II-XII Intact bilaterally, Sensation intact. Speech clear PSYCH: Normal affect Assessment and Plan (1) HTN (hypertension): Status: Acute Plan 34-year-old male with past medical history of bipolar disorder, mood disorder, substance use disorders, conduct disorder, asthma, chronic low back pain with sciatica, hypertension, seizures, Hernandez's syndrome admitted to inpatient psych for further care Bipolar disorder/mood disorder/substance use disorder/conduct disorder Treatment per psychiatric team Hypertension Not on medications, continue to monitor Blood pressure is stable Low back pain with sciatic Tylenol as needed, can use capsaicin or Lidoderm patches. Seizure disorder Continue Keppra Follow Keppra levels as needed Reports last seizure 2 weeks ago Has an aura that he sees black spots and feels lightheaded prior to seizure activity Thank you for allowing me to participate in the care of this patient. Will follow with you, please notify medical provider with any changes in condition or concerns.
[2025-05-05 08:59] LABS: Hemoglobin A1C 110.2768 umol/L; Total Hemoglobin (HGBA1C) 3339.6801 umol/L
[2025-05-05 09:09] LABS: Cholesterol 130 mg/dL (<200); HDL Cholesterol 29 mg/dL (>40); Magnesium 2.0 mg/dL (1.6-2.6); Triglycerides 111 mg/dL (<150)
[2025-05-05 09:27] LABS: Free T4 (Free Thyroxine) 1.26 ng/dL (0.71-1.85); Thyroid Stimulating Hormone 0.32 uIU/mL (0.32-4.0)
[2025-05-05 09:40] VITALS: BP 122/70; PULSE 80
[2025-05-05] MEDS: Buprenorphine/Naloxone 4/1 mg FILM 1 FILM SUBLINGUAL ×2 (09:40→20:06)
[2025-05-05 09:55] LABS: Folate 14.8 ng/mL (> or = 4.0); Vitamin B12 203 pg/mL (200-900)
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
[2025-05-05 20:00] VITALS: BP 123/74; PULSE 74; RESP 15; TEMP 36.4; O2SAT 96
[2025-05-06 08:00] VITALS: BP 109/81; PULSE 78; RESP 18; TEMP 36.4; O2SAT 100
[2025-05-06] MEDS: Buprenorphine/Naloxone 4/1 mg FILM 1 FILM SUBLINGUAL ×3 (08:45→21:46)
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
[2025-05-06] MEDS: guanFACINE HCl ER 1 MG TAB.ER.24H PO (14:28)
[2025-05-06 19:43] VITALS: BP 117/69; PULSE 86; RESP 16; TEMP 37.1; O2SAT 95
[2025-05-07] MEDS: Buprenorphine/Naloxone 4/1 mg FILM 1 FILM SUBLINGUAL (06:47)
[2025-05-07 07:52] VITALS: BP 118/63; PULSE 93; RESP 18; TEMP 36.6; O2SAT 98
[2025-05-07] MEDS: guanFACINE HCl ER 1 MG TAB.ER.24H PO (08:42)
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
[2025-05-07 20:00] VITALS: BP 120/63; PULSE 86; RESP 16; TEMP 36.6; O2SAT 96
[2025-05-07 20:28] VITALS: BP 128/76; PULSE 72
[2025-05-08] MEDS: Buprenorphine/Naloxone 4/1 mg FILM 1 FILM SUBLINGUAL ×2 (06:34→21:07)
--- NOTE | 2025-05-08 07:32 | PC.NURSE ---
Patient c/o sore neck, despite hot shower. Dr. Escalante notified of patient's request for a one time dose of Robaxin.
[2025-05-08 08:00] VITALS: BP 128/69; PULSE 86; RESP 18; TEMP 36; O2SAT 97
[2025-05-08] MEDS: guanFACINE HCl ER 1 MG TAB.ER.24H PO (08:40)
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
[2025-05-08 20:00] VITALS: BP 127/87; PULSE 105; RESP 16; TEMP 36.7; O2SAT 96
[2025-05-08 21:08] VITALS: BP 127/87; PULSE 105
[2025-05-09] MEDS: Buprenorphine/Naloxone 4/1 mg FILM 1 FILM SUBLINGUAL ×2 (07:08→20:16)
[2025-05-09 07:45] VITALS: BP 124/82; PULSE 84; TEMP 36.6; O2SAT 94
[2025-05-09 08:45] VITALS: BP 132/68; PULSE 77
[2025-05-09] MEDS: guanFACINE HCl ER 1 MG TAB.ER.24H PO (08:46)
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
[2025-05-09 20:00] VITALS: BP 122/69; PULSE 79; RESP 18; TEMP 37.8; O2SAT 96
[2025-05-10] MEDS: Buprenorphine/Naloxone 4/1 mg FILM 1 FILM SUBLINGUAL ×3 (01:27→20:07)
--- NOTE | 2025-05-10 01:32 | PC.NURSE ---
Pt reported pain 03/05, requested Suboxone 4/1 mg offered as per order to dose within 4 hrs of previous dose.
[2025-05-10 08:00] VITALS: BP 129/85; PULSE 97; TEMP 36.9; O2SAT 99
[2025-05-10] MEDS: guanFACINE HCl ER 1 MG TAB.ER.24H PO (08:48)
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
[2025-05-10 20:00] VITALS: BP 122/67; PULSE 91; RESP 18; TEMP 3.3; TEMP 37.9; O2SAT 93
[2025-05-11] MEDS: Buprenorphine/Naloxone 4/1 mg FILM 1 FILM SUBLINGUAL ×2 (04:03→22:08)
[2025-05-11 07:00] VITALS: BMI 30.5
--- NOTE | 2025-05-11 07:14 | PC.NURSE ---
Patient has been up most of the night c/o right elbow/arm pain. He was given prn's with no effect. Shruthi Mars notified and she will make sure consult is in place.
[2025-05-11 08:55] VITALS: BP 111/57; PULSE 89
[2025-05-11] MEDS: guanFACINE HCl ER 1 MG TAB.ER.24H PO (08:55)
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
[2025-05-11] MEDS: Lidocaine 4 % Patch ADH..PATCH 1 PATCH TRANSDERMA (13:34)
[2025-05-11 17:49] LABS: INTERNATIONAL NORM RATIO 0.9 (0.9-1.1); Prothrombin Time 9.9 SEC (10.9-12.4)
[2025-05-11 17:51] LABS: D Dimer High Sensitivity 289 NG/ML
[2025-05-11 20:00] VITALS: BP 130/73; PULSE 91; RESP 15; TEMP 37.7; O2SAT 94
[2025-05-12] MEDS: Buprenorphine/Naloxone 4/1 mg FILM 1 FILM SUBLINGUAL ×4 (02:39→18:54)
[2025-05-12 08:00] VITALS: BP 124/84; PULSE 87; RESP 16; TEMP 36.6; O2SAT 92
[2025-05-12 08:03] VITALS: BP 154/89; PULSE 87
[2025-05-12] MEDS: guanFACINE HCl ER 1 MG TAB.ER.24H PO (08:04)
--- NOTE | 2025-05-12 08:09 | HO.PM.IMPN ---
Subjective Subjective Date of Service: 05/12/25 Interval History: Patient was diagnosed with right lower extremity DVT involving the right peroneal vein, mid and distal femoral veins. 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 Patient reports a previous diagnosis of DVT in 2019 and subsequent postoperative PE in 2022 after he had a colostomy placement. Patient reports he was taking Xarelto, however this was stopped due to hematuria that he experienced. He reports that he was seen by clarification operator approximately 8 years ago in his mother has a history of DVTs. Patient has also been complaining of right elbow pain, we will check an ultrasound to rule out a DVT in this area as well as a cause of his pain. On exam he denies any shortness of breath, dizziness, headaches, chest pain or any other concerning symptoms. Review of Systems Denies any shortness of breath, chest pain, palpitations, dizziness, lightheadedness, headaches, dysuria, abdominal pain or discomfort, nausea, vomiting or diarrhea. Denies chills, body aches, muscle aches, fatigue or weight loss. Physical Exam Exam: Exam: CONST: Alert and oriented, in NAD. Well nourished HEENT: Normocephalic, atraumatic, MMM, Eyes clear, Neck supple RESP: Lungs clear, RRR even and regular HEART:,RRR, S1, S2. Trace edema right calf, no redness or warmth. GI:Abdomen Soft NT, ND. + BS times four :Deferred SKIN: Warm dry and intact, no visible lesions or rashes NEURO:CN II-XII Intact bilaterally, Sensation intact. Speech clear PSYCH: Normal affect Vital Signs: Vital Signs: Last Vital Signs Temp 99.9 F 05/11/25 20:00 Pulse 87 05/12/25 08:03 Resp 15 05/11/25 20:00 BP 154/89 H 05/12/25 08:03 Pulse Ox 94 05/11/25 20:00 O2 Del Method Room Air 05/10/25 20:00 BMI result Body Mass Index 30.5 Objective Data Active Medications Acetaminophen (Acetaminophen 325 Mg Tablet) 650 mg PO Q6H PRN PRN Reason: Headache/Pain, Scale 1-10 Last Admin: 05/10/25 07:15 Dose: 650 mg Documented By: JAIME Al Hydroxide/Mg Hydroxide (Magnesium Hydrox/Alum Hydrox 30 Ml Oral.Susp) 30 ml PO Q6H PRN PRN Reason: Heartburn/Nausea Apixaban (Apixaban 5 Mg Tablet) 10 mg PO BID REPLACED BY [facility] Stop: 05/18/25 09:01 Last Admin: 05/12/25 08:05 Dose: 10 mg Documented By: HONG Apixaban (Apixaban 5 Mg Tablet) 5 mg PO BID REPLACED BY [facility] Aripiprazole (Aripiprazole 10 Mg Tablet) 10 mg PO BID [facility]PL[facility] Last Admin: 05/12/25 08:05 Dose: 10 mg Documented By: HONG Benztropine Mesylate (Benztropine Mesylate 0.5 Mg Tablet) 0.5 mg PO BID [facility] Last Admin: 05/12/25 08:04 Dose: 0.5 mg Documented By: HONG Buprenorphine/Naloxone (Buprenorphine/Naloxone 4/1 Mg Film) 1 film SUBLINGUAL TID PRN PRN Reason: severe pain Last Admin: 05/12/25 08:05 Dose: 1 film Documented By: HONG Clonazepam (Clonazepam 1 Mg Tablet) 1 mg PO BEDTIME PRN PRN Reason: poor sleep, anxiety Last Admin: 05/11/25 20:38 Dose: 1 mg Documented By: BONNIE Clonazepam (Clonazepam 1 Mg Tablet) 1 mg PO BID PRN PRN Reason: anxiety Last Admin: 05/12/25 08:05 Dose: 1 mg Documented By: HONG Duloxetine HCl (Duloxetine Hcl 20 Mg Capsule.Dr) 20 mg PO DAILY [facility] Last Admin: 05/12/25 08:03 Dose: 20 mg Documented By: HONG Guanfacine HCl (Guanfacine Hcl Er 1 Mg Tab.Er.24h) 1 mg PO DAILY [facility] Last Admin: 05/12/25 08:04 Dose: 1 mg Documented By: HONG Hydroxyzine HCl (Hydroxyzine Hcl 25 Mg Tablet) 25 mg PO Q6H PRN PRN Reason: mild anxiety Last Admin: 05/11/25 09:01 Dose: 25 mg Documented By: HONG Levetiracetam (Levetiracetam 1,000 Mg Tablet) 2,000 mg PO BID [facility]PL[facility] Last Admin: 05/12/25 08:04 Dose: 2,000 mg Documented By: HONG Lidocaine (Lidocaine 4 % Patch Adh..Patch) 1 patch TRANSDERMA DAILY REPLACED BY [facility]; Protocol Last Admin: 05/11/25 13:34 Dose: 1 patch Documented By: HONG Lurasidone HCl (Lurasidone Hcl 40 Mg Tablet) 40 mg PO DAILY [facility]PLACED BY [facility] Last Admin: 05/12/25 08:04 Dose: 40 mg Documented By: HONG Magnesium Hydroxide (Milk Of Magnesia 30 Ml Oral.Susp) 30 ml PO DAILY PRN PRN Reason: Constipation Nicotine Polacrilex (Nicotine Polacrilex 2 Mg Gum) 4 mg BUCCAL Q2H PRN PRN Reason: Nicotine Cravings Last Admin: 05/12/25 08:05 Dose: 4 mg Documented By: HONG Ondansetron HCl (Ondansetron Odt 4 Mg Tab.Rapdis) 4 mg TRANSLINGU Q4H PRN PRN Reason: Nausea and Vomiting Last Admin: 05/07/25 08:40 Dose: 4 mg Documented By: AMARI Pramipexole Dihydrochloride (Pramipexole Di-Hcl 1 Mg Tablet) 3 mg PO BEDTIME REPLACED BY [facility] Last Admin: 05/11/25 20:37 Dose: 3 mg Documented By: BONNIE Pregabalin (Pregabalin 100 Mg Capsule) 300 mg PO BID REPLACED BY [facility] Last Admin: 05/12/25 08:03 Dose: 300 mg Documented By: HONG Propranolol HCl (Propranolol Hcl 20 Mg Tablet) 20 mg PO BID REPLACED BY [facility]; Protocol Last Admin: 05/12/25 08:03 Dose: 20 mg Documented By: HONG Sumatriptan Succinate (Sumatriptan Succinate 25 Mg Tablet) 25 mg PO Q6H PRN PRN Reason: migraine Thiamine HCl (Thiamine Hcl 100 Mg Tablet) 100 mg PO DAILY REPLACED BY [facility] Last Admin: 05/12/25 08:05 Dose: 100 mg Documented By: HONG Trazodone HCl (Trazodone Hcl 50 Mg Tablet) 50 mg PO BEDTIME MRX1 PRN PRN Reason: Insomnia Zolpidem Tartrate (Zolpidem Tartrate 5 Mg Tablet) 5 mg PO BEDTIME PRN PRN Reason: Insomnia Last Admin: 05/11/25 20:37 Dose: 5 mg Documented By: BONNIE Labs Labs: Laboratory Results - last 24 hr 05/11/25 17:24 PT 9.9 L INR 0.9 D-Dimer High Sensitivty 289 Assessment and Plan (1) Right elbow pain: Status: Acute (2) Right leg DVT: Status: Acute (3) History of pulmonary embolus (PE): Status: Acute Plan 34-year-old male with past medical history of bipolar disorder, mood disorder, substance use disorders, conduct disorder, asthma, chronic low back pain with sciatica, hypertension, seizures, 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 Lidoderm patch for pain, and Tylenol Refer to outpatient PT if persistent. Ultrasound to right arm to rule out DVT DVT right leg Started on Eliquis Patient reports a history of DVT in 2019, also had a history of PE in 2022 after a colostomy. Reports that he previously took Xarelto, this was stopped due to hematuria Continue to monitor for hematuria. We will need follow up outpatient Hematology close to his home. Hypertension Not on medications, continue to monitor Blood pressure is stable Low back pain with sciatic Tylenol as needed, can use capsaicin or Lidoderm patches. Seizure disorder Continue Keppra Follow Keppra levels as needed Reports last seizure 2 weeks ago Has an aura that he sees black spots and feels lightheaded prior to seizure activity Thank you for allowing me to participate in the care of this patient. Will follow with you, please notify medical provider with any changes in condition or concerns. Quality Stroke Does the patient have a stroke diagnosis?: No VTE Prior VTE?: No VTE Risk Level:: Medical - low VTE Device Contraindication: Treatment Not Indicated VTE Drug Contraindication: Treatment Not Indicated
[2025-05-12] MEDS: oxyCODONE HCl Immed Release 5 MG TABLET PO (09:44)
--- NOTE | 2025-05-12 09:56 | PC.NURSE ---
Pt requested PRN for 9/10 leg pain pain. Received new PRN order oxycodone 5mg. Pt placed on 5 min check for extra monitoring due to pt receiving 4mg suboxone this morning. Provider CAW and staff made aware.
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
[2025-05-12 20:00] VITALS: BP 120/77; PULSE 90; RESP 18; TEMP 37.2; O2SAT 94
[2025-05-13] MEDS: Buprenorphine/Naloxone 4/1 mg FILM 1 FILM SUBLINGUAL ×3 (02:51→18:43)
[2025-05-13 09:00] VITALS: BP 111/66; PULSE 84; TEMP 36.1; O2SAT 98
[2025-05-13] MEDS: guanFACINE HCl ER 1 MG TAB.ER.24H PO (09:59)
--- NOTE | 2025-05-13 09:59 | HO.PSYCHPN ---
Subjective Subjective Date of Service: 05/13/25 Reason For Visit: unspecified mood disorder Interim History: Focused on his leg pain because of his DVT. Suboxone doesn't help, oxycodone helps the leg pain. He says he is allergic to NSAIDs. He says he was given a dose of oxycodone and asking for that again. Otherwise mood is better. Says he is tolerating the med regimen well. Deneis SI/HI. Denies AVH today. Review of Systems Review of Systems RLE DVT R Elbow pain Mental Status Exam Mental Status Exam Narrative: Pt is alert and oriented; behavior is cooperative, friendly on approach; calm; patient is not in distress; dressed in casual attire with unkempt hair but adequate hygiene; mood is described as better though affect somewhat blunted; eye contact appropriate; Speech is a little slowed but normal volume and prosody and not pressured; no psychomotor agitation/retardation present; thought process is organized and goal directed; Thought content is on tx; still struggling with SI but less so; no HI; no paranoid ideations expressed. Denies AVH and there is no evidence of perceptual disturbance. Patients insight and judgment improved Patient Appearance: Fatigued Patient Orientation: Person, Place, Time and Situation Level of Consciousness: Sedated Patient Behavior: Talkative and Cooperative Mood Description: Flat Affect Description: Flat Patient Cognition Impaired: No Ability to Follow Directions: Fair Speech Pattern: Spontaneous Speech Memory Description: Episodic Impaired Diagnostics Vital Signs (24Hr): Vital Signs - 24 hr 05/12/25 20:00 05/13/25 09:00 Temperature 98.9 F 96.9 F Pulse Rate 90 84 Respiratory Rate 18 Blood Pressure 120/77 111/66 Pulse Oximetry 94 98 Oxygen Delivery Method Room Air Room Air BMI result Body Mass Index 30.5 Labs Labs: Laboratory Results - last 48 hr 05/11/25 17:24 PT 9.9 L INR 0.9 D-Dimer High Sensitivty 289 Imaging Radiology Impressions: ITS Impressions Elbow X-Ray 05/11/25 13:05 IMPRESSION: No acute osseous findings Electronically signed by: Isidoro Hill MD 05/11/2025 02:21 PM EDT Medications Medications Current Medications Acetaminophen (Acetaminophen 325 Mg Tablet) 650 mg PO Q6H PRN PRN Reason: Headache/Pain, Scale 1-10 Last Admin: 05/13/25 07:51 Dose: 650 mg Al Hydroxide/Mg Hydroxide (Magnesium Hydrox/Alum Hydrox 30 Ml Oral.Susp) 30 ml PO Q6H PRN PRN Reason: Heartburn/Nausea Apixaban (Apixaban 5 Mg Tablet) 10 mg PO BID [facility] Stop: 05/18/25 09:01 Last Admin: 05/12/25 21:59 Dose: 10 mg Apixaban (Apixaban 5 Mg Tablet) 5 mg PO BID [facility] Aripiprazole (Aripiprazole 10 Mg Tablet) 10 mg PO BID [facility] Last Admin: 05/12/25 21:59 Dose: 10 mg Benztropine Mesylate (Benztropine Mesylate 0.5 Mg Tablet) 0.5 mg PO BID [facility] Last Admin: 05/12/25 21:59 Dose: 0.5 mg Buprenorphine/Naloxone (Buprenorphine/Naloxone 4/1 Mg Film) 1 film SUBLINGUAL QID PRN PRN Reason: severe pain Last Admin: 05/13/25 02:51 Dose: 1 film Clonazepam (Clonazepam 1 Mg Tablet) 1 mg PO BEDTIME PRN PRN Reason: poor sleep, anxiety Last Admin: 05/12/25 19:32 Dose: 1 mg Clonazepam (Clonazepam 1 Mg Tablet) 1 mg PO BID PRN PRN Reason: anxiety Last Admin: 05/12/25 08:05 Dose: 1 mg Duloxetine HCl (Duloxetine Hcl 20 Mg Capsule.Dr) 20 mg PO DAILY [facility] Last Admin: 05/12/25 08:03 Dose: 20 mg Guanfacine HCl (Guanfacine Hcl Er 1 Mg Tab.Er.24h) 1 mg PO DAILY [facility] Last Admin: 05/12/25 08:04 Dose: 1 mg Hydroxyzine HCl (Hydroxyzine Hcl 25 Mg Tablet) 25 mg PO Q6H PRN PRN Reason: mild anxiety Last Admin: 05/12/25 21:59 Dose: 25 mg Levetiracetam (Levetiracetam 1,000 Mg Tablet) 2,000 mg PO BID [facility] Last Admin: 05/12/25 21:59 Dose: 2,000 mg Lidocaine (Lidocaine 4 % Patch Adh..Patch) 1 patch TRANSDERMA DAILY [facility]; Protocol Last Admin: 05/12/25 09:58 Dose: Not Given Lurasidone HCl (Lurasidone Hcl 40 Mg Tablet) 40 mg PO DAILY [facility] Last Admin: 05/12/25 08:04 Dose: 40 mg Magnesium Hydroxide (Milk Of Magnesia 30 Ml Oral.Susp) 30 ml PO DAILY PRN PRN Reason: Constipation Nicotine Polacrilex (Nicotine Polacrilex 2 Mg Gum) 4 mg BUCCAL Q2H PRN PRN Reason: Nicotine Cravings Last Admin: 05/13/25 06:49 Dose: 4 mg Ondansetron HCl (Ondansetron Odt 4 Mg Tab.Rapdis) 4 mg TRANSLINGU Q4H PRN PRN Reason: Nausea and Vomiting Last Admin: 05/07/25 08:40 Dose: 4 mg Pramipexole Dihydrochloride (Pramipexole Di-Hcl 1 Mg Tablet) 3 mg PO BEDTIME [facility] Last Admin: 05/12/25 22:00 Dose: 3 mg Pregabalin (Pregabalin 100 Mg Capsule) 300 mg PO BID [facility] Last Admin: 05/12/25 21:59 Dose: 300 mg Propranolol HCl (Propranolol Hcl 20 Mg Tablet) 20 mg PO BID [facility]; Protocol Last Admin: 05/12/25 22:05 Dose: 20 mg Sumatriptan Succinate (Sumatriptan Succinate 25 Mg Tablet) 25 mg PO Q6H PRN PRN Reason: migraine Thiamine HCl (Thiamine Hcl 100 Mg Tablet) 100 mg PO DAILY [facility] Last Admin: 05/12/25 08:05 Dose: 100 mg Trazodone HCl (Trazodone Hcl 50 Mg Tablet) 50 mg PO BEDTIME MRX1 PRN PRN Reason: Insomnia Zolpidem Tartrate (Zolpidem Tartrate 5 Mg Tablet) 5 mg PO BEDTIME PRN PRN Reason: Insomnia Last Admin: 05/12/25 21:59 Dose: 5 mg Allergies Allergies Allergy/AdvReac Type Severity Reaction Status Date / Time amoxicillin Allergy Severe Anaphylaxis Verified 04/06/25 21:24 levofloxacin Allergy Severe Hives Verified 04/06/25 21:24 metoclopramide Allergy Severe dystonia Verified 04/06/25 21:24 Penicillins Allergy Severe Anaphylaxis Verified 04/06/25 21:24 codeine Allergy Unknown gi symptoms Verified 04/06/25 21:24 morphine AdvReac Severe chest Verified 04/06/25 21:24 tightness quetiapine (From Seroquel) AdvReac Intermediate restless Verified 05/09/25 12:00 leg symptoms prochlorperazine AdvReac Unknown gi sx Verified 04/06/25 21:24 Assessment & Plan Assessment & Plan (1) Bipolar disorder: Status: Acute Code(s): F31.9 - Bipolar disorder, unspecified (2) PTSD (post-traumatic stress disorder): Status: Acute Code(s): F43.10 - Post-traumatic stress disorder, unspecified (3) Cannabis use disorder: Status: Acute Code(s): F12.90 - Cannabis use, unspecified, uncomplicated (4) Cocaine use disorder: Status: Acute Code(s): F14.10 - Cocaine abuse, uncomplicated Plan 34-year-old male with past medical history of bipolar disorder, mood disorder, substance use disorders, conduct disorder, asthma, chronic low back pain with sciatica, hypertension, seizures, 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 Lidoderm patch for pain, and Tylenol Refer to outpatient PT if persistent. Hypertension Not on medications, continue to monitor Blood pressure is stable Low back pain with sciatic Tylenol as needed, can use capsaicin or Lidoderm patches. Seizure disorder Continue Keppra Follow Keppra levels as needed Reports last seizure 2 weeks ago Has an aura that he sees black spots and feels lightheaded prior to seizure activity Thank you for allowing me to participate in the care of this patient. Will follow with you, please notify medical provider with any changes in condition or concerns. 05/12: Continue tx Increase Suboxone to QID,Q6h prn pain mgt. 05/13: Will give oxycodone low dose for two days and reassess. Otherwise continue current management and treatment plan. Reason for continued inpatient stay Substantial Risk for: harm to self, harm to others, rapid decompensation and med/psych decompensation Time Spent With Patient Time: Total time managing care of this patient today ____ minutes.
[2025-05-13] MEDS: oxyCODONE HCl Immed Release 5 MG TABLET PO ×2 (12:45→21:42)
[2025-05-13 20:31] VITALS: BP 122/73; PULSE 86; RESP 18; TEMP 36.4; O2SAT 95
[2025-05-13 21:40] VITALS: BP 122/73; PULSE 86
[2025-05-14] MEDS: Buprenorphine/Naloxone 4/1 mg FILM 1 FILM SUBLINGUAL ×3 (01:37→15:51)
[2025-05-14] MEDS: oxyCODONE HCl Immed Release 5 MG TABLET PO ×2 (06:38→18:54)
[2025-05-14 08:12] VITALS: BP 144/81; PULSE 98; TEMP 36.6; O2SAT 96
[2025-05-14] MEDS: Lidocaine 4 % Patch ADH..PATCH 1 PATCH TRANSDERMA (08:28)
[2025-05-14] MEDS: guanFACINE HCl ER 1 MG TAB.ER.24H PO (08:29)
--- NOTE | 2025-05-14 09:29 | HO.PSYCHPN ---
Subjective Subjective Date of Service: 05/14/25 Reason For Visit: unspecified mood disorder Interim History: Focused on his leg pain because of his DVT. I could use more oxycodone but I am trying to save it for tonight . Suboxone only helps a little. Otherwise mood is better. Says he is tolerating the medication regimen well. Deneis SI/HI. Denies AVH today. Visible in the milieu but no group participation. Review of Systems Review of Systems RLE DVT R Elbow pain Mental Status Exam Mental Status Exam Narrative: Pt is alert and oriented; behavior is cooperative, friendly on approach; calm; patient is not in distress; dressed in casual attire with unkempt hair but adequate hygiene; mood is described as better though affect somewhat blunted; eye contact appropriate; Speech is a little slowed but normal volume and prosody and not pressured; no psychomotor agitation/retardation present; thought process is organized and goal directed; Thought content is on tx; still struggling with SI but less so; no HI; no paranoid ideations expressed. Denies AVH and there is no evidence of perceptual disturbance. Patients insight and judgment improved Patient Appearance: Fatigued Patient Orientation: Person, Place, Time and Situation Level of Consciousness: Sedated Patient Behavior: Talkative and Cooperative Mood Description: Flat Affect Description: Flat Patient Cognition Impaired: No Ability to Follow Directions: Fair Speech Pattern: Spontaneous Speech Memory Description: Episodic Impaired Diagnostics Vital Signs (24Hr): Vital Signs - 24 hr 05/13/25 20:31 05/13/25 21:40 05/14/25 08:12 Temperature 97.6 F 97.8 F Pulse Rate 86 86 98 Respiratory Rate 18 Blood Pressure 122/73 122/73 144/81 H Pulse Oximetry 95 96 Oxygen Delivery Method Room Air Room Air BMI result Body Mass Index 30.5 Imaging Radiology Impressions: ITS Impressions Elbow X-Ray 05/11/25 13:05 IMPRESSION: No acute osseous findings Electronically signed by: Isidoro Hill MD 05/11/2025 02:21 PM EDT Medications Medications Current Medications Acetaminophen (Acetaminophen 325 Mg Tablet) 650 mg PO Q6H PRN PRN Reason: Headache/Pain, Scale 1-10 Last Admin: 05/13/25 17:50 Dose: 650 mg Al Hydroxide/Mg Hydroxide (Magnesium Hydrox/Alum Hydrox 30 Ml Oral.Susp) 30 ml PO Q6H PRN PRN Reason: Heartburn/Nausea Apixaban (Apixaban 5 Mg Tablet) 10 mg PO BID [facility] Stop: 05/18/25 09:01 Last Admin: 05/14/25 08:29 Dose: 10 mg Apixaban (Apixaban 5 Mg Tablet) 5 mg PO BID [facility] Aripiprazole (Aripiprazole 10 Mg Tablet) 10 mg PO BID [facility] Last Admin: 05/14/25 08:28 Dose: 10 mg Benztropine Mesylate (Benztropine Mesylate 0.5 Mg Tablet) 0.5 mg PO BID [facility] Last Admin: 05/14/25 08:29 Dose: 0.5 mg Buprenorphine/Naloxone (Buprenorphine/Naloxone 4/1 Mg Film) 1 film SUBLINGUAL QID PRN PRN Reason: severe pain Last Admin: 05/14/25 01:37 Dose: 1 film Clonazepam (Clonazepam 1 Mg Tablet) 1 mg PO BEDTIME PRN PRN Reason: poor sleep, anxiety Last Admin: 05/13/25 21:42 Dose: 1 mg Clonazepam (Clonazepam 1 Mg Tablet) 1 mg PO BID PRN PRN Reason: anxiety Last Admin: 05/14/25 02:59 Dose: 1 mg Duloxetine HCl (Duloxetine Hcl 20 Mg Capsule.Dr) 20 mg PO DAILY [facility] Last Admin: 05/14/25 08:29 Dose: 20 mg Guanfacine HCl (Guanfacine Hcl Er 1 Mg Tab.Er.24h) 1 mg PO DAILY [facility] Last Admin: 05/14/25 08:29 Dose: 1 mg Hydroxyzine HCl (Hydroxyzine Hcl 25 Mg Tablet) 25 mg PO Q6H PRN PRN Reason: mild anxiety Last Admin: 05/12/25 21:59 Dose: 25 mg Levetiracetam (Levetiracetam 1,000 Mg Tablet) 2,000 mg PO BID [facility] Last Admin: 05/14/25 08:28 Dose: 2,000 mg Lidocaine (Lidocaine 4 % Patch Adh..Patch) 1 patch TRANSDERMA DAILY [facility]; Protocol Last Admin: 05/14/25 08:28 Dose: 1 patch Lurasidone HCl (Lurasidone Hcl 40 Mg Tablet) 40 mg PO DAILY [facility] Last Admin: 05/14/25 08:28 Dose: 40 mg Magnesium Hydroxide (Milk Of Magnesia 30 Ml Oral.Susp) 30 ml PO DAILY PRN PRN Reason: Constipation Nicotine Polacrilex (Nicotine Polacrilex 2 Mg Gum) 4 mg BUCCAL Q2H PRN PRN Reason: Nicotine Cravings Last Admin: 05/14/25 09:24 Dose: 4 mg Ondansetron HCl (Ondansetron Odt 4 Mg Tab.Rapdis) 4 mg TRANSLINGU Q4H PRN PRN Reason: Nausea and Vomiting Last Admin: 05/07/25 08:40 Dose: 4 mg Oxycodone HCl (Oxycodone Hcl Immed Release 5 Mg Tablet) 5 mg PO BID PRN PRN Reason: Pain, Severe (Pain Scale 7-10) Stop: 05/15/25 07:00 Last Admin: 05/14/25 06:38 Dose: 5 mg Pramipexole Dihydrochloride (Pramipexole Di-Hcl 1 Mg Tablet) 3 mg PO BEDTIME [facility] Last Admin: 05/13/25 21:41 Dose: 3 mg Pregabalin (Pregabalin 100 Mg Capsule) 300 mg PO BID [facility] Last Admin: 05/14/25 08:29 Dose: 300 mg Propranolol HCl (Propranolol Hcl 20 Mg Tablet) 20 mg PO BID [facility]; Protocol Last Admin: 05/14/25 08:29 Dose: 20 mg Sumatriptan Succinate (Sumatriptan Succinate 25 Mg Tablet) 25 mg PO Q6H PRN PRN Reason: migraine Thiamine HCl (Thiamine Hcl 100 Mg Tablet) 100 mg PO DAILY [facility] Last Admin: 05/14/25 08:29 Dose: 100 mg Trazodone HCl (Trazodone Hcl 50 Mg Tablet) 50 mg PO BEDTIME MRX1 PRN PRN Reason: Insomnia Zolpidem Tartrate (Zolpidem Tartrate 5 Mg Tablet) 5 mg PO BEDTIME PRN PRN Reason: Insomnia Last Admin: 05/12/25 21:59 Dose: 5 mg Allergies Allergies Allergy/AdvReac Type Severity Reaction Status Date / Time amoxicillin Allergy Severe Anaphylaxis Verified 04/06/25 21:24 levofloxacin Allergy Severe Hives Verified 04/06/25 21:24 metoclopramide Allergy Severe dystonia Verified 04/06/25 21:24 Penicillins Allergy Severe Anaphylaxis Verified 04/06/25 21:24 codeine Allergy Unknown gi symptoms Verified 04/06/25 21:24 morphine AdvReac Severe chest Verified 04/06/25 21:24 tightness quetiapine (From Seroquel) AdvReac Intermediate restless Verified 05/09/25 12:00 leg symptoms prochlorperazine AdvReac Unknown gi sx Verified 04/06/25 21:24 Assessment & Plan Assessment & Plan (1) Bipolar disorder: Status: Acute Code(s): F31.9 - Bipolar disorder, unspecified (2) PTSD (post-traumatic stress disorder): Status: Acute Code(s): F43.10 - Post-traumatic stress disorder, unspecified (3) Cannabis use disorder: Status: Acute Code(s): F12.90 - Cannabis use, unspecified, uncomplicated (4) Cocaine use disorder: Status: Acute Code(s): F14.10 - Cocaine abuse, uncomplicated Plan 34-year-old male with past medical history of bipolar disorder, mood disorder, substance use disorders, conduct disorder, asthma, chronic low back pain with sciatica, hypertension, seizures, 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 Lidoderm patch for pain, and Tylenol Refer to outpatient PT if persistent. Hypertension Not on medications, continue to monitor Blood pressure is stable Low back pain with sciatic Tylenol as needed, can use capsaicin or Lidoderm patches. Seizure disorder Continue Keppra Follow Keppra levels as needed Reports last seizure 2 weeks ago Has an aura that he sees black spots and feels lightheaded prior to seizure activity Thank you for allowing me to participate in the care of this patient. Will follow with you, please notify medical provider with any changes in condition or concerns. 05/12: Continue tx Increase Suboxone to QID,Q6h prn pain mgt. 05/13: Will give oxycodone low dose for two days and reassess. Otherwise continue current management and treatment plan. 05/14: continue current management and treatment plan. Reason for continued inpatient stay Substantial Risk for: harm to self, inability to function, rapid decompensation and med/psych decompensation Time Spent With Patient Time: Total time managing care of this patient today ____ minutes.
[2025-05-14 19:55] VITALS: BP 124/60; PULSE 65; RESP 15; TEMP 36.9; O2SAT 95
[2025-05-15] MEDS: oxyCODONE HCl Immed Release 5 MG TABLET PO ×4 (00:31→22:04)
[2025-05-15] MEDS: Buprenorphine/Naloxone 4/1 mg FILM 1 FILM SUBLINGUAL ×3 (05:11→20:49)
[2025-05-15 08:00] VITALS: BP 122/71; PULSE 100; RESP 16; TEMP 2.8; TEMP 37.1; O2SAT 95
[2025-05-15] MEDS: guanFACINE HCl ER 1 MG TAB.ER.24H PO (08:47)
--- NOTE | 2025-05-15 09:47 | P.PNPSI_ITS ---
Subjective Subjective Date of Service: 05/15/25 Reason For Visit: unspecified mood disorder Subjective Notes: Conditional Voluntary Healthcare Proxy: No Guardianship: No Medical Problems Affecting Mental Status: No Interim History: Continues to report leg pain with DVT. Oxycodone continued for the weekend. Pt asks to continue dosing to manage pain. Team is working on [facility] referrals for step down. Pt reports med changes initiated last week to be reasonable, without breakthrough of symptoms. His focus, however, is on leg pain/DVT. Medication Compliance: Yes Side effects from medications: No Attending Groups: Intermittent Review of Systems Acute medical concerns: No Medical Review of Systems: unchanged Review of Systems Review of Systems Right leg pain Mental Status Exam Mental Status Exam Patient Appearance: Fatigued Patient Orientation: Person, Place, Time and Situation Level of Consciousness: Alert Patient Behavior: Talkative and Good Eye Contact Mood Description: Blunted Affect Description: Blunted Patient Cognition Impaired: No Ability to Follow Directions: Good Speech Pattern: Spontaneous Speech Memory Description: Episodic Impaired Hallucinations: None Delusions: Not Present Thought Process: Rumination and Goal Oriented Thought Content: positive for Goal Oriented, positive for Perseveration and positive for Suicidal Ideation (denies today) Depressive Symptoms: Thoughts of /Suicide (denies today) Judgement: Fair Diagnostics Vital Signs (24Hr): Vital Signs - 24 hr 05/14/25 19:55 05/15/25 08:00 Temperature 98.5 F 37.1 F L Pulse Rate 65 100 Respiratory Rate 15 16 Blood Pressure 124/60 122/71 Pulse Oximetry 95 95 BMI result Body Mass Index 30.5 Imaging Radiology Impressions: ITS Impressions Elbow X-Ray 05/11/25 13:05 IMPRESSION: No acute osseous findings Electronically signed by: Isidoro Hill MD 05/11/2025 02:21 PM EDT Medications Medications Current Medications Acetaminophen (Acetaminophen 325 Mg Tablet) 650 mg PO Q6H PRN PRN Reason: Headache/Pain, Scale 1-10 Last Admin: 05/15/25 02:22 Dose: 650 mg Al Hydroxide/Mg Hydroxide (Magnesium Hydrox/Alum Hydrox 30 Ml Oral.Susp) 30 ml PO Q6H PRN PRN Reason: Heartburn/Nausea Apixaban (Apixaban 5 Mg Tablet) 10 mg PO BID [facility] Stop: 05/18/25 09:01 Last Admin: 05/15/25 08:47 Dose: 10 mg Apixaban (Apixaban 5 Mg Tablet) 5 mg PO BID [facility] Aripiprazole (Aripiprazole 10 Mg Tablet) 10 mg PO BID [facility] Last Admin: 05/15/25 08:46 Dose: 10 mg Benztropine Mesylate (Benztropine Mesylate 0.5 Mg Tablet) 0.5 mg PO BID [facility] Last Admin: 05/15/25 08:46 Dose: 0.5 mg Buprenorphine/Naloxone (Buprenorphine/Naloxone 4/1 Mg Film) 1 film SUBLINGUAL QID PRN PRN Reason: severe pain Last Admin: 05/15/25 05:11 Dose: 1 film Clonazepam (Clonazepam 1 Mg Tablet) 1 mg PO BEDTIME PRN PRN Reason: poor sleep, anxiety Last Admin: 05/14/25 20:30 Dose: 1 mg Clonazepam (Clonazepam 1 Mg Tablet) 1 mg PO BID PRN PRN Reason: anxiety Last Admin: 05/15/25 07:49 Dose: 1 mg Duloxetine HCl (Duloxetine Hcl 20 Mg Capsule.Dr) 20 mg PO DAILY [facility] Last Admin: 05/15/25 08:46 Dose: 20 mg Guanfacine HCl (Guanfacine Hcl Er 1 Mg Tab.Er.24h) 1 mg PO DAILY [facility] Last Admin: 05/15/25 08:47 Dose: 1 mg Hydroxyzine HCl (Hydroxyzine Hcl 25 Mg Tablet) 25 mg PO Q6H PRN PRN Reason: mild anxiety Last Admin: 05/15/25 03:17 Dose: 25 mg Levetiracetam (Levetiracetam 1,000 Mg Tablet) 2,000 mg PO BID [facility] Last Admin: 05/15/25 08:47 Dose: 2,000 mg Lidocaine (Lidocaine 4 % Patch Adh..Patch) 1 patch TRANSDERMA DAILY [facility]; Protocol Last Admin: 05/14/25 08:28 Dose: 1 patch Lurasidone HCl (Lurasidone Hcl 40 Mg Tablet) 40 mg PO DAILY [facility] Last Admin: 05/15/25 08:47 Dose: 40 mg Magnesium Hydroxide (Milk Of Magnesia 30 Ml Oral.Susp) 30 ml PO DAILY PRN PRN Reason: Constipation Nicotine Polacrilex (Nicotine Polacrilex 2 Mg Gum) 4 mg BUCCAL Q2H PRN PRN Reason: Nicotine Cravings Last Admin: 05/15/25 08:49 Dose: 4 mg Ondansetron HCl (Ondansetron Odt 4 Mg Tab.Rapdis) 4 mg TRANSLINGU Q4H PRN PRN Reason: Nausea and Vomiting Last Admin: 05/07/25 08:40 Dose: 4 mg Pramipexole Dihydrochloride (Pramipexole Di-Hcl 1 Mg Tablet) 3 mg PO BEDTIME TONO Last Admin: 05/14/25 20:30 Dose: 3 mg Pregabalin (Pregabalin 100 Mg Capsule) 300 mg PO BID [facility] Last Admin: 05/15/25 08:47 Dose: 300 mg Propranolol HCl (Propranolol Hcl 20 Mg Tablet) 20 mg PO BID [facility]; Protocol Last Admin: 05/15/25 08:46 Dose: 20 mg Sumatriptan Succinate (Sumatriptan Succinate 25 Mg Tablet) 25 mg PO Q6H PRN PRN Reason: migraine Thiamine HCl (Thiamine Hcl 100 Mg Tablet) 100 mg PO DAILY [facility] Last Admin: 05/15/25 08:47 Dose: 100 mg Trazodone HCl (Trazodone Hcl 50 Mg Tablet) 50 mg PO BEDTIME MRX1 PRN PRN Reason: Insomnia Zolpidem Tartrate (Zolpidem Tartrate 5 Mg Tablet) 5 mg PO BEDTIME PRN PRN Reason: Insomnia Last Admin: 05/14/25 20:29 Dose: 5 mg Allergies Allergies Allergy/AdvReac Type Severity Reaction Status Date / Time amoxicillin Allergy Severe Anaphylaxis Verified 04/06/25 21:24 levofloxacin Allergy Severe Hives Verified 04/06/25 21:24 metoclopramide Allergy Severe dystonia Verified 04/06/25 21:24 Penicillins Allergy Severe Anaphylaxis Verified 04/06/25 21:24 codeine Allergy Unknown gi symptoms Verified 04/06/25 21:24 morphine AdvReac Severe chest Verified 04/06/25 21:24 tightness quetiapine (From Seroquel) AdvReac Intermediate restless Verified 05/09/25 12:00 leg symptoms prochlorperazine AdvReac Unknown gi sx Verified 04/06/25 21:24 Assessment & Plan Assessment & Plan (1) Bipolar disorder: Status: Acute Code(s): F31.9 - Bipolar disorder, unspecified (2) PTSD (post-traumatic stress disorder): Status: Acute Code(s): F43.10 - Post-traumatic stress disorder, unspecified (3) Cannabis use disorder: Status: Acute Code(s): F12.90 - Cannabis use, unspecified, uncomplicated (4) Cocaine use disorder: Status: Acute Code(s): F14.10 - Cocaine abuse, uncomplicated Plan 34-year-old male with past medical history of bipolar disorder, mood disorder, substance use disorders, conduct disorder, asthma, chronic low back pain with sciatica, hypertension, seizures, 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 Lidoderm patch for pain, and Tylenol Refer to outpatient PT if persistent. Hypertension Not on medications, continue to monitor Blood pressure is stable Low back pain with sciatic Tylenol as needed, can use capsaicin or Lidoderm patches. Seizure disorder Continue Keppra Follow Keppra levels as needed Reports last seizure 2 weeks ago Has an aura that he sees black spots and feels lightheaded prior to seizure activity Thank you for allowing me to participate in the care of this patient. Will follow with you, please notify medical provider with any changes in condition or concerns. 05/12: Continue tx Increase Suboxone to QID,Q6h prn pain mgt. 05/13: Will give oxycodone low dose for two days and reassess. Otherwise continue current management and treatment plan. 05/14: continue current management and treatment plan. 05/15: continue tx Reason for continued inpatient stay Substantial Risk for: rapid decompensation and med/psych decompensation Time Spent With Patient Time: Total time managing care of this patient today ____ minutes.
[2025-05-15 20:47] VITALS: BP 132/64; PULSE 99
[2025-05-15 21:01] VITALS: BP 132/64; PULSE 99; RESP 18; TEMP 37.2; O2SAT 96
[2025-05-16] MEDS: Buprenorphine/Naloxone 4/1 mg FILM 1 FILM SUBLINGUAL ×3 (06:04→18:50)
[2025-05-16 08:00] VITALS: BP 128/70; PULSE 97; RESP 16; TEMP 36.6; O2SAT 94
[2025-05-16] MEDS: guanFACINE HCl ER 1 MG TAB.ER.24H PO (08:40)
[2025-05-16] MEDS: oxyCODONE HCl Immed Release 5 MG TABLET PO ×2 (09:10→22:56)
--- NOTE | 2025-05-16 18:05 | P.PNPSI_ITS ---
Subjective Subjective Date of Service: 05/16/25 Reason For Visit: unspecified mood disorder Subjective Notes: Conditional Voluntary Healthcare Proxy: No Guardianship: No Medical Problems Affecting Mental Status: No Interim History: Reports a shift in leg pain to RLE, feet. Discussed with hospitalist team-they suggest no further diagnostics and to allow plan of care to take effect. Discussed with pt. CCS applications placed by team-pt is feeling positive about this plan. Slept six hours last night. Denies SI,HI,AH,VH. No sx of acute elda or psychosis. Medication Compliance: Yes Side effects from medications: No Attending Groups: Intermittent Review of Systems Acute medical concerns: Yes DVT Medical Review of Systems: unchanged Review of Systems Review of Systems R Leg pain from DVT Mental Status Exam Mental Status Exam Patient Appearance: Fatigued Patient Orientation: Person, Place, Time and Situation Level of Consciousness: Alert Patient Behavior: Talkative and Good Eye Contact Mood Description: Blunted Affect Description: Blunted Patient Cognition Impaired: No Ability to Follow Directions: Good Speech Pattern: Spontaneous Speech Memory Description: Episodic Impaired Hallucinations: None Delusions: Not Present Thought Process: Rumination and Goal Oriented Thought Content: positive for Goal Oriented, positive for Perseveration and positive for Suicidal Ideation (denies today) Depressive Symptoms: Thoughts of /Suicide (denies today) Judgement: Fair Diagnostics Vital Signs (24Hr): Vital Signs - 24 hr 05/15/25 20:47 05/15/25 21:01 05/16/25 08:00 Temperature 99.0 F 97.8 F Pulse Rate 99 99 97 Respiratory Rate 18 16 Blood Pressure 132/64 132/64 128/70 Pulse Oximetry 96 94 Oxygen Delivery Method Room Air BMI result Body Mass Index 30.5 Imaging Radiology Impressions: ITS Impressions Elbow X-Ray 05/11/25 13:05 IMPRESSION: No acute osseous findings Electronically signed by: Isidoro Hill MD 05/11/2025 02:21 PM EDT RP Medications Medications Current Medications Acetaminophen (Acetaminophen 325 Mg Tablet) 650 mg PO Q6H PRN PRN Reason: Headache/Pain, Scale 1-10 Last Admin: 05/15/25 02:22 Dose: 650 mg Al Hydroxide/Mg Hydroxide (Magnesium Hydrox/Alum Hydrox 30 Ml Oral.Susp) 30 ml PO Q6H PRN PRN Reason: Heartburn/Nausea Apixaban (Apixaban 5 Mg Tablet) 10 mg PO BID [facility] Stop: 05/18/25 09:01 Last Admin: 05/16/25 08:41 Dose: 10 mg Apixaban (Apixaban 5 Mg Tablet) 5 mg PO BID [facility] Aripiprazole (Aripiprazole 10 Mg Tablet) 10 mg PO BID [facility] Last Admin: 05/16/25 08:42 Dose: 10 mg Benzocaine (Benzocaine 20 % Oral Gel 14 Gm Tube) 1 appl MUCOUS MEM QID PRN; Protocol PRN Reason: mouth pain Benztropine Mesylate (Benztropine Mesylate 1 Mg Tablet) 1 mg PO BID [facility] Last Admin: 05/16/25 08:42 Dose: 1 mg Buprenorphine/Naloxone (Buprenorphine/Naloxone 4/1 Mg Film) 1 film SUBLINGUAL QID PRN PRN Reason: severe pain Last Admin: 05/16/25 13:01 Dose: 1 film Clonazepam (Clonazepam 1 Mg Tablet) 1 mg PO BEDTIME PRN PRN Reason: poor sleep, anxiety Last Admin: 05/14/25 20:30 Dose: 1 mg Clonazepam (Clonazepam 1 Mg Tablet) 1 mg PO BID PRN PRN Reason: anxiety Last Admin: 05/16/25 16:36 Dose: 1 mg Duloxetine HCl (Duloxetine Hcl 20 Mg Capsule.Dr) 20 mg PO DAILY [facility] Last Admin: 05/16/25 08:40 Dose: 20 mg Guanfacine HCl (Guanfacine Hcl Er 1 Mg Tab.Er.24h) 1 mg PO DAILY [facility] Last Admin: 05/16/25 08:40 Dose: 1 mg Hydroxyzine HCl (Hydroxyzine Hcl 25 Mg Tablet) 25 mg PO Q6H PRN PRN Reason: mild anxiety Last Admin: 05/16/25 08:40 Dose: 25 mg Levetiracetam (Levetiracetam 1,000 Mg Tablet) 2,000 mg PO BID [facility] Last Admin: 05/16/25 08:42 Dose: 2,000 mg Lidocaine (Lidocaine 4 % Patch Adh..Patch) 1 patch TRANSDERMA DAILY [facility]; Protocol Last Admin: 05/16/25 13:55 Dose: Not Given Lurasidone HCl (Lurasidone Hcl 40 Mg Tablet) 40 mg PO DAILY [facility] Last Admin: 05/16/25 08:41 Dose: 40 mg Magnesium Hydroxide (Milk Of Magnesia 30 Ml Oral.Susp) 30 ml PO DAILY PRN PRN Reason: Constipation Nicotine Polacrilex (Nicotine Polacrilex 2 Mg Gum) 4 mg BUCCAL Q2H PRN PRN Reason: Nicotine Cravings Last Admin: 05/16/25 13:01 Dose: 4 mg Ondansetron HCl (Ondansetron Odt 4 Mg Tab.Rapdis) 4 mg TRANSLINGU Q4H PRN PRN Reason: Nausea and Vomiting Last Admin: 05/07/25 08:40 Dose: 4 mg Oxycodone HCl (Oxycodone Hcl Immed Release 5 Mg Tablet) 5 mg PO Q12H PRN PRN Reason: DVT leg pain Stop: 05/17/25 10:00 Last Admin: 05/16/25 09:10 Dose: 5 mg Pramipexole Dihydrochloride (Pramipexole Di-Hcl 1 Mg Tablet) 3 mg PO BEDTIME TONO Last Admin: 05/15/25 20:47 Dose: 3 mg Pregabalin (Pregabalin 100 Mg Capsule) 300 mg PO BID [facility] Last Admin: 05/16/25 08:40 Dose: 300 mg Propranolol HCl (Propranolol Hcl 20 Mg Tablet) 20 mg PO BID [facility]; Protocol Last Admin: 05/16/25 08:40 Dose: 20 mg Sumatriptan Succinate (Sumatriptan Succinate 25 Mg Tablet) 25 mg PO Q6H PRN PRN Reason: migraine Thiamine HCl (Thiamine Hcl 100 Mg Tablet) 100 mg PO DAILY [facility] Last Admin: 05/16/25 08:40 Dose: 100 mg Trazodone HCl (Trazodone Hcl 50 Mg Tablet) 50 mg PO BEDTIME MRX1 PRN PRN Reason: Insomnia Zolpidem Tartrate (Zolpidem Tartrate 5 Mg Tablet) 5 mg PO BEDTIME PRN PRN Reason: Insomnia Last Admin: 05/14/25 20:29 Dose: 5 mg Allergies Allergies Allergy/AdvReac Type Severity Reaction Status Date / Time amoxicillin Allergy Severe Anaphylaxis Verified 04/06/25 21:24 levofloxacin Allergy Severe Hives Verified 04/06/25 21:24 metoclopramide Allergy Severe dystonia Verified 04/06/25 21:24 Penicillins Allergy Severe Anaphylaxis Verified 04/06/25 21:24 codeine Allergy Unknown gi symptoms Verified 04/06/25 21:24 morphine AdvReac Severe chest Verified 04/06/25 21:24 tightness quetiapine (From Seroquel) AdvReac Intermediate restless Verified 05/09/25 12:00 leg symptoms prochlorperazine AdvReac Unknown gi sx Verified 04/06/25 21:24 Assessment & Plan Assessment & Plan (1) Bipolar disorder: Status: Acute Code(s): F31.9 - Bipolar disorder, unspecified (2) PTSD (post-traumatic stress disorder): Status: Acute Code(s): F43.10 - Post-traumatic stress disorder, unspecified (3) Cannabis use disorder: Status: Acute Code(s): F12.90 - Cannabis use, unspecified, uncomplicated (4) Cocaine use disorder: Status: Acute Code(s): F14.10 - Cocaine abuse, uncomplicated Plan 34-year-old male with past medical history of bipolar disorder, mood disorder, substance use disorders, conduct disorder, asthma, chronic low back pain with sciatica, hypertension, seizures, 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 Lidoderm patch for pain, and Tylenol Refer to outpatient PT if persistent. Hypertension Not on medications, continue to monitor Blood pressure is stable Low back pain with sciatic Tylenol as needed, can use capsaicin or Lidoderm patches. Seizure disorder Continue Keppra Follow Keppra levels as needed Reports last seizure 2 weeks ago Has an aura that he sees black spots and feels lightheaded prior to seizure activity Thank you for allowing me to participate in the care of this patient. Will follow with you, please notify medical provider with any changes in condition or concerns. 05/12: Continue tx Increase Suboxone to QID,Q6h prn pain mgt. 05/13: Will give oxycodone low dose for two days and reassess. Otherwise continue current management and treatment plan. 05/14: continue current management and treatment plan. 05/16: contine tx Reason for continued inpatient stay Substantial Risk for: rapid decompensation and med/psych decompensation Time Spent With Patient Time: Total time managing care of this patient today ____ minutes.
[2025-05-16 20:46] VITALS: BP 110/71; PULSE 78
[2025-05-16 21:44] VITALS: BP 110/71; PULSE 78; RESP 16; TEMP 36.4; O2SAT 97
[2025-05-17] MEDS: Buprenorphine/Naloxone 4/1 mg FILM 1 FILM SUBLINGUAL ×3 (01:00→19:14)
[2025-05-17 07:59] VITALS: BP 128/81; PULSE 86; RESP 18; TEMP 35.7; O2SAT 97
[2025-05-17] MEDS: guanFACINE HCl ER 1 MG TAB.ER.24H PO (08:25)
[2025-05-17] MEDS: Lidocaine 4 % Patch ADH..PATCH 1 PATCH TRANSDERMA (08:26)
--- NOTE | 2025-05-17 09:13 | HO.PSYCHPN ---
Subjective Subjective Date of Service: 05/17/25 Reason For Visit: unspecified mood disorder Subjective Notes: Conditional Voluntary Healthcare Proxy: No Guardianship: No Medical Problems Affecting Mental Status: No Interim History: Discussed Abilify titration. On 05/18 will increase to 10 mg a.m. 15 mg h.s TEDS and elevation ordered for Right leg/foot. Pain med continued. Continue BID. Visable in the milieu, clear, reports he felt better on higher dose Abilify, however feels improved with decreases as he feels less medicated with less EPS sx. Medication Compliance: Yes Side effects from medications: No Attending Groups: No Review of Systems DVT resolving Review of Systems Review of Systems DVT resolving Mental Status Exam Mental Status Exam Patient Appearance: Fatigued Patient Orientation: Person, Place, Time and Situation Level of Consciousness: Alert Patient Behavior: Talkative and Good Eye Contact Mood Description: Blunted Affect Description: Blunted Patient Cognition Impaired: No Ability to Follow Directions: Good Speech Pattern: Spontaneous Speech Memory Description: Episodic Impaired Hallucinations: None Delusions: Not Present Thought Process: Rumination and Goal Oriented Thought Content: positive for Goal Oriented, positive for Perseveration and positive for Suicidal Ideation (denies today) Depressive Symptoms: Thoughts of /Suicide (denies today) Judgement: Fair Diagnostics Vital Signs (24Hr): Vital Signs - 24 hr 05/16/25 20:46 05/16/25 21:44 05/17/25 07:59 Temperature 97.6 F 96.3 F L Pulse Rate 78 78 86 Respiratory Rate 16 18 Blood Pressure 110/71 110/71 128/81 Pulse Oximetry 97 97 Oxygen Delivery Method Room Air Room Air BMI result Body Mass Index 30.5 Imaging Radiology Impressions: ITS Impressions Elbow X-Ray 05/11/25 13:05 IMPRESSION: No acute osseous findings Electronically signed by: Isidoro Hill MD 05/11/2025 02:21 PM EDT RP Medications Medications Current Medications Acetaminophen (Acetaminophen 325 Mg Tablet) 650 mg PO Q6H PRN PRN Reason: Headache/Pain, Scale 1-10 Last Admin: 05/15/25 02:22 Dose: 650 mg Al Hydroxide/Mg Hydroxide (Magnesium Hydrox/Alum Hydrox 30 Ml Oral.Susp) 30 ml PO Q6H PRN PRN Reason: Heartburn/Nausea Apixaban (Apixaban 5 Mg Tablet) 10 mg PO BID [facility] Stop: 05/18/25 09:01 Last Admin: 05/17/25 08:25 Dose: 10 mg Apixaban (Apixaban 5 Mg Tablet) 5 mg PO BID [facility] Aripiprazole (Aripiprazole 10 Mg Tablet) 10 mg PO BID [facility] Last Admin: 05/17/25 08:25 Dose: 10 mg Benzocaine (Benzocaine 20 % Oral Gel 14 Gm Tube) 1 appl MUCOUS MEM QID PRN; Protocol PRN Reason: mouth pain Benztropine Mesylate (Benztropine Mesylate 1 Mg Tablet) 1 mg PO BID [facility] Last Admin: 05/17/25 08:25 Dose: 1 mg Buprenorphine/Naloxone (Buprenorphine/Naloxone 4/1 Mg Film) 1 film SUBLINGUAL QID PRN PRN Reason: severe pain Last Admin: 05/17/25 07:36 Dose: 1 film Clonazepam (Clonazepam 1 Mg Tablet) 1 mg PO BEDTIME PRN PRN Reason: poor sleep, anxiety Last Admin: 05/16/25 20:47 Dose: 1 mg Clonazepam (Clonazepam 1 Mg Tablet) 1 mg PO BID PRN PRN Reason: anxiety Last Admin: 05/17/25 06:07 Dose: 1 mg Duloxetine HCl (Duloxetine Hcl 20 Mg Capsule.Dr) 20 mg PO DAILY [facility] Last Admin: 05/17/25 08:25 Dose: 20 mg Guanfacine HCl (Guanfacine Hcl Er 1 Mg Tab.Er.24h) 1 mg PO DAILY [facility] Last Admin: 05/17/25 08:25 Dose: 1 mg Hydroxyzine HCl (Hydroxyzine Hcl 25 Mg Tablet) 25 mg PO Q6H PRN PRN Reason: mild anxiety Last Admin: 05/16/25 20:47 Dose: 25 mg Levetiracetam (Levetiracetam 1,000 Mg Tablet) 2,000 mg PO BID [facility] Last Admin: 05/17/25 08:25 Dose: 2,000 mg Lidocaine (Lidocaine 4 % Patch Adh..Patch) 1 patch TRANSDERMA DAILY [facility]; Protocol Last Admin: 05/17/25 08:26 Dose: 1 patch Lurasidone HCl (Lurasidone Hcl 40 Mg Tablet) 40 mg PO DAILY [facility] Last Admin: 05/17/25 08:25 Dose: 40 mg Magnesium Hydroxide (Milk Of Magnesia 30 Ml Oral.Susp) 30 ml PO DAILY PRN PRN Reason: Constipation Nicotine Polacrilex (Nicotine Polacrilex 2 Mg Gum) 4 mg BUCCAL Q2H PRN PRN Reason: Nicotine Cravings Last Admin: 05/17/25 07:41 Dose: 4 mg Ondansetron HCl (Ondansetron Odt 4 Mg Tab.Rapdis) 4 mg TRANSLINGU Q4H PRN PRN Reason: Nausea and Vomiting Last Admin: 05/07/25 08:40 Dose: 4 mg Oxycodone HCl (Oxycodone Hcl Immed Release 5 Mg Tablet) 5 mg PO Q12H PRN PRN Reason: DVT leg pain Stop: 05/17/25 10:00 Last Admin: 05/16/25 22:56 Dose: 5 mg Pramipexole Dihydrochloride (Pramipexole Di-Hcl 1 Mg Tablet) 3 mg PO BEDTIME TONO Last Admin: 05/16/25 20:44 Dose: 3 mg Pregabalin (Pregabalin 100 Mg Capsule) 300 mg PO BID [facility] Last Admin: 05/17/25 08:25 Dose: 300 mg Propranolol HCl (Propranolol Hcl 20 Mg Tablet) 20 mg PO BID [facility]; Protocol Last Admin: 05/17/25 08:25 Dose: 20 mg Sumatriptan Succinate (Sumatriptan Succinate 25 Mg Tablet) 25 mg PO Q6H PRN PRN Reason: migraine Thiamine HCl (Thiamine Hcl 100 Mg Tablet) 100 mg PO DAILY [facility] Last Admin: 05/17/25 08:25 Dose: 100 mg Trazodone HCl (Trazodone Hcl 50 Mg Tablet) 50 mg PO BEDTIME MRX1 PRN PRN Reason: Insomnia Zolpidem Tartrate (Zolpidem Tartrate 5 Mg Tablet) 5 mg PO BEDTIME PRN PRN Reason: Insomnia Last Admin: 05/14/25 20:29 Dose: 5 mg Allergies Allergies Allergy/AdvReac Type Severity Reaction Status Date / Time amoxicillin Allergy Severe Anaphylaxis Verified 04/06/25 21:24 levofloxacin Allergy Severe Hives Verified 04/06/25 21:24 metoclopramide Allergy Severe dystonia Verified 04/06/25 21:24 Penicillins Allergy Severe Anaphylaxis Verified 04/06/25 21:24 codeine Allergy Unknown gi symptoms Verified 04/06/25 21:24 morphine AdvReac Severe chest Verified 04/06/25 21:24 tightness quetiapine (From Seroquel) AdvReac Intermediate restless Verified 05/09/25 12:00 leg symptoms prochlorperazine AdvReac Unknown gi sx Verified 04/06/25 21:24 Assessment & Plan Assessment & Plan (1) Bipolar disorder: Status: Acute Code(s): F31.9 - Bipolar disorder, unspecified (2) PTSD (post-traumatic stress disorder): Status: Acute Code(s): F43.10 - Post-traumatic stress disorder, unspecified (3) Cannabis use disorder: Status: Acute Code(s): F12.90 - Cannabis use, unspecified, uncomplicated (4) Cocaine use disorder: Status: Acute Code(s): F14.10 - Cocaine abuse, uncomplicated Plan 34-year-old male with past medical history of bipolar disorder, mood disorder, substance use disorders, conduct disorder, asthma, chronic low back pain with sciatica, hypertension, seizures, 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 Lidoderm patch for pain, and Tylenol Refer to outpatient PT if persistent. Hypertension Not on medications, continue to monitor Blood pressure is stable Low back pain with sciatic Tylenol as needed, can use capsaicin or Lidoderm patches. Seizure disorder Continue Keppra Follow Keppra levels as needed Reports last seizure 2 weeks ago Has an aura that he sees black spots and feels lightheaded prior to seizure activity Thank you for allowing me to participate in the care of this patient. Will follow with you, please notify medical provider with any changes in condition or concerns. 05/12: Continue tx Increase Suboxone to QID,Q6h prn pain mgt. 05/13: Will give oxycodone low dose for two days and reassess. Otherwise continue current management and treatment plan. 05/14: continue current management and treatment plan. 05/16: contine tx 05/17: On 05/18, increase Abilify to 10 mg a.m. 15 mg h.s. TEDS/Elevation per hospitalist for R Leg/Foot DVT resolution. Reason for continued inpatient stay Substantial Risk for: rapid decompensation and med/psych decompensation Time Spent With Patient Time: Total time managing care of this patient today ____ minutes.
[2025-05-17] MEDS: oxyCODONE HCl Immed Release 5 MG TABLET PO ×2 (11:02→22:58)
[2025-05-17 20:00] VITALS: BP 119/71; PULSE 90; RESP 16; TEMP 36.8; O2SAT 94
[2025-05-17 21:25] VITALS: BP 119/71; PULSE 90
[2025-05-18] MEDS: Buprenorphine/Naloxone 4/1 mg FILM 1 FILM SUBLINGUAL ×2 (05:19→20:38)
[2025-05-18 07:00] VITALS: BMI 32.0
[2025-05-18 08:24] VITALS: BP 110/66; PULSE 91; RESP 16; TEMP 36.5; O2SAT 97
[2025-05-18] MEDS: guanFACINE HCl ER 1 MG TAB.ER.24H PO (08:27)
[2025-05-18] MEDS: Lidocaine 4 % Patch ADH..PATCH 1 PATCH TRANSDERMA (08:29)
[2025-05-18] MEDS: oxyCODONE HCl Immed Release 5 MG TABLET PO ×2 (11:48→23:47)
--- NOTE | 2025-05-18 16:04 | P.PNPSI_ITS ---
Subjective Subjective Date of Service: 05/18/25 Reason For Visit: unspecified mood disorder Subjective Notes: Conditional Voluntary Healthcare Proxy: No Guardianship: No Medical Problems Affecting Mental Status: No Interim History: Pt reports some pain relief from DVT, TEDS are helpful. Slept 5 hours per team. Planning discharge over the next few days, when respite bed is available for him. Will begin to taper oxycodone 05/20, 2.5 mg bid, then 2.5 mg qd on 05/21 then dc. Pt is agreeable with this plan and participated in the planning. Denies SI,HI VH. Some AH- Abilify will increase this evening. 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 Visable and social in milieu. Medication Compliance: Yes Side effects from medications: No Attending Groups: Intermittent Review of Systems DVT recovery Medical Review of Systems: unchanged Review of Systems Review of Systems Reports a decrease in leg pain. Mental Status Exam Mental Status Exam Patient Appearance: Appropriate Patient Orientation: Person, Place, Time and Situation Level of Consciousness: Alert Patient Behavior: Talkative and Good Eye Contact Mood Description: Appropriate Affect Description: Appropriate Patient Cognition Impaired: No Ability to Follow Directions: Good Speech Pattern: Spontaneous Speech Memory Description: Episodic Impaired Hallucinations: Auditory (at times, Abilify to increase this evening.) Delusions: Not Present Thought Process: Rumination and Goal Oriented Thought Content: positive for Goal Oriented and positive for Suicidal Ideation (denies today) Depressive Symptoms: Thoughts of /Suicide (denies today) Judgement: Good Diagnostics Vital Signs (24Hr): Vital Signs - 24 hr 05/17/25 20:00 05/17/25 21:25 05/18/25 08:24 Temperature 98.2 F 97.7 F Pulse Rate 90 90 91 Respiratory Rate 16 16 Blood Pressure 119/71 119/71 110/66 Pulse Oximetry 94 97 Oxygen Delivery Method Room Air Room Air BMI result Body Mass Index 30.5 Imaging Radiology Impressions: ITS Impressions Elbow X-Ray 05/11/25 13:05 IMPRESSION: No acute osseous findings Electronically signed by: Isidoro Hill MD 05/11/2025 02:21 PM EDT RP Medications Medications Current Medications Acetaminophen (Acetaminophen 325 Mg Tablet) 650 mg PO Q6H PRN PRN Reason: Headache/Pain, Scale 1-10 Last Admin: 05/18/25 06:56 Dose: 650 mg Al Hydroxide/Mg Hydroxide (Magnesium Hydrox/Alum Hydrox 30 Ml Oral.Susp) 30 ml PO Q6H PRN PRN Reason: Heartburn/Nausea Apixaban (Apixaban 5 Mg Tablet) 5 mg PO BID [facility] Aripiprazole (Aripiprazole 10 Mg Tablet) 10 mg PO DAILY [facility] Aripiprazole (Aripiprazole 15 Mg Tablet) 15 mg PO BEDTIME [facility] Benzocaine (Benzocaine 20 % Oral Gel 14 Gm Tube) 1 appl MUCOUS MEM QID PRN; Protocol PRN Reason: mouth pain Benztropine Mesylate (Benztropine Mesylate 1 Mg Tablet) 1 mg PO BID [facility] Last Admin: 05/18/25 08:27 Dose: 1 mg Buprenorphine/Naloxone (Buprenorphine/Naloxone 4/1 Mg Film) 1 film SUBLINGUAL QID PRN PRN Reason: severe pain Last Admin: 05/18/25 05:19 Dose: 1 film Clonazepam (Clonazepam 1 Mg Tablet) 1 mg PO BEDTIME PRN PRN Reason: poor sleep, anxiety Last Admin: 05/17/25 21:25 Dose: 1 mg Clonazepam (Clonazepam 1 Mg Tablet) 1 mg PO BID PRN PRN Reason: anxiety Last Admin: 05/18/25 09:15 Dose: 1 mg Duloxetine HCl (Duloxetine Hcl 20 Mg Capsule.Dr) 20 mg PO DAILY [facility] Last Admin: 05/18/25 08:26 Dose: 20 mg Guanfacine HCl (Guanfacine Hcl Er 1 Mg Tab.Er.24h) 1 mg PO DAILY [facility] Last Admin: 05/18/25 08:27 Dose: 1 mg Hydroxyzine HCl (Hydroxyzine Hcl 25 Mg Tablet) 25 mg PO Q6H PRN PRN Reason: mild anxiety Last Admin: 05/18/25 03:28 Dose: 25 mg Levetiracetam (Levetiracetam 1,000 Mg Tablet) 2,000 mg PO BID [facility] Last Admin: 05/18/25 08:26 Dose: 2,000 mg Lidocaine (Lidocaine 4 % Patch Adh..Patch) 1 patch TRANSDERMA DAILY [facility]; Protocol Last Admin: 05/18/25 08:29 Dose: 1 patch Lurasidone HCl (Lurasidone Hcl 40 Mg Tablet) 40 mg PO DAILY [facility] Last Admin: 05/18/25 08:27 Dose: 40 mg Magnesium Hydroxide (Milk Of Magnesia 30 Ml Oral.Susp) 30 ml PO DAILY PRN PRN Reason: Constipation Nicotine Polacrilex (Nicotine Polacrilex 2 Mg Gum) 4 mg BUCCAL Q2H PRN PRN Reason: Nicotine Cravings Last Admin: 05/18/25 14:47 Dose: 4 mg Ondansetron HCl (Ondansetron Odt 4 Mg Tab.Rapdis) 4 mg TRANSLINGU Q4H PRN PRN Reason: Nausea and Vomiting Last Admin: 05/07/25 08:40 Dose: 4 mg Oxycodone HCl (Oxycodone Hcl Immed Release 5 Mg Tablet) 5 mg PO Q12H PRN PRN Reason: leg pain- DVT Last Admin: 05/18/25 11:48 Dose: 5 mg Pramipexole Dihydrochloride (Pramipexole Di-Hcl 1 Mg Tablet) 3 mg PO BEDTIME [facility] Last Admin: 05/17/25 21:24 Dose: 3 mg Pregabalin (Pregabalin 100 Mg Capsule) 300 mg PO BID [facility] Last Admin: 05/18/25 08:28 Dose: 300 mg Propranolol HCl (Propranolol Hcl 20 Mg Tablet) 20 mg PO BID [facility]; Protocol Last Admin: 05/18/25 08:26 Dose: 20 mg Sumatriptan Succinate (Sumatriptan Succinate 25 Mg Tablet) 25 mg PO Q6H PRN PRN Reason: migraine Thiamine HCl (Thiamine Hcl 100 Mg Tablet) 100 mg PO DAILY [facility] Last Admin: 05/18/25 08:29 Dose: 100 mg Trazodone HCl (Trazodone Hcl 50 Mg Tablet) 50 mg PO BEDTIME MRX1 PRN PRN Reason: Insomnia Zolpidem Tartrate (Zolpidem Tartrate 5 Mg Tablet) 5 mg PO BEDTIME PRN PRN Reason: Insomnia Last Admin: 05/14/25 20:29 Dose: 5 mg Allergies Allergies Allergy/AdvReac Type Severity Reaction Status Date / Time amoxicillin Allergy Severe Anaphylaxis Verified 04/06/25 21:24 levofloxacin Allergy Severe Hives Verified 04/06/25 21:24 metoclopramide Allergy Severe dystonia Verified 04/06/25 21:24 Penicillins Allergy Severe Anaphylaxis Verified 04/06/25 21:24 codeine Allergy Unknown gi symptoms Verified 04/06/25 21:24 morphine AdvReac Severe chest Verified 04/06/25 21:24 tightness quetiapine (From Seroquel) AdvReac Intermediate restless Verified 05/09/25 12:00 leg symptoms prochlorperazine AdvReac Unknown gi sx Verified 04/06/25 21:24 Assessment & Plan Assessment & Plan (1) Bipolar disorder: Status: Acute Code(s): F31.9 - Bipolar disorder, unspecified (2) PTSD (post-traumatic stress disorder): Status: Acute Code(s): F43.10 - Post-traumatic stress disorder, unspecified (3) Cannabis use disorder: Status: Acute Code(s): F12.90 - Cannabis use, unspecified, uncomplicated (4) Cocaine use disorder: Status: Acute Code(s): F14.10 - Cocaine abuse, uncomplicated Plan 34-year-old male with past medical history of bipolar disorder, mood disorder, substance use disorders, conduct disorder, asthma, chronic low back pain with sciatica, hypertension, seizures, 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 Lidoderm patch for pain, and Tylenol Refer to outpatient PT if persistent. Hypertension Not on medications, continue to monitor Blood pressure is stable Low back pain with sciatic Tylenol as needed, can use capsaicin or Lidoderm patches. Seizure disorder Continue Keppra Follow Keppra levels as needed Reports last seizure 2 weeks ago Has an aura that he sees black spots and feels lightheaded prior to seizure activity Thank you for allowing me to participate in the care of this patient. Will follow with you, please notify medical provider with any changes in condition or concerns. 05/12: Continue tx Increase Suboxone to QID,Q6h prn pain mgt. 05/13: Will give oxycodone low dose for two days and reassess. Otherwise continue current management and treatment plan. 05/14: continue current management and treatment plan. 05/16: contine tx 05/17: On 05/18, increase Abilify to 10 mg a.m. 15 mg h.s. TEDS/Elevation per hospitalist for R Leg/Foot DVT resolution. 05/18: Continue tx Preparing for discharge Oxy tapering, On 05/20 2.5 mg bid. On 05/21 2.5 mg daily, then discontinue. Reason for continued inpatient stay Substantial Risk for: rapid decompensation and med/psych decompensation Time Spent With Patient Time: Total time managing care of this patient today ____ minutes.
[2025-05-18 20:00] VITALS: BP 130/74; PULSE 94; RESP 16; TEMP 36.9; O2SAT 96
[2025-05-18 20:38] VITALS: BP 128/68; PULSE 72
[2025-05-19] MEDS: Buprenorphine/Naloxone 4/1 mg FILM 1 FILM SUBLINGUAL ×2 (03:57→20:12)
[2025-05-19 07:57] VITALS: BP 132/78; PULSE 75; RESP 16; TEMP 36.4; O2SAT 97
[2025-05-19] MEDS: Lidocaine 4 % Patch ADH..PATCH 1 PATCH TRANSDERMA (08:45)
[2025-05-19] MEDS: guanFACINE HCl ER 1 MG TAB.ER.24H PO (08:50)
[2025-05-19] MEDS: oxyCODONE HCl Immed Release 5 MG TABLET PO (11:23)
--- NOTE | 2025-05-19 12:39 | P.PNPSI_ITS ---
Subjective Subjective Date of Service: 05/19/25 Reason For Visit: unspecified mood disorder Subjective Notes: Conditional Voluntary Healthcare Proxy: No Guardianship: No Medical Problems Affecting Mental Status: No Interim History: Pt anticipating discharge for 05/23. Reports sleeping 6-8 hours with interruptions, SI persists due to voices- you suck, , however I am trying to put them in perspective. TEDS and elevation for DVT is effective, pain has decreased and pain med tapering to begin 05/20. Denies HI, +AH, -VH Discussed increasing Abilify back to 15 mg bid and a prn for voices, along with sleep meds. Medication Compliance: Yes Side effects from medications: No Attending Groups: Intermittent Review of Systems Acute medical concerns: No Medical Review of Systems: unchanged Review of Systems Review of Systems Decrease in DVT pain Mental Status Exam Mental Status Exam Patient Appearance: Appropriate Patient Orientation: Person, Place, Time and Situation Level of Consciousness: Alert Patient Behavior: Talkative and Good Eye Contact Mood Description: Appropriate Affect Description: Appropriate Patient Cognition Impaired: No Ability to Follow Directions: Good Speech Pattern: Spontaneous Speech Memory Description: Episodic Impaired Hallucinations: Auditory (at times, Abilify to increase this evening.) Delusions: Not Present Thought Process: Goal Oriented Thought Content: positive for Goal Oriented and positive for Suicidal Ideation (due to AH) Depressive Symptoms: Thoughts of /Suicide (due to AH) Judgement: Good Diagnostics Vital Signs (24Hr): Vital Signs - 24 hr 05/18/25 20:00 05/18/25 20:38 05/19/25 07:57 Temperature 98.4 F 97.5 F Pulse Rate 94 72 75 Respiratory Rate 16 16 Blood Pressure 130/74 128/68 132/78 Pulse Oximetry 96 97 Oxygen Delivery Method Room Air Room Air BMI result Body Mass Index 32.0 Imaging Radiology Impressions: ITS Impressions Elbow X-Ray 05/11/25 13:05 IMPRESSION: No acute osseous findings Electronically signed by: Isidoro Hill MD 05/11/2025 02:21 PM EDT RP Medications Medications Current Medications Acetaminophen (Acetaminophen 325 Mg Tablet) 650 mg PO Q6H PRN PRN Reason: Fever Last Admin: 05/18/25 06:56 Dose: 650 mg Al Hydroxide/Mg Hydroxide (Magnesium Hydrox/Alum Hydrox 30 Ml Oral.Susp) 30 ml PO Q6H PRN PRN Reason: Heartburn/Nausea Apixaban (Apixaban 5 Mg Tablet) 5 mg PO BID [facility] Last Admin: 05/19/25 08:49 Dose: 5 mg Aripiprazole (Aripiprazole 10 Mg Tablet) 10 mg PO DAILY [facility] Last Admin: 05/19/25 08:49 Dose: 10 mg Aripiprazole (Aripiprazole 15 Mg Tablet) 15 mg PO BEDTIME [facility] Last Admin: 05/18/25 20:38 Dose: 15 mg Benzocaine (Benzocaine 20 % Oral Gel 14 Gm Tube) 1 appl MUCOUS MEM QID PRN; Protocol PRN Reason: mouth pain Benztropine Mesylate (Benztropine Mesylate 1 Mg Tablet) 1 mg PO BID [facility] Last Admin: 05/19/25 08:49 Dose: 1 mg Buprenorphine/Naloxone (Buprenorphine/Naloxone 4/1 Mg Film) 1 film SUBLINGUAL QID PRN PRN Reason: severe pain Last Admin: 05/19/25 03:57 Dose: 1 film Clonazepam (Clonazepam 1 Mg Tablet) 1 mg PO BEDTIME PRN PRN Reason: poor sleep, anxiety Last Admin: 05/18/25 20:37 Dose: 1 mg Clonazepam (Clonazepam 1 Mg Tablet) 1 mg PO BID PRN PRN Reason: anxiety Last Admin: 05/19/25 08:50 Dose: 1 mg Duloxetine HCl (Duloxetine Hcl 20 Mg Capsule.Dr) 20 mg PO DAILY [facility] Last Admin: 05/19/25 08:49 Dose: 20 mg Guanfacine HCl (Guanfacine Hcl Er 1 Mg Tab.Er.24h) 1 mg PO DAILY [facility] Last Admin: 05/19/25 08:50 Dose: 1 mg Hydroxyzine HCl (Hydroxyzine Hcl 25 Mg Tablet) 25 mg PO Q6H PRN PRN Reason: mild anxiety Last Admin: 05/18/25 03:28 Dose: 25 mg Levetiracetam (Levetiracetam 1,000 Mg Tablet) 2,000 mg PO BID [facility] Last Admin: 05/19/25 08:49 Dose: 2,000 mg Lidocaine (Lidocaine 4 % Patch Adh..Patch) 1 patch TRANSDERMA DAILY [facility]; Protocol Last Admin: 05/19/25 08:45 Dose: 1 patch Lurasidone HCl (Lurasidone Hcl 40 Mg Tablet) 40 mg PO DAILY [facility] Last Admin: 05/19/25 08:49 Dose: 40 mg Magnesium Hydroxide (Milk Of Magnesia 30 Ml Oral.Susp) 30 ml PO DAILY PRN PRN Reason: Constipation Nicotine Polacrilex (Nicotine Polacrilex 2 Mg Gum) 4 mg BUCCAL Q2H PRN PRN Reason: Nicotine Cravings Last Admin: 05/19/25 11:52 Dose: 4 mg Ondansetron HCl (Ondansetron Odt 4 Mg Tab.Rapdis) 4 mg TRANSLINGU Q4H PRN PRN Reason: Nausea and Vomiting Last Admin: 05/07/25 08:40 Dose: 4 mg Oxycodone HCl (Oxycodone Hcl Immed Release 5 Mg Tablet) 5 mg PO Q12H PRN PRN Reason: leg pain- DVT Stop: 05/20/25 07:00 Last Admin: 05/19/25 11:23 Dose: 5 mg Oxycodone HCl (Oxycodone Hcl Immed Release 5 Mg Tablet) 2.5 mg PO BID PRN PRN Reason: DVT pain R Leg Stop: 05/21/25 07:00 Oxycodone HCl (Oxycodone Hcl Immed Release 5 Mg Tablet) 2.5 mg PO DAILY PRN PRN Reason: Pain R Leg from DVT Stop: 05/22/25 07:00 Pramipexole Dihydrochloride (Pramipexole Di-Hcl 1 Mg Tablet) 3 mg PO BEDTIME [facility] Last Admin: 05/18/25 20:38 Dose: 3 mg Pregabalin (Pregabalin 100 Mg Capsule) 300 mg PO BID [facility] Last Admin: 05/19/25 08:50 Dose: 300 mg Propranolol HCl (Propranolol Hcl 20 Mg Tablet) 20 mg PO BID [facility]; Protocol Last Admin: 05/19/25 08:49 Dose: 20 mg Sumatriptan Succinate (Sumatriptan Succinate 25 Mg Tablet) 25 mg PO Q6H PRN PRN Reason: migraine Thiamine HCl (Thiamine Hcl 100 Mg Tablet) 100 mg PO DAILY [facility] Last Admin: 05/19/25 08:50 Dose: 100 mg Trazodone HCl (Trazodone Hcl 50 Mg Tablet) 50 mg PO BEDTIME MRX1 PRN PRN Reason: Insomnia Zolpidem Tartrate (Zolpidem Tartrate 5 Mg Tablet) 5 mg PO BEDTIME PRN PRN Reason: Insomnia Last Admin: 05/14/25 20:29 Dose: 5 mg Allergies Allergies Allergy/AdvReac Type Severity Reaction Status Date / Time amoxicillin Allergy Severe Anaphylaxis Verified 04/06/25 21:24 levofloxacin Allergy Severe Hives Verified 04/06/25 21:24 metoclopramide Allergy Severe dystonia Verified 04/06/25 21:24 Penicillins Allergy Severe Anaphylaxis Verified 04/06/25 21:24 codeine Allergy Unknown gi symptoms Verified 04/06/25 21:24 morphine AdvReac Severe chest Verified 04/06/25 21:24 tightness quetiapine (From Seroquel) AdvReac Intermediate restless Verified 05/09/25 12:00 leg symptoms prochlorperazine AdvReac Unknown gi sx Verified 04/06/25 21:24 Assessment & Plan Assessment & Plan (1) Bipolar disorder: Status: Acute Code(s): F31.9 - Bipolar disorder, unspecified (2) PTSD (post-traumatic stress disorder): Status: Acute Code(s): F43.10 - Post-traumatic stress disorder, unspecified (3) Cannabis use disorder: Status: Acute Code(s): F12.90 - Cannabis use, unspecified, uncomplicated (4) Cocaine use disorder: Status: Acute Code(s): F14.10 - Cocaine abuse, uncomplicated Plan 34-year-old male with past medical history of bipolar disorder, mood disorder, substance use disorders, conduct disorder, asthma, chronic low back pain with sciatica, hypertension, seizures, 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 Lidoderm patch for pain, and Tylenol Refer to outpatient PT if persistent. Hypertension Not on medications, continue to monitor Blood pressure is stable Low back pain with sciatic Tylenol as needed, can use capsaicin or Lidoderm patches. Seizure disorder Continue Keppra Follow Keppra levels as needed Reports last seizure 2 weeks ago Has an aura that he sees black spots and feels lightheaded prior to seizure activity Thank you for allowing me to participate in the care of this patient. Will follow with you, please notify medical provider with any changes in condition or concerns. 05/12: Continue tx Increase Suboxone to QID,Q6h prn pain mgt. 05/13: Will give oxycodone low dose for two days and reassess. Otherwise continue current management and treatment plan. 05/14: continue current management and treatment plan. 05/16: contine tx 05/17: On 05/18, increase Abilify to 10 mg a.m. 15 mg h.s. TEDS/Elevation per hospitalist for R Leg/Foot DVT resolution. 05/18: Continue tx Preparing for discharge Oxy tapering, On 05/20 2.5 mg bid. On 05/21 2.5 mg daily, then discontinue. 05/19: Increase Abilify to 15 mg bid Haldol prn trial for AH Increase Ambien to 10 mg HS Continue TEDS and encouraged ongoing leg elevation Reason for continued inpatient stay Substantial Risk for: rapid decompensation Time Spent With Patient Time: Total time managing care of this patient today ____ minutes.
[2025-05-19 20:00] VITALS: BP 138/76; PULSE 81; RESP 16; TEMP 36.6; O2SAT 100
[2025-05-20] MEDS: Buprenorphine/Naloxone 4/1 mg FILM 1 FILM SUBLINGUAL ×3 (02:21→18:40)
[2025-05-20] MEDS: oxyCODONE HCl Immed Release 5 MG TABLET PO (06:00)
[2025-05-20 08:00] VITALS: BP 122/71; PULSE 95; RESP 18; TEMP 35.7; O2SAT 98
[2025-05-20] MEDS: guanFACINE HCl ER 1 MG TAB.ER.24H PO (08:48)
--- NOTE | 2025-05-20 09:46 | P.PNPSI_ITS ---
Subjective Subjective Date of Service: 05/20/25 Reason For Visit: unspecified mood disorder Interim History: Patient reports feeling OK today. Social. Visible on the unit. Eating well. Slept OK. Denying SI. Denies AVH today. Tolerating medication changes. Hasn't used Haldol PRN. Less focused on pain. Review of Systems Review of Systems Decrease in DVT pain Mental Status Exam Mental Status Exam Narrative: Pt is alert and oriented; behavior is cooperative, friendly on approach; calm; patient is not in distress; dressed in casual attire with unkempt hair but adequate hygiene; mood is described as better though affect somewhat blunted; eye contact appropriate; Speech is a little slowed but normal volume and prosody and not pressured; no psychomotor agitation/retardation present; thought process is organized and goal directed; Thought content is on tx; still struggling with SI but less so; no HI; no paranoid ideations expressed. Denies AVH and there is no evidence of perceptual disturbance. Patients insight and judgment improved Patient Appearance: Appropriate Patient Orientation: Person, Place, Time and Situation Level of Consciousness: Alert Patient Behavior: Talkative and Good Eye Contact Mood Description: Appropriate Affect Description: Appropriate Patient Cognition Impaired: No Ability to Follow Directions: Good Speech Pattern: Spontaneous Speech Memory Description: Episodic Impaired Diagnostics Vital Signs (24Hr): Vital Signs - 24 hr 05/19/25 20:00 05/20/25 08:00 Temperature 98 F 96.3 F L Pulse Rate 81 95 Respiratory Rate 16 18 Blood Pressure 138/76 122/71 Pulse Oximetry 100 98 Oxygen Delivery Method Room Air Room Air BMI result Body Mass Index 32.0 Imaging Radiology Impressions: ITS Impressions Elbow X-Ray 05/11/25 13:05 IMPRESSION: No acute osseous findings Electronically signed by: Isidoro Hill MD 05/11/2025 02:21 PM EDT RP Medications Medications Current Medications Acetaminophen (Acetaminophen 325 Mg Tablet) 650 mg PO Q6H PRN PRN Reason: Fever Last Admin: 05/18/25 06:56 Dose: 650 mg Al Hydroxide/Mg Hydroxide (Magnesium Hydrox/Alum Hydrox 30 Ml Oral.Susp) 30 ml PO Q6H PRN PRN Reason: Heartburn/Nausea Apixaban (Apixaban 5 Mg Tablet) 5 mg PO BID [facility] Last Admin: 05/20/25 08:51 Dose: 5 mg Aripiprazole (Aripiprazole 15 Mg Tablet) 15 mg PO BID [facility] Last Admin: 05/20/25 08:51 Dose: 15 mg Benzocaine (Benzocaine 20 % Oral Gel 14 Gm Tube) 1 appl MUCOUS MEM QID PRN; Protocol PRN Reason: mouth pain Benztropine Mesylate (Benztropine Mesylate 1 Mg Tablet) 1 mg PO BID [facility] Last Admin: 05/20/25 08:51 Dose: 1 mg Buprenorphine/Naloxone (Buprenorphine/Naloxone 4/1 Mg Film) 1 film SUBLINGUAL QID PRN PRN Reason: severe pain Last Admin: 05/20/25 02:21 Dose: 1 film Clonazepam (Clonazepam 1 Mg Tablet) 1 mg PO BEDTIME PRN PRN Reason: poor sleep, anxiety Last Admin: 05/19/25 20:26 Dose: 1 mg Clonazepam (Clonazepam 1 Mg Tablet) 1 mg PO BID PRN PRN Reason: anxiety Last Admin: 05/20/25 05:57 Dose: 1 mg Duloxetine HCl (Duloxetine Hcl 20 Mg Capsule.Dr) 20 mg PO DAILY [facility] Last Admin: 05/20/25 08:50 Dose: 20 mg Guanfacine HCl (Guanfacine Hcl Er 1 Mg Tab.Er.24h) 1 mg PO DAILY [facility] Last Admin: 05/20/25 08:48 Dose: 1 mg Haloperidol (Haloperidol 5 Mg Tablet) 5 mg PO TID PRN PRN Reason: voices, sx of psychosis Hydroxyzine HCl (Hydroxyzine Hcl 25 Mg Tablet) 25 mg PO Q6H PRN PRN Reason: mild anxiety Last Admin: 05/20/25 06:00 Dose: 25 mg Levetiracetam (Levetiracetam 1,000 Mg Tablet) 2,000 mg PO BID [facility] Last Admin: 05/20/25 08:49 Dose: 2,000 mg Lidocaine (Lidocaine 4 % Patch Adh..Patch) 1 patch TRANSDERMA DAILY [facility]; Protocol Last Admin: 05/20/25 09:32 Dose: Not Given Lurasidone HCl (Lurasidone Hcl 40 Mg Tablet) 40 mg PO DAILY [facility] Last Admin: 05/20/25 08:50 Dose: 40 mg Magnesium Hydroxide (Milk Of Magnesia 30 Ml Oral.Susp) 30 ml PO DAILY PRN PRN Reason: Constipation Nicotine Polacrilex (Nicotine Polacrilex 2 Mg Gum) 4 mg BUCCAL Q2H PRN PRN Reason: Nicotine Cravings Last Admin: 05/20/25 08:48 Dose: 4 mg Ondansetron HCl (Ondansetron Odt 4 Mg Tab.Rapdis) 4 mg TRANSLINGU Q4H PRN PRN Reason: Nausea and Vomiting Last Admin: 05/07/25 08:40 Dose: 4 mg Oxycodone HCl (Oxycodone Hcl Immed Release 5 Mg Tablet) 2.5 mg PO BID PRN PRN Reason: DVT pain R Leg Stop: 05/21/25 07:00 Oxycodone HCl (Oxycodone Hcl Immed Release 5 Mg Tablet) 2.5 mg PO DAILY PRN PRN Reason: Pain R Leg from DVT Stop: 05/22/25 07:00 Pramipexole Dihydrochloride (Pramipexole Di-Hcl 1 Mg Tablet) 3 mg PO BEDTIME [facility] Last Admin: 05/19/25 20:12 Dose: 3 mg Pregabalin (Pregabalin 100 Mg Capsule) 300 mg PO BID [facility] Last Admin: 05/20/25 08:49 Dose: 300 mg Propranolol HCl (Propranolol Hcl 20 Mg Tablet) 20 mg PO BID [facility]; Protocol Last Admin: 05/20/25 08:51 Dose: 20 mg Sumatriptan Succinate (Sumatriptan Succinate 25 Mg Tablet) 25 mg PO Q6H PRN PRN Reason: migraine Thiamine HCl (Thiamine Hcl 100 Mg Tablet) 100 mg PO DAILY [facility] Last Admin: 05/20/25 08:51 Dose: 100 mg Trazodone HCl (Trazodone Hcl 50 Mg Tablet) 50 mg PO BEDTIME MRX1 PRN PRN Reason: Insomnia Zolpidem Tartrate (Zolpidem Tartrate 5 Mg Tablet) 10 mg PO BEDTIME PRN PRN Reason: Insomnia Last Admin: 05/19/25 20:13 Dose: 10 mg Allergies Allergies Allergy/AdvReac Type Severity Reaction Status Date / Time amoxicillin Allergy Severe Anaphylaxis Verified 04/06/25 21:24 levofloxacin Allergy Severe Hives Verified 04/06/25 21:24 metoclopramide Allergy Severe dystonia Verified 04/06/25 21:24 Penicillins Allergy Severe Anaphylaxis Verified 04/06/25 21:24 codeine Allergy Unknown gi symptoms Verified 04/06/25 21:24 morphine AdvReac Severe chest Verified 04/06/25 21:24 tightness quetiapine (From Seroquel) AdvReac Intermediate restless Verified 05/09/25 12:00 leg symptoms prochlorperazine AdvReac Unknown gi sx Verified 04/06/25 21:24 Assessment & Plan Assessment & Plan (1) Bipolar disorder: Status: Acute Code(s): F31.9 - Bipolar disorder, unspecified (2) PTSD (post-traumatic stress disorder): Status: Acute Code(s): F43.10 - Post-traumatic stress disorder, unspecified (3) Cannabis use disorder: Status: Acute Code(s): F12.90 - Cannabis use, unspecified, uncomplicated (4) Cocaine use disorder: Status: Acute Code(s): F14.10 - Cocaine abuse, uncomplicated Plan 34-year-old male with past medical history of bipolar disorder, mood disorder, substance use disorders, conduct disorder, asthma, chronic low back pain with sciatica, hypertension, seizures, 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 Lidoderm patch for pain, and Tylenol Refer to outpatient PT if persistent. Hypertension Not on medications, continue to monitor Blood pressure is stable Low back pain with sciatic Tylenol as needed, can use capsaicin or Lidoderm patches. Seizure disorder Continue Keppra Follow Keppra levels as needed Reports last seizure 2 weeks ago Has an aura that he sees black spots and feels lightheaded prior to seizure activity Thank you for allowing me to participate in the care of this patient. Will follow with you, please notify medical provider with any changes in condition or concerns. 05/12: Continue tx Increase Suboxone to QID,Q6h prn pain mgt. 05/13: Will give oxycodone low dose for two days and reassess. Otherwise continue current management and treatment plan. 05/14: continue current management and treatment plan. 05/16: contine tx 05/17: On 05/18, increase Abilify to 10 mg a.m. 15 mg h.s. TEDS/Elevation per hospitalist for R Leg/Foot DVT resolution. 05/18: Continue tx Preparing for discharge Oxy tapering, On 05/20 2.5 mg bid. On 05/21 2.5 mg daily, then discontinue. 05/19: Increase Abilify to 15 mg bid Haldol prn trial for AH Increase Ambien to 10 mg HS Continue TEDS and encouraged ongoing leg elevation 05/20: continue current management and treatment plan. Reason for continued inpatient stay Substantial Risk for: harm to self, inability to function, rapid decompensation and med/psych decompensation Time Spent With Patient Time: Total time managing care of this patient today ____ minutes.
[2025-05-20 20:00] VITALS: BP 134/78; PULSE 99; RESP 15; TEMP 35.8; O2SAT 95
[2025-05-20] MEDS: oxyCODONE HCl Immed Release 5 MG TABLET 2.5 MG PO (20:24)
[2025-05-21] MEDS: oxyCODONE HCl Immed Release 5 MG TABLET 2.5 MG PO (03:04)
[2025-05-21] MEDS: Buprenorphine/Naloxone 4/1 mg FILM 1 FILM SUBLINGUAL ×3 (06:14→22:01)
[2025-05-21 08:00] VITALS: BP 107/58; PULSE 85; RESP 18; TEMP 36.8; O2SAT 93
[2025-05-21] MEDS: guanFACINE HCl ER 1 MG TAB.ER.24H PO (08:18)
[2025-05-21] MEDS: Lidocaine 4 % Patch ADH..PATCH 1 PATCH TRANSDERMA (08:51)
--- NOTE | 2025-05-21 09:34 | P.PNPSI_ITS ---
Subjective Subjective Date of Service: 05/21/25 Reason For Visit: unspecified mood disorder Interim History: Patient reports feeling anxious about discharge plan tomorrow because he doesn't know if he is going to go to a [facility] or respite and doesn't know where. He says he wants to go to [place] because that's where he is from. He is adherent to medications and feels they help. Social. Visible on the unit. Eating well. Slept OK. Denying SI. Denies AVH today. Review of Systems Review of Systems Decrease in DVT pain Mental Status Exam Mental Status Exam Narrative: Pt is alert and oriented; behavior is cooperative, friendly on approach; calm; patient is not in distress; dressed in casual attire with unkempt hair but adequate hygiene; mood is described as better though affect somewhat blunted; eye contact appropriate; Speech is a little slowed but normal volume and prosody and not pressured; no psychomotor agitation/retardation present; thought process is organized and goal directed; Thought content is on tx; still struggling with SI but less so; no HI; no paranoid ideations expressed. Denies AVH and there is no evidence of perceptual disturbance. Patients insight and judgment improved Patient Appearance: Appropriate Patient Orientation: Person, Place, Time and Situation Level of Consciousness: Alert Patient Behavior: Talkative and Good Eye Contact Mood Description: Appropriate Affect Description: Appropriate Patient Cognition Impaired: No Ability to Follow Directions: Good Speech Pattern: Spontaneous Speech Memory Description: Episodic Impaired Diagnostics Vital Signs (24Hr): Vital Signs - 24 hr 05/20/25 20:00 05/21/25 08:00 Temperature 96.4 F L 98.2 F Pulse Rate 99 85 Respiratory Rate 15 18 Blood Pressure 134/78 107/58 L Pulse Oximetry 95 93 Oxygen Delivery Method Room Air BMI result Body Mass Index 32.0 Imaging Radiology Impressions: ITS Impressions Elbow X-Ray 05/11/25 13:05 IMPRESSION: No acute osseous findings Electronically signed by: Isidoro Hill MD 05/11/2025 02:21 PM EDT Medications Medications Current Medications Acetaminophen (Acetaminophen 325 Mg Tablet) 650 mg PO Q6H PRN PRN Reason: Fever Last Admin: 05/18/25 06:56 Dose: 650 mg Al Hydroxide/Mg Hydroxide (Magnesium Hydrox/Alum Hydrox 30 Ml Oral.Susp) 30 ml PO Q6H PRN PRN Reason: Heartburn/Nausea Apixaban (Apixaban 5 Mg Tablet) 5 mg PO BID [facility] Last Admin: 05/21/25 08:18 Dose: 5 mg Aripiprazole (Aripiprazole 15 Mg Tablet) 15 mg PO BID [facility] Last Admin: 05/21/25 08:16 Dose: 15 mg Benzocaine (Benzocaine 20 % Oral Gel 14 Gm Tube) 1 appl MUCOUS MEM QID PRN; Protocol PRN Reason: mouth pain Benztropine Mesylate (Benztropine Mesylate 1 Mg Tablet) 1 mg PO BID [facility] Last Admin: 05/21/25 08:18 Dose: 1 mg Buprenorphine/Naloxone (Buprenorphine/Naloxone 4/1 Mg Film) 1 film SUBLINGUAL QID PRN PRN Reason: severe pain Last Admin: 05/21/25 06:14 Dose: 1 film Clonazepam (Clonazepam 1 Mg Tablet) 1 mg PO BEDTIME PRN PRN Reason: poor sleep, anxiety Last Admin: 05/20/25 20:25 Dose: 1 mg Clonazepam (Clonazepam 1 Mg Tablet) 1 mg PO BID PRN PRN Reason: anxiety Last Admin: 05/21/25 00:34 Dose: 1 mg Duloxetine HCl (Duloxetine Hcl 20 Mg Capsule.Dr) 20 mg PO DAILY [facility] Last Admin: 05/21/25 08:18 Dose: 20 mg Guanfacine HCl (Guanfacine Hcl Er 1 Mg Tab.Er.24h) 1 mg PO DAILY [facility] Last Admin: 05/21/25 08:18 Dose: 1 mg Haloperidol (Haloperidol 5 Mg Tablet) 5 mg PO TID PRN PRN Reason: voices, sx of psychosis Hydroxyzine HCl (Hydroxyzine Hcl 25 Mg Tablet) 25 mg PO Q6H PRN PRN Reason: mild anxiety Last Admin: 05/21/25 08:16 Dose: 25 mg Levetiracetam (Levetiracetam 1,000 Mg Tablet) 2,000 mg PO BID [facility] Last Admin: 05/21/25 08:19 Dose: 2,000 mg Lidocaine (Lidocaine 4 % Patch Adh..Patch) 1 patch TRANSDERMA DAILY [facility]; Protocol Last Admin: 05/21/25 08:51 Dose: 1 patch Lurasidone HCl (Lurasidone Hcl 40 Mg Tablet) 40 mg PO DAILY [facility] Last Admin: 05/21/25 08:16 Dose: 40 mg Magnesium Hydroxide (Milk Of Magnesia 30 Ml Oral.Susp) 30 ml PO DAILY PRN PRN Reason: Constipation Nicotine Polacrilex (Nicotine Polacrilex 2 Mg Gum) 4 mg BUCCAL Q2H PRN PRN Reason: Nicotine Cravings Last Admin: 05/21/25 08:16 Dose: 4 mg Ondansetron HCl (Ondansetron Odt 4 Mg Tab.Rapdis) 4 mg TRANSLINGU Q4H PRN PRN Reason: Nausea and Vomiting Last Admin: 05/07/25 08:40 Dose: 4 mg Oxycodone HCl (Oxycodone Hcl Immed Release 5 Mg Tablet) 2.5 mg PO DAILY PRN PRN Reason: Pain R Leg from DVT Stop: 05/22/25 07:00 Last Admin: 05/21/25 03:04 Dose: 2.5 mg Pramipexole Dihydrochloride (Pramipexole Di-Hcl 1 Mg Tablet) 3 mg PO BEDTIME [facility] Last Admin: 05/20/25 20:23 Dose: 3 mg Pregabalin (Pregabalin 100 Mg Capsule) 300 mg PO BID [facility] Last Admin: 05/21/25 08:17 Dose: 300 mg Propranolol HCl (Propranolol Hcl 20 Mg Tablet) 20 mg PO BID [facility]; Protocol Last Admin: 05/21/25 08:19 Dose: 20 mg Sumatriptan Succinate (Sumatriptan Succinate 25 Mg Tablet) 25 mg PO Q6H PRN PRN Reason: migraine Thiamine HCl (Thiamine Hcl 100 Mg Tablet) 100 mg PO DAILY [facility] Last Admin: 05/21/25 08:18 Dose: 100 mg Trazodone HCl (Trazodone Hcl 50 Mg Tablet) 50 mg PO BEDTIME MRX1 PRN PRN Reason: Insomnia Zolpidem Tartrate (Zolpidem Tartrate 5 Mg Tablet) 10 mg PO BEDTIME PRN PRN Reason: Insomnia Last Admin: 05/20/25 20:23 Dose: 10 mg Allergies Allergies Allergy/AdvReac Type Severity Reaction Status Date / Time amoxicillin Allergy Severe Anaphylaxis Verified 04/06/25 21:24 levofloxacin Allergy Severe Hives Verified 04/06/25 21:24 metoclopramide Allergy Severe dystonia Verified 04/06/25 21:24 Penicillins Allergy Severe Anaphylaxis Verified 04/06/25 21:24 codeine Allergy Unknown gi symptoms Verified 04/06/25 21:24 morphine AdvReac Severe chest Verified 04/06/25 21:24 tightness quetiapine (From Seroquel) AdvReac Intermediate restless Verified 05/09/25 12:00 leg symptoms prochlorperazine AdvReac Unknown gi sx Verified 04/06/25 21:24 Assessment & Plan Assessment & Plan (1) Bipolar disorder: Status: Acute Code(s): F31.9 - Bipolar disorder, unspecified (2) PTSD (post-traumatic stress disorder): Status: Acute Code(s): F43.10 - Post-traumatic stress disorder, unspecified (3) Cannabis use disorder: Status: Acute Code(s): F12.90 - Cannabis use, unspecified, uncomplicated (4) Cocaine use disorder: Status: Acute Code(s): F14.10 - Cocaine abuse, uncomplicated Plan 34-year-old male with past medical history of bipolar disorder, mood disorder, substance use disorders, conduct disorder, asthma, chronic low back pain with sciatica, hypertension, seizures, 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 Lidoderm patch for pain, and Tylenol Refer to outpatient PT if persistent. Hypertension Not on medications, continue to monitor Blood pressure is stable Low back pain with sciatic Tylenol as needed, can use capsaicin or Lidoderm patches. Seizure disorder Continue Keppra Follow Keppra levels as needed Reports last seizure 2 weeks ago Has an aura that he sees black spots and feels lightheaded prior to seizure activity Thank you for allowing me to participate in the care of this patient. Will follow with you, please notify medical provider with any changes in condition or concerns. 05/12: Continue tx Increase Suboxone to QID,Q6h prn pain mgt. 05/13: Will give oxycodone low dose for two days and reassess. Otherwise continue current management and treatment plan. 05/14: continue current management and treatment plan. 05/16: contine tx 05/17: On 05/18, increase Abilify to 10 mg a.m. 15 mg h.s. TEDS/Elevation per hospitalist for R Leg/Foot DVT resolution. 05/18: Continue tx Preparing for discharge Oxy tapering, On 05/20 2.5 mg bid. On 05/21 2.5 mg daily, then discontinue. 05/19: Increase Abilify to 15 mg bid Haldol prn trial for AH Increase Ambien to 10 mg HS Continue TEDS and encouraged ongoing leg elevation 05/20: continue current management and treatment plan. 05/21: continue current management and treatment plan.n Reason for continued inpatient stay Substantial Risk for: harm to self, inability to function, rapid decompensation and med/psych decompensation Time Spent With Patient Time: Total time managing care of this patient today ____ minutes.
[2025-05-21 20:00] VITALS: BP 134/75; PULSE 116; RESP 15; TEMP 36.7; O2SAT 96
[2025-05-22] MEDS: oxyCODONE HCl Immed Release 5 MG TABLET 2.5 MG PO (04:41)
[2025-05-22 07:46] VITALS: BP 125/72; PULSE 97; RESP 15; TEMP 36.8; O2SAT 95
[2025-05-22] MEDS: Lidocaine 4 % Patch ADH..PATCH 1 PATCH TRANSDERMA (09:18)
[2025-05-22] MEDS: guanFACINE HCl ER 1 MG TAB.ER.24H PO (09:18)
[2025-05-22] MEDS: Buprenorphine/Naloxone 4/1 mg FILM 1 FILM SUBLINGUAL ×2 (09:33→18:39)
--- NOTE | 2025-05-22 09:43 | P.PNPSI_ITS ---
Subjective Subjective Date of Service: 05/22/25 Reason For Visit: unspecified mood disorder Subjective Notes: Conditional Voluntary Healthcare Proxy: No Guardianship: No Medical Problems Affecting Mental Status: No Interim History: I don't feel ready to leave. I have some dates coming up that are difficult, my mother's birthday in 06/30. Discussed pt's lack of participation in milieu during his stay- and how milieu work can be helpful. Discussed pt considering application for IOP/PHP when settled and attempting to process grief/loss in group and obtain feedback from others to facilitate healing and manage bipolar disorder. Currently pt reports no treatment goals were he to remain in hospital- I think it would be good to be here for the first anniversary of the times I am not with her. I don't need group to do this. Discussed purpose of ongoing hospital care vs OP/IOP/PHP. Pt scheduled to DC 05/23. Meds sent per his request to [facility]. Medication Compliance: Yes Side effects from medications: No Attending Groups: No Review of Systems Acute medical concerns: No Medical Review of Systems: unchanged Review of Systems Review of Systems Denies Mental Status Exam Mental Status Exam Patient Appearance: Appropriate Patient Orientation: Person, Place, Time and Situation Level of Consciousness: Alert Patient Behavior: Talkative and Good Eye Contact Mood Description: Appropriate Affect Description: Appropriate Patient Cognition Impaired: No Ability to Follow Directions: Good Speech Pattern: Spontaneous Speech Memory Description: Episodic Impaired Hallucinations: Auditory (at times, Abilify to increase this evening.) Delusions: Not Present Thought Process: Goal Oriented Thought Content: positive for Goal Oriented and positive for Suicidal Ideation (passive, no plan, no intent) Depressive Symptoms: Thoughts of /Suicide (passive) Judgement: Good Diagnostics Vital Signs (24Hr): Vital Signs - 24 hr 05/21/25 20:00 05/22/25 07:46 Temperature 98.1 F 98.2 F Pulse Rate 116 H 97 Respiratory Rate 15 15 Blood Pressure 134/75 125/72 Pulse Oximetry 96 95 Oxygen Delivery Method Room Air BMI result Body Mass Index 32.0 Imaging Radiology Impressions: ITS Impressions Elbow X-Ray 05/11/25 13:05 IMPRESSION: No acute osseous findings Electronically signed by: Isidoro Hill MD 05/11/2025 02:21 PM EDT Medications Medications Current Medications Acetaminophen (Acetaminophen 325 Mg Tablet) 650 mg PO Q6H PRN PRN Reason: Fever Last Admin: 05/22/25 07:22 Dose: 650 mg Al Hydroxide/Mg Hydroxide (Magnesium Hydrox/Alum Hydrox 30 Ml Oral.Susp) 30 ml PO Q6H PRN PRN Reason: Heartburn/Nausea Apixaban (Apixaban 5 Mg Tablet) 5 mg PO BID [facility] Last Admin: 05/22/25 09:18 Dose: 5 mg Aripiprazole (Aripiprazole 15 Mg Tablet) 15 mg PO BID [facility] Last Admin: 05/22/25 09:18 Dose: 15 mg Benzocaine (Benzocaine 20 % Oral Gel 14 Gm Tube) 1 appl MUCOUS MEM QID PRN; Protocol PRN Reason: mouth pain Benztropine Mesylate (Benztropine Mesylate 1 Mg Tablet) 1 mg PO BID [facility] Last Admin: 05/22/25 09:18 Dose: 1 mg Buprenorphine/Naloxone (Buprenorphine/Naloxone 4/1 Mg Film) 1 film SUBLINGUAL QID PRN PRN Reason: severe pain Last Admin: 05/22/25 09:33 Dose: 1 film Clonazepam (Clonazepam 1 Mg Tablet) 1 mg PO BEDTIME PRN PRN Reason: poor sleep, anxiety Last Admin: 05/21/25 20:26 Dose: 1 mg Clonazepam (Clonazepam 1 Mg Tablet) 1 mg PO BID PRN PRN Reason: anxiety Last Admin: 05/22/25 02:46 Dose: 1 mg Duloxetine HCl (Duloxetine Hcl 20 Mg Capsule.Dr) 20 mg PO DAILY [facility] Last Admin: 05/22/25 09:18 Dose: 20 mg Guanfacine HCl (Guanfacine Hcl Er 1 Mg Tab.Er.24h) 1 mg PO DAILY [facility] Last Admin: 05/22/25 09:18 Dose: 1 mg Haloperidol (Haloperidol 5 Mg Tablet) 5 mg PO TID PRN PRN Reason: voices, sx of psychosis Hydroxyzine HCl (Hydroxyzine Hcl 25 Mg Tablet) 25 mg PO Q6H PRN PRN Reason: mild anxiety Last Admin: 05/21/25 08:16 Dose: 25 mg Levetiracetam (Levetiracetam 1,000 Mg Tablet) 2,000 mg PO BID [facility] Last Admin: 05/22/25 09:18 Dose: 2,000 mg Lidocaine (Lidocaine 4 % Patch Adh..Patch) 1 patch TRANSDERMA DAILY [facility]; Protocol Last Admin: 05/22/25 09:18 Dose: 1 patch Lurasidone HCl (Lurasidone Hcl 40 Mg Tablet) 40 mg PO DAILY [facility] Last Admin: 05/22/25 09:18 Dose: 40 mg Magnesium Hydroxide (Milk Of Magnesia 30 Ml Oral.Susp) 30 ml PO DAILY PRN PRN Reason: Constipation Nicotine Polacrilex (Nicotine Polacrilex 2 Mg Gum) 4 mg BUCCAL Q2H PRN PRN Reason: Nicotine Cravings Last Admin: 05/22/25 09:18 Dose: 4 mg Ondansetron HCl (Ondansetron Odt 4 Mg Tab.Rapdis) 4 mg TRANSLINGU Q4H PRN PRN Reason: Nausea and Vomiting Last Admin: 05/07/25 08:40 Dose: 4 mg Pramipexole Dihydrochloride (Pramipexole Di-Hcl 1 Mg Tablet) 3 mg PO BEDTIME [facility] Last Admin: 05/21/25 20:26 Dose: 3 mg Pregabalin (Pregabalin 100 Mg Capsule) 300 mg PO BID [facility] Last Admin: 05/22/25 09:18 Dose: 300 mg Propranolol HCl (Propranolol Hcl 20 Mg Tablet) 20 mg PO BID [facility]; Protocol Last Admin: 05/22/25 09:18 Dose: 20 mg Sumatriptan Succinate (Sumatriptan Succinate 25 Mg Tablet) 25 mg PO Q6H PRN PRN Reason: migraine Thiamine HCl (Thiamine Hcl 100 Mg Tablet) 100 mg PO DAILY [facility] Last Admin: 05/22/25 09:18 Dose: 100 mg Trazodone HCl (Trazodone Hcl 50 Mg Tablet) 50 mg PO BEDTIME MRX1 PRN PRN Reason: Insomnia Zolpidem Tartrate (Zolpidem Tartrate 5 Mg Tablet) 10 mg PO BEDTIME PRN PRN Reason: Insomnia Last Admin: 05/21/25 20:26 Dose: 10 mg Allergies Allergies Allergy/AdvReac Type Severity Reaction Status Date / Time amoxicillin Allergy Severe Anaphylaxis Verified 04/06/25 21:24 levofloxacin Allergy Severe Hives Verified 04/06/25 21:24 metoclopramide Allergy Severe dystonia Verified 04/06/25 21:24 Penicillins Allergy Severe Anaphylaxis Verified 04/06/25 21:24 codeine Allergy Unknown gi symptoms Verified 04/06/25 21:24 morphine AdvReac Severe chest Verified 04/06/25 21:24 tightness quetiapine (From Seroquel) AdvReac Intermediate restless Verified 05/09/25 12:00 leg symptoms prochlorperazine AdvReac Unknown gi sx Verified 04/06/25 21:24 Assessment & Plan Assessment & Plan (1) Bipolar disorder: Status: Acute Code(s): F31.9 - Bipolar disorder, unspecified (2) PTSD (post-traumatic stress disorder): Status: Acute Code(s): F43.10 - Post-traumatic stress disorder, unspecified (3) Cannabis use disorder: Status: Acute Code(s): F12.90 - Cannabis use, unspecified, uncomplicated (4) Cocaine use disorder: Status: Acute Code(s): F14.10 - Cocaine abuse, uncomplicated Plan 34-year-old male with past medical history of bipolar disorder, mood disorder, substance use disorders, conduct disorder, asthma, chronic low back pain with sciatica, hypertension, seizures, 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 Lidoderm patch for pain, and Tylenol Refer to outpatient PT if persistent. Hypertension Not on medications, continue to monitor Blood pressure is stable Low back pain with sciatic Tylenol as needed, can use capsaicin or Lidoderm patches. Seizure disorder Continue Keppra Follow Keppra levels as needed Reports last seizure 2 weeks ago Has an aura that he sees black spots and feels lightheaded prior to seizure activity Thank you for allowing me to participate in the care of this patient. Will follow with you, please notify medical provider with any changes in condition or concerns. 05/12: Continue tx Increase Suboxone to QID,Q6h prn pain mgt. 05/13: Will give oxycodone low dose for two days and reassess. Otherwise continue current management and treatment plan. 05/14: continue current management and treatment plan. 05/16: contine tx 05/17: On 05/18, increase Abilify to 10 mg a.m. 15 mg h.s. TEDS/Elevation per hospitalist for R Leg/Foot DVT resolution. 05/18: Continue tx Preparing for discharge Oxy tapering, On 05/20 2.5 mg bid. On 05/21 2.5 mg daily, then discontinue. 05/19: Increase Abilify to 15 mg bid Haldol prn trial for AH Increase Ambien to 10 mg HS Continue TEDS and encouraged ongoing leg elevation 05/20: continue current management and treatment plan. 05/21: continue current management and treatment plan 05/22: DC 05/23. Reason for continued inpatient stay Substantial Risk for: stable for discharge Time Spent With Patient Time: Total time managing care of this patient today ____ minutes.
[2025-05-22 19:48] VITALS: BP 126/73; PULSE 100; RESP 18; TEMP 37.3; O2SAT 94
--- NOTE | 2025-05-23 08:56 | PM.PSYDC ---
DS: Providers Provider Date of admission: 05/04/25 21:04 Primary care physician: Unknown Physician Consults: 05/11/25 09:56 Consult to Hospitalist Routine Comment: complains we are not addressing this issue or pain Consulting [place] [facility] Reason For Exam: R arm pain-unable to sleep DS: Diagnosis Discharge Diagnosis (1) Bipolar disorder: Status: Acute (2) PTSD (post-traumatic stress disorder): Status: Acute (3) Cannabis use disorder: Status: Acute (4) Cocaine use disorder: Status: Acute DS: Medications Discharge Medications Home Medications: Previous Rx's ?Medication ?Instructions ?Recorded sumatriptan succinate 25 mg tablet 25 mg PO Q6H PRN Migraine Headache 04/12/25 #10 tabs acetaminophen 325 mg tablet 650 mg (2 x 325 mg) PO Q6H PRN 05/22/25 Fever #0 tabs apixaban 5 mg tablet (Eliquis) 5 mg PO BID #60 tabs 05/22/25 aripiprazole 15 mg tablet (Abilify) 15 mg PO BID #60 tabs 05/22/25 benztropine 1 mg tablet 1 mg PO BID #60 tabs 05/22/25 buprenorphine 4 mg-naloxone 1 mg 1 film sublingual QID PRN severe 05/22/25 sublingual film (Suboxone) pain #4 ea clonazepam 1 mg tablet 1 mg PO BEDTIME PRN poor sleep, 05/22/25 anxiety #14 tabs duloxetine 20 mg capsule,delayed 20 mg PO DAILY #30 caps 05/22/25 release escitalopram oxalate 5 mg tablet 15 mg (3 x 5 mg) PO DAILY #90 tabs 05/22/25 (Lexapro) guanfacine 1 mg tablet,extended 1 mg PO DAILY #30 tabs 05/22/25 release 24 hr levetiracetam 1,000 mg tablet 2,000 mg (2 x 1,000 mg) PO BID 05/22/25 (Keppra) #120 tabs lidocaine 4 % topical patch 1 patch transdermal DAILY #14 ea 05/22/25 (Lidocaine Pain Relief) lurasidone 40 mg tablet (Latuda) 40 mg PO DAILY #30 tabs 05/22/25 naloxone 4 mg/actuation nasal 4 mg intranasal Q2M PRN opioid 05/22/25 spray (Narcan) overdose #2 ea nicotine (polacrilex) 2 mg gum 4 mg buccal Q2H PRN Nicotine 05/22/25 Cravings #200 ea pramipexole 1 mg tablet 3 mg (3 x 1 mg) PO BEDTIME #30 tabs 05/22/25 pregabalin 100 mg capsule (Lyrica) 300 mg (3 x 100 mg) PO BID #18 caps 05/22/25 propranolol 20 mg tablet 20 mg PO BID #60 tabs 05/22/25 thiamine mononitrate (vit B1) 100 100 mg PO DAILY #30 tabs 05/22/25 mg tablet zolpidem 5 mg tablet 5 mg PO BEDTIME PRN Insomnia #7 05/22/25 tabs Data Imaging Diagnostic Imaging Impressions Elbow X-Ray 05/11/25 13:05 IMPRESSION: No acute osseous findings Electronically signed by: Isidoro Hill MD 05/11/2025 02:21 PM EDT RP DS: Summary Time Spent with Patient Time attestation: Total time managing care of this patient today ____ minutes. Discharge Plan Discharge Anticipated Discharge Date/Time: 05/23/25 11:00 Patient Disposition: Residential Discharge Diagnosis: PTSD Bipolar Disorder Cocaine Use Disorder Cannabis Use Disorder R Leg DVT History of PE R Elbow Pain HTN Referrals: Physician,Unknown J [Primary Care Provider, Medical] - 1 Week Discharge Medications: New acetaminophen 325 mg Tablet 650 mg PO Q6H PRN (Reason: Fever) Qty: 0 0RF nicotine (polacrilex) 2 mg Gum 4 mg buccal Q2H PRN (Reason: Nicotine Cravings) Qty: 200 0RF clonazepam 1 mg Tablet 1 mg PO BEDTIME PRN (Reason: poor sleep, anxiety) Qty: 14 0RF benztropine 1 mg Tablet 1 mg PO BID Qty: 60 0RF duloxetine 20 mg Capsule,Delayed Release(Dr/Ec) 20 mg PO DAILY Qty: 30 0RF guanfacine 1 mg Tablet Extended Release 24 Hr 1 mg PO DAILY Qty: 30 0RF buprenorphine-naloxone [Suboxone] 4-1 mg Film 1 film sublingual QID PRN (Reason: severe pain) Qty: 4 0RF Eliquis 5 mg Tablet 5 mg PO BID Qty: 60 0RF lidocaine [Lidocaine Pain Relief] 4 % Adhesive Patch,Medicated 1 patch transdermal DAILY Qty: 14 0RF Protocol: Apply to: Apply to: Right elbow thiamine mononitrate (vit B1) 100 mg Tablet 100 mg PO DAILY Qty: 30 0RF naloxone [Narcan] 4 mg/actuation spray,non-aerosol 4 mg intranasal Q2M PRN (Reason: opioid overdose) Qty: 2 0RF Rx Instructions: spray 1 dose into ONE nostril; alternate nostrils w each dose until help arrives Continued sumatriptan succinate 25 mg Tablet 25 mg PO Q6H PRN (Reason: Migraine Headache) Qty: 10 0RF pramipexole 1 mg Tablet 3 mg PO BEDTIME Qty: 30 0RF zolpidem 5 mg Tablet 5 mg PO BEDTIME PRN (Reason: Insomnia) Qty: 7 0RF propranolol 20 mg Tablet 20 mg PO BID Qty: 60 0RF Protocol: Hold for SBP/HR < HOLD for SBP < : 90 HOLD for HR < : 60 aripiprazole [Abilify] 15 mg tablet 15 mg PO BID Qty: 60 0RF escitalopram oxalate [Lexapro] 5 mg tablet 15 mg PO DAILY Qty: 90 0RF pregabalin [Lyrica] 100 mg Capsule 300 mg PO BID Qty: 18 0RF levetiracetam [Keppra] 1,000 mg tablet 2,000 mg PO BID Qty: 120 0RF lurasidone [Latuda] 40 mg Tablet 40 mg PO DAILY Qty: 30 0RF Discontinued buprenorphine-naloxone [Suboxone] 4-1 mg Film 1 film sublingual TID Qty: 42 0RF hydroxyzine HCl 50 mg Tablet 50 mg PO Q4H PRN (Reason: mild anxiety) Qty: 90 0RF thiamine mononitrate (vit B1) 100 mg Tablet 100 mg PO DAILY Qty: 30 0RF clonazepam 2 mg tablet 2 mg PO BID PRN (Reason: anxiety) Qty: 28 0RF Discharge Orders: Discharge Order (Routine); Ordered 05/23/25 Ordered By: Navya Neal Diet: Advance to usual diet Activity on Discharge: As tolerated Stand Alone Forms: Patient Portal Discharge page Print Language: Uzbek Care Plan Goals: Mood and Behavioral Stabilization Abstinence from Substances Health Concerns: Mood and Behavioral Stabilization Abstinence from Substances Plan of Treatment: Attend scheduled appointments Take medications as directed
[2025-05-23] MEDS: guanFACINE HCl ER 1 MG TAB.ER.24H PO (09:03)
[2025-05-23 09:06] VITALS: BP 132/83; PULSE 76; RESP 16; TEMP 36.4; O2SAT 93
[2025-05-23] MEDS: Lidocaine 4 % Patch ADH..PATCH 1 PATCH TRANSDERMA (09:46)
[2025-05-23] MEDS: Buprenorphine/Naloxone 4/1 mg FILM 1 FILM SUBLINGUAL (11:05)
== END 2025-05-23 11:45 | disposition home or self-care (01) | DRG 753 ==
PROVIDERS: Admitting Provider Psychiatry & Neurology Psychiatry; Visit Provider Clinical Nurse Specialist Psychiatric/Mental Health, Adult
DX: F31.9 Bipolar disorder, unspecified (principal); I82.411 Acute embolism and thrombosis of right femoral vein; I82.451 Acute embolism and thrombosis of right peroneal vein; R45.851 Suicidal ideations; G40.909 Epilepsy, unspecified, not intractable, without status epilepticus; F11.20 Opioid dependence, uncomplicated; F14.10 Cocaine abuse, uncomplicated; F17.210 Nicotine dependence, cigarettes, uncomplicated; M25.521 Pain in right elbow; I10 Essential (primary) hypertension; M54.40 Lumbago with sciatica, unspecified side; Z71.6 Tobacco abuse counseling; Z86.711 Personal history of pulmonary embolism; Z79.01 Long term (current) use of anticoagulants; Z79.899 Other long term (current) drug therapy
CPT/HCPCS: 36415; 73080; 80061; 82607; 82746; 83036; 83735; 84439; 84443; 85379; 85610; 93971

== ENCOUNTER 2025-05-04 21:04 | Outpatient (BNV) | payer MEDICAID, SELFPAY | END 2025-05-12 17:17 | PROVIDERS: Admitting Provider Psychiatry & Neurology Psychiatry; Visit Provider Radiology Diagnostic Radiology | DX: M79.601 Pain in right arm (principal); Z86.718 Personal history of other venous thrombosis and embolism | CPT/HCPCS: 93971 ==

== ENCOUNTER → 2025-05-04 21:04 | Outpatient (BNV) | payer OTHER, SELFPAY | PROVIDERS: Admitting Provider Psychiatry & Neurology Psychiatry; Visit Provider Psychiatry & Neurology Psychiatry | DX: F31.4 Bipolar disorder, current episode depressed, severe, without psychotic features (principal); F14.10 Cocaine abuse, uncomplicated; F12.90 Cannabis use, unspecified, uncomplicated; F43.11 Post-traumatic stress disorder, acute | CPT/HCPCS: 99232 ==

== ENCOUNTER → 2025-05-04 21:04 | Outpatient (BNV) | payer MEDICAID, SELFPAY | PROVIDERS: Admitting Provider Psychiatry & Neurology Psychiatry; Visit Provider Nurse Practitioner Family | DX: Z00.8 Encounter for other general examination (principal) | CPT/HCPCS: 99499 ==